=== PATIENT | female | born 1945 | race Caucasian/White ===

== ENCOUNTER 2016-06-28 10:35 | Outpatient (CLI) | payer MEDICARE, OTHER | END 2016-06-28 10:36 | disposition home or self-care (01) | DX: E11.65 Type 2 diabetes mellitus with hyperglycemia (principal) ==

== ENCOUNTER 2016-10-11 06:04 | Day surgery (SDC) | payer MEDICARE, OTHER ==
[2016-10-11] MEDS ORDERED: LACTATED RINGERS 1,000 ML IV ONE (06:54)
[2016-10-11] MEDS ORDERED: fentaNYL 100 MCG/2 ML VIAL IVP ONE (07:30)
[2016-10-11] MEDS ORDERED: MIDAZOLAM 2 MG/2 ML VIAL IVP ONE (07:30)
== END 2016-10-11 06:05 | disposition home or self-care (01) ==
PROC: 0DBL8ZX Excision of Transverse Colon, Via Natural or Artificial Opening Endoscopic, Diagnostic (ICD-10-PCS; 2016-10-11)
PROC: 0DBK8ZX Excision of Ascending Colon, Via Natural or Artificial Opening Endoscopic, Diagnostic (ICD-10-PCS; principal; 2016-10-11 07:30)
DX: Z12.11 Encounter for screening for malignant neoplasm of colon (principal); D12.3 Benign neoplasm of transverse colon; K64.4 Residual hemorrhoidal skin tags; K64.8 Other hemorrhoids; E11.9 Type 2 diabetes mellitus without complications; I10 Essential (primary) hypertension; J45.909 Unspecified asthma, uncomplicated
CPT/HCPCS: 45380; J7120

== ENCOUNTER 2016-10-29 06:51 | Outpatient (CLI) | payer MEDICARE, OTHER ==
[2016-10-29 13:48] LABS: CALCIUM 9.6 mg/dL (8.5-10.3); CREATININE 1.3 mg/dL (0.4-1.0)
[2016-10-29 14:22] LABS: HEMOGLOBIN A1C 0.98 g/dL
== END 2016-10-29 06:52 | disposition home or self-care (01) ==
LOC: LAB.WCP 06:51
PROVIDERS: ATTEND Family Medicine
DX: E11.42 Type 2 diabetes mellitus with diabetic polyneuropathy (principal)
CPT/HCPCS: 36415; 80048; 83036

== ENCOUNTER 2017-03-25 11:32 | Outpatient (CLI) | payer MEDICARE, OTHER ==
--- NOTE | 2017-03-26 19:07 | Mammography Report ---
DIGITAL SCREENING MAMMOGRAM: 03/25/2017 CLINICAL INDICATION: A 71-year-old nulliparous patient with family history of breast cancer, history of benign right breast biopsy for screening. COMPARISON: 02/2016, 02/2015, 02/2013. TECHNIQUE: Routine CC and MLO projections were obtained of the breasts. The breasts are large, and had to be imaged in segments, limiting the sensitivity of mammography. FINDINGS: The breasts again demonstrate scattered fibroglandular densities bilaterally. Postbiopsy changes in the right breast are stable. Coarse and punctate, typically benign calcifications are pre sent. No suspicious masses, clustered microcalcifications, or regions of architectural distortion ar e identified. IMPRESSION: BENIGN FINDINGS. RECOMMENDATION: Routine annual screening unless otherwise clinically indicated. BI-RADS category 2, benign findings. STANDARD QUALIFYING STATEMENTS 1. This examination was reviewed with the aid of Computer-Aided Detection (CAD). 2. A negative or benign imaging report should not delay biopsy if clinically suspicious findings are present. Consider surgical consultation if warranted. More than 5% of cancers are not identified by i maging. 3. Dense breasts may obscure an underlying neoplasm. JOB #: [id number] EXT JOB #:[id number]
== END 2017-03-25 11:33 | disposition home or self-care (01) ==
LOC: DI.N 11:32
PROVIDERS: ATTEND Family Medicine
DX: Z12.31 Encounter for screening mammogram for malignant neoplasm of breast (principal); Z80.3 Family history of malignant neoplasm of breast
CPT/HCPCS: 77067

== ENCOUNTER 2017-12-17 08:00 | Outpatient (CLI) | payer MEDICARE, OTHER ==
[2017-12-17 19:06] LABS: BASOPHILS % (AUTO) 0.4 %; EOSINOPHILS % (AUTO) 1.9 %; HGB - HEMOGLOBIN 14.4 g/dL (12.0-16.0); LYMPHOCYTES % (AUTO) 18.4 %; MEAN CORPUSCULAR HEMOGLOBIN 29.4 pg (27.0-31.0); MEAN CORPUSCULAR HGB CONC 33.3 g/dL (32.0-36.0); MEAN CORPUSCULAR VOLUME 88.2 fL (81.0-99.0); MONOCYTES % (AUTO) 7.6 %; NEUTROPHILS % (AUTO) 71.7 %; PLT - PLATELET COUNT 210 10^3/uL (130-450); RED CELL DISTRIBUTION WIDTH 15.4 % (12.0-15.0)
[2017-12-17 19:13] LABS: ABNORMAL LYMPHS % (MANUAL) 0 %; BAND NEUTROPHILS % (MANUAL) 0 %
[2017-12-17 19:29] LABS: DIFFERENTIAL COMMENT MANUAL DIFFERENTIAL; EOSINOPHILS # (MANUAL) 0.2 10^3/uL (0-0.7); HB2 TOTAL 15.5 g/dL; HEMOGLOBIN A1C 1.26 g/dL; HEMOGLOBIN A1C % 9.6 % (4.6-6.2); LYMPHOCYTES # (MANUAL) 1.6 10^3/uL (1.5-3.5); LYMPHOCYTES % (MANUAL) 20 %; MONOCYTES # (MANUAL) 0.2 10^3/uL (0.0-1.0); NEUTROPHILS % (MANUAL) 75 %; PLATELET ESTIMATE, MANUAL NORMAL (130-450,000) (NORMAL); PLATELET MORPHOLOGY NORMAL APPEARANCE (NORMAL); RBC MORPHOLOGY (MULTIPLE) 1+ ANISOCYTOSIS (NORMAL)
[2017-12-17 19:44] LABS: ALBUMIN 3.9 g/dL (3.2-5.5); ALKALINE PHOSPHATASE 95 IU/L (42-121); ALT ALANINE AMINOTRANSFERASE 26 IU/L (10-60); AST ASPARTATE AMINOTRANSFERASE 30 IU/L (10-42); BILIRUBIN,TOTAL 0.8 mg/dL (0.2-1.0); BUN - BLOOD UREA NITROGEN 25 mg/dL (6-20); CALCIUM 9.3 mg/dL (8.5-10.3); CARBON DIOXIDE - CO2 24 mmol/L (21-32); CHLORIDE 102 mmol/L (101-111); CHOL/HDL RATIO 3.4 (<4.4); CHOLESTEROL 155 mg/dL; CREATININE 1.5 mg/dL (0.4-1.0); GFR - MDRD 34 (>89); GLUCOSE 272 mg/dL (70-100); HDL CHOLESTEROL 46 mg/dL; LDL CHOLESTEROL,CALCULATED 70 mg/dL; LDL/HDL RATIO 1.5 (<4.4); SODIUM 136 mmol/L (135-145); TOTAL PROTEIN 7.7 g/dL (6.7-8.2); VLDL CHOLESTEROL 39 mg/dL
== END 2017-12-17 08:01 | disposition home or self-care (01) ==
LOC: LAB.WCP 08:00
PROVIDERS: ATTEND Family Medicine
DX: E11.42 Type 2 diabetes mellitus with diabetic polyneuropathy (principal)
CPT/HCPCS: 36415; 80053; 80061; 82043; 83036; 83721; 84443; 85025

== ENCOUNTER 2018-03-27 13:30 | Outpatient (CLI) | payer MEDICARE, OTHER ==
--- NOTE | 2018-03-28 09:40 | Mammography Report ---
Reason: SCREENING MAMMO Procedure Date: 03/27/2018 Accession Number: [id number] / [id number] Procedure: MGN - Screening Mammo Dig Bilat CPT Code: FULL RESULT: EXAM: Screening Mammo Dig Bilat DATE: 03/27/2018 2:02 PM CLINICAL HISTORY: Routine screening. Mother and sister with breast cancer. TECHNIQUE: Bilateral CC and MLO views were obtained. COMPARISON: 03/25/2017, 02/23/2016, 02/18/2015, and 03/04/2013 FINDINGS: There are scattered fibroglandular densities. Numerous scattered benign-appearing calcifications are stable. No suspicious masses or clustered microcalcifications. On the left there are 2 areas of asymmetric increased density seen best on the MLO projection which have been previously present but appear more apparent today. Suggest additional evaluation by spot compression and true lateral projections with possible ultrasound. IMPRESSION: Benign findings right breast. Needs additional evaluation left breast. RECOMMENDATION: Spot compression and true lateral views left breast. Possible ultrasound. BIRADS CATEGORY 0: Needs additional evaluation left breast. STANDARD QUALIFYING STATEMENTS: 1. This examination was reviewed with the aid of Computer-Aided Detection (CAD). 2. A negative or benign imaging report should not delay biopsy if clinically suspicious findings are present. Consider surgical consultation if warrented. More than 5% of cancers are not identified by imaging. 3. Dense breasts may obscure an underlying neoplasm.
== END 2018-03-27 13:31 | disposition home or self-care (01) ==
LOC: DI.N 13:30
DX: Z12.31 Encounter for screening mammogram for malignant neoplasm of breast (principal); Z80.3 Family history of malignant neoplasm of breast
CPT/HCPCS: 77067

== ENCOUNTER 2018-04-17 13:43 | Outpatient (CLI) | payer MEDICARE, OTHER ==
--- NOTE | 2018-04-18 11:46 | Mammography Report ---
Reason: ABN MAMMO - LT SPEC VIEWS Procedure Date: 04/17/2018 Accession Number: [id number] / [id number] Procedure: LENA - Diag Special Views Dig LT CPT Code: FULL RESULT: EXAM: Diag Special Views Dig LT DATE: 04/17/2018 4:09 PM CLINICAL HISTORY: Recall from recent screening for possible increasing asymmetry upper outer left breast. TECHNIQUE: Bilateral CC and MLO views were obtained. COMPARISON: 03/27/2018 through 03/04/2013 FINDINGS: Left breast: There is stable appearance of 2 one view asymmetries seen on MLO projections in the upper outer breast. Both areas appear to compress into normal appearing glandular elements on CC projections, and long-term stability is consistent with benign findings. There are no suspicious masses, calcifications or areas of distortion. IMPRESSION: Benign findings RECOMMENDATION: Routine annual screening unless otherwise clinically indicated. BI-RADS CATEGORY 2: Benign findings STANDARD QUALIFYING STATEMENTS: 1. This examination was not reviewed with the aid of Computer-Aided Detection (CAD). 2. A negative or benign imaging report should not preclude biopsy if clinically suspicious findings are present. 3. Dense breasts may obscure an underlying neoplasm. 4. This examination was reviewed without the aid of 3D breast imaging (tomosynthesis).
== END 2018-04-17 13:44 | disposition home or self-care (01) ==
LOC: DI 13:43
PROVIDERS: ATTEND Family Medicine
DX: R92.8 Other abnormal and inconclusive findings on diagnostic imaging of breast (principal)

== ENCOUNTER 2018-05-05 08:00 | Outpatient (CLI) | payer MEDICARE, OTHER ==
[2018-05-05 19:15] LABS: ALBUMIN/GLOBULIN RATIO 1.1 (1.0-2.2); ALKALINE PHOSPHATASE 77 IU/L (42-121); ALT ALANINE AMINOTRANSFERASE 20 IU/L (10-60); AST ASPARTATE AMINOTRANSFERASE 32 IU/L (10-42); BILIRUBIN,TOTAL 1.3 mg/dL (0.2-1.0); BUN - BLOOD UREA NITROGEN 19 mg/dL (6-20); CALCIUM 9.1 mg/dL (8.5-10.3); CARBON DIOXIDE - CO2 23 mmol/L (21-32); CHLORIDE 102 mmol/L (101-111); CHOL/HDL RATIO 3.7 (<4.4); CHOLESTEROL 174 mg/dL; CREATININE 1.3 mg/dL (0.4-1.0); GFR - MDRD 40 (>89); GLUCOSE 243 mg/dL (70-100); HDL CHOLESTEROL 47 mg/dL; LDL CHOLESTEROL,CALCULATED 84 mg/dL; LDL/HDL RATIO 1.8 (<4.4); SODIUM 134 mmol/L (135-145); TOTAL PROTEIN 7.7 g/dL (6.7-8.2); VLDL CHOLESTEROL 43 mg/dL
[2018-05-05 19:34] LABS: HB2 TOTAL 15.3 g/dL; HEMOGLOBIN A1C 1.24 g/dL; HEMOGLOBIN A1C % 9.6 % (4.6-6.2)
== END 2018-05-05 08:01 | disposition home or self-care (01) ==
LOC: LAB.WCP 08:00
PROVIDERS: ATTEND Family Medicine
DX: E11.9 Type 2 diabetes mellitus without complications (principal)
CPT/HCPCS: 36415; 80053; 80061; 83036; 83721

== ENCOUNTER 2018-08-22 08:00 | Outpatient (CLI) | payer MEDICARE, OTHER ==
[2018-08-22 19:59] LABS: HB2 TOTAL 15.4 g/dL; HEMOGLOBIN A1C 1.13 g/dL; HEMOGLOBIN A1C % 8.9 % (4.6-6.2)
[2018-08-22 20:30] LABS: ALBUMIN 4.1 g/dL (3.2-5.5); ALBUMIN/GLOBULIN RATIO 1.2 (1.0-2.2); ALKALINE PHOSPHATASE 66 IU/L (42-121); ALT ALANINE AMINOTRANSFERASE 41 IU/L (10-60); AST ASPARTATE AMINOTRANSFERASE 43 IU/L (10-42); BILIRUBIN,TOTAL 0.9 mg/dL (0.2-1.0); BUN - BLOOD UREA NITROGEN 14 mg/dL (6-20); CALCIUM 9.2 mg/dL (8.5-10.3); CARBON DIOXIDE - CO2 22 mmol/L (21-32); CHLORIDE 106 mmol/L (101-111); CHOLESTEROL 153 mg/dL; CREATININE 1.2 mg/dL (0.4-1.0); GFR - MDRD 44 (>89); GLUCOSE 271 mg/dL (70-100); HDL CHOLESTEROL 51 mg/dL; LDL CHOLESTEROL,CALCULATED 63 mg/dL; LDL/HDL RATIO 1.2 (<4.4); SODIUM 138 mmol/L (135-145); TOTAL PROTEIN 7.4 g/dL (6.7-8.2); VLDL CHOLESTEROL 39 mg/dL
[2018-08-25 13:31] LABS: HEPATITIS C ANTIBODY NON-REACTIVE (NON-REACTIVE)
== END 2018-08-22 23:59 | disposition home or self-care (01) ==
LOC: LAB.WCP 08:00
PROVIDERS: ATTEND Family Medicine
DX: E11.42 Type 2 diabetes mellitus with diabetic polyneuropathy (principal); Z11.59 Encounter for screening for other viral diseases
CPT/HCPCS: 36415; 80053; 80061; 83036; 83721; 86803

== ENCOUNTER 2019-02-25 08:00 | Outpatient (CLI) | payer MEDICARE, OTHER ==
[2019-02-25 18:32] LABS: CREATININE 1.3 mg/dL (0.4-1.0)
[2019-02-25 18:38] LABS: HB2 TOTAL 14.6 g/dL; HEMOGLOBIN A1C 0.92 g/dL; HEMOGLOBIN A1C % 7.9 % (4.6-6.2)
== END 2019-02-25 23:59 | disposition home or self-care (01) ==
LOC: LAB.WCP 08:00
PROVIDERS: ATTEND Family Medicine
DX: E11.65 Type 2 diabetes mellitus with hyperglycemia (principal); E11.8 Type 2 diabetes mellitus with unspecified complications
CPT/HCPCS: 36415; 80048; 83036

== ENCOUNTER 2019-12-23 15:30 | Outpatient (CLI) | payer MEDICARE, OTHER ==
[2019-12-23 18:51] LABS: BASOPHILS % (AUTO) 0.7 %; EOSINOPHILS # (AUTO) 0.1 10^3/uL (0.0-0.7); EOSINOPHILS % (AUTO) 1.3 %; HGB - HEMOGLOBIN 12.8 g/dL (12.0-16.0); LYMPHOCYTES % (AUTO) 16.4 %; MEAN CORPUSCULAR HEMOGLOBIN 30.8 pg (27.0-31.0); MEAN CORPUSCULAR HGB CONC 32.7 g/dL (32.0-36.0); MEAN PLATELET VOLUME 10.3 fL (7.9-10.8); MONOCYTES # (AUTO) 0.4 10^3/uL (0.0-1.0); MONOCYTES % (AUTO) 7.2 %; NEUTROPHILS # (AUTO) 4.6 10^3/uL (1.5-6.6); NEUTROPHILS % (AUTO) 73.9 %; PLT - PLATELET COUNT 198 10^3/uL (130-450); RED BLOOD COUNT 4.16 10^6/uL (4.20-5.40); RED CELL DISTRIBUTION WIDTH 13.2 % (12.0-15.0); WHITE BLOOD COUNT 6.2 x10^3/uL (4.8-10.8)
[2019-12-23 19:10] LABS: ALBUMIN/GLOBULIN RATIO 1.1 (1.0-2.2); ALKALINE PHOSPHATASE 61 IU/L (42-121); ALT ALANINE AMINOTRANSFERASE 25 IU/L (10-60); AST ASPARTATE AMINOTRANSFERASE 29 IU/L (10-42); BILIRUBIN,TOTAL 0.7 mg/dL (0.2-1.0); BUN - BLOOD UREA NITROGEN 21 mg/dL (6-20); CALCIUM 9.1 mg/dL (8.5-10.3); CARBON DIOXIDE - CO2 21 mmol/L (21-32); CHLORIDE 109 mmol/L (101-111); CHOL/HDL RATIO 3.2 (<4.4); CHOLESTEROL 179 mg/dL; CREATININE 1.4 mg/dL (0.4-1.0); GLUCOSE 151 mg/dL (70-100); HDL CHOLESTEROL 56 mg/dL; LDL CHOLESTEROL,CALCULATED 91 mg/dL; LDL/HDL RATIO 1.6 (<4.4); SODIUM 138 mmol/L (135-145); TOTAL PROTEIN 7.5 g/dL (6.7-8.2); VLDL CHOLESTEROL 32 mg/dL
[2019-12-23 19:50] LABS: HB2 TOTAL 13.9 g/dL; HEMOGLOBIN A1C 0.81 g/dL; HEMOGLOBIN A1C % 7.5 % (4.6-6.2)
== END 2019-12-23 23:59 | disposition home or self-care (01) ==
LOC: LAB.WCP 15:30
PROVIDERS: ATTEND Family Medicine
DX: E11.65 Type 2 diabetes mellitus with hyperglycemia (principal)
CPT/HCPCS: 36415; 80053; 80061; 82043; 82570; 83036; 83721; 84443; 85025

== ENCOUNTER 2020-01-22 12:59 | Outpatient (CLI) | payer MEDICARE, OTHER | END 2020-01-22 13:00 | disposition home or self-care (01) | LOC: DI 12:59 | PROVIDERS: ATTEND Family Medicine | DX: R01.1 Cardiac murmur, unspecified (principal); I51.7 Cardiomegaly | CPT/HCPCS: 93306 ==

== ENCOUNTER 2020-05-10 15:43 | Outpatient (CLI) | payer MEDICARE, OTHER ==
--- NOTE | 2020-05-11 05:43 | Mammography Report ---
BILATERAL DIGITAL SCREENING MAMMOGRAM 3D/2D: 05/10/2020 CLINICAL: Family history of breast cancer. Routine screening. Comparison is made to exams dated: 04/23/2019 mammogram, 04/17/2018 mammogram, 03/27/2018 mammogram, 03/25/2017 mammogram, 02/23/2016 mammogram, and 02/18/2015 mammogram - [facility]. T he tissue of both breasts is predominantly fatty. There are benign diffuse calcifications in both breasts. There also are benign vascular calcificatio ns in both breasts. No significant masses, calcifications, or other findings are seen in either breast. There has been no significant interval change. IMPRESSION: BENIGN There is no mammographic evidence of malignancy. A 1 year screening mammogram is recommended. This exam was interpreted at Station ID: [id number]. NOTE: For mammograms, a report in lay terms will be sent to the patient. Approximately 15% of breast malignancies will not be visualized mammographically. In the management of a palpable breast mass, a negative mammogram must not discourage biopsy of a clinically suspicious lesion. Electronically Signed By: Florentino Castro acr/penrad:05/10/2020 17:33:21 ACR BI-RADS Category 2: Benign Finding(s) 3342F PARENCHYMAL PATTERN: (F) - The breast(s) demonstrate(s) diffuse fatty replacement. BI-RADS CATEGORY: (2) - 2 RECOMMENDATION: (ANNUAL) - Recommend routine annual screening mammography. [id number] 1 year screening LATERALITY: (B)
== END 2020-05-10 15:44 | disposition home or self-care (01) ==
LOC: DI.N 15:43
DX: Z12.31 Encounter for screening mammogram for malignant neoplasm of breast (principal)

== ENCOUNTER 2020-06-30 13:58 | Outpatient (CLI) | payer MEDICARE, OTHER ==
--- NOTE | 2020-06-30 17:19 | XRAY Report ---
PROCEDURE: Foot 2 View RT INDICATIONS: RIGHT FOOT PAIN TECHNIQUE: 2 views of the foot were acquired. COMPARISON: None FINDINGS: Bones: There is a nondisplaced fracture at the base of the first proximal phalanx extending to the ar ticular surface. No suspicious bony lesions. Scattered IP degenerative changes are present. Soft tissues: No tibiotalar joint effusion. Achilles tendon appears normal. IMPRESSION: Nondisplaced, intra-articular first proximal phalanx fracture. Reviewed by: Brie Dickinson MD on 06/30/2020 5:18 PM [facility] Approved by: Brie Dickinson MD on 06/30/2020 5:18 PM [facility] Station ID: [id number]
--- NOTE | 2020-06-30 17:20 | XRAY Report ---
PROCEDURE: Ankle 3 View RT INDICATIONS: RIGHT ANKLE PAIN TECHNIQUE: 3 views of the ankle were acquired. COMPARISON: X-ray foot 06/30/2020 FINDINGS: Bones: First proximal phalanx fracture is noted. Ankle mortise is normally aligned. No suspicious araseli ny lesions. Soft tissues: No tibiotalar joint effusion. Achilles tendon appears normal. IMPRESSION: First proximal phalanx fracture, that are identified on x-ray foot of 06/30/2020. Reviewed by: Brie Dickinson MD on 06/30/2020 5:18 PM PST Approved by: Brie Dickinson MD on 06/30/2020 5:18 PM PST Station ID: [id number]
[2020-06-30 18:46] LABS: BASOPHILS % (AUTO) 0.6 %; EOSINOPHILS # (AUTO) 0.1 10^3/uL (0.0-0.7); EOSINOPHILS % (AUTO) 1.2 %; HGB - HEMOGLOBIN 13.7 g/dL (12.0-16.0); LYMPHOCYTES # (AUTO) 0.7 10^3/uL (1.5-3.5); LYMPHOCYTES % (AUTO) 10.8 %; MEAN CORPUSCULAR HEMOGLOBIN 30.2 pg (27.0-31.0); MEAN CORPUSCULAR HGB CONC 32.8 g/dL (32.0-36.0); MEAN CORPUSCULAR VOLUME 92.3 fL (81.0-99.0); MEAN PLATELET VOLUME 10.5 fL (7.9-10.8); MONOCYTES # (AUTO) 0.4 10^3/uL (0.0-1.0); MONOCYTES % (AUTO) 6.4 %; NEUTROPHILS # (AUTO) 5.6 10^3/uL (1.5-6.6); NEUTROPHILS % (AUTO) 80.7 %; PLT - PLATELET COUNT 228 10^3/uL (130-450); RED BLOOD COUNT 4.53 10^6/uL (4.20-5.40); RED CELL DISTRIBUTION WIDTH 13.2 % (12.0-15.0); WHITE BLOOD COUNT 6.9 x10^3/uL (4.8-10.8)
[2020-06-30 19:15] LABS: ALBUMIN 4.1 g/dL (3.2-5.5); ALBUMIN/GLOBULIN RATIO 1.2 (1.0-2.2); ALKALINE PHOSPHATASE 72 IU/L (42-121); ALT ALANINE AMINOTRANSFERASE 23 IU/L (10-60); AST ASPARTATE AMINOTRANSFERASE 30 IU/L (10-42); BILIRUBIN,TOTAL 0.9 mg/dL (0.2-1.0); BUN - BLOOD UREA NITROGEN 17 mg/dL (6-20); CALCIUM 9.5 mg/dL (8.5-10.3); CARBON DIOXIDE - CO2 22 mmol/L (21-32); CHLORIDE 102 mmol/L (101-111); CHOL/HDL RATIO 3.6 (<4.4); CHOLESTEROL 145 mg/dL; CREATININE 1.2 mg/dL (0.4-1.0); GLUCOSE 214 mg/dL (70-100); HDL CHOLESTEROL 40 mg/dL; LDL CHOLESTEROL,CALCULATED 71 mg/dL; LDL/HDL RATIO 1.8 (<4.4); TOTAL PROTEIN 7.4 g/dL (6.7-8.2); VLDL CHOLESTEROL 34 mg/dL
[2020-06-30 19:24] LABS: CREATININE,URINE 156.7 mg/dL; MICROALBUM/CREATININE RATIO,UR 38.9 ug/mg (<30.0); MICROALBUMIN,URINE 6.1 mg/dL (0-300.0)
[2020-06-30 20:53] LABS: HEMOGLOBIN A1c% 8.3 % (4.27-6.07)
== END 2020-06-30 23:59 | disposition home or self-care (01) ==
LOC: DI.WCP 13:58
PROVIDERS: ATTEND Family Medicine
DX: S92.414A Nondisplaced fracture of proximal phalanx of right great toe, initial encounter for closed fracture (principal); M25.571 Pain in right ankle and joints of right foot; E11.9 Type 2 diabetes mellitus without complications
CPT/HCPCS: 36415; 80053; 80061; 82043; 82570; 83036; 83721; 85025

== ENCOUNTER 2021-01-15 20:30 | Outpatient (CLI) | payer MEDICARE, OTHER | END 2021-01-15 20:31 | disposition EMS.NT | LOC: EMS 20:30 | DX: Z03.89 Encounter for observation for other suspected diseases and conditions ruled out (principal) ==

== ENCOUNTER 2021-01-16 10:44 | Outpatient (CLI) | payer MEDICARE, OTHER | END 2021-01-16 10:45 | disposition critical access hospital (66) | LOC: EMS 10:44 | DX: R53.1 Weakness (principal) | CPT/HCPCS: A0425; A0429 ==

== ENCOUNTER 2021-01-16 11:18 | Inpatient (IN) | payer MEDICARE, OTHER ==
[2021-01-16] MEDS ORDERED: SODIUM CHLORIDE 0.9% 1,000 ML IV STA ×2 (11:29→13:15)
[2021-01-16] MEDS ORDERED: ACETAMINOPHEN 325 MG TABLET PO STA (11:29)
--- NOTE | 2021-01-16 11:33 | ED Physician Documentation ---
History of Present Illness - Stated complaint Stated Complaint: WEAKNESS - History obtained from History obtained from: Patient, EMS - Additonal information Additional information: Patient comes to the emergency department with chief complaint of altered mental status and generalized weakness. Medics state they were called for the patient both last night and this morning because the patient had a fall from bed. It appears that the patient was trying to get into or out of bed and fall occurred. Patient herself states she remembers the fall but when asked what happened, she very quickly becomes incoherent. Patient denies complaints otherwise however. She denies any pain. Medics report that sister did not notice any acute injuries on the patient. They do state that sister said the patient has been increasingly weak in recent months and has been having frequent falls. She is a diabetic also. Medics report patient sugar was 396 in route. She is a diabetic. No cough or shortness of breath. No nausea or vomiting. No other complaints at this time. Review of Systems Ten Systems: 10 systems reviewed and negative Constitutional: reports: Reviewed and negative Eyes: reports: Reviewed and negative Ears: reports: Reviewed and negative Nose: reports: Reviewed and negative Throat: reports: Reviewed and negative Cardiac: reports: Reviewed and negative Respiratory: reports: Reviewed and negative GI: reports: Reviewed and negative : reports: Reviewed and negative Skin: reports: Reviewed and negative Musculoskeletal: reports: Reviewed and negative Neurologic: reports: Reviewed and negative Psychiatric: reports: Reviewed and negative Endocrine: reports: Reviewed and negative Immunocompromised: reports: Reviewed and negative PD PAST MEDICAL HISTORY - Past Medical History Cardiovascular: None, Hypertension, High cholesterol, Other Respiratory: Asthma Endocrine/Autoimmune: Type 2 diabetes GI: Other : None HEENT: Other Psych: None Musculoskeletal: Osteoarthritis Derm: None - Past Surgical History General: Colonoscopy Ortho: Knee replacement, Rotator cuff repair, Shoulder arthroplasty, Carpal Tunnel surgery, Other HEENT: Cataracts - Present Medications Home Medications: Ambulatory Orders Medication Instructions Recorded Confirmed Aspirin [Adult Low Dose Aspirin EC] 81 mg PO DAILY 10/11/16 10/11/16 Atorvastatin Calcium 40 mg PO DAILY 10/11/16 10/11/16 Glimepiride 2 mg PO BID 10/11/16 10/11/16 HYDROcodone/ACET 10/325 [[place] 10 1 each PO PRN PRN 10/11/16 10/11/16 mg/325 mg] Omeprazole [PriLOSEC] 20 mg PO DAILY 10/11/16 10/11/16 Sertraline HCl 100 mg PO DAILY 10/11/16 10/11/16 - Allergies Allergies/Adverse Reactions: Allergies Allergy/AdvReac Type Severity Reaction Status Date / Time No Known Drug Allergies Allergy Verified 01/16/21 11:35 PD ED PE NORMAL - Vitals Vital signs reviewed: Yes - General General: Alert and oriented X 3 (Answers orientation questions correctly x4. ), No acute distress, Well developed/nourished - HEENT HEENT: Atraumatic, PERRL, EOMI, Moist mucous membranes - Neck Neck: Supple, no meningeal sign - Cardiac Cardiac: No murmur, Strong equal pulses, Other ( Tachycardic regular rhythm.) - Respiratory Respiratory: No respiratory distress, Clear bilaterally - Abdomen Abdomen: Soft, Non tender, Non distended - Derm Derm: Normal color, No rash, Other (Skin is dry, feels hot.) - Extremities Extremities: No deformity, No edema, No calf tenderness / cord - Neuro Neuro: Alert and oriented X 3 (Answers all 4 orientation questions correctly, including the year and the president, but when asked a question that requires more than a yes or no answer, begins to answer correctly, then becomes incoherent with occasional inappropriate words for the question, mixed with unintelligible utterances.), truck bracer 2-12 intact, No motor deficit (No focal deficits.), No sensory deficit - Psych Psych: Normal mood, Normal affect Results - Vitals Vitals: Vital Signs - 24 hr 01/16/21 01/16/21 01/16/21 11:22 12:15 13:39 Temperature 38.3 C H 38.3 C H 37.1 C Heart Rate 115 H 115 H 102 H Heart Rate [ Brachial] Respiratory 24 24 18 Rate Blood Pressure 125/82 H 125/82 H 93/74 Blood Pressure [Right Brachial artery] O2 Saturation 96 96 95 01/16/21 01/16/21 01/16/21 15:00 17:00 18:03 Temperature 36.6 C 38.9 C H 38.6 C H Heart Rate 90 90 Heart Rate [ 91 Brachial] Respiratory 16 16 20 Rate Blood Pressure 112/58 L 112/58 L Blood Pressure 146/93 H [Right Brachial artery] O2 Saturation 98 100 98 0801/16/21 01/17/21 21:00 23:46 05:00 Temperature 38.9 C H 37.2 C 38.0 C H Heart Rate Heart Rate [ 87 101 H 97 Brachial] Respiratory 24 20 24 Rate Blood Pressure Blood Pressure 113/58 L 123/53 L 119/65 [Right Brachial artery] O2 Saturation 96 94 95 01/17/21 05:47 Temperature 37.7 C Heart Rate Heart Rate [ Brachial] Respiratory Rate Blood Pressure Blood Pressure [Right Brachial artery] O2 Saturation Oxygen O2 Source Room air - Labs Labs: Microbiology 01/16/21 11:54 Blood Culture - Preliminary Blood 01/16/21 12:12 Blood Culture - Preliminary Blood 01/16/21 11:54 Blood Culture (PCR) - Final Blood Laboratory Tests 01/16/21 01/16/21 01/16/21 11:54 11:54 11:54 WBC 16.3 H RBC 4.13 L Hgb 12.9 Hct 38.1 MCV 92.3 MCH 31.2 H MCHC 33.9 RDW 13.1 Plt Count 148 MPV 9.6 Neut # (Auto) 15.2 H Lymph # (Auto) 0.2 L Mccreary # (Auto) 0.5 Eos # (Auto) 0.2 Baso # (Auto) 0.1 Absolute Nucleated RBC 0.00 Total Counted Band Neuts % (Manual) Abnorm Lymph % (Manual) Nucleated RBC % 0.0 Neutrophils # (Manual) Lymphocytes # (Manual) Monocytes # (Manual) Eosinophils # (Manual) Basophils # (Manual) Differential Comment Platelet Estimate RBC Morph Micro Appear ESR PT INR Sodium 132 L Potassium 4.3 Chloride 99 L Carbon Dioxide 21 Anion Gap 12.0 BUN 25 H Creatinine 1.7 H Estimated GFR (MDRD) 29 L Glucose 338 H Lactic Acid 2.1 Calcium 8.8 Magnesium Total Bilirubin 2.0 H AST 75 H ALT 60 Alkaline Phosphatase 73 C-Reactive Protein Total Protein 7.2 Albumin 3.6 Globulin 3.6 Albumin/Globulin Ratio 1.0 Lipase 18 L Urine Color Urine Clarity Urine pH Ur Specific [place] Urine Protein Urine Glucose (UA) Urine Ketones Urine Occult Blood Urine Nitrite Urine Bilirubin Urine Urobilinogen Ur Leukocyte Esterase Urine RBC Urine WBC Ur Squamous Epith Cells Amorphous Sediment Urine Bacteria Ur Microscopic Review Urine Culture Comments Nasal Adenovirus (PCR) Nasal B. parapertussis DNA (PCR) Nasal Coronavir 229E PCR Nasal Coronavir HKU1 PCR Nasal Coronavir NL63 PCR Nasal Coronavir OC43 PCR Nasal Enterovir/Rhinovir PCR Nasal Influenza B PCR Nasal Influenza A PCR Nasal Parainfluen 1 PCR Nasal Parainfluen 2 PCR Nasal Parainfluen 3 PCR Nasal Parainfluen 4 PCR Nasal RSV (PCR) Nasal B.pertussis DNA PCR Nasal C.pneumoniae (PCR) Manuel Human Metapneumo PCR Nasal M.pneumoniae (PCR) Nasal SARS-CoV-2 (PCR) 01/16/21 01/16/21 01/16/21 11:54 11:54 12:15 WBC RBC Hgb Hct MCV MCH MCHC RDW Plt Count MPV Neut # (Auto) Lymph # (Auto) Mccreary # (Auto) Eos # (Auto) Baso # (Auto) Absolute Nucleated RBC Total Counted Band Neuts % (Manual) Abnorm Lymph % (Manual) Nucleated RBC % Neutrophils # (Manual) Lymphocytes # (Manual) Monocytes # (Manual) Eosinophils # (Manual) Basophils # (Manual) Differential Comment Platelet Estimate RBC Morph Micro Appear ESR 34 H PT INR Sodium Potassium Chloride Carbon Dioxide Anion Gap BUN Creatinine Estimated GFR (MDRD) Glucose Lactic Acid Calcium Magnesium Total Bilirubin AST ALT Alkaline Phosphatase C-Reactive Protein 21.6 H Total Protein Albumin Globulin Albumin/Globulin Ratio Lipase Urine Color Urine Clarity Urine pH Ur Specific [place] Urine Protein Urine Glucose (UA) Urine Ketones Urine Occult Blood Urine Nitrite Urine Bilirubin Urine Urobilinogen Ur Leukocyte Esterase Urine RBC Urine WBC Ur Squamous Epith Cells Amorphous Sediment Urine Bacteria Ur Microscopic Review Urine Culture Comments Nasal Adenovirus (PCR) NOT DETECTED Nasal B. parapertussis DNA (PCR) NOT DETECTED Nasal Coronavir 229E PCR NOT DETECTED Nasal Coronavir HKU1 PCR NOT DETECTED Nasal Coronavir NL63 PCR NOT DETECTED Nasal Coronavir OC43 PCR NOT DETECTED Nasal Enterovir/Rhinovir PCR NOT DETECTED Nasal Influenza B PCR NOT DETECTED Nasal Influenza A PCR NOT DETECTED Nasal Parainfluen 1 PCR NOT DETECTED Nasal Parainfluen 2 PCR NOT DETECTED Nasal Parainfluen 3 PCR NOT DETECTED Nasal Parainfluen 4 PCR NOT DETECTED Nasal RSV (PCR) NOT DETECTED Nasal B.pertussis DNA PCR NOT DETECTED Nasal C.pneumoniae (PCR) NOT DETECTED Manuel Human Metapneumo PCR NOT DETECTED Nasal M.pneumoniae (PCR) NOT DETECTED Nasal SARS-CoV-2 (PCR) NOT DETECTED 01/16/21 01/16/21 01/17/21 14:55 16:45 04:44 WBC 12.1 H RBC 3.89 L Hgb 11.9 L Hct 36.0 L MCV 92.5 MCH 30.6 MCHC 33.1 RDW 13.4 Plt Count 116 L MPV 10.2 Neut # (Auto) Not Reportable Lymph # (Auto) Not Reportable Mccreary # (Auto) Not Reportable Eos # (Auto) Not Reportable Baso # (Auto) Not Reportable Absolute Nucleated RBC Not Reportable Total Counted 100 Band Neuts % (Manual) 14 H Abnorm Lymph % (Manual) 0 Nucleated RBC % Not Reportable Neutrophils # (Manual) 11.1 H Lymphocytes # (Manual) 0.5 L Monocytes # (Manual) 0.5 Eosinophils # (Manual) 0.0 Basophils # (Manual) 0.0 Differential Comment MANUAL DIFFERENTIAL Platelet Estimate DECREASED (<130,000) RBC Morph Micro Appear NORMAL APPEARANCE ESR PT 15.2 H INR 1.4 H Sodium Potassium Chloride Carbon Dioxide Anion Gap BUN Creatinine Estimated GFR (MDRD) Glucose Lactic Acid Calcium Magnesium Total Bilirubin AST ALT Alkaline Phosphatase C-Reactive Protein Total Protein Albumin Globulin Albumin/Globulin Ratio Lipase Urine Color YELLOW Urine Clarity HAZY Urine pH 5.0 Ur Specific [place] 1.025 Urine Protein 30 H Urine Glucose (UA) 250 H Urine Ketones NEGATIVE Urine Occult Blood MODERATE H Urine Nitrite NEGATIVE Urine Bilirubin NEGATIVE Urine Urobilinogen 0.2 (NORMAL) Ur Leukocyte Esterase NEGATIVE Urine RBC 6-10 H Urine WBC 0-3 Ur Squamous Epith Cells MANY Squamous H Amorphous Sediment Rare Urine Bacteria Rare Ur Microscopic Review INDICATED Urine Culture Comments NOT INDICATED Nasal Adenovirus (PCR) Nasal B. parapertussis DNA (PCR) Nasal Coronavir 229E PCR Nasal Coronavir HKU1 PCR Nasal Coronavir NL63 PCR Nasal Coronavir OC43 PCR Nasal Enterovir/Rhinovir PCR Nasal Influenza B PCR Nasal Influenza A PCR Nasal Parainfluen 1 PCR Nasal Parainfluen 2 PCR Nasal Parainfluen 3 PCR Nasal Parainfluen 4 PCR Nasal RSV (PCR) Nasal B.pertussis DNA PCR Nasal C.pneumoniae (PCR) Manuel Human Metapneumo PCR Nasal M.pneumoniae (PCR) Nasal SARS-CoV-2 (PCR) 01/17/21 04:44 WBC RBC Hgb Hct MCV MCH MCHC RDW Plt Count MPV Neut # (Auto) Lymph # (Auto) Mccreary # (Auto) Eos # (Auto) Baso # (Auto) Absolute Nucleated RBC Total Counted Band Neuts % (Manual) Abnorm Lymph % (Manual) Nucleated RBC % Neutrophils # (Manual) Lymphocytes # (Manual) Monocytes # (Manual) Eosinophils # (Manual) Basophils # (Manual) Differential Comment Platelet Estimate RBC Morph Micro Appear ESR PT INR Sodium 129 L Potassium 4.1 Chloride 98 L Carbon Dioxide 20 L Anion Gap 11.0 BUN 28 H Creatinine 1.7 H Estimated GFR (MDRD) 29 L Glucose 267 H Lactic Acid Calcium 7.9 L Magnesium 1.8 Total Bilirubin AST ALT Alkaline Phosphatase C-Reactive Protein Total Protein Albumin Globulin Albumin/Globulin Ratio Lipase Urine Color Urine Clarity Urine pH Ur Specific [place] Urine Protein Urine Glucose (UA) Urine Ketones Urine Occult Blood Urine Nitrite Urine Bilirubin Urine Urobilinogen Ur Leukocyte Esterase Urine RBC Urine WBC Ur Squamous Epith Cells Amorphous Sediment Urine Bacteria Ur Microscopic Review Urine Culture Comments Nasal Adenovirus (PCR) Nasal B. parapertussis DNA (PCR) Nasal Coronavir 229E PCR Nasal Coronavir HKU1 PCR Nasal Coronavir NL63 PCR Nasal Coronavir OC43 PCR Nasal Enterovir/Rhinovir PCR Nasal Influenza B PCR Nasal Influenza A PCR Nasal Parainfluen 1 PCR Nasal Parainfluen 2 PCR Nasal Parainfluen 3 PCR Nasal Parainfluen 4 PCR Nasal RSV (PCR) Nasal B.pertussis DNA PCR Nasal C.pneumoniae (PCR) Manuel Human Metapneumo PCR Nasal M.pneumoniae (PCR) Nasal SARS-CoV-2 (PCR) - Rads (name of study) CXR Radiology: Final report received, EMP read indepedently, See rad report (neg) CT head Radiology: Final report received, EMP read indepedently, See rad report (neg) CT abd/pelv Radiology: Final report received, EMP read indepedently, See rad report (nad) PD MEDICAL DECISION MAKING - ED course Complexity details: reviewed results, re-evaluated patient, considered differential, d/w patient ED course: The patient was found to be febrile, and I suspected delirium from an infectious process. She was worked up for this with labs, urinalysis, and respiratory PCR, as well as chest x-ray. CTs abd/pelvis and head were also performed. She was given IV fluids and Tylenol. Surprisingly, the pt's infectious work-up was negative, except for significant leukocytosis and an elevated CRP, and she did improve after fluids and treatment of fever. Given the fever and delirium she presented with, though, as well as her status as a diabetic, I did speak with Dr. Claros, who agreed to admit the pt to his service. Her blood cultures are still pending at this time, and she has been given prophylactic antibiotics. Departure - Departure Disposition: ED Place in Observation Clinical Impression: Delirium, Febrile illness, acute Condition: Serious Discharge Date/Time: 01/16/21 17:49
--- NOTE | 2021-01-16 11:50 | XRAY Report ---
PROCEDURE: Chest 1 View X-Ray INDICATIONS: chest pain TECHNIQUE: One view of the chest was acquired. COMPARISON: None FINDINGS: Surgical changes and devices: None. Lungs and pleura: No pleural effusions or pneumothorax. Lungs are clear. Mediastinum: Mediastinal contours appear normal. Heart size is normal. Bones and chest wall: No suspicious bony lesions. Overlying soft tissues appear unremarkable. IMPRESSION: No acute cardiopulmonary abnormality. Reviewed by: Florentino Castro on 01/16/2021 11:49 AM PDT Approved by: Florentino Castro on 01/16/2021 11:49 AM PDT Station ID: [id number]
[2021-01-16 12:08] LABS: BASOPHILS # (AUTO) 0.1 10^3/uL (0.0-0.1); BASOPHILS % (AUTO) 0.3 %; EOSINOPHILS # (AUTO) 0.2 10^3/uL (0.0-0.7); EOSINOPHILS % (AUTO) 1.2 %; HCT - HEMATOCRIT 38.1 % (37.0-47.0); HGB - HEMOGLOBIN 12.9 g/dL (12.0-16.0); LYMPHOCYTES # (AUTO) 0.2 10^3/uL (1.5-3.5); LYMPHOCYTES % (AUTO) 1.2 %; MEAN CORPUSCULAR HEMOGLOBIN 31.2 pg (27.0-31.0); MEAN CORPUSCULAR HGB CONC 33.9 g/dL (32.0-36.0); MEAN CORPUSCULAR VOLUME 92.3 fL (81.0-99.0); MEAN PLATELET VOLUME 9.6 fL (7.9-10.8); MONOCYTES # (AUTO) 0.5 10^3/uL (0.0-1.0); MONOCYTES % (AUTO) 3.3 %; NEUTROPHILS # (AUTO) 15.2 10^3/uL (1.5-6.6); NEUTROPHILS % (AUTO) 93.1 %; PLT - PLATELET COUNT 148 10^3/uL (130-450); RED BLOOD COUNT 4.13 10^6/uL (4.20-5.40); RED CELL DISTRIBUTION WIDTH 13.1 % (12.0-15.0); WHITE BLOOD COUNT 16.3 x10^3/uL (4.8-10.8)
[2021-01-16 12:16] LABS: ALBUMIN 3.6 g/dL (3.2-5.5); CALCIUM 8.8 mg/dL (8.5-10.3); CREATININE 1.7 mg/dL (0.4-1.0); POTASSIUM 4.3 mmol/L (3.5-5.0); TOTAL PROTEIN 7.2 g/dL (6.7-8.2)
[2021-01-16 13:17] LABS: B. PARAPERTUSSIS- RESP PCR PAN NOT DETECTED; B. PERTUSSIS- RESP PCR PANEL NOT DETECTED; C. PNEUMONIAE- RESP PCR PANEL NOT DETECTED; CORONAVIRUS 229E-RESP PCR NOT DETECTED; CORONAVIRUS HKU1-RESP PCR NOT DETECTED; CORONAVIRUS NL63-RESP PCR NOT DETECTED; CORONAVIRUS OC43-RESP PCR NOT DETECTED; HUMAN METAPNEUMOVIRUS NOT DETECTED; INFLUENZA A- RESP PCR PANEL NOT DETECTED; INFLUENZA B - RESP PCR PANEL NOT DETECTED; M. PNEUMONIAE- RESP PCR PANEL NOT DETECTED; PARAINFLUENZA VIRUS 1 NOT DETECTED; PARAINFLUENZA VIRUS 2 NOT DETECTED; PARAINFLUENZA VIRUS 3 NOT DETECTED; PARAINFLUENZA VIRUS 4 NOT DETECTED; RHINOVIRUS/ENTEROVIRUS NOT DETECTED; RSV- RESP PCR PANEL NOT DETECTED; SARS-CoV-2 -RESP PCR PANEL NOT DETECTED
[2021-01-16 15:00] LABS: BILIRUBIN,URINE NEGATIVE (NEGATIVE); GLUCOSE, URINE (UA) 250 mg/dL (NEGATIVE); KETONES,URINE (UA) NEGATIVE (NEGATIVE); LEUKOCYTE ESTERASE, URINE NEGATIVE (NEGATIVE); NITRITE,URINE NEGATIVE (NEGATIVE); OCCULT BLOOD,URINE MODERATE (NEGATIVE); PROTEIN,URINE 30 mg/dL (NEGATIVE); UROBILINOGEN,URINE 0.2 (NORMAL) E.U./dL (NORMAL)
[2021-01-16 15:17] LABS: CLARITY,URINE HAZY (CLEAR)
[2021-01-16 15:32] LABS: SQUAMOUS EPITHELIAL CELL,UR MANY Squamous (<= Few); WBC,URINE 0-3 /HPF (0-5)
[2021-01-16 15:33] LABS: AMORPHOUS SEDIMENT,UR Rare /LPF; BACTERIA,URINE Rare /HPF (None Seen)
--- NOTE | 2021-01-16 15:47 | CT Report ---
PROCEDURE: Abdomen/Pelvis WO INDICATIONS: abd pain/fever TECHNIQUE: Noncontrast 5 mm thick sections acquired from the diaphragms to the symphysis. 5 mm coronal and sagi ttal reformats were then performed. For radiation dose reduction, the following was used: automated exposure control, adjustment of mA and/or kV according to patient size. COMPARISON: None. FINDINGS: ABDOMEN: Lung bases: Scattered subsegmental scarring/atelectasis. No acute consolidation. Heart: Moderate coronary artery calcifications. No pericardial effusion. Liver: Normal. Gallbladder: Multiple subcentimeter gallstones incidentally noted. No definite gallbladder wall thick ening. No definite pericholecystic inflammatory changes. Bile ducts: Normal. Pancreas: Normal. Spleen: There is mild splenomegaly. The spleen measures 13.2 cm in cephalocaudad dimension. Adrenals: Normal. Kidneys and ureters: Normal. Stomach and duodenum: Normal. Bowel: The appendix is not clearly identified however no suspicious inflammatory changes in the right lower quadrant. No definite bowel obstruction. There is mild to moderate stool. Other: No free fluid or air. Abdominal nodes: Normal. Aorta: Normal in sizel. There are numerous vascular calcifications. IVC: Normal. Ventral wall: Normal. PELVIS: Bladder: Decompressed related to a Delgado catheter. Pelvic nodes: Normal. Inguinal regions: No hernia. Bones: Diffuse spondylitic changes and facet arthropathy. Mild compression fractures of L3 and L4 whi ch are technically age indeterminate. IMPRESSION: Overall, no specific etiology for abdominal pain/fever. Mild splenomegaly Incidental noted cholelithiasis as above. No bowel obstruction. The appendix is not clearly identified however no suspicious inflammatory changes in the right lower quadrant. Age-indeterminate L3 and L4 mild compression fractures. Reviewed by: Oliver Champagne MD on 01/16/2021 3:45 PM PDT Approved by: Oliver Champagne MD on 01/16/2021 3:45 PM PDT Station ID: [id number]
[2021-01-16] MEDS ORDERED: VANCOMYCIN INJ 2 GM in SODIUM CHLORIDE 0.9% 500 ML IV STA (16:21)
[2021-01-16] MEDS ORDERED: CEFEPIME 2 GM in SODIUM CHLORIDE 0.9% MINIBAG 100 ML IV STA (16:21)
[2021-01-16] MEDS ORDERED: ONDANSETRON 4 MG/2 ML VIAL IVP PRN (16:39)
[2021-01-16] MEDS ORDERED: ONDANSETRON ODT 4 MG TABLET TL PRN (16:39)
--- NOTE | 2021-01-16 16:44 | CT Report ---
PROCEDURE: HEAD WO INDICATIONS: altered loc TECHNIQUE: Noncontrast 4.5 mm thick angled axial sections acquired from the foramen magnum to the vertex. For r adiation dose reduction, the following was used: automated exposure control, adjustment of mA and/or kV according to patient size. COMPARISON: None FINDINGS: Image quality: Limited by patient motion artifact. CSF spaces: Basal cisterns are patent. No extra-axial fluid collections. The ventricles are symmet richie in size and shape. Brain: No intracranial bleeds or masses. There is cerebral volume loss for age, with resultant vent ricular and sulcal prominence. There are periventricular and deep white matter chronic small vessel ischemic changes. There is intracranial internal carotid artery and vertebral artery atherosclerosis . Skull and face: Calvarium and visualized facial bones appear intact, without suspicious lesions. Sinuses: Visualized sinuses and mastoids are clear. IMPRESSION: No acute intracranial disease process. Reviewed by: Emerald Juárez MD, PhD on 01/16/2021 4:43 PM PDT Approved by: Emerald Juárez MD, PhD on 01/16/2021 4:43 PM PDT Station ID: [id number]
--- NOTE | 2021-01-16 16:47 | HISTORY & PHYSICAL EXAMINATION ---
Chief Complaint - Chief Complaint Chief Complaint: Fall History of Present Illness - Admitted From Admitted From:: Home - History Obtained From Records Reviewed: Yes History obtained from: Patient, ER Physician, EMR - History of Present Illness HPI Comment/Other: This is a 75-year-old female with a past medical history significant for insulin-dependent type 2 diabetes mellitus, chronic kidney disease stage III who presents today after a fall at home. She reports that she fell yesterday and again this morning. Yesterday she called EMS and they helped her get up back into bed. This morning when she fell she also called EMS they noted that she was somewhat confused. She was alert and oriented but her speech was quite tangential and they were concerned as this was a change compared to the day before. The patient states she feels well and has no acute complaints. She denies any chest pain, dyspnea, cough. Reports no dysuria, urgency, hematuria. She denies any joint pain. She denies headache, neck pain. When asked if she had back pain she said no but on exam she said she was a little tender in her lumbar spine. She states she normally walks with a walker at baseline that she does not fall quite often. She does not feel ill whatsoever. In the emergency department, she was noted to be febrile with a temperature of 38.3 C. Tachycardic with a heart in the 110s. Her blood pressure is 125/82. She was saturating well on room air. Labs were significant for a white count of 16.3 with a left shift. Her creatinine is elevated at 1.7. Her blood glucose was 338. Lactic acid was 2.1. He was elevated at 21.6. Her urinalysis revealed moderate occult blood and RBCs but no pyuria or leukocyte esterase or nitrites. She underwent a CT of the abdomen pelvis without contras without any acute abnormalities. CT of the head was also unremarkable. She was given vancomycin and cefepime in the emergency department. Given the above findings, medicine was consulted for admission. I did discuss goals of care with the patient and she would like to be a full code. History - Past Medical History Cardiovascular: reports: Hypertension, High cholesterol Respiratory: reports: Asthma Endocrine/Autoimmune: reports: Type 2 diabetes : reports: None HEENT: reports: Other Psych: reports: None Musculoskeletal: reports: Osteoarthritis Derm: reports: None MRSA Hx?: No - Past Surgical History General: reports: Colonoscopy Ortho: reports: Knee replacement, Rotator cuff repair, Shoulder arthroplasty, C arpal Tunnel surgery HEENT: reports: Cataracts - Family & Social History Family History Comment/Other: She reports her father had colon cancer but from liver disease. Her mother had breast cancer. Living arrangement: At home Living Situation: With family Social History Notes: She lives at home with her sister. She denies smoking or alcohol use. Meds/Allgy - Home Medications Home Medications: Ambulatory Orders Medication Instructions Recorded Confirmed Aspirin [Adult Low Dose Aspirin EC] 81 mg PO DAILY 10/11/16 10/11/16 Atorvastatin Calcium 40 mg PO DAILY 10/11/16 10/11/16 Glimepiride 2 mg PO BID 10/11/16 10/11/16 HYDROcodone/ACET 10/325 [[place] 10 1 each PO PRN PRN 10/11/16 10/11/16 mg/325 mg] Omeprazole [PriLOSEC] 20 mg PO DAILY 10/11/16 10/11/16 Sertraline HCl 100 mg PO DAILY 10/11/16 10/11/16 - Allergies Allergies/Adverse Reactions: Allergies Allergy/AdvReac Type Severity Reaction Status Date / Time No Known Drug Allergies Allergy Verified 01/16/21 11:35 Review of Systems - Constitutional Constitutional: denies: Fever, Chills - Ears, Nose & Throat Ears, Nose & Throat: denies: Nasal discharge, Nasal congestion - Cardiovascular Cariovascular: denies: Chest pain, Edema, Lightheadedness, Exertional dyspnea, Decr. exercise tolerance - Respiratory Respiratory: denies: Cough, Sputum production, SOB at rest, SOB with exertion - Gastrointestinal Gastrointestinal: denies: Abdominal pain, Nausea, Vomiting - Genitourinary Genitourinary: denies: Dysuria, Frequency, Urgency, Hematuria - Musculoskeletal Musculoskeletal: reports: Back pain. denies: Limited range of motion, Joint pain, Joint swelling - Integumentary Integumentary: denies: Rash, Pigment changes - Neurological Neurological: denies: General weakness, Focal weakness - Hematologic/Lymphatic Hematologic/Lymphatic: denies: Bleeding tendencies - All Other Systems All Other Systems: reports: Reviewed and negative Prior Level of Functionality: She ambulates with a walker at baseline. Exam - Vital Signs Reviewed Vital Signs: Yes Vital Signs: Vital Signs x48h Temp Pulse Resp BP Pulse Ox 01/16/21 15:00 36.6 C 90 16 112/58 L 98 01/16/21 13:39 37.1 C 102 H 18 93/74 95 01/16/21 12:15 38.3 C H 115 H 24 125/82 H 96 01/16/21 11:22 38.3 C H 115 H 24 125/82 H 96 - Physical Exam General Appearance: positive: No acute distress, Alert Eyes Bilateral: positive: Normal inspection, PERRL, Conjunctivae nml ENT: positive: ENT inspection nml Neck: positive: Nml inspection, Other (No nuchal rigidity). negative: Stiff neck, Kernig's sign, Brudzinski's sign Respiratory: positive: No respiratory distress. negative: Wheezes, Rales Cardiovascular: positive: Regular rate & rhythm, No murmur. negative: Tachycardia Abdomen: positive: Non-tender, No distention. negative: Tenderness, Guarding, Rebound Back: positive: Other (Lumbar spine tenderness. No thoracic or cervical spine t enderness.) Skin: positive: Warm, Dry. negative: Decubitus Extremities: positive: No pedal edema Neurologic/Psychiatric: positive: Sensation nml, Other (No focal deficits.). negative: Disoriented to person, Disoriented to place, Disoriented to time Sepsis Event Note (H) - Evaluation Current Stage of Sepsis: Sepsis Possible source of Sepsis: positive: Unknown - Sepsis Criteria Sepsis Criteria: Recorded Temperature greater than 38.3C or Less than 36C, Recorded Heart Rate greater than 90 bpm, WBC count greater than 12,000 or less than 4000, EQUAL OPPORTUNITY OFFICER: altered consciousness (unrelated to primary neuro pathology) Conclusion/Plan - Problem List (1) SIRS (systemic inflammatory response syndrome) Conclusion/Plan: He meets SIRS criteria given leukocytosis, fever, tachycardia. Her lactic acid is within normal limits. There has been no obvious source of infection as her chest x-ray unremarkable as well as urinalysis. CT of the abdomen and pelvis revealed no acute abnormalities. Her CRP is quite elevated at 22 and I am concerned for infection. She has no obvious joint pain to suggest a septic joint. She does complain of vague lower back pain upon questioning and so we will have to consider an abscess. She has no obvious rash or erythema to suggest cellulitis. We will keep her empirically on vancomycin and cefepime IV. We will likely proceed with a lumbar puncture given her altered mental status initially. We will also need to consider MRI of the lumbar spine to look for an epidural abscess. Follow-up blood cultures. Trend her CBC. (2) Altered mental status Conclusion/Plan: She was initially altered in the emergency department but this appears to be improved as her fever has resolved. She is alert and oriented and able to participate in a conversation. She was reportedly quite tangential early on and had a lot of "word salad. " Suspect this is related to her fever and concern for infection. We will treat her empirically with IV antibiotics as mentioned above. Low threshold to obtain a lumbar puncture to evaluate for meningitis/encephalitis. (3) Acute kidney injury superimposed on CKD Conclusion/Plan: She is acute kidney injury on top of her chronic kidney disease which like secondary to her diabetes. Her acute kidney injury suspect is prerenal. We will hydrate her with IV fluids and recheck renal function in the morning. (4) Insulin dependent type 2 diabetes mellitus Conclusion/Plan: She is hyperglycemic with a blood glucose greater than 300. We will place her on a sliding scale and give her 10 units of Lantus this evening. We will check an A1c. Carb controlled diet. - Lab Results Lab results reviewed: Yes Fish Bones: 01/16/21 11:54 01/16/21 11:54 - Diagnostic Imaging Results Diagnostic Imaging Results: positive: Final report reviewed Core Measures - Anticipated LOS I expect patient to be DC'd or transferred within 96 hours.: Yes - Issues Hospital Issues and Management Plan: 75-year-old female presents after a fall at home found to be altered with a fever and leukocytosis with concern for potential sepsis. She will be placed in observation for empiric IV antibiotics and further infectious work-up. - DVT/VTE - Prophylaxis VTE/DVT Device ordered at admit?: Yes VTE/DVT Prophylaxis med ordered at admit?: No
[2021-01-16 16:55] LABS: INR 1.4 (0.8-1.2); PT - PROTHROMBIN TIME 15.2 secs (9.9-12.6)
[2021-01-16] MEDS: SODIUM CHLORIDE FLUSH 0.9% 10 ML SYRINGE IVP SCH ×2 (19:17→23:36)
[2021-01-16] MEDS: LACTATED RINGERS 1,000 ML IV SCH (19:17)
[2021-01-16] MEDS: INSULIN ASPART 300 UNIT/3 ML PEN SUBQ SCH (21:27)
[2021-01-16] MEDS: INSULIN GLARGINE 300 UNIT/3 ML PEN SUBQ SCH (21:27)
[2021-01-16] MEDS: ACETAMINOPHEN 325 MG TABLET PO PRN (21:33)
[2021-01-17] MEDS: CEFEPIME 2 GM in SODIUM CHLORIDE 0.9% MINIBAG 100 ML IV SCH ×2 (04:50→17:51)
[2021-01-17] MEDS: LACTATED RINGERS 1,000 ML IV SCH (04:50)
[2021-01-17] MEDS: ACETAMINOPHEN 325 MG TABLET PO PRN (04:56)
[2021-01-17 05:10] LABS: BASOPHILS % (AUTO) 0.4 %; EOSINOPHILS % (AUTO) 2.2 %; HGB - HEMOGLOBIN 11.9 g/dL (12.0-16.0); LYMPHOCYTES % (AUTO) 3.3 %; MEAN CORPUSCULAR HEMOGLOBIN 30.6 pg (27.0-31.0); MEAN CORPUSCULAR HGB CONC 33.1 g/dL (32.0-36.0); MEAN CORPUSCULAR VOLUME 92.5 fL (81.0-99.0); MEAN PLATELET VOLUME 10.2 fL (7.9-10.8); MONOCYTES % (AUTO) 4.9 %; PLT - PLATELET COUNT 116 10^3/uL (130-450); RED BLOOD COUNT 3.89 10^6/uL (4.20-5.40); RED CELL DISTRIBUTION WIDTH 13.4 % (12.0-15.0); WHITE BLOOD COUNT 12.1 x10^3/uL (4.8-10.8)
[2021-01-17 05:19] LABS: CALCIUM 7.9 mg/dL (8.5-10.3); CREATININE 1.7 mg/dL (0.4-1.0); MAGNESIUM 1.8 mg/dL (1.7-2.8); POTASSIUM 4.1 mmol/L (3.5-5.0)
[2021-01-17 05:21] LABS: ABNORMAL LYMPHS % (MANUAL) 0 %
[2021-01-17 06:21] LABS: BAND NEUTROPHILS % (MANUAL) 14 %; DIFFERENTIAL COMMENT MANUAL DIFFERENTIAL; LYMPHOCYTES # (MANUAL) 0.5 10^3/uL (1.5-3.5); LYMPHOCYTES % (MANUAL) 4 %; MONOCYTES # (MANUAL) 0.5 10^3/uL (0.0-1.0); NEUTROPHILS # (MANUAL) 11.1 10^3/uL (1.5-6.6); PLATELET ESTIMATE, MANUAL DECREASED (<130,000) (NORMAL); RBC MORPHOLOGY (MULTIPLE) NORMAL APPEARANCE (NORMAL)
--- NOTE | 2021-01-17 06:59 | PROVIDER PROGRESS NOTE ---
Subjective - Prog Note Date Prog Note Date: 01/17/21 Prog Note Time: 06:56 - Subjective Pt reports feeling: Improved Subjective: Is that she knows where she is, feels better, but is very weak. She is asking for water and keeps on trying to lick her lips with a dry tongue. She is also asking for breakfast because she is hungry. She denies headache, blurred vision, nuchal pain. She says her back pain is present only when she tries to get up and walk. Is been present for a very long time. Not necessarily a new problem. On a scale of 1-10 the pain is a 4 out of a 10 when present. Overnight she is continued to have fevers of over 38. Blood cultures are positive for gram-positive cocci. Current Medications - Current Medications Current Medications: Active Medications Acetaminophen (Acetaminophen 325 Mg Tablet) 650 mg PO Q4HR PRN PRN Reason: Pain 1 to 4 Last Admin: 01/17/21 04:56 Dose: 650 mg Documented by: Enoxaparin Sodium (Enoxaparin 40 Mg/0.4 Ml Syringe) 40 mg SUBQ DAILY [facility] Lactated Ringer's (Lr) 1,000 mls @ 100 mls/hr IV .Q10H [facility] Stop: 01/17/21 12:59 Last Admin: 01/17/21 04:50 Dose: 100 mls/hr Documented by: Cefepime HCl 2 gm/ Sodium (Chloride) 100 mls @ 200 mls/hr IV Q12H [facility] Last Infusion: 01/17/21 05:41 Dose: Infused Documented by: Vancomycin HCl 1 gm/ Sodium (Chloride) 250 mls @ 167 mls/hr IV Q24H [facility] Insulin Aspart (Insulin Aspart 300 Unit/3 Ml Pen) 1 - 9 unit SUBQ 0800,1200,17 00,2100 [facility]; Protocol Last Admin: 01/16/21 21:27 Dose: 7 unit Documented by: Insulin Glargine (Insulin Glargine 300 Unit/3 Ml Pen) 10 unit SUBQ QPM [facility] Last Admin: 01/16/21 21:27 Dose: 10 unit Documented by: Ondansetron HCl (Ondansetron Odt 4 Mg Tablet) 4 mg TL Q6HR PRN PRN Reason: Nausea / Vomiting Ondansetron HCl (Ondansetron 4 Mg/2 Ml Vial) 4 mg IVP Q6HR PRN PRN Reason: Nausea / Vomiting Polyethylene Glycol (Polyethylene Glycol 3350 17 Gm Packet) 17 gm PO DAILY [facility] Sodium Chloride (Sodium Chloride Flush 0.9% 10 Ml Syringe) 10 ml IVP PRN PRN PRN Reason: NEEDED PER PROVIDER ORDERS Sodium Chloride (Sodium Chloride Flush 0.9% 10 Ml Syringe) 10 ml IVP 0100,0900,1700 EDUARDA Last Admin: 01/16/21 23:36 Dose: Not Given Documented by: Aspirin [Adult Low Dose Aspirin EC] 81 mg PO DAILY 10/11/16 Atorvastatin Calcium 40 mg PO DAILY 10/11/16 Glimepiride 2 mg PO BID 10/11/16 HYDROcodone/ACET 10/325 [Pablo 10 mg/325 mg] 1 each PO PRN PRN 10/11/16 Omeprazole [PriLOSEC] 20 mg PO DAILY 10/11/16 Sertraline HCl 100 mg PO DAILY 10/11/16 Objective - Vital Signs/Intake & Output Reviewed Vital Signs: Yes Vital Signs: Vital Signs x48h Temp Pulse Resp BP Pulse Ox 01/17/21 05:47 37.7 C 01/17/21 05:00 38.0 C H 97 24 119/65 95 01/16/21 23:46 37.2 C 101 H 20 123/53 L 94 Intake & Output: Intake & Output 01/14/21 01/15/21 01/16/21 01/17/21 23:59 23:59 23:59 23:59 Intake Total 2850 1600 Output Total 375 400 Balance 2475 1200 - Objective General Appearance: positive: No acute distress, Alert (But sleepy and still a little confused. She thinks it is still the evening of admission and does not recognize it is the morning after admission. Is telling us that we have never fed her and forgets she ate a little bit last night. Breakfast is arriving soon.) Eyes Bilateral: positive: PERRL, EOMI ENT: positive: Dry mucous membranes (Still very dry lips, that are cracked. Tongue is rough and dry. Asking for water.) Neck: positive: Other (Unable to assess for JVD in this very thick neck. But no nuchal rigidity.). negative: Stiff neck Respiratory: positive: No respiratory distress, Other (Slow, shallow, unlabored respiration with diminished breath sounds at the bases). negative: Wheezes, Rales, Rhonchi Cardiovascular: positive: Regular rate & rhythm, Systolic murmur. negative: Gallop/S4, Friction rub Abdomen: positive: Non-tender, No organomegaly, Nml bowel sounds, No distention, Other (Huge, large, abdominal pannus. Wearing a diaper and incontinent of urine.) Skin: positive: Warm, Dry, Pallor Extremities: positive: Full ROM, Pedal edema Neurologic/Psychiatric: positive: CN's nml (2-12), Motor nml, Disoriented to time, Weakness (Generalized. She is using her arms to try and leverage herself up to a sitting position. Needs assist from the aide. She is restlessly moving her legs back and forth.) - Lab Results Fish Bones: 01/17/21 04:44 01/17/21 04:44 Other Labs: Lab Results x24hrs 01/17/21 01/17/21 01/16/21 Range/Units 04:44 04:44 16:45 WBC 12.1 H (4.8-10.8) x10^3/uL RBC 3.89 L (4.20-5.40) 10^6/uL Hgb 11.9 L (12.0-16.0) g/dL Hct 36.0 L (37.0-47.0) % MCV 92.5 (81.0-99.0) fL MCH 30.6 (27.0-31.0) pg MCHC 33.1 (32.0-36.0) g/dL RDW 13.4 (12.0-15.0) % Plt Count 116 L (130-450) 10^3/uL MPV 10.2 (7.9-10.8) fL Neut # (Auto) Not Reportable (1.5-6.6) 10^3/uL Lymph # (Auto) Not Reportable (1.5-3.5) 10^3/uL Hughes # (Auto) Not Reportable (0.0-1.0) 10^3/uL Eos # (Auto) Not Reportable (0.0-0.7) 10^3/uL Baso # (Auto) Not Reportable (0.0-0.1) 10^3/uL Absolute Nucleated RBC Not Reportable x10^3/uL Total Counted 100 Band Neuts % (Manual) 14 H (0 - 10) % Abnorm Lymph % (Manual) 0 % Nucleated RBC % Not Reportable /100WBC Neutrophils # (Manual) 11.1 H (1.5-6.6) 10^3/uL Lymphocytes # (Manual) 0.5 L (1.5-3.5) 10^3/uL Monocytes # (Manual) 0.5 (0.0-1.0) 10^3/uL Eosinophils # (Manual) 0.0 (0-0.7) 10^3/uL Basophils # (Manual) 0.0 (0-0.1) 10^3/uL Differential Comment MANUAL DIFFERENTIAL Platelet Estimate DECREASED (<130,000) (NORMAL) RBC Morph Micro Appear NORMAL APPEARANCE (NORMAL) ESR (0-30) mm/Hr PT 15.2 H (9.9-12.6) secs INR 1.4 H (0.8-1.2) Sodium 129 L (135-145) mmol/L Potassium 4.1 (3.5-5.0) mmol/L Chloride 98 L (101-111) mmol/L Carbon Dioxide 20 L (21-32) mmol/L Anion Gap 11.0 (6-13) BUN 28 H (6-20) mg/dL Creatinine 1.7 H (0.4-1.0) mg/dL Estimated GFR (MDRD) 29 L (>89) Glucose 267 H (70-100) mg/dL Lactic Acid (0.5-2.2) mmol/L Calcium 7.9 L (8.5-10.3) mg/dL Magnesium 1.8 (1.7-2.8) mg/dL Total Bilirubin (0.2-1.0) mg/dL AST (10-42) IU/L ALT (10-60) IU/L Alkaline Phosphatase (42-121) IU/L C-Reactive Protein (0-1.0) mg/dL Total Protein (6.7-8.2) g/dL Albumin (3.2-5.5) g/dL Globulin (2.1-4.2) g/dL Albumin/Globulin Ratio (1.0-2.2) Lipase (22-51) U/L Urine Color Urine Clarity (CLEAR) Urine pH (5.0-7.5) PH Ur Specific [place] (1.002-1.030) Urine Protein (NEGATIVE) mg/dL Urine Glucose (UA) (NEGATIVE) mg/dL Urine Ketones (NEGATIVE) mg/dL Urine Occult Blood (NEGATIVE) Urine Nitrite (NEGATIVE) Urine Bilirubin (NEGATIVE) Urine Urobilinogen (NORMAL) E.U./dL Ur Leukocyte Esterase (NEGATIVE) Urine RBC (0-5) /HPF Urine WBC (0-5) /HPF Ur Squamous Epith Cells (<= Few) Amorphous Sediment /LPF Urine Bacteria (None Seen) /HPF Ur Microscopic Review Urine Culture Comments Nasal Adenovirus (PCR) Nasal B. parapertussis DNA (PCR) Nasal Coronavir 229E PCR Nasal Coronavir HKU1 PCR Nasal Coronavir NL63 PCR Nasal Coronavir OC43 PCR Nasal Enterovir/Rhinovir PCR Nasal Influenza B PCR Nasal Influenza A PCR Nasal Parainfluen 1 PCR Nasal Parainfluen 2 PCR Nasal Parainfluen 3 PCR Nasal Parainfluen 4 PCR Nasal RSV (PCR) Nasal B.pertussis DNA PCR Nasal C.pneumoniae (PCR) Manuel Human Metapneumo PCR Nasal M.pneumoniae (PCR) Nasal SARS-CoV-2 (PCR) 01/16/21 01/16/21 01/16/21 Range/Units 14:55 12:15 11:54 WBC (4.8-10.8) x10^3/uL RBC (4.20-5.40) 10^6/uL Hgb (12.0-16.0) g/dL Hct (37.0-47.0) % MCV (81.0-99.0) fL MCH (27.0-31.0) pg MCHC (32.0-36.0) g/dL RDW (12.0-15.0) % Plt Count (130-450) 10^3/uL MPV (7.9-10.8) fL Neut # (Auto) (1.5-6.6) 10^3/uL Lymph # (Auto) (1.5-3.5) 10^3/uL Hughes # (Auto) (0.0-1.0) 10^3/uL Eos # (Auto) (0.0-0.7) 10^3/uL Baso # (Auto) (0.0-0.1) 10^3/uL Absolute Nucleated RBC x10^3/uL Total Counted Band Neuts % (Manual) (0 - 10) % Abnorm Lymph % (Manual) % Nucleated RBC % /100WBC Neutrophils # (Manual) (1.5-6.6) 10^3/uL Lymphocytes # (Manual) (1.5-3.5) 10^3/uL Monocytes # (Manual) (0.0-1.0) 10^3/uL Eosinophils # (Manual) (0-0.7) 10^3/uL Basophils # (Manual) (0-0.1) 10^3/uL Differential Comment Platelet Estimate (NORMAL) RBC Morph Micro Appear (NORMAL) ESR 34 H (0-30) mm/Hr PT (9.9-12.6) secs INR (0.8-1.2) Sodium (135-145) mmol/L Potassium (3.5-5.0) mmol/L Chloride (101-111) mmol/L Carbon Dioxide (21-32) mmol/L Anion Gap (6-13) BUN (6-20) mg/dL Creatinine (0.4-1.0) mg/dL Estimated GFR (MDRD) (>89) Glucose (70-100) mg/dL Lactic Acid (0.5-2.2) mmol/L Calcium (8.5-10.3) mg/dL Magnesium (1.7-2.8) mg/dL Total Bilirubin (0.2-1.0) mg/dL AST (10-42) IU/L ALT (10-60) IU/L Alkaline Phosphatase (42-121) IU/L C-Reactive Protein (0-1.0) mg/dL Total Protein (6.7-8.2) g/dL Albumin (3.2-5.5) g/dL Globulin (2.1-4.2) g/dL Albumin/Globulin Ratio (1.0-2.2) Lipase (22-51) U/L Urine Color YELLOW Urine Clarity HAZY (CLEAR) Urine pH 5.0 (5.0-7.5) PH Ur Specific [place] 1.025 (1.002-1.030) Urine Protein 30 H (NEGATIVE) mg/dL Urine Glucose (UA) 250 H (NEGATIVE) mg/dL Urine Ketones NEGATIVE (NEGATIVE) mg/dL Urine Occult Blood MODERATE H (NEGATIVE) Urine Nitrite NEGATIVE (NEGATIVE) Urine Bilirubin NEGATIVE (NEGATIVE) Urine Urobilinogen 0.2 (NORMAL) (NORMAL) E.U./dL Ur Leukocyte Esterase NEGATIVE (NEGATIVE) Urine RBC 6-10 H (0-5) /HPF Urine WBC 0-3 (0-5) /HPF Ur Squamous Epith Cells MANY Squamous H (<= Few) Amorphous Sediment Rare /LPF Urine Bacteria Rare (None Seen) /HPF Ur Microscopic Review INDICATED Urine Culture Comments NOT INDICATED Nasal Adenovirus (PCR) NOT DETECTED Nasal B. parapertussis DNA (PCR) NOT DETECTED Nasal Coronavir 229E PCR NOT DETECTED Nasal Coronavir HKU1 PCR NOT DETECTED Nasal Coronavir NL63 PCR NOT DETECTED Nasal Coronavir OC43 PCR NOT DETECTED Nasal Enterovir/Rhinovir PCR NOT DETECTED Nasal Influenza B PCR NOT DETECTED Nasal Influenza A PCR NOT DETECTED Nasal Parainfluen 1 PCR NOT DETECTED Nasal Parainfluen 2 PCR NOT DETECTED Nasal Parainfluen 3 PCR NOT DETECTED Nasal Parainfluen 4 PCR NOT DETECTED Nasal RSV (PCR) NOT DETECTED Nasal B.pertussis DNA PCR NOT DETECTED Nasal C.pneumoniae (PCR) NOT DETECTED Manuel Human Metapneumo PCR NOT DETECTED Nasal M.pneumoniae (PCR) NOT DETECTED Nasal SARS-CoV-2 (PCR) NOT DETECTED 01/16/21 01/16/21 01/16/21 Range/Units 11:54 11:54 11:54 WBC (4.8-10.8) x10^3/uL RBC (4.20-5.40) 10^6/uL Hgb (12.0-16.0) g/dL Hct (37.0-47.0) % MCV (81.0-99.0) fL MCH (27.0-31.0) pg MCHC (32.0-36.0) g/dL RDW (12.0-15.0) % Plt Count (130-450) 10^3/uL MPV (7.9-10.8) fL Neut # (Auto) (1.5-6.6) 10^3/uL Lymph # (Auto) (1.5-3.5) 10^3/uL Hughes # (Auto) (0.0-1.0) 10^3/uL Eos # (Auto) (0.0-0.7) 10^3/uL Baso # (Auto) (0.0-0.1) 10^3/uL Absolute Nucleated RBC x10^3/uL Total Counted Band Neuts % (Manual) (0 - 10) % Abnorm Lymph % (Manual) % Nucleated RBC % /100WBC Neutrophils # (Manual) (1.5-6.6) 10^3/uL Lymphocytes # (Manual) (1.5-3.5) 10^3/uL Monocytes # (Manual) (0.0-1.0) 10^3/uL Eosinophils # (Manual) (0-0.7) 10^3/uL Basophils # (Manual) (0-0.1) 10^3/uL Differential Comment Platelet Estimate (NORMAL) RBC Morph Micro Appear (NORMAL) ESR (0-30) mm/Hr PT (9.9-12.6) secs INR (0.8-1.2) Sodium 132 L (135-145) mmol/L Potassium 4.3 (3.5-5.0) mmol/L Chloride 99 L (101-111) mmol/L Carbon Dioxide 21 (21-32) mmol/L Anion Gap 12.0 (6-13) BUN 25 H (6-20) mg/dL Creatinine 1.7 H (0.4-1.0) mg/dL Estimated GFR (MDRD) 29 L (>89) Glucose 338 H (70-100) mg/dL Lactic Acid 2.1 (0.5-2.2) mmol/L Calcium 8.8 (8.5-10.3) mg/dL Magnesium (1.7-2.8) mg/dL Total Bilirubin 2.0 H (0.2-1.0) mg/dL AST 75 H (10-42) IU/L ALT 60 (10-60) IU/L Alkaline Phosphatase 73 (42-121) IU/L C-Reactive Protein 21.6 H (0-1.0) mg/dL Total Protein 7.2 (6.7-8.2) g/dL Albumin 3.6 (3.2-5.5) g/dL Globulin 3.6 (2.1-4.2) g/dL Albumin/Globulin Ratio 1.0 (1.0-2.2) Lipase 18 L (22-51) U/L Urine Color Urine Clarity (CLEAR) Urine pH (5.0-7.5) PH Ur Specific [place] (1.002-1.030) Urine Protein (NEGATIVE) mg/dL Urine Glucose (UA) (NEGATIVE) mg/dL Urine Ketones (NEGATIVE) mg/dL Urine Occult Blood (NEGATIVE) Urine Nitrite (NEGATIVE) Urine Bilirubin (NEGATIVE) Urine Urobilinogen (NORMAL) E.U./dL Ur Leukocyte Esterase (NEGATIVE) Urine RBC (0-5) /HPF Urine WBC (0-5) /HPF Ur Squamous Epith Cells (<= Few) Amorphous Sediment /LPF Urine Bacteria (None Seen) /HPF Ur Microscopic Review Urine Culture Comments Nasal Adenovirus (PCR) Nasal B. parapertussis DNA (PCR) Nasal Coronavir 229E PCR Nasal Coronavir HKU1 PCR Nasal Coronavir NL63 PCR Nasal Coronavir OC43 PCR Nasal Enterovir/Rhinovir PCR Nasal Influenza B PCR Nasal Influenza A PCR Nasal Parainfluen 1 PCR Nasal Parainfluen 2 PCR Nasal Parainfluen 3 PCR Nasal Parainfluen 4 PCR Nasal RSV (PCR) Nasal B.pertussis DNA PCR Nasal C.pneumoniae (PCR) Manuel Human Metapneumo PCR Nasal M.pneumoniae (PCR) Nasal SARS-CoV-2 (PCR) 01/16/21 Range/Units 11:54 WBC 16.3 H (4.8-10.8) x10^3/uL RBC 4.13 L (4.20-5.40) 10^6/uL Hgb 12.9 (12.0-16.0) g/dL Hct 38.1 (37.0-47.0) % MCV 92.3 (81.0-99.0) fL MCH 31.2 H (27.0-31.0) pg MCHC 33.9 (32.0-36.0) g/dL RDW 13.1 (12.0-15.0) % Plt Count 148 (130-450) 10^3/uL MPV 9.6 (7.9-10.8) fL Neut # (Auto) 15.2 H (1.5-6.6) 10^3/uL Lymph # (Auto) 0.2 L (1.5-3.5) 10^3/uL Hughes # (Auto) 0.5 (0.0-1.0) 10^3/uL Eos # (Auto) 0.2 (0.0-0.7) 10^3/uL Baso # (Auto) 0.1 (0.0-0.1) 10^3/uL Absolute Nucleated RBC 0.00 x10^3/uL Total Counted Band Neuts % (Manual) (0 - 10) % Abnorm Lymph % (Manual) % Nucleated RBC % 0.0 /100WBC Neutrophils # (Manual) (1.5-6.6) 10^3/uL Lymphocytes # (Manual) (1.5-3.5) 10^3/uL Monocytes # (Manual) (0.0-1.0) 10^3/uL Eosinophils # (Manual) (0-0.7) 10^3/uL Basophils # (Manual) (0-0.1) 10^3/uL Differential Comment Platelet Estimate (NORMAL) RBC Morph Micro Appear (NORMAL) ESR (0-30) mm/Hr PT (9.9-12.6) secs INR (0.8-1.2) Sodium (135-145) mmol/L Potassium (3.5-5.0) mmol/L Chloride (101-111) mmol/L Carbon Dioxide (21-32) mmol/L Anion Gap (6-13) BUN (6-20) mg/dL Creatinine (0.4-1.0) mg/dL Estimated GFR (MDRD) (>89) Glucose (70-100) mg/dL Lactic Acid (0.5-2.2) mmol/L Calcium (8.5-10.3) mg/dL Magnesium (1.7-2.8) mg/dL Total Bilirubin (0.2-1.0) mg/dL AST (10-42) IU/L ALT (10-60) IU/L Alkaline Phosphatase (42-121) IU/L C-Reactive Protein (0-1.0) mg/dL Total Protein (6.7-8.2) g/dL Albumin (3.2-5.5) g/dL Globulin (2.1-4.2) g/dL Albumin/Globulin Ratio (1.0-2.2) Lipase (22-51) U/L Urine Color Urine Clarity (CLEAR) Urine pH (5.0-7.5) PH Ur Specific [place] (1.002-1.030) Urine Protein (NEGATIVE) mg/dL Urine Glucose (UA) (NEGATIVE) mg/dL Urine Ketones (NEGATIVE) mg/dL Urine Occult Blood (NEGATIVE) Urine Nitrite (NEGATIVE) Urine Bilirubin (NEGATIVE) Urine Urobilinogen (NORMAL) E.U./dL Ur Leukocyte Esterase (NEGATIVE) Urine RBC (0-5) /HPF Urine WBC (0-5) /HPF Ur Squamous Epith Cells (<= Few) Amorphous Sediment /LPF Urine Bacteria (None Seen) /HPF Ur Microscopic Review Urine Culture Comments Nasal Adenovirus (PCR) Nasal B. parapertussis DNA (PCR) Nasal Coronavir 229E PCR Nasal Coronavir HKU1 PCR Nasal Coronavir NL63 PCR Nasal Coronavir OC43 PCR Nasal Enterovir/Rhinovir PCR Nasal Influenza B PCR Nasal Influenza A PCR Nasal Parainfluen 1 PCR Nasal Parainfluen 2 PCR Nasal Parainfluen 3 PCR Nasal Parainfluen 4 PCR Nasal RSV (PCR) Nasal B.pertussis DNA PCR Nasal C.pneumoniae (PCR) Manuel Human Metapneumo PCR Nasal M.pneumoniae (PCR) Nasal SARS-CoV-2 (PCR) Sepsis Event Note (H) - Evaluation Current Stage of Sepsis: Sepsis Possible source of Sepsis: positive: Unknown - Sepsis Criteria Sepsis Criteria: Recorded Temperature greater than 38.3C or Less than 36C, R ecorded Heart Rate greater than 90 bpm, WBC count greater than 12,000 or less than 4000, MOLD FILLER: altered consciousness (unrelated to primary neuro pathology) Assessment/Plan - Problem List (1) SIRS (systemic inflammatory response syndrome) Impression: She meets SIRS criteria given leukocytosis, fever, tachycardia. Her lactic acid is within normal limits. There has been no obvious source of infection as her chest x-ray unremarkable as well as urinalysis. CT of the abdomen and pelvis revealed no acute abnormalities. Her CRP is quite elevated at 22 and we are concerned for infection. She has no obvious joint pain to suggest a septic joint. She complained of vague lower back pain on admission upon questioning a nd so we will have to consider an abscess. She has no obvious rash or erythema to suggest cellulitis. We started her empirically on vancomycin and cefepime IV. Overnight she continues to have fevers to over 38 degrees. White cell count has started at 16.3 and come down to 12.1 but she is much more aware. She is awake, alert, and asking for breakfast. She denies nuchal rigidity. Headache. Blurred vision. She says her back aches only a little bit and it has been aching for a long time now. Hurts only when she moves. Plan: Continue vancomycin and cefepime until cultures come back Order MRI of the spine but she is a very large lady of 113 kg with a wide girth. She may not be able to fit on the MRI scanner and may need CT. At this time without headache, nuchal rigidity, lumbar puncture may not be needed. With gram-positive cocci in blood cultures, she will need an echocardiogram. But her body habitus is going to be prohibitively difficult to have a good study. She may also need a transesophageal echo if we just cannot find any source of gram-positive cocci Continue to monitor, continue to check daily CBC Her sister has called us to ask for an update. I am the covering research nurse, and will pass that request on to the daytime hospitalist. (2) Altered mental status resolving Conclusion/Plan: She was initially altered in the emergency department and improved as her fever has resolved. She is alert and oriented and able to participate in a conversation. She was reportedly quite tangential early on and had a lot of "word salad. " Suspect this is related to her fever and concern for infection. We will treat her empirically with IV antibiotics as mentioned above. Low threshold to obtain a lumbar puncture to evaluate for meningitis/encephalitis. This morning she cannot remember much of last night. She knows that she is in the hospital today, and that she is here because she has a fever. Speech is lucid, sequential. Her main complaint right now is a very dry mouth. (3) Acute kidney injury superimposed on CKD Conclusion/Plan: She is acute kidney injury on top of her chronic kidney disease which like secondary to her diabetes. Her acute kidney injury suspect is prerenal. After hydration her BUN and creatinine still remain elevated. BUN 25>> 28 today. Creatinine 1.7>> 1.7 today. Sodium has come down to 129. Plan: Mouth continues to be quite dry and she continues to ask for water. We will continue to hydrate, avoid nephrotoxic agents, and continue to monitor BMP. Without obstruction of her renal system and a relatively unremarkable urinalysis, she is not being treated for UTI. Blood cultures are positive for gram-positive cocci. (4) Insulin dependent type 2 diabetes mellitus Conclusion/Plan: She is hyperglycemic with a blood glucose greater than 300. We will place her on a sliding scale and give her 10 units of Lantus on evening of admission. Glucose was 253 and 276 last night. This morning is pending. Plan: Continue Lantus and sliding scale insulin
[2021-01-17] MEDS ORDERED: SODIUM CHLORIDE 0.9% 500 ML IV ONE (07:45)
[2021-01-17] MEDS: INSULIN ASPART 300 UNIT/3 ML PEN SUBQ SCH ×4 (08:11→20:54)
[2021-01-17] MEDS: SODIUM CHLORIDE FLUSH 0.9% 10 ML SYRINGE IVP SCH ×2 (08:15→18:01)
[2021-01-17] MEDS ORDERED: polyethylene glycoL 3350 17 GM PACKET PO SCH (09:00)
[2021-01-17] MEDS ORDERED: ENOXAPARIN 40 MG/0.4 ML SYRINGE SUBQ SCH (09:00)
[2021-01-17] MEDS ORDERED: SODIUM CHLORIDE 0.9% 1,000 ML IV ONE (09:25)
[2021-01-17] MEDS ORDERED: GADOBUTROL 10 MMOL/10 ML VIAL ONE (10:16)
--- NOTE | 2021-01-17 12:01 | PROVIDER PROGRESS NOTE ---
Hospitalist Cross-cover Note - Cross-Cover Note Cross-Cover Note: RN informed this Hospitalist that BP low this a.m. at 80's systolic. A saline bolus of 500 cc was given. She is confused. BP still low after that at 88 systolic. Another saline bolus of 1000 cc given. EKG and troponins ordered. BP still low at 90 systolic. She is still confused, cannot describe what she wants accurately. EKG done (which I interpreted), it shows NSR, rate 93, RBBB, LAFB, flat T waves infero-laterally. No old EKG done here for comparison. First trop 4635. L.A. repeated and is 1.3. Patient ordered to be transferred to ICU, CVP line and Levophed drip. Patient evaluated as she was transferred to the ICU: BP 79, HR 90's in NSR, Alert, but confused, babbling, has audible wheezing, systolic heart murmur 1/6, no abd tenderness, trace ankle edema, skin warm and dry. Past records reviewed: Echo was done 1 year ago to evaluate systolic murmur. The Echo showed a IHSS with a systolic gradient of 30 mmHg in LV outflow tract. Normal LVEF 70% CXR ordered and was read as having CHF. Dobutamine and Levophed and a CVP line ordered. Second troponin 4375. Echo ordered and done today, it shows LVH, LVEF 60-70%, IHSS with a gradient in LVOT that increases with Valsalva and probably Aortic stenosis also present. A vegetation cannot be ruled out. I spoke to her sister at bedside and updated her on all the above. Imp: Hypotension Acute NSTEMI CHF, acute on chronic diastolic SIRS Bacteremia Altered mental status IHSS DM Acute on CKD Plan: Critical status, sister plans to stay at bedside (after she gets her own meds). ABG Brain CT regarding persistent AMS If no brain bleed, start aspirin, Heparin drip Start Levophed to achieve a MAP of 60, stop Dobutamine, avoid Dig Follow L.A., in case this is septic shock as well Slow iv fluids due to CHF Low dose B-rosy for rate control, once BP improved Continue empiric iv antibx Redraw blood cx to assure they are neg Will cancel the back MRI for today, since she is on iv drips that cannot be stopped She may need transfer for a SAVANNAH, ID consult and Cardiology management CRITICAL CARE TIME SPENT: 90 min
[2021-01-17] MEDS ORDERED: LACTATED RINGERS 1,000 ML IV SCH (12:52)
[2021-01-17] MEDS ORDERED: DOBUTamine 500 MG/250 ML 500 MG/250 ML BAG IV SCH (13:00)
--- NOTE | 2021-01-17 13:02 | XRAY Report ---
PROCEDURE: Chest for Line Placement INDICATIONS: CVP placed, new wheezing ? CHF TECHNIQUE: One view of the chest was acquired. COMPARISON: 01/16/2021. FINDINGS: Surgical changes and devices: Central venous catheter tip projects over the distal SVC via a right IJ approach. Lungs and pleura: No pleural effusions or pneumothorax. There is cephalization of pulmonary vasculat ure and interstitial prominence compatible CHF. Mediastinum: Mediastinal contours appear normal. Heart is enlarged Bones and chest wall: No suspicious bony lesions. Overlying soft tissues appear unremarkable. IMPRESSION: 1. CHF. 2. Tip of central venous catheter projects over the distal SVC. Reviewed by: Emerald Juárez MD, PhD on 01/17/2021 1:01 PM PDT Approved by: Emerald Juárez MD, PhD on 01/17/2021 1:01 PM PDT Station ID: [id number]
--- NOTE | 2021-01-17 13:03 | ANESTHESIA PROCEDURE NOTE ---
Anesth Central Line Template - Central Line Central Line Preparation: Consent Obtained, Time out completed, Ultrasound used, Sterile prep and drape Central line location: Right IJ Central line type: Triple lumen Central line catheter tip site resides: Superior vena cava (SVC) Central line aftercare: Chlorhexidine disc placed, Secured (sutured), Placement confirmed, No complications, Bundle checklist complete, Pt tolerated well
[2021-01-17 13:12] LABS: ABG PCO2 28 mmHg (34-45); ABG PH 7.45 (7.35-7.45)
[2021-01-17 13:13] LABS: ABG BASE EXCESS -3.7 mmol/L (-2.0-3.0); ABG HCO3 18.9 mmol/L (22.0-26.0); ABG OXYGEN SATURATION 94 % (94-98); ABG PO2 63 mmHg (80-100); ABG TCO2 19.8 MMOL/L (21.0-29.0)
[2021-01-17 13:14] LABS: ALLEN TEST POSITIVE
[2021-01-17] MEDS: SODIUM CHLORIDE FLUSH 0.9% 10 ML SYRINGE IVP PRN ×3 (13:16→20:04)
[2021-01-17 13:19] LABS: ESTIMATED AVERAGE GLUCOSE 220 mg/dL (70-100); HEMOGLOBIN A1c% 9.3 % (4.27-6.07)
[2021-01-17] MEDS: ASPIRIN EC 81 MG TABLET PO SCH (13:42)
[2021-01-17] MEDS ORDERED: VANCOMYCIN INJ 1.75 GM in SODIUM CHLORIDE 0.9% 500 ML IV SCH (17:00)
--- NOTE | 2021-01-17 17:24 | ADVANCE CARE PLANNING NOTE ---
Advance Care Planning - Planning Encounter Date: 01/17/21 Time: 15:00 Purpose: To clarify the patient's wishes regarding CODE STATUS and how aggressive to plan her care, given her new critical condition. Parties in Attendance: I spoke to the sister outside of the patient's room. Decisional Capacity of the Patient: The patient is currently confused, cannot accurately answer what she wants and is hypotensive in the ICU on IV pressors. - Encounter Subjective/Patient's Story: The sister describes that the patient is used to having her own way. She has never been , has no kids, has never lived alone, always gets everything she wants. Patient came to live with this sister several years ago. 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 She eats dinner at 10 PM and when the sister would make their food, the patient would simply throw it out "because she is picky". Now the patient mostly eats diet Dr. Chapman and ice cream also frozen dinners and [employer] sausages. She no longer drives. She is still alert and has all her faculties, according to the sister. Objective/Medical Story: Patient was admitted yesterday with a fever, diagnosed to have SIRS with unclear source of infection and has bacteremia. Today she has developed hypotension, acute NSTEMI, CHF, her Echo is showing LVH, normal LVEF with grade II diasyolic dysfunction, IHSS, LV outflow gradient and possible aortic stenosis prsent. Goals of Care: Her sister says that they never had a discussion about what the patient's wishes are if she should be critically ill or if she should need to be on a ventilator or if she should need CPR and resuscitation. Plan: We will continue with aggressive measures including IV pressors, ABG and intubate and placed on a ventilator if needed, full CODE STATUS including CPR and defibrillation if needed. Plan would also be to transfer to higher level of care if needed. Code Status: Attempt Resuscitation Time spent on advance care plannin min
--- NOTE | 2021-01-17 17:56 | CT Report ---
PROCEDURE: HEAD WO INDICATIONS: Altered mental status TECHNIQUE: Noncontrast 4.5 mm thick angled axial sections acquired from the foramen magnum to the vertex. For r adiation dose reduction, the following was used: automated exposure control, adjustment of mA and/or kV according to patient size. COMPARISON: 01/16/2021 FINDINGS: Image quality: Motion artifact is noted. There is streak artifact seen through the skull base. CSF spaces: Basal cisterns are patent. No extra-axial fluid collections. Ventricles are normal in size and shape. Brain: No midline shift. No intracranial masses or hemorrhage. Napier-white matter interface is norm al. Skull and face: Calvarium and visualized facial bones are intact, without suspicious lesions. Sinuses: Visualized sinuses and mastoids are clear. IMPRESSION: Limited intracranial study, without an acute abnormality identified. Reviewed by: Bimal Hyatt MD on 01/17/2021 4:55 PM AKKELLI Approved by: Bimal Hyatt MD on 01/17/2021 4:55 PM AKDT Station ID: [id number]
[2021-01-17 18:40] LABS: CALCIUM 7.7 mg/dL (8.5-10.3); CREATININE 1.8 mg/dL (0.4-1.0)
[2021-01-17] MEDS ORDERED: METOPROLOL 5 MG/5 ML VIAL IVP STA (19:16)
[2021-01-17] MEDS: INSULIN GLARGINE 300 UNIT/3 ML PEN SUBQ SCH (20:53)
[2021-01-17] MEDS: ENOXAPARIN 40 MG/0.4 ML SYRINGE SUBQ SCH (22:40)
[2021-01-18] MEDS ORDERED: METOPROLOL 5 MG/5 ML VIAL IVP SCH (01:20)
[2021-01-18] MEDS: SODIUM CHLORIDE FLUSH 0.9% 10 ML SYRINGE IVP SCH ×2 (03:44→09:00)
[2021-01-18] MEDS: CEFEPIME 2 GM in SODIUM CHLORIDE 0.9% MINIBAG 100 ML IV SCH (06:06)
--- NOTE | 2021-01-18 06:56 | Discharge Plan ---
Discharge Plan Problem Reviewed?: Yes Disposition: 02 Transfer Acute Care Hosp Condition: Serious Diet: Cardiac Health Concerns: Patient was admitted with SIRS because she was tachycardic, febrile and had a white count of 16. Blood cultures were subsequently positive for staph aureus x2. She subsequently became hypotensive and was transferred to the ICU. Initial troponin was 4600. 2D echocardiogram showed an S shaped septum concerning for hypertrophic cardiomyopathy. She is being transferred to [facility] under the care of Dr. Joy cardiology. While here at [facility] she was treated with vancomycin and cefepime. Ideally patient would need an MRI of the lumbar spine to rule out epidural abscess. She could benefit from an infectious disease consult. Patient would need a CT angio to rule out aortic dissection given significant disparity in blood pressure on both upper extremitiesHer sister Ladonna Jett consented over the phone for patient to be transferred. She is being transferred by ALS ground transport No Smoking: If you smoke, Please STOP! Call for help. Follow-up with: Jenae Narayanan DO [Primary Care Provider] -
--- NOTE | 2021-01-18 07:06 | Discharge Plan ---
Discharge Plan Condition: Serious No Smoking: If you smoke, Please STOP! Call for help. Follow-up with: Jenae Narayanan DO [Primary Care Provider] -
--- NOTE | 2021-01-18 07:09 | DISCHARGE SUMMARY ---
Discharge Summary Admit Date: 01/16/21 Discharge Date: 01/18/21 Discharging Provider: Ghulam Hogue Primary Care Provider: Maia Merchant Condition at Discharge: Serious Discharge Disposition: 02 Transfer Acute Care Hosp Discharge Facility Name: [facility] - DIAGNOSES Admission Diagnoses: SIRS Altered mental status Acute kidney injury superimposed on chronic kidney disease Insulin-dependent type 2 diabetes mellitus Discharge Diagnoses with Status of Each Condition: Hypotension NSTEMI CHF acute on chronic diastolic SIRS Bacteremia Altered mental status IHSS Diabetes mellitus - HPI History of Present Illness: This is a 75-year-old female with a past medical history significant for insulin-dependent type 2 diabetes mellitus, chronic kidney disease stage III who presents today after a fall at home. She reports that she fell yesterday and again this morning. Yesterday she called EMS and they helped her get up back into bed. This morning when she fell she also called EMS they noted that she was somewhat confused. She was alert and oriented but her speech was quite tangential and they were concerned as this was a change compared to the day before. The patient states she feels well and has no acute complaints. She denies any chest pain, dyspnea, cough. Reports no dysuria, urgency, hematuria. She denies any joint pain. She denies headache, neck pain. When asked if she had back pain she said no but on exam she said she was a little tender in her lumbar spine. She states she normally walks with a walker at baseline that she does not fall quite often. She does not feel ill whatsoever. In the emergency department, she was noted to be febrile with a temperature of 38.3 C. Tachycardic with a heart in the 110s. Her blood pressure is 125/82. She was saturating well on room air. Labs were significant for a white count of 16.3 with a left shift. Her creatinine is elevated at 1.7. Her blood glucose was 338. Lactic acid was 2.1. He was elevated at 21.6. Her urinalysis revealed moderate occult blood and RBCs but no pyuria or leukocyte esterase or nitrites. She underwent a CT of the abdomen pelvis without contras without any acute abnormalities. CT of the head was also unremarkable. She was given vancomycin and cefepime in the emergency department. Given the above findings, medicine was consulted for admission. I did discuss goals of care with the patient and she would like to be a full code. - HOSPITAL COURSE Hospital Course: The following day after admission was brought to the hospital's attention that the patient's systolic blood pressure was in the 80s. Also diet she was confus ed. She was given a bolus of 500 mL of normal saline with no significant improvement in her blood pressure. Another bolus of 1 L was given after which she was transferred to the ICU and had a central line placed. Levophed drip was started shortly after. Further work-up for this new change included troponin levels which came back at 4600. EKG showed normal sinus rhythm and right bundle branch block and LAFB. Also showed flat T waves inferior laterally. Patient had a 2D echo to evaluate systolic murmur 1 year ago which showed IHSS with a systolic gradient of 30 mmHg in LV outflow tract. Normal ejection fraction at 70%. There was significant discrepancy in patient's systolic blood pressure in the left and right arm. Systolic blood pressure in the right arm was in the 80s in the left 130s. A CT angio of the chest was ordered to rule out aortic dissection however this could not be done due to the patient's renal function with an estimated GFR of 28. Patient's blood cultures x2 grew staph aureus for which she was on vancomycin. She was also on cefepime. The patient continued to be febrile. There was slight improvement in her white blood cell count from 16-12. Initial plan had been to continue work-up for possible infectious source by doing an MRI of her back to rule out an epidural Yes. This is because she complained of back pain. However the MRI was canceled because in patient's confused state she was not able to hold still to complete test. A CT of the brain without contrast was done to rule out any possible bleed. This was negative. We will reach out to cardiology at [facility]. Presented the case to Dr. Joy with cardiology who was agreeable to take the patient onto her service. Consequently the patient was transferred to [facility] on 01/18/2021 at 9 AM. - ALLERGIES Allergies/Adverse Reactions: Allergies Allergy/AdvReac Type Severity Reaction Status Date / Time No Known Drug Allergies Allergy Verified 01/16/21 11:35 - MEDICATIONS Home Medications: Ambulatory Orders Medication Instructions Recorded Confirmed Aspirin [Adult Low Dose Aspirin EC] 81 mg PO DAILY 10/11/16 01/17/21 Atorvastatin Calcium 40 mg PO DAILY 10/11/16 01/17/21 Sertraline HCl 100 mg PO DAILY 10/11/16 01/17/21 Insulin NPH Hum/Reg Insulin Hm 01/17/21 [Novolin 70-30 Flexpen] - PHYSICAL EXAM AT DISCHARGE General Appearance: positive: Alert, Mild distress Eyes Bilateral: positive: PERRL, EOMI ENT: positive: No signs of dehydration Neck: positive: No JVD, Trachea midline Respiratory: positive: Chest non-tender, Other (Mild conversational dyspnea) Cardiovascular: positive: Tachycardia, Systolic murmur Abdomen: positive: Non-tender, No organomegaly, Nml bowel sounds, No distention. negative: Guarding, Rebound Back: positive: Other (Lower back Pain) Skin: positive: No rash, Warm, Dry Extremities: positive: Non-tender, Full ROM, Nml appearance, No pedal edema Neurologic/Psychiatric: positive: Slurred/abnml speech (garbled at the end on her sentences), Other (Oriented X 2) - LABS Result Diagrams: 01/18/21 08:45 01/18/21 08:45 - SEPSIS Current Stage of Sepsis: Sepsis Possible source of Sepsis: Unknown Confirmed Source and Organism (if known) of Sepsis: Staph aureus Sepsis Criteria: Recorded Temperature greater than 38.3C or Less than 36C, Recorded Heart Rate greater than 90 bpm, WBC count greater than 12,000 or less than 4000, MATHEMATICS ACADEMIC CHAIR: altered consciousness (unrelated to primary neuro pathology) - TIME SPENT Time Spent in Discharge (Minutes): 35
[2021-01-18] MEDS: ASPIRIN EC 81 MG TABLET PO SCH (08:25)
[2021-01-18] MEDS: ENOXAPARIN 40 MG/0.4 ML SYRINGE SUBQ SCH (08:26)
[2021-01-18] MEDS: INSULIN ASPART 300 UNIT/3 ML PEN SUBQ SCH (08:28)
[2021-01-18 08:58] LABS: BASOPHILS % (AUTO) 0.1 %; HCT - HEMATOCRIT 31.7 % (37.0-47.0); HGB - HEMOGLOBIN 10.8 g/dL (12.0-16.0); LYMPHOCYTES # (AUTO) 0.5 10^3/uL (1.5-3.5); LYMPHOCYTES % (AUTO) 5.6 %; MEAN CORPUSCULAR HEMOGLOBIN 31.2 pg (27.0-31.0); MEAN CORPUSCULAR HGB CONC 34.1 g/dL (32.0-36.0); MEAN CORPUSCULAR VOLUME 91.6 fL (81.0-99.0); MEAN PLATELET VOLUME 10.4 fL (7.9-10.8); MONOCYTES # (AUTO) 0.6 10^3/uL (0.0-1.0); MONOCYTES % (AUTO) 6.8 %; NEUTROPHILS # (AUTO) 7.9 10^3/uL (1.5-6.6); NEUTROPHILS % (AUTO) 86.5 %; PLT - PLATELET COUNT 113 10^3/uL (130-450); RED BLOOD COUNT 3.46 10^6/uL (4.20-5.40); RED CELL DISTRIBUTION WIDTH 13.3 % (12.0-15.0); WHITE BLOOD COUNT 9.2 x10^3/uL (4.8-10.8)
[2021-01-18 09:03] VITALS: BP 109/75
[2021-01-18 09:03] LABS: SLIDE REVIEW? Indicated
[2021-01-18 09:08] LABS: CALCIUM 7.8 mg/dL (8.5-10.3); CREATININE 1.8 mg/dL (0.4-1.0); MAGNESIUM 1.8 mg/dL (1.7-2.8); PHOSPHORUS 2.9 mg/dL (2.5-4.6); POTASSIUM 3.9 mmol/L (3.5-5.0)
[2021-01-18 09:20] LABS: RBC MORPHOLOGY (MULTIPLE) 1+ ANISOCYTOSIS (NORMAL)
[2021-01-18] MEDS: SODIUM CHLORIDE FLUSH 0.9% 10 ML SYRINGE IVP PRN (09:34)
== END 2021-01-18 09:33 | disposition short-term general hospital (02) | DRG 871 ==
LOC: EDUNIT# → ED 11:18 → MS2 16:39 → OBSVTOIN 01-17 07:20 → ICU 01-17 11:18
PROVIDERS: ADMIT Internal Medicine; ATTEND Internal Medicine
PROC: 02HV33Z Insertion of Infusion Device into Superior Vena Cava, Percutaneous Approach (ICD-10-PCS; principal; 2021-01-17)
DX: R65.10 Systemic inflammatory response syndrome (SIRS) of non-infectious origin without acute organ dysfunction (principal); R78.81 Bacteremia; I12.9 Hypertensive chronic kidney disease with stage 1 through stage 4 chronic kidney disease, or unspecified chronic kidney disease; I21.4 Non-ST elevation (NSTEMI) myocardial infarction; I50.33 Acute on chronic diastolic (congestive) heart failure; G93.41 Metabolic encephalopathy; J45.909 Unspecified asthma, uncomplicated; M54.5 Low back pain; R65.11 Systemic inflammatory response syndrome (SIRS) of non-infectious origin with acute organ dysfunction; N17.9 Acute kidney failure, unspecified; Z20.822 Contact with and (suspected) exposure to COVID-19; I13.0 Hypertensive heart and chronic kidney disease with heart failure and stage 1 through stage 4 chronic kidney disease, or unspecified chronic kidney disease; I42.1 Obstructive hypertrophic cardiomyopathy; I45.2 Bifascicular block; I95.9 Hypotension, unspecified; A49.01 Methicillin susceptible Staphylococcus aureus infection, unspecified site; E11.22 Type 2 diabetes mellitus with diabetic chronic kidney disease; N18.30 Chronic kidney disease, stage 3 unspecified; Z74.09 Other reduced mobility; E78.00 Pure hypercholesterolemia, unspecified; M19.90 Unspecified osteoarthritis, unspecified site; E11.65 Type 2 diabetes mellitus with hyperglycemia; Z96.659 Presence of unspecified artificial knee joint; Z79.82 Long term (current) use of aspirin; Z79.4 Long term (current) use of insulin; Z91.81 History of falling
CPT/HCPCS: 36415; 51702; 70450; 71045; 74176; 80048; 80053; 81001; 82803; 83036; 83605; 83690; 83735; 83880; 84100; 84484; 85025; 85610; 85651; 86140; 87040; 87150; 87181; 87631; 93005; 93306; 96365; 96366; 96367; 99284; 99285; A9270; A9585; C8929; J1250; J1650; J1815; J3370; J7120; 0202U; 80202; 81003; 87086

== ENCOUNTER 2021-04-08 08:40 | Outpatient (CLI) | payer MEDICARE, OTHER | END 2021-04-08 08:41 | disposition EMS.NT | LOC: EMS 08:40 | DX: R53.1 Weakness (principal) ==

== ENCOUNTER 2021-04-08 15:24 | Outpatient (CLI) | payer MEDICARE, OTHER | END 2021-04-08 15:25 | disposition EMS.NT | LOC: EMS 15:24 | DX: R53.1 Weakness (principal) ==

== ENCOUNTER 2021-04-09 12:52 | Outpatient (CLI) | payer MEDICARE, OTHER | END 2021-04-09 12:53 | disposition EMS.NT | LOC: EMS 12:52 | DX: R53.1 Weakness (principal) ==

== ENCOUNTER 2021-04-09 15:36 | Outpatient (CLI) | payer MEDICARE, OTHER | END 2021-04-09 15:37 | disposition EMS.NT | LOC: EMS 15:36 | DX: R53.1 Weakness (principal) ==

== ENCOUNTER 2021-04-09 20:42 | Outpatient (CLI) | payer MEDICARE, OTHER | END 2021-04-09 20:43 | disposition critical access hospital (66) | LOC: EMS 20:42 | DX: R53.1 Weakness (principal); I95.9 Hypotension, unspecified; R29.6 Repeated falls | CPT/HCPCS: A0425; A0429 ==

== ENCOUNTER 2021-04-09 21:12 | Emergency (ER) | payer MEDICARE, OTHER ==
[2021-04-09] MEDS ORDERED: SODIUM CHLORIDE 0.9% 1,000 ML IV STA ×2 (21:17→23:11)
[2021-04-09 21:31] LABS: BASOPHILS % (AUTO) 0.4 %; EOSINOPHILS # (AUTO) 0.1 10^3/uL (0.0-0.7); HCT - HEMATOCRIT 33.4 % (37.0-47.0); LYMPHOCYTES # (AUTO) 1.1 10^3/uL (1.5-3.5); LYMPHOCYTES % (AUTO) 11.2 %; MEAN CORPUSCULAR HEMOGLOBIN 30.6 pg (27.0-31.0); MEAN CORPUSCULAR HGB CONC 32.9 g/dL (32.0-36.0); MEAN PLATELET VOLUME 9.8 fL (7.9-10.8); MONOCYTES # (AUTO) 0.7 10^3/uL (0.0-1.0); MONOCYTES % (AUTO) 7.2 %; NEUTROPHILS # (AUTO) 7.7 10^3/uL (1.5-6.6); NEUTROPHILS % (AUTO) 79.8 %; PLT - PLATELET COUNT 260 10^3/uL (130-450); RED BLOOD COUNT 3.59 10^6/uL (4.20-5.40); RED CELL DISTRIBUTION WIDTH 15.1 % (12.0-15.0); WHITE BLOOD COUNT 9.6 x10^3/uL (4.8-10.8)
[2021-04-09 21:45] LABS: ALBUMIN/GLOBULIN RATIO 1.1 (1.0-2.2); BILIRUBIN,TOTAL 1.2 mg/dL (0.2-1.0); CALCIUM 9.3 mg/dL (8.5-10.3); CREATININE 1.7 mg/dL (0.4-1.0); POTASSIUM 4.4 mmol/L (3.5-5.0); TOTAL PROTEIN 7.6 g/dL (6.7-8.2)
--- NOTE | 2021-04-09 22:52 | CT Report ---
PROCEDURE: HEAD WO INDICATIONS: fall/injury TECHNIQUE: Noncontrast 4.5 mm thick angled axial sections acquired from the foramen magnum to the vertex. For r adiation dose reduction, the following was used: automated exposure control, adjustment of mA and/or kV according to patient size. COMPARISON: 01/17/2021 FINDINGS: Image quality: Excellent. CSF spaces: Basal cisterns are patent. No extra-axial fluid collections. Ventricles are normal in size and shape. Brain: No midline shift. No intracranial masses or hemorrhage. Subcortical and periventricular hyp odensities are consistent with microvascular ischemic disease. Microvascular ischemic disease and age -related cerebral volume loss. Napier-white matter interface is normal. Vascular calcifications of the carotid siphons and visualized vertebral/basilar artery. Skull and face: Calvarium and visualized facial bones are intact, without suspicious lesions. Sinuses: Visualized sinuses and mastoids are clear. IMPRESSION: 1. No acute intracranial abnormality. 2. Microvascular ischemic disease and age-related cerebral volume loss. Reviewed by: Florentino Castro on 04/09/2021 10:51 PM PDT Approved by: Florentino Castro on 04/09/2021 10:51 PM PDT Station ID: [id number]
[2021-04-10 00:46] VITALS: BP 139/89
[2021-04-10 00:46] LABS: BILIRUBIN,URINE NEGATIVE (NEGATIVE); GLUCOSE, URINE (UA) NEGATIVE (NEGATIVE); KETONES,URINE (UA) NEGATIVE (NEGATIVE); LEUKOCYTE ESTERASE, URINE SMALL (NEGATIVE); NITRITE,URINE NEGATIVE (NEGATIVE); OCCULT BLOOD,URINE LARGE (NEGATIVE); PH,URINE 5.5 PH (5.0-7.5); PROTEIN,URINE NEGATIVE (NEGATIVE); UROBILINOGEN,URINE 0.2 (NORMAL) E.U./dL (NORMAL)
[2021-04-10 00:55] LABS: CLARITY,URINE CLEAR (CLEAR)
[2021-04-10 00:56] LABS: BACTERIA,URINE Few /HPF (None Seen); CASTS, URINE 3-5 Hyaline Casts /LPF; RBC,URINE 0-5 /HPF (0-5); SQUAMOUS EPITHELIAL CELL,UR FEW Squamous (<= Few); YEAST,URINE PRESENT
--- NOTE | 2021-04-10 01:38 | ED Physician Documentation ---
History of Present Illness - Stated complaint Stated Complaint: WEAKNESS, POSS GLF, TOE PAIN, RIGHT UPPER BRUISING - Chief complaint Chief Complaint: Neuro - History obtained from History obtained from: Patient, EMS - Additonal information Additional information: Patient is brought to the emergency department by EMS for chief complaint of multiple falls. The patient states that she was just discharged from a rehab facility 3 days ago after being admitted there for a month and prior to that, being in the hospital for a month after being diagnosed with sepsis, cholecystitis, and upper GI bleed. Patient states she was discharged home to the house where she lives with her sister and that she has been getting around with a walker. She states that normally, she does okay with her walker, but tow adrian the end of the day, she starts to get tired and finds that her legs feel generally weak. She states that she can only go so far none her knees buckle. She states that this is happened a number of times over the last 3 days and that she is mostly fallen and landed on her glutes. She states that she does not feel that she is injured anything other than her sacrum. She states that while in rehab, PT did work with her, but if she got tired, that have her sit down and rest. The longest stretch of ambulation she did was 50 feet, she states, but she would often have to rest in between. Patient states that she and her sister do not have a very close relationship and that her sister did not want home health coming in to help the patient. However, now that the patient has turned out to need more assistance at home, the sister also does not want to provide that herself, and is open to home health now. Patient states she has called this weekend and left a message with the home health service that was recommended on discharge planning but has not heard back yet, as this is Saturday. Patient denies hurting herself anywhere else. On one of her falls the first day, she did hit her head has a little bit of a headache. No focal weakness or neurologic deficits. No fevers or chills. No GI bleeding. No chest or abdominal pain. Review of Systems Ten Systems: 10 systems reviewed and negative Constitutional: reports: Reviewed and negative Eyes: reports: Reviewed and negative Ears: reports: Reviewed and negative Nose: reports: Reviewed and negative Throat: reports: Reviewed and negative Cardiac: reports: Reviewed and negative Respiratory: reports: Reviewed and negative GI: reports: Reviewed and negative : reports: Reviewed and negative Skin: reports: Reviewed and negative Musculoskeletal: reports: Reviewed and negative Neurologic: reports: Focal weakness (Bilateral legs) Psychiatric: reports: Reviewed and negative Endocrine: reports: Reviewed and negative Immunocompromised: reports: Reviewed and negative PD PAST MEDICAL HISTORY - Past Medical History Past Medical History: Yes Cardiovascular: Hypertension, High cholesterol, Coronary artery disease, Angina, ID, Other Respiratory: Asthma Endocrine/Autoimmune: Type 2 diabetes, Other GI: GI bleed, Cholelithiasis, Other : Renal insuffiency HEENT: Other Psych: Depression, Other Musculoskeletal: Osteoarthritis, Other Derm: None Other Past Medical History: Cholecystitis; GI; Insomnia; Morbid Obesitiy: Abnormal Gait & Mobility; Neuropathy from Diabetes; Hypokalemia; Hypocalcemia: Cardiomyopathy; SVT - Past Surgical History Past Surgical History: Yes General: Cholecystectomy, Colonoscopy Ortho: Knee replacement, Rotator cuff repair, Shoulder arthroplasty, Carpal Tunnel surgery, Other HEENT: Cataracts - Present Medications Home Medications: Ambulatory Orders Medication Instructions Recorded Confirmed Aspirin [Adult Low Dose Aspirin EC] 81 mg PO DAILY 10/11/16 04/09/21 Atorvastatin Calcium 40 mg PO DAILY 10/11/16 04/09/21 Sertraline HCl 100 mg PO DAILY 10/11/16 04/09/21 Insulin NPH Hum/Reg Insulin Hm 22 unit SQ BID 01/17/21 04/09/21 [Novolin 70-30 Flexpen] Acetaminophen [Acetaminophen Extra 1,000 mg PO Q8HR PRN 04/09/21 04/09/21 Strength] Ascorbic Acid [Vitamin C] 500 mg PO DAILY 04/09/21 04/09/21 Ferrous Sulfate 325 mg PO BID 04/09/21 04/09/21 Lactobacillus Combination No.4 1 tab PO DAILY 04/09/21 04/09/21 [Probiotic] Losartan Potassium 25 mg PO DAILY 04/09/21 04/09/21 Melatonin 3 mg PO HS PRN 04/09/21 04/09/21 Ondansetron Odt [Zofran Odt] 4 mg PO Q4HR PRN 04/09/21 04/09/21 Pantoprazole [Protonix] 40 mg PO BID 04/09/21 04/09/21 Potassium Chloride [Klor-Con 10] 1 tab PO DAILY 04/09/21 04/09/21 - Allergies Allergies/Adverse Reactions: Allergies Allergy/AdvReac Type Severity Reaction Status Date / Time No Known Drug Allergies Allergy Verified 04/09/21 21:24 - Social History Does the pt smoke?: No Smoking Status: Never smoker Does the pt drink ETOH?: Yes Does the pt have substance abuse?: Yes - Immunizations Immunizations are current?: Yes - POLST Patient has POLST: Yes PD ED PE NORMAL - Vitals Vital signs reviewed: Yes - General General: Alert and oriented X 3, No acute distress, Well developed/nourished - HEENT HEENT: Atraumatic, PERRL, EOMI, Moist mucous membranes - Neck Neck: Supple, no meningeal sign - Cardiac Cardiac: RRR, No murmur, Strong equal pulses - Respiratory Respiratory: No respiratory distress, Clear bilaterally - Abdomen Abdomen: Soft, Non tender, Non distended - Back Back: Other (Tender to palpation over sacrococcygeal area. 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-12 intact, Normal speech, Other (No gross deficits.) - Psych Psych: Normal mood, Normal affect Results - Vitals Vitals: Vital Signs - 24 hr 04/09/21 04/09/21 04/09/21 21:15 23:18 23:29 Temperature 35.7 C L 36.2 C L Heart Rate 83 86 Respiratory 18 16 Rate Blood Pressure 121/56 L 84/62 L 96/70 O2 Saturation 100 100 04/10/21 04/10/21 00:45 02:30 Temperature 35.9 C L Heart Rate 85 83 Respiratory 16 16 Rate Blood Pressure 139/89 H 139/89 H O2 Saturation 99 99 Oxygen O2 Source Room air - EKG (time done) 2156 Rate: Rate (enter#) (82) Rhythm: NSR [place]: Normal Intervals: Normal MN, RBBB QRS: LVH Ischemia: Normal ST segments Computer interpretation: Agree with computer - Labs Labs: Laboratory Tests 04/09/21 04/09/21 04/10/21 21:26 21:26 00:30 WBC 9.6 RBC 3.59 L Hgb 11.0 L Hct 33.4 L MCV 93.0 MCH 30.6 MCHC 32.9 RDW 15.1 H Plt Count 260 MPV 9.8 Neut # (Auto) 7.7 H Lymph # (Auto) 1.1 L [place] # (Auto) 0.7 Eos # (Auto) 0.1 Baso # (Auto) 0.0 Absolute Nucleated RBC 0.00 Nucleated RBC % 0.0 Sodium 137 Potassium 4.4 Chloride 106 Carbon Dioxide 22 Anion Gap 9.0 BUN 29 H Creatinine 1.7 H Estimated GFR (MDRD) 29 L Glucose 126 H Calcium 9.3 Total Bilirubin 1.2 H AST 135 H ALT 39 Alkaline Phosphatase 192 H Total Protein 7.6 Albumin 4.0 Globulin 3.6 Albumin/Globulin Ratio 1.1 Lipase 36 Urine Color YELLOW Urine Clarity CLEAR Urine pH 5.5 Ur Specific [place] 1.015 Urine Protein NEGATIVE Urine Glucose (UA) NEGATIVE Urine Ketones NEGATIVE Urine Occult Blood LARGE H Urine Nitrite NEGATIVE Urine Bilirubin NEGATIVE Urine Urobilinogen 0.2 (NORMAL) Ur Leukocyte Esterase SMALL H Urine RBC 0-5 Urine WBC 4-5 Ur Squamous Epith Cells FEW Squamous Urine Bacteria Few Urine Casts 3-5 Hyaline Casts Urine Yeast PRESENT Ur Microscopic Review INDICATED Urine Culture Comments INDICATED - Rads (name of study) head CT Radiology: Prelim report reviewed, EMP read indepedently, See rad report (neg) PD MEDICAL DECISION MAKING - ED course Complexity details: reviewed old records, reviewed results, re-evaluated patient, considered differential, d/w patient ED course: The patient was worked up with labs, sacrococcygeal x-ray, and urinalysis, and old records were reviewed. She was given 2 L 0.9 normal saline. Her work-up was unremarkable, other than the appearance of a coccygeal fracture as interpreted by myself. I discussed with the patient that there are no acute Findings that warrant admission. The issue she had on her last admission seems to revolve resolved now. At this point in time, the patient is reporting that she mostly gets around fine except that when she is fatigued at the end of the day, her legs buckle. Patient has initiated contact with home health and her sister has finally agreed to have a home health personal service representative into the their house. Home health is supposed to call back tomorrow she states. Patient is ambulatory with a walker and does not live by herself, and stable for discharge home we have discussed the usual indications for return. Departure - Departure Disposition: 01 Home, Self Care Clinical Impression: Leg weakness, bilateral, Dehydration Fall Qualifiers: Encounter type: initial encounter Qualified Code(s): W19.XXXA - Unspecified fall, initial encounter Coccygeal fracture Qualifiers: Encounter type: initial encounter Fracture type: closed Qualified Code(s): S32.2XXA - Fracture of coccyx, initial encounter for closed fracture Condition: Stable Instructions: ED Fx Coccyx, ED Dehydration Comments: Your labs overall look good. Your head CT shows no evidence of any bleeding in the brain or skull fracture. The x-rays of your tailbone show a possible crack through the bone, without displacement of the bone fragment. However, the radiologist final interpretation will be back in the morning, and will be the final word on whether there is actually a correct there or not. There is nothing to be done for broken tailbone if present. It will simply heal on its own. You may purchase a donut pillow from [employer] or another pharmacy store and may sit on the donut to help relieve the pressure on your tailbone. As far as your falls, it is very important that you continue the process of getting home health help. Unfortunately, this was not set up by you and your sister when you left the rehab facility, which would have been the best way. At this point in time, you do not meet criteria to stay in the hospital as an inpatient. Please consider getting a bedside commode to minimize the number of times you have to get up and walk to and from the bathroom when you are feeling weak. Please call home health first thing in the morning to check on the progress your request. Discharge Date/Time: 04/10/21 02:54
--- NOTE | 2021-04-10 02:07 | XRAY Report ---
PROCEDURE: Sacrum/Coccyx INDICATIONS: pain, multiple falls with injury TECHNIQUE: 3 views of the sacrum and coccyx acquired. COMPARISON: None FINDINGS: Bones: No fractures or dislocations. No suspicious bony lesions. Degenerative changes of both hips are mild. There are degenerative changes of the visualized lower lumbar spine with multilevel disc d isease most severe at L5-S1 and L2-3. The right sacroiliac joint has degenerative changes. Soft tissues: Visualized bowel gas pattern is normal. No suspicious soft tissue densities. IMPRESSION: No acute traumatic abnormality. Reviewed by: Florentino Castro on 04/10/2021 2:05 AM PDT Approved by: Florentino Castro on 04/10/2021 2:05 AM PDT Station ID: [id number]
== END 2021-04-10 02:54 | disposition home or self-care (01) ==
LOC: EDUNIT# → EDBD → ED 21:12
DX: S32.2XXA Fracture of coccyx, initial encounter for closed fracture (principal); W19.XXXA Unspecified fall, initial encounter; Z91.81 History of falling; E86.0 Dehydration; R53.1 Weakness; I10 Essential (primary) hypertension; E11.40 Type 2 diabetes mellitus with diabetic neuropathy, unspecified; Z79.4 Long term (current) use of insulin; R29.6 Repeated falls; K92.2 Gastrointestinal hemorrhage, unspecified; R79.89 Other specified abnormal findings of blood chemistry
CPT/HCPCS: 36415; 80053; 80061; 81001; 81003; 82043; 82550; 82570; 82607; 82728; 83036; 83540; 83690; 83721; 84443; 84466; 85025; 86317; 86709; 86803; 87086; 87340; 93005; 96360; 96361; 99283

== ENCOUNTER 2021-04-10 03:03 | Outpatient (CLI) | payer MEDICARE, OTHER | END 2021-04-10 03:04 | disposition home or self-care (01) | LOC: EMS 03:03 | PROVIDERS: ATTEND Emergency Medicine | DX: R53.1 Weakness (principal) | CPT/HCPCS: A0425; A0428 ==

== ENCOUNTER 2021-04-10 13:45 | Outpatient (CLI) | payer MEDICARE, OTHER ==
[2021-04-10 18:05] LABS: BASOPHILS % (AUTO) 0.4 %; EOSINOPHILS # (AUTO) 0.1 10^3/uL (0.0-0.7); EOSINOPHILS % (AUTO) 1.1 %; HCT - HEMATOCRIT 32.5 % (37.0-47.0); HGB - HEMOGLOBIN 10.4 g/dL (12.0-16.0); LYMPHOCYTES # (AUTO) 0.9 10^3/uL (1.5-3.5); LYMPHOCYTES % (AUTO) 8.8 %; MEAN CORPUSCULAR HEMOGLOBIN 30.4 pg (27.0-31.0); MEAN PLATELET VOLUME 10.6 fL (7.9-10.8); MONOCYTES # (AUTO) 0.6 10^3/uL (0.0-1.0); MONOCYTES % (AUTO) 6.6 %; NEUTROPHILS # (AUTO) 8.1 10^3/uL (1.5-6.6); NEUTROPHILS % (AUTO) 82.9 %; PLT - PLATELET COUNT 302 10^3/uL (130-450); RED BLOOD COUNT 3.42 10^6/uL (4.20-5.40); RED CELL DISTRIBUTION WIDTH 15.4 % (12.0-15.0); WHITE BLOOD COUNT 9.7 x10^3/uL (4.8-10.8)
[2021-04-10 18:44] LABS: THYROID STIMULATING HORMONE 1.88 uIU/mL (0.34-5.60)
[2021-04-10 18:50] LABS: FERRITIN 188.5 ng/mL (11.0-306.8)
[2021-04-10 18:57] LABS: % IRON SATURATION 19 % (20-50); ALBUMIN 3.9 g/dL (3.2-5.5); ALBUMIN/GLOBULIN RATIO 1.1 (1.0-2.2); ALKALINE PHOSPHATASE 180 IU/L (42-121); ALT ALANINE AMINOTRANSFERASE 38 IU/L (10-60); AST ASPARTATE AMINOTRANSFERASE 128 IU/L (10-42); BILIRUBIN,TOTAL 0.8 mg/dL (0.2-1.0); BUN - BLOOD UREA NITROGEN 24 mg/dL (6-20); CALCIUM 9.6 mg/dL (8.5-10.3); CARBON DIOXIDE - CO2 21 mmol/L (21-32); CHLORIDE 110 mmol/L (101-111); CHOL/HDL RATIO 4.7 (<4.4); CHOLESTEROL 175 mg/dL; CREATININE 1.4 mg/dL (0.4-1.0); GFR - MDRD 37 (>89); GLUCOSE 93 mg/dL (70-100); HDL CHOLESTEROL 37 mg/dL; IRON 61 ug/dL (28-170); LDL CHOLESTEROL,CALCULATED 104 mg/dL; LDL/HDL RATIO 2.8 (<4.4); POTASSIUM 4.7 mmol/L (3.5-5.0); SODIUM 141 mmol/L (135-145); TOTAL IRON BINDING CAPACITY 319 ug/dL (250-450); TOTAL PROTEIN 7.6 g/dL (6.7-8.2); TRANSFERRIN 228 mg/dL (192-382); TRIGLYCERIDES 169 mg/dL; VLDL CHOLESTEROL 34 mg/dL
[2021-04-10 19:06] LABS: CK- CREATINE KINASE 2635 IU/L (22-269)
[2021-04-10 20:36] LABS: ESTIMATED AVERAGE GLUCOSE 103 mg/dL (70-100); HEMOGLOBIN A1c% 5.2 % (4.27-6.07)
[2021-04-11 09:58] LABS: HEPATITIS B SURFACE ANTIGEN NON-REACTIVE (NON-REACTIVE)
[2021-04-11 10:00] LABS: HEPATITIS C ANTIBODY NON-REACTIVE (NON-REACTIVE)
== END 2021-04-10 23:59 | disposition home or self-care (01) ==
LOC: LAB.WCP 13:45
PROVIDERS: ATTEND Family Medicine
DX: E11.9 Type 2 diabetes mellitus without complications (principal); R53.1 Weakness; R29.6 Repeated falls; K92.2 Gastrointestinal hemorrhage, unspecified; R79.89 Other specified abnormal findings of blood chemistry
CPT/HCPCS: 36415; 80053; 80061; 82043; 82550; 82570; 82607; 82728; 83036; 83540; 83721; 84443; 84466; 85025; 86317; 86709; 86803; 87340

== ENCOUNTER 2021-04-11 06:55 | Outpatient (CLI) | payer MEDICARE, OTHER | END 2021-04-11 06:56 | disposition critical access hospital (66) | LOC: EMS 06:55 | DX: R53.1 Weakness (principal); R25.1 Tremor, unspecified; R07.89 Other chest pain; R29.6 Repeated falls | CPT/HCPCS: A0425; A0429 ==

== ENCOUNTER 2021-04-11 07:23 | Emergency (ER) | payer MEDICARE, OTHER ==
--- NOTE | 2021-04-11 08:22 | ED Physician Documentation ---
History of Present Illness - Stated complaint Stated Complaint: CP/LLQPX - Chief complaint Chief Complaint: Abd Pain - History obtained from History obtained from: Patient - History of Present Illness Timing: Other (3 months) - Additonal information Additional information: 75-year-old female presents to the emergency department today after a fall at home. She has a complicated history she was admitted back January 172020For sepsis with fever and confusion blood group positive strep staph. The day after she was admitted she had an NSTEMI was transferred to the [facility] there additional bleeding ulcers were discovered. She was transferred from [place] to [place] in [place] where she stayed for 3 weeks there they found more ulcers they took out a bad gallbladder and eventually she was discharged to a rehab facility for reconditioning of weakness. She spent a month in the facility and made some progress but co ntinued to be extremely weak she was discharged from that facility on 04/06/2021. Since that time she has had 14 falls in her home. She is been evaluated by the medics and she has been into the emergency department once. She has been in to see her primary care doctor in follow-up regarding injury to her foot with one of her falls. She is finding her weakness related to a very short stamina she is able to stand for about 1 minute. She can walk with the assistance of a walker but has her legs collapsed on her and she has had falls. Today she is brought back to the emergency department after another fall for further evaluation. She has had 14 calls to her house in the 6 days she has been home from the rehab. She was taken to her appointment with her primary yesterday and she fell out of the car at the office. Review of Systems Constitutional: denies: Fever Ears: denies: Ear pain Nose: denies: Congestion Throat: denies: Sore throat Cardiac: denies: Chest pain / pressure, Palpitations Respiratory: denies: Dyspnea, Cough GI: denies: Abdominal Pain, Nausea, Vomiting, Constipation, Diarrhea : reports: Frequency. denies: Dysuria Skin: denies: Rash, Lesions Musculoskeletal: reports: Extremity pain (dorsum of left foot). denies: Neck pain, Back pain Neurologic: reports: Generalized weakness (severe) PD PAST MEDICAL HISTORY - Past Medical History Past Medical History: Yes Cardiovascular: Hypertension, High cholesterol, Coronary artery disease, Angina, RI, Other Respiratory: Asthma Endocrine/Autoimmune: Type 2 diabetes, Other GI: GI bleed, Cholelithiasis, Other : Renal insuffiency HEENT: Other Psych: Depression, Other Musculoskeletal: Osteoarthritis, Other Derm: None - Past Surgical History Past Surgical History: Yes General: Cholecystectomy, Colonoscopy Ortho: Knee replacement, Rotator cuff repair, Shoulder arthroplasty, Carpal Tunnel surgery, Other HEENT: Cataracts - Present Medications Home Medications: Ambulatory Orders Medication Instructions Recorded Confirmed Aspirin [Adult Low Dose Aspirin EC] 81 mg PO DAILY 10/11/16 04/11/21 Atorvastatin Calcium 40 mg PO DAILY 10/11/16 04/11/21 Sertraline HCl 100 mg PO DAILY 10/11/16 04/11/21 Insulin NPH Hum/Reg Insulin Hm 22 unit SQ BID 01/17/21 04/11/21 [Novolin 70-30 Flexpen] Acetaminophen [Acetaminophen Extra 1,000 mg PO Q8HR PRN 04/09/21 04/11/21 Strength] Ascorbic Acid [Vitamin C] 500 mg PO DAILY 04/09/21 04/11/21 Ferrous Sulfate 325 mg PO BID 04/09/21 04/11/21 Lactobacillus Combination No.4 1 tab PO DAILY 04/09/21 04/11/21 [Probiotic] Losartan Potassium 25 mg PO DAILY 04/09/21 04/11/21 Melatonin 3 mg PO HS PRN 04/09/21 04/11/21 Ondansetron Odt [Zofran Odt] 4 mg PO Q4HR PRN 04/09/21 04/11/21 Pantoprazole [Protonix] 40 mg PO BID 04/09/21 04/11/21 Potassium Chloride [Klor-Con 10] 1 tab PO DAILY 04/09/21 04/11/21 - Allergies Allergies/Adverse Reactions: Allergies Allergy/AdvReac Type Severity Reaction Status Date / Time No Known Drug Allergies Allergy Verified 04/11/21 08:03 - Social History Does the pt smoke?: No Smoking Status: Never smoker Does the pt drink ETOH?: Yes Does the pt have substance abuse?: Yes - Immunizations Immunizations are current?: Yes - POLST Patient has POLST: Yes PD ED PE NORMAL - Vitals Vital signs reviewed: Yes (wide pulse pressure) - General General: Alert and oriented X 3, No acute distress, Well developed/nourished - HEENT HEENT: Atraumatic, PERRL, EOMI - Neck Neck: Supple, no meningeal sign, No bony TTP - Cardiac Cardiac: RRR, No murmur - Respiratory Respiratory: No respiratory distress, Clear bilaterally - Abdomen Abdomen: Normal bowel sounds, Soft, Non tender, Non distended, No organomegaly - Derm Derm: Normal color, Warm and dry, No rash - Extremities Extremities: No deformity, No edema - Neuro Neuro: Alert and oriented X 3, software trainer 2-12 intact, No motor deficit, No sensory deficit, Normal speech, Other (able to stand at bedside with assistance extreme weakness) Eye Opening: Spontaneous Motor: Obeys Commands Verbal: Oriented GCS Score: 15 - Psych Psych: Normal mood, Normal affect Results - Vitals Vitals: Vital Signs - 24 hr 04/13/21 04/13/21 04/13/21 11:00 14:31 16:17 Temperature 36.4 C L Heart Rate 77 87 86 Respiratory 15 18 19 Rate Blood Pressure 138/64 H 145/77 H 169/69 H O2 Saturation 99 100 100 04/13/21 04/14/21 21:09 06:00 Temperature 36.1 C L Heart Rate 82 86 Respiratory 16 16 Rate Blood Pressure 134/63 H 146/60 H O2 Saturation 100 98 Oxygen O2 Source Room air - EKG (time done) 0733 Rate: Rate (enter#) (76) Rhythm: NSR Intervals: RBBB QRS: LVH Compare to prior EKG: Unchanged from prior EKG (SPT 04/09/21 baseline artifact has resolved.) Computer interpretation: Agree with computer - Labs Labs: Microbiology 04/11/21 11:22 Urine Culture - Final Urine,Clean Catch >100,000 COLONIES/ML Polymicrobial growth including potential pathogens. This is suggestive of skin or other contamination. Laboratory Tests 04/11/21 04/11/21 04/11/21 08:21 08:21 08:21 WBC 6.6 RBC 3.39 L Hgb 10.3 L Hct 32.1 L MCV 94.7 MCH 30.4 MCHC 32.1 RDW 15.3 H Plt Count 232 MPV 10.1 Neut # (Auto) 4.9 Lymph # (Auto) 0.[address] [place] # (Auto) 0.5 Eos # (Auto) 0.2 Baso # (Auto) 0.0 Absolute Nucleated RBC 0.00 Nucleated RBC % 0.0 Manual Slide Review Indicated Sodium 140 Potassium 4.2 Chloride 112 H Carbon Dioxide 20 L Anion Gap 8.0 BUN 21 H Creatinine 1.5 H Estimated GFR (MDRD) 34 L Glucose 134 H Calcium 9.3 Total Bilirubin 0.9 AST 99 H ALT 34 Alkaline Phosphatase 175 H Total Creatine Kinase 1253 H* CK-MB (CK-2) Troponin I High Sens Total Protein 7.0 Albumin 3.6 Globulin 3.4 Albumin/Globulin Ratio 1.1 Lipase 47 Urine Color Urine Clarity Urine pH Ur Specific [place] Urine Protein Urine Glucose (UA) Urine Ketones Urine Occult Blood Urine Nitrite Urine Bilirubin Urine Urobilinogen Ur Leukocyte Esterase Urine RBC Urine WBC Urine WBC Clumps Ur Squamous Epith Cells Urine Bacteria Ur Microscopic Review Urine Culture Comments Nasal Adenovirus (PCR) Nasal B. parapertussis DNA (PCR) Nasal Coronavir 229E PCR Nasal Coronavir HKU1 PCR Nasal Coronavir NL63 PCR Nasal Coronavir OC43 PCR Nasal Enterovir/Rhinovir PCR Nasal Influenza B PCR Nasal Influenza A PCR Nasal Parainfluen 1 PCR Nasal Parainfluen 2 PCR Nasal Parainfluen 3 PCR Nasal Parainfluen 4 PCR Nasal RSV (PCR) Nasal B.pertussis DNA PCR Nasal C.pneumoniae (PCR) Manuel Human Metapneumo PCR Nasal M.pneumoniae (PCR) Nasal SARS-CoV-2 (PCR) 04/11/21 04/11/21 04/11/21 08:21 08:21 11:22 WBC RBC Hgb Hct MCV MCH MCHC RDW Plt Count MPV Neut # (Auto) Lymph # (Auto) [place] # (Auto) Eos # (Auto) Baso # (Auto) Absolute Nucleated RBC Nucleated RBC % Manual Slide Review Sodium Potassium Chloride Carbon Dioxide Anion Gap BUN Creatinine Estimated GFR (MDRD) Glucose Calcium Total Bilirubin AST ALT Alkaline Phosphatase Total Creatine Kinase CK-MB (CK-2) 9.5 H Troponin I High Sens 35.2 H* Total Protein Albumin Globulin Albumin/Globulin Ratio Lipase Urine Color YELLOW Urine Clarity CLEAR Urine pH 5.5 Ur Specific [place] 1.015 Urine Protein NEGATIVE Urine Glucose (UA) NEGATIVE Urine Ketones NEGATIVE Urine Occult Blood MODERATE H Urine Nitrite NEGATIVE Urine Bilirubin NEGATIVE Urine Urobilinogen 0.2 (NORMAL) Ur Leukocyte Esterase TRACE H Urine RBC 0-5 Urine WBC 6-10 H Urine WBC Clumps PRESENT Ur Squamous Epith Cells FEW Squamous Urine Bacteria Few Ur Microscopic Review INDICATED Urine Culture Comments INDICATED Nasal Adenovirus (PCR) Nasal B. parapertussis DNA (PCR) Nasal Coronavir 229E PCR Nasal Coronavir HKU1 PCR Nasal Coronavir NL63 PCR Nasal Coronavir OC43 PCR Nasal Enterovir/Rhinovir PCR Nasal Influenza B PCR Nasal Influenza A PCR Nasal Parainfluen 1 PCR Nasal Parainfluen 2 PCR Nasal Parainfluen 3 PCR Nasal Parainfluen 4 PCR Nasal RSV (PCR) Nasal B.pertussis DNA PCR Nasal C.pneumoniae (PCR) Manuel Human Metapneumo PCR Nasal M.pneumoniae (PCR) Nasal SARS-CoV-2 (PCR) 04/11/21 15:15 WBC RBC Hgb Hct MCV MCH MCHC RDW Plt Count MPV Neut # (Auto) Lymph # (Auto) [place] # (Auto) Eos # (Auto) Baso # (Auto) Absolute Nucleated RBC Nucleated RBC % Manual Slide Review Sodium Potassium Chloride Carbon Dioxide Anion Gap BUN Creatinine Estimated GFR (MDRD) Glucose Calcium Total Bilirubin AST ALT Alkaline Phosphatase Total Creatine Kinase CK-MB (CK-2) Troponin I High Sens Total Protein Albumin Globulin Albumin/Globulin Ratio Lipase Urine Color Urine Clarity Urine pH Ur Specific [employer] Urine Protein Urine Glucose (UA) Urine Ketones Urine Occult Blood Urine Nitrite Urine Bilirubin Urine Urobilinogen Ur Leukocyte Esterase Urine RBC Urine WBC Urine WBC Clumps Ur Squamous Epith Cells Urine Bacteria Ur Microscopic Review Urine Culture Comments Nasal Adenovirus (PCR) NOT DETECTED Nasal B. parapertussis DNA (PCR) NOT DETECTED Nasal Coronavir 229E PCR NOT DETECTED Nasal Coronavir HKU1 PCR NOT DETECTED Nasal Coronavir NL63 PCR NOT DETECTED Nasal Coronavir OC43 PCR NOT DETECTED Nasal Enterovir/Rhinovir PCR NOT DETECTED Nasal Influenza B PCR NOT DETECTED Nasal Influenza A PCR NOT DETECTED Nasal Parainfluen 1 PCR NOT DETECTED Nasal Parainfluen 2 PCR NOT DETECTED Nasal Parainfluen 3 PCR NOT DETECTED Nasal Parainfluen 4 PCR NOT DETECTED Nasal RSV (PCR) NOT DETECTED Nasal B.pertussis DNA PCR NOT DETECTED Nasal C.pneumoniae (PCR) NOT DETECTED Manuel Human Metapneumo PCR NOT DETECTED Nasal M.pneumoniae (PCR) NOT DETECTED Nasal SARS-CoV-2 (PCR) NOT DETECTED - Rads (name of study) foot L Radiology: Prelim report reviewed (Impression: 1. No acute osseous abnormality.), EMP read indepedently, See rad report Procedures - IVC sono (time) 0850 Bedside IVC sono: IVC measures (cm) (1.21), Dehydration (est 1 liter deficit) PD MEDICAL DECISION MAKING - ED course Complexity details: reviewed old records, reviewed results, re-evaluated patient, considered differential, d/w patient, d/w family ED course: 75-year-old female with marked physical deconditioning has had 14 falls in her home the past 6 days. She had a prolonged hospitalization after sepsis, NSTEMI, bleeding ulcers and cholecystitis. Today in the emergency department she is again found to be dehydrated and she is administered some fluid she does not have improved strength with this. She is physically deconditioned and physical therapy is consulted in the case and indicate that she will need additional conditioning intensively and is a extreme risk for fall and injury at home. She is not a safe discharge from the emergency department. I discussed the case with the patient's sister as well and she indicates that the patient has had so many falls that the paramedics were all familiar with the patient and the patient's sister as well as her home. We attempted to have the patient return to the rehab facility she was in and they eventually stopped answering our telephone calls. We have provided an af fidavit of her need for physical therapy through the physical therapist and our social insurance analyst has Attempted to place the patient back into a assisted facility. We are expecting [facility] to evaluate the patient tomorrow. She has not a safe discharge to home and she will remain in the emergency department overnight. At the conclusion of my shift care is turned over to Dr. Quevedo. She does have symptoms of urinary frequency without dysuria. She always has freqency and her urine is cultured shows polymicrobial growth, this is not treated. Our physical therapist has recommended physical and occupational therapy for this patient with severe physical deconditioning and she is now being discharged from the emergency department to go to [facility] with goals of improved strength with physical and occupational therapy. Departure - Departure Disposition: 01 Home, Self Care Clinical Impression: Dehydration, Leg weakness, bilateral, Severe muscle deconditioning Contusion of left foot Qualifiers: Encounter type: initial encounter Qualified Code(s): S90.32XA - Contusion of left foot, initial encounter Condition: Stable Instructions: ED Dehydration, ED Fall Dizziness Weakn Balance Comments: Our physical therapist has recommended physical and occupational therapy for this patient with severe physical deconditioning and she is now being discharged from the emergency department to go to [facility] with goals of improved strength with physical and occupational therapy.
[2021-04-11 08:30] LABS: BASOPHILS % (AUTO) 0.5 %; EOSINOPHILS # (AUTO) 0.2 10^3/uL (0.0-0.7); EOSINOPHILS % (AUTO) 3.5 %; HCT - HEMATOCRIT 32.1 % (37.0-47.0); HGB - HEMOGLOBIN 10.3 g/dL (12.0-16.0); LYMPHOCYTES # (AUTO) 0.8 10^3/uL (1.5-3.5); LYMPHOCYTES % (AUTO) 12.5 %; MEAN CORPUSCULAR HEMOGLOBIN 30.4 pg (27.0-31.0); MEAN CORPUSCULAR HGB CONC 32.1 g/dL (32.0-36.0); MEAN CORPUSCULAR VOLUME 94.7 fL (81.0-99.0); MEAN PLATELET VOLUME 10.1 fL (7.9-10.8); MONOCYTES # (AUTO) 0.5 10^3/uL (0.0-1.0); MONOCYTES % (AUTO) 8.2 %; NEUTROPHILS # (AUTO) 4.9 10^3/uL (1.5-6.6); NEUTROPHILS % (AUTO) 74.8 %; RED BLOOD COUNT 3.39 10^6/uL (4.20-5.40); RED CELL DISTRIBUTION WIDTH 15.3 % (12.0-15.0); WHITE BLOOD COUNT 6.6 x10^3/uL (4.8-10.8)
[2021-04-11 08:33] LABS: SLIDE REVIEW? Indicated
[2021-04-11 08:40] LABS: ALBUMIN 3.6 g/dL (3.2-5.5); ALBUMIN/GLOBULIN RATIO 1.1 (1.0-2.2); BILIRUBIN,TOTAL 0.9 mg/dL (0.2-1.0); CALCIUM 9.3 mg/dL (8.5-10.3); CREATININE 1.5 mg/dL (0.4-1.0); POTASSIUM 4.2 mmol/L (3.5-5.0)
[2021-04-11 08:45] LABS: PLT - PLATELET COUNT 232 10^3/uL (130-450)
[2021-04-11] MEDS ORDERED: SODIUM CHLORIDE 0.9% 1,000 ML IV STA (09:04)
--- NOTE | 2021-04-11 09:29 | XRAY Report ---
PROCEDURE: Foot 3 View LT INDICATIONS: Injury dorsal pain TECHNIQUE: 3 views of the foot were acquired. COMPARISON: None. FINDINGS: BONES: A lucency traverses the third proximal phalanx base on the oblique view, felt to represent Mac h effect from the soft tissues. The remaining visualized osseous structures appear maintained. Diffus e osteopenia. Small calcaneal enthesophytes. SOFT TISSUES: No focal abnormality. Vascular calcifications are noted. IMPRESSION: 1.No acute osseous abnormality. If the patient's pain persists, consider repeat imaging to evaluate for callus formation. Alternative ly, magnetic resonance imaging may be helpful. Reviewed by: Sb Sow MD on 04/11/2021 9:28 AM PDT Approved by: Sb Sow MD on 04/11/2021 9:28 AM PDT Station ID: [id number]
[2021-04-11 11:33] LABS: BILIRUBIN,URINE NEGATIVE (NEGATIVE); GLUCOSE, URINE (UA) NEGATIVE (NEGATIVE); KETONES,URINE (UA) NEGATIVE (NEGATIVE); LEUKOCYTE ESTERASE, URINE TRACE (NEGATIVE); NITRITE,URINE NEGATIVE (NEGATIVE); OCCULT BLOOD,URINE MODERATE (NEGATIVE); PH,URINE 5.5 PH (5.0-7.5); PROTEIN,URINE NEGATIVE (NEGATIVE); UROBILINOGEN,URINE 0.2 (NORMAL) E.U./dL (NORMAL)
[2021-04-11 11:34] LABS: CLARITY,URINE CLEAR (CLEAR)
[2021-04-11 11:50] LABS: BACTERIA,URINE Few /HPF (None Seen); RBC,URINE 0-5 /HPF (0-5); SQUAMOUS EPITHELIAL CELL,UR FEW Squamous (<= Few); WBC CLUMPS,URINE PRESENT
[2021-04-11 16:35] LABS: B. PARAPERTUSSIS- RESP PCR PAN NOT DETECTED; B. PERTUSSIS- RESP PCR PANEL NOT DETECTED; C. PNEUMONIAE- RESP PCR PANEL NOT DETECTED; CORONAVIRUS 229E-RESP PCR NOT DETECTED; CORONAVIRUS HKU1-RESP PCR NOT DETECTED; CORONAVIRUS NL63-RESP PCR NOT DETECTED; CORONAVIRUS OC43-RESP PCR NOT DETECTED; HUMAN METAPNEUMOVIRUS NOT DETECTED; INFLUENZA A- RESP PCR PANEL NOT DETECTED; INFLUENZA B - RESP PCR PANEL NOT DETECTED; M. PNEUMONIAE- RESP PCR PANEL NOT DETECTED; PARAINFLUENZA VIRUS 1 NOT DETECTED; PARAINFLUENZA VIRUS 2 NOT DETECTED; PARAINFLUENZA VIRUS 3 NOT DETECTED; PARAINFLUENZA VIRUS 4 NOT DETECTED; RHINOVIRUS/ENTEROVIRUS NOT DETECTED; RSV- RESP PCR PANEL NOT DETECTED; SARS-CoV-2 -RESP PCR PANEL NOT DETECTED
[2021-04-11] MEDS ORDERED: cefTRIAXone 1 GM in SODIUM CHLORIDE 0.9% MINIBAG 100 ML IV STA (17:20)
[2021-04-11] MEDS: INSULIN 70/30 HUMAN 100 UNIT/1 ML 10 ML MDV SUBQ SCH (21:00)
[2021-04-11] MEDS: PANTOPRAZOLE 40 MG TABLET PO SCH (21:00)
[2021-04-11] MEDS ORDERED: ACETAMINOPHEN 325 MG TABLET PO STA (21:15)
[2021-04-12] MEDS: LOSARTAN 50 MG TABLET PO SCH (09:13)
[2021-04-12] MEDS: SERTRALINE 50 MG TABLET PO SCH (09:13)
[2021-04-12] MEDS: INSULIN 70/30 HUMAN 100 UNIT/1 ML 10 ML MDV SUBQ SCH ×2 (09:13→20:56)
[2021-04-12] MEDS: POTASSIUM CHLORIDE 20 MEQ TABLET PO SCH (09:14)
[2021-04-12] MEDS: PANTOPRAZOLE 40 MG TABLET PO SCH ×2 (09:14→20:57)
[2021-04-12] MEDS ORDERED: DOCUSATE SODIUM 100 MG CAPSULE PO STA (09:44)
[2021-04-12] MEDS: ACETAMINOPHEN 500 MG TABLET PO SCH (23:12)
[2021-04-13] MEDS: POTASSIUM CHLORIDE 20 MEQ TABLET PO SCH (09:42)
[2021-04-13] MEDS: LOSARTAN 50 MG TABLET PO SCH (09:42)
[2021-04-13] MEDS: PANTOPRAZOLE 40 MG TABLET PO SCH ×2 (09:42→20:34)
[2021-04-13] MEDS: INSULIN 70/30 HUMAN 100 UNIT/1 ML 10 ML MDV SUBQ SCH ×2 (09:43→20:33)
[2021-04-13] MEDS: SERTRALINE 50 MG TABLET PO SCH (09:43)
[2021-04-13] MEDS: ACETAMINOPHEN 500 MG TABLET PO SCH (20:33)
[2021-04-14 06:47] VITALS: BP 146/60
[2021-04-14] MEDS: LOSARTAN 50 MG TABLET PO SCH (08:46)
[2021-04-14] MEDS: SERTRALINE 50 MG TABLET PO SCH (08:46)
[2021-04-14] MEDS: PANTOPRAZOLE 40 MG TABLET PO SCH (08:46)
[2021-04-14] MEDS: INSULIN 70/30 HUMAN 100 UNIT/1 ML 10 ML MDV SUBQ SCH (08:46)
[2021-04-14] MEDS: POTASSIUM CHLORIDE 20 MEQ TABLET PO SCH (08:46)
== END 2021-04-14 12:20 | disposition home or self-care (01) ==
LOC: EDUNIT# → ED 07:23
DX: E86.0 Dehydration (principal); M62.81 Muscle weakness (generalized); S90.32XA Contusion of left foot, initial encounter; W19.XXXA Unspecified fall, initial encounter; R53.81 Other malaise; Z74.2 Need for assistance at home and no other household member able to render care; R35.0 Frequency of micturition; I10 Essential (primary) hypertension; E78.00 Pure hypercholesterolemia, unspecified; I25.119 Atherosclerotic heart disease of native coronary artery with unspecified angina pectoris; J45.909 Unspecified asthma, uncomplicated; E11.9 Type 2 diabetes mellitus without complications; M19.90 Unspecified osteoarthritis, unspecified site; Z20.822 Contact with and (suspected) exposure to COVID-19; Z91.81 History of falling; Z96.659 Presence of unspecified artificial knee joint; Z87.11 Personal history of peptic ulcer disease; Z79.82 Long term (current) use of aspirin; Z79.4 Long term (current) use of insulin
CPT/HCPCS: 36415; 73630; 80053; 81001; 82550; 82553; 83690; 84484; 85025; 87086; 87631; 93005; 96365; 99284; A9270; J1815; 0202U; 81003

== ENCOUNTER 2021-04-14 12:21 | Outpatient (CLI) | payer MEDICARE, OTHER | END 2021-04-14 12:22 | LOC: EMS 12:21 | PROVIDERS: ATTEND Emergency Medicine | DX: Z74.01 Bed confinement status (principal) | CPT/HCPCS: A0425; A0428 ==

== ENCOUNTER 2021-04-21 08:00 | Outpatient (CLI) | payer MEDICARE, OTHER ==
[2021-04-22 08:25] LABS: BILIRUBIN,TOTAL 0.6 mg/dL (0.2-1.0); CALCIUM 9.1 mg/dL (8.5-10.3); CREATININE 1.7 mg/dL (0.4-1.0); POTASSIUM 4.3 mmol/L (3.5-5.0)
[2021-04-22 08:31] LABS: TOTAL PROTEIN 6.7 g/dL (6.7-8.2)
[2021-04-22 08:32] LABS: ALBUMIN 3.5 g/dL (3.2-5.5); ALBUMIN/GLOBULIN RATIO 1.1 (1.0-2.2)
[2021-04-22 08:41] LABS: BILIRUBIN,URINE NEGATIVE (NEGATIVE); CLARITY,URINE CLEAR (CLEAR); KETONES,URINE (UA) NEGATIVE (NEGATIVE); LEUKOCYTE ESTERASE, URINE NEGATIVE (NEGATIVE); NITRITE,URINE NEGATIVE (NEGATIVE); OCCULT BLOOD,URINE MODERATE (NEGATIVE); PH,URINE 5.5 PH (5.0-7.5); PROTEIN,URINE NEGATIVE (NEGATIVE); UROBILINOGEN,URINE 0.2 (NORMAL) E.U./dL (NORMAL)
[2021-04-22 08:42] LABS: GLUCOSE, URINE (UA) NEGATIVE (NEGATIVE)
[2021-04-22 08:43] LABS: SQUAMOUS EPITHELIAL CELL,UR MANY Squamous (<= Few); WBC,URINE 0-3 /HPF (0-5)
[2021-04-22 08:44] LABS: BACTERIA,URINE Rare /HPF (None Seen); HCT - HEMATOCRIT 30.7 % (37.0-47.0); MEAN CORPUSCULAR HEMOGLOBIN 30.4 pg (27.0-31.0); MEAN CORPUSCULAR VOLUME 93.3 fL (81.0-99.0); RED BLOOD COUNT 3.29 10^6/uL (4.20-5.40)
[2021-04-22 08:45] LABS: BASOPHILS % (AUTO) 0.7 %; EOSINOPHILS # (AUTO) 0.1 10^3/uL (0.0-0.7); EOSINOPHILS % (AUTO) 2.3 %; LYMPHOCYTES # (AUTO) 1.1 10^3/uL (1.5-3.5); LYMPHOCYTES % (AUTO) 18.7 %; MEAN CORPUSCULAR HGB CONC 32.6 g/dL (32.0-36.0); MEAN PLATELET VOLUME 10.9 fL (7.9-10.8); MONOCYTES # (AUTO) 0.6 10^3/uL (0.0-1.0); MONOCYTES % (AUTO) 9.8 %; NEUTROPHILS # (AUTO) 4.1 10^3/uL (1.5-6.6); NEUTROPHILS % (AUTO) 68.2 %; PLT - PLATELET COUNT 214 10^3/uL (130-450); RED CELL DISTRIBUTION WIDTH 14.8 % (12.0-15.0)
[2021-04-22 08:46] LABS: SLIDE REVIEW? Not Indicated
== END 2021-04-21 23:59 | disposition home or self-care (01) ==
LOC: LAB.R 08:00
DX: E11.22 Type 2 diabetes mellitus with diabetic chronic kidney disease (principal); I25.2 Old myocardial infarction; I77.1 Stricture of artery; N18.9 Chronic kidney disease, unspecified; E86.0 Dehydration; R78.81 Bacteremia; N39.0 Urinary tract infection, site not specified; K92.2 Gastrointestinal hemorrhage, unspecified
CPT/HCPCS: 80053; 81001; 81003; 82550; 85025; 87086

== ENCOUNTER 2021-05-01 15:35 | Outpatient (CLI) | payer MEDICARE, OTHER ==
[2021-05-01 17:25] LABS: ALBUMIN 3.7 g/dL (3.2-5.5); ALBUMIN/GLOBULIN RATIO 1.3 (1.0-2.2); BILIRUBIN,TOTAL 0.5 mg/dL (0.2-1.0); CALCIUM 9.3 mg/dL (8.5-10.3); CREATININE 1.3 mg/dL (0.4-1.0); TOTAL PROTEIN 6.6 g/dL (6.7-8.2)
== END 2021-05-01 23:59 | disposition home or self-care (01) ==
LOC: LAB 15:35
PROVIDERS: ATTEND Family Medicine
DX: I12.9 Hypertensive chronic kidney disease with stage 1 through stage 4 chronic kidney disease, or unspecified chronic kidney disease (principal); N18.9 Chronic kidney disease, unspecified
CPT/HCPCS: 36415; 80053

== ENCOUNTER 2021-05-26 14:58 | Outpatient (CLI) | payer MEDICARE, OTHER | END 2021-05-26 14:59 | disposition EMS.NT | LOC: EMS 14:58 | DX: Z03.89 Encounter for observation for other suspected diseases and conditions ruled out (principal) ==

== ENCOUNTER 2021-07-31 20:53 | Outpatient (CLI) | payer MEDICARE, OTHER | END 2021-07-31 20:54 | disposition critical access hospital (66) | LOC: EMS 20:53 | DX: R41.0 Disorientation, unspecified (principal); E11.649 Type 2 diabetes mellitus with hypoglycemia without coma | CPT/HCPCS: A0425; A0427 ==

== ENCOUNTER 2021-07-31 21:21 | Emergency (ER) | payer MEDICARE, OTHER ==
--- NOTE | 2021-07-31 21:25 | ED Physician Documentation ---
PD HPI ALTERED MENTAL STATUS - Stated complaint Stated Complaint: HYPOGLYCEMIA - History obtained from History obtained from: Patient, EMS - History of Present Illness Timing - onset: Today (tonight) Quality / character: Less responsive Contributing factors: Diabetic. No: Recent med change Basline status: Alert and oriented X 3, Ambulatory, Independent Treatment DOCUMENT REVIEW ATTORNEY: Accucheck, D50 Similar symptoms before: Diagnosis (DM I) Recently seen: Not recently seen - Additional information Additional information: BIBA. Patient says she was at home making Easter cards and the next thing she was aware of was being surrounded by family and EMS. Family had called EMS for AMS, EMS found FSBS of 23, gave one ampule D50 IV with rapid return to baseline mental status and repeat finger stick of 85. She arrives AAOx3 and asymptomatic. She cannot think of a specific reason for her low blood sugar tonight although she says she was given some dietary restrictions just a few days ago by one of her doctors, and in retrospect she says she might have been taking in less PO because of these restrictions. Review of Systems Constitutional: reports: Reviewed and negative Eyes: reports: Reviewed and negative Cardiac: reports: Reviewed and negative Respiratory: reports: Reviewed and negative GI: reports: Reviewed and negative : denies: Dysuria, Frequency, Incontinent Neurologic: reports: Altered mental status (resolved). denies: Generalized weakness, Focal weakness, Numbness, Seizure, Headache PD PAST MEDICAL HISTORY - Past Medical History Past Medical History: Yes Cardiovascular: High cholesterol Endocrine/Autoimmune: Type 1 diabetes GI: GI bleed, Ulcers - Past Surgical History Past Surgical History: Yes General: Cholecystectomy - Present Medications Home Medications: Ambulatory Orders Medication Instructions Recorded Confirmed Aspirin [Adult Low Dose Aspirin EC] 81 mg PO DAILY 10/11/16 04/11/21 Atorvastatin Calcium 40 mg PO DAILY 10/11/16 04/11/21 Sertraline HCl 100 mg PO DAILY 10/11/16 04/11/21 Insulin NPH Hum/Reg Insulin Hm 22 unit SQ BID 01/17/21 04/11/21 [Novolin 70-30 Flexpen] Acetaminophen [Acetaminophen Extra 1,000 mg PO Q8HR PRN 04/09/21 04/11/21 Strength] Ascorbic Acid [Vitamin C] 500 mg PO DAILY 04/09/21 04/11/21 Ferrous Sulfate 325 mg PO BID 04/09/21 04/11/21 Lactobacillus Combination No.4 1 tab PO DAILY 04/09/21 04/11/21 [Probiotic] Losartan Potassium 25 mg PO DAILY 04/09/21 04/11/21 Melatonin 3 mg PO HS PRN 04/09/21 04/11/21 Ondansetron Odt [Zofran Odt] 4 mg PO Q4HR PRN 04/09/21 04/11/21 Pantoprazole [Protonix] 40 mg PO BID 04/09/21 04/11/21 Potassium Chloride [Klor-Con 10] 1 tab PO DAILY 04/09/21 04/11/21 Pantoprazole [Protonix] 40 mg PO QDAC #90 tablet 07/26/21 - Allergies Allergies/Adverse Reactions: Allergies Allergy/AdvReac Type Severity Reaction Status Date / Time No Known Drug Allergies Allergy Verified 07/31/21 21:30 - Living Situation Living Situation: reports: With family Living Arrangement: reports: At home PD ED PE NORMAL - Vitals Vital signs reviewed: Yes - General General: Alert and oriented X 3, No acute distress, Well developed/nourished - HEENT HEENT: PERRL, EOMI - Neck Neck: Supple, no meningeal sign, No bony TTP - Cardiac Cardiac: RRR - Respiratory Respiratory: No respiratory distress, Clear bilaterally - Abdomen Abdomen: Soft, Non tender - Derm Derm: Normal color, Warm and dry - Neuro Neuro: Alert and oriented X 3, transportation operations manager 2-12 intact, No motor deficit, No sensory deficit, Normal speech Eye Opening: Spontaneous Motor: Obeys Commands Verbal: Oriented GCS Score: 15 - Psych Psych: Normal mood, Normal affect PD ED PE EXPANDED - Cardiac Cardiac: Murmur Present (3/6 THAO left sternal border) Results - Vitals Vitals: Vital Signs - 24 hr 07/31/21 07/31/21 21:26 23:21 Temperature 36.3 C L Heart Rate 74 95 Respiratory 18 18 Rate Blood Pressure 110/73 141/99 H O2 Saturation 98 97 Oxygen O2 Source Room air - Labs Labs: Laboratory Tests 07/31/21 07/31/21 22:05 22:05 WBC 6.3 RBC 3.98 L Hgb 12.2 Hct 37.2 MCV 93.5 MCH 30.7 MCHC 32.8 RDW 13.8 Plt Count 200 MPV 10.0 Neut # (Auto) 5.0 Lymph # (Auto) 0.8 L [place] # (Auto) 0.5 Eos # (Auto) 0.0 Baso # (Auto) 0.0 Absolute Nucleated RBC 0.00 Nucleated RBC % 0.0 Sodium 138 Potassium 2.7 L Chloride 101 Carbon Dioxide 27 Anion Gap 10.0 BUN 13 Creatinine 1.2 H Estimated GFR (MDRD) 44 L Glucose 102 H Calcium 9.1 Total Bilirubin 0.7 AST 67 H ALT 31 Alkaline Phosphatase 132 H Total Protein 7.3 Albumin 4.0 Globulin 3.3 Albumin/Globulin Ratio 1.2 Lipase 60 H PD MEDICAL DECISION MAKING - ED course Complexity details: reviewed old records, reviewed results, re-evaluated patient, considered differential, d/w patient ED course: AMS in field that correlated with hypoglycemia and resolved with one amp IV D50 and elevation of FSBS to normal range. Her FSBS early in ED stay is 66 but she is asymptomatic at that time. She is given a sandwich and roberto crackers with peanut butter (she eats all of this) and repeat FSBS is 102. Her blood work is mostly unremarkable although hypokalemia (2.7) is noted for which she is given 20meq PO KCL. Results reviewed with patient. No obvious cause for her hypoglycemia at this time, but, again, it might not be coincident that a few days ago she was advised of dietary restrictions by one of her primary care providers and she says she thinks she might overall have been eating less since this advice because she feels there are few options that appeal to her. I advised her to continue to follow the dietary advice she was given but to check her blood sugars a few times a day and follow up with her primary care provider, as adjustments in her insulin regimen might be warranted. Departure - Departure Disposition: 01 Home, Self Care Clinical Impression: Hypoglycemia, Hypokalemia Condition: Good Instructions: ED Potassium Deficiency, ED Diabetes Hypoglycemia Insulin React Comments: Your blood sugar was dangerously low tonight. There is no obvious cause at this time for the low blood sugar, although as we discussed, the recent dietary restrictions your doctor recommended to you might have contributed to this episode. Check your blood sugar routinely (at least three times per day as well as before going to bed). You might need adjustment in your insulin regimen, and this can be discussed with your primary care provider. Your blood sugar is 103 at the time of discharge from the emergency department; this is a little lower than would be expected after what you ate in the emergency department (sandwich and crackers with peanut butter); I recommend you have a snack before going to bed once you get home. Your potassium was a little low tonight. You were given a dose of potassium orally, but talk to your doctor about this finding, as they will likely want to repeat a potassium level blood test soon. Discharge Date/Time: 08/01/21 00:15
[2021-07-31 22:14] LABS: BASOPHILS % (AUTO) 0.5 %; EOSINOPHILS % (AUTO) 0.5 %; HCT - HEMATOCRIT 37.2 % (37.0-47.0); HGB - HEMOGLOBIN 12.2 g/dL (12.0-16.0); LYMPHOCYTES # (AUTO) 0.8 10^3/uL (1.5-3.5); LYMPHOCYTES % (AUTO) 12.2 %; MEAN CORPUSCULAR HEMOGLOBIN 30.7 pg (27.0-31.0); MEAN CORPUSCULAR HGB CONC 32.8 g/dL (32.0-36.0); MEAN CORPUSCULAR VOLUME 93.5 fL (81.0-99.0); MONOCYTES # (AUTO) 0.5 10^3/uL (0.0-1.0); MONOCYTES % (AUTO) 7.1 %; NEUTROPHILS % (AUTO) 79.5 %; PLT - PLATELET COUNT 200 10^3/uL (130-450); RED BLOOD COUNT 3.98 10^6/uL (4.20-5.40); RED CELL DISTRIBUTION WIDTH 13.8 % (12.0-15.0); WHITE BLOOD COUNT 6.3 x10^3/uL (4.8-10.8)
[2021-07-31 22:27] LABS: ALBUMIN/GLOBULIN RATIO 1.2 (1.0-2.2); BILIRUBIN,TOTAL 0.7 mg/dL (0.2-1.0); CALCIUM 9.1 mg/dL (8.5-10.3); CREATININE 1.2 mg/dL (0.4-1.0); POTASSIUM 2.7 mmol/L (3.5-5.0); TOTAL PROTEIN 7.3 g/dL (6.7-8.2)
[2021-07-31] MEDS ORDERED: POTASSIUM CHLORIDE 20 MEQ TABLET PO STA (22:59)
[2021-07-31 23:22] VITALS: BP 141/99
== END 2021-08-01 00:15 | disposition home or self-care (01) ==
LOC: EDUNIT# → ED 21:21
DX: E10.649 Type 1 diabetes mellitus with hypoglycemia without coma (principal); Z79.4 Long term (current) use of insulin; E87.6 Hypokalemia
CPT/HCPCS: 36415; 80053; 83690; 85025; 99283; 99284; A9270

== ENCOUNTER 2021-08-04 14:22 | Outpatient (CLI) | payer MEDICARE, OTHER ==
[2021-08-04 19:52] LABS: CREATININE,URINE 212.1 mg/dL; MICROALBUM/CREATININE RATIO,UR 640.3 ug/mg (<30.0); MICROALBUMIN,URINE 135.8 mg/dL (0-300.0)
== END 2021-08-04 14:23 | disposition home or self-care (01) ==
LOC: LAB.N 14:22
PROVIDERS: ATTEND Family Medicine
DX: E11.9 Type 2 diabetes mellitus without complications (principal)
CPT/HCPCS: 82043; 82570

== ENCOUNTER 2021-08-22 14:59 | Outpatient (CLI) | payer MEDICARE, OTHER ==
[2021-08-22 18:16] LABS: ALBUMIN 3.9 g/dL (3.2-5.5); ALBUMIN/GLOBULIN RATIO 1.2 (1.0-2.2); ALKALINE PHOSPHATASE 125 IU/L (42-121); ALT ALANINE AMINOTRANSFERASE 24 IU/L (10-60); AST ASPARTATE AMINOTRANSFERASE 42 IU/L (10-42); BILIRUBIN,TOTAL 0.7 mg/dL (0.2-1.0); BUN - BLOOD UREA NITROGEN 11 mg/dL (6-20); CALCIUM 9.3 mg/dL (8.5-10.3); CARBON DIOXIDE - CO2 27 mmol/L (21-32); CHLORIDE 99 mmol/L (101-111); CHOL/HDL RATIO 4.4 (<4.4); CHOLESTEROL 173 mg/dL; CREATININE 1.3 mg/dL (0.4-1.0); GFR - MDRD 40 (>89); GLUCOSE 137 mg/dL (70-100); HDL CHOLESTEROL 39 mg/dL; LDL CHOLESTEROL,CALCULATED 99 mg/dL; LDL/HDL RATIO 2.5 (<4.4); SODIUM 137 mmol/L (135-145); TOTAL PROTEIN 7.1 g/dL (6.7-8.2); TRIGLYCERIDES 177 mg/dL; VLDL CHOLESTEROL 35 mg/dL
[2021-08-22 21:04] LABS: ESTIMATED AVERAGE GLUCOSE 123 mg/dL (70-100); HEMOGLOBIN A1c% 5.9 % (4.27-6.07)
== END 2021-08-22 15:00 | disposition home or self-care (01) ==
LOC: LAB.N 14:59
PROVIDERS: ATTEND Family Medicine
DX: E11.649 Type 2 diabetes mellitus with hypoglycemia without coma (principal); E78.5 Hyperlipidemia, unspecified; E11.22 Type 2 diabetes mellitus with diabetic chronic kidney disease; N18.32 Chronic kidney disease, stage 3b
CPT/HCPCS: 36415; 80053; 80061; 83036; 83721; 84100

== ENCOUNTER 2021-09-28 12:42 | Outpatient (CLI) | payer MEDICARE, OTHER ==
[2021-09-28 19:30] LABS: ALBUMIN 3.6 g/dL (3.2-5.5); CALCIUM 9.3 mg/dL (8.5-10.3); CREATININE 1.4 mg/dL (0.4-1.0); POTASSIUM 4.1 mmol/L (3.5-5.0)
== END 2021-09-28 12:43 | disposition home or self-care (01) ==
LOC: LAB.N 12:42
PROVIDERS: ATTEND Internal Medicine Nephrology
DX: R19.7 Diarrhea, unspecified (principal); N18.32 Chronic kidney disease, stage 3b
CPT/HCPCS: 36415; 80048; 80069

== ENCOUNTER 2021-09-29 13:15 | Outpatient (CLI) | payer OTHER ==
[2021-09-29 18:25] LABS: FECAL OCCULT BLOOD (FIT) NEGATIVE (NEGATIVE)
== END 2021-09-29 23:59 | disposition home or self-care (01) ==
LOC: LAB.R 13:15
PROVIDERS: ATTEND Family Medicine
DX: R19.7 Diarrhea, unspecified (principal)
CPT/HCPCS: 81599; 82274; 83993; 87045; 87177; 87209; 87329; 87427; 87449; 87493

== ENCOUNTER 2021-11-07 15:20 | Outpatient (CLI) | payer MEDICARE ==
[2021-11-07 17:58] LABS: ALBUMIN 3.8 g/dL (3.2-5.5); CALCIUM 9.3 mg/dL (8.5-10.3); CREATININE 1.5 mg/dL (0.4-1.0); PHOSPHORUS 4.1 mg/dL (2.5-4.6); POTASSIUM 5.3 mmol/L (3.5-5.0)
== END 2021-11-07 15:21 | disposition home or self-care (01) ==
LOC: LAB.N 15:20
PROVIDERS: ATTEND Internal Medicine Nephrology
DX: R19.7 Diarrhea, unspecified (principal); N18.32 Chronic kidney disease, stage 3b
CPT/HCPCS: 36415; 80048; 80069

== ENCOUNTER 2021-11-07 15:23 | Outpatient (CLI) | payer MEDICARE ==
--- NOTE | 2021-11-07 16:32 | XRAY Report ---
PROCEDURE: Knee Standing AP View Only INDICATIONS: RECURRING FALLS WITH PREVIOUS TKA TECHNIQUE: . Single standing view of the bilateral knees COMPARISON: None. 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 No fracture or dislocation. No suspicious bon y lesions. Soft tissues: No knee joint effusions. No suspicious soft tissue calcification. IMPRESSION: Grossly normal bilateral knee arthroplasties on single view. Reviewed by: Melinda Lane MD on 11/07/2021 4:30 PM PDT Approved by: Melinda Lane MD on 11/07/2021 4:30 PM PDT Station ID: [id number]
== END 2021-11-07 15:24 | disposition home or self-care (01) ==
LOC: DI.N 15:23
PROVIDERS: ATTEND Family Medicine
DX: M25.561 Pain in right knee (principal); R29.6 Repeated falls; Z96.653 Presence of artificial knee joint, bilateral; R19.7 Diarrhea, unspecified; N18.32 Chronic kidney disease, stage 3b
CPT/HCPCS: 36415; 80048; 80069

== ENCOUNTER 2021-12-08 11:40 | Emergency (ER) | payer MEDICARE, OTHER ==
--- NOTE | 2021-12-08 12:00 | ED Physician Documentation ---
PD HPI BACK PAIN - Stated complaint Stated Complaint: BACK PAIN - Chief complaint Chief Complaint: Trauma Ch/Bk - History obtained from History obtained from: Patient, Family - History of Present Illness Timing - onset: How many weeks ago (1) Timing - duration: Weeks (1) Timing - details: Abrupt onset, Still present Location: Lower Quality: Pain, Aching Associated symptoms: No: Fever, Weakness, Numbness, Incontinent of urine Worsened by: Movement Contributing factors: Trauma (states she tripped and fell backward onto buttock then back a week ago with pain in lumbar and pelvic area with movement and walking.). No: Anticoagulated Similar symptoms before: Diagnosis (remote prior compression fractures lower lumbar.) Recently seen: Not recently seen Review of Systems : denies: Incontinent Neurologic: denies: Focal weakness, Numbness, Altered mental status, Head injury, LOC PD PAST MEDICAL HISTORY - Past Medical History Cardiovascular: High cholesterol Respiratory: Asthma Endocrine/Autoimmune: Type 1 diabetes GI: GI bleed, Ulcers : Renal insuffiency HEENT: Other Psych: Depression, Other Musculoskeletal: Osteoarthritis, Other Derm: None - Past Surgical History Past Surgical History: Yes General: Cholecystectomy Ortho: Knee replacement, Rotator cuff repair, Shoulder arthroplasty, Carpal Tunnel surgery, Other HEENT: Cataracts - Present Medications Home Medications: Ambulatory Orders Medication Instructions Recorded Confirmed Aspirin [Adult Low Dose Aspirin EC] 81 mg PO DAILY 10/11/16 04/11/21 Atorvastatin Calcium 40 mg PO DAILY 10/11/16 04/11/21 Sertraline HCl 100 mg PO DAILY 10/11/16 04/11/21 Insulin NPH Hum/Reg Insulin Hm 22 unit SQ BID 01/17/21 04/11/21 [Novolin 70-30 Flexpen] Acetaminophen [Acetaminophen Extra 1,000 mg PO Q8HR PRN 04/09/21 04/11/21 Strength] Ascorbic Acid [Vitamin C] 500 mg PO DAILY 04/09/21 04/11/21 Ferrous Sulfate 325 mg PO BID 04/09/21 04/11/21 Lactobacillus Combination No.4 1 tab PO DAILY 04/09/21 04/11/21 [Probiotic] Losartan Potassium 25 mg PO DAILY 04/09/21 04/11/21 Melatonin 3 mg PO HS PRN 04/09/21 04/11/21 Ondansetron Odt [Zofran Odt] 4 mg PO Q4HR PRN 04/09/21 04/11/21 Pantoprazole [Protonix] 40 mg PO BID 04/09/21 04/11/21 Potassium Chloride [Klor-Con 10] 1 tab PO DAILY 04/09/21 04/11/21 Pantoprazole [Protonix] 40 mg PO QDAC #90 tablet 07/26/21 Calcitonin [Fortical] 1 sprays VANCE DAILY #1 bottle 12/08/21 HYDROcod/ACETAM 5/325 [[place] 5/325] 1 ea PO Q6H PRN #10 tablet 12/08/21 Naproxen 250 mg PO BID 10 Days #20 tablet 12/08/21 - Allergies Allergies/Adverse Reactions: Allergies Allergy/AdvReac Type Severity Reaction Status Date / Time No Known Drug Allergies Allergy Verified 12/08/21 11:58 - Social History Does the pt smoke?: No Smoking Status: Never smoker Does the pt drink ETOH?: Yes Does the pt have substance abuse?: Yes - Immunizations Immunizations are current?: Yes - POLST Patient has POLST: Yes PD ED PE NORMAL - Vitals Vital signs reviewed: Yes - General General: Alert and oriented X 3, No acute distress, Well developed/nourished - Respiratory Respiratory: Clear bilaterally, Other (no chestwall nor rib tenderness sides nor back. ) - Abdomen Abdomen: Soft, Non tender - Back Back: No CVA TTP, Other (tender at thoracolumbar area ti percussion. No skin lesions. Some tenderness bilateral SI joint areas as well, more to the right. No noted deformity. ) - Derm Derm: Normal color, Warm and dry - Extremities Extremities: Normal ROM s pain, No edema, No calf tenderness / cord, Other (no pain with ROM of the hips nor with impaction/distraction. ) - Neuro Neuro: Alert and oriented X 3, No motor deficit, No sensory deficit, Normal speech Eye Opening: Spontaneous Motor: Obeys Commands Verbal: Oriented GCS Score: 15 Results - Vitals Vitals: Vital Signs - 24 hr 12/08/21 14:54 Heart Rate 63 Respiratory 16 Rate Blood Pressure 135/67 H O2 Saturation 99 Oxygen O2 Source Room air - Rads (name of study) lumbar and pelvic CT Radiology: Prelim report reviewed (T12 compression fracture new. Mild canal stenosis from retropulsed 4 mm fragment. Mild foraminal stenosis.), See rad report PD MEDICAL DECISION MAKING - ED course Complexity details: reviewed results, considered differential (patient care prolonged due to staffing in ER, causing delayed length of stay.), d/w patient, d/w family (present in ER with patient. ) Departure - Departure Disposition: 01 Home, Self Care Clinical Impression: Fall from slip, trip, or stumble, Thoracic compression fracture Condition: Stable Record reviewed to determine appropriate education?: Yes Instructions: ED Fx Comp Vertebral Prescriptions: Calcitonin [Fortical] 1 sprays VANCE DAILY #1 bottle Naproxen 250 mg PO BID 10 Days #20 tablet HYDROcod/ACETAM 5/325 [[place] 5/325] 1 ea PO Q6H PRN #10 tablet PRN Reason: Pain Comments: You do have a T12 thoracic compression fracture. These are typically treated conservatively with pain medicine and time. They can take a good 4 weeks or more to heal up however. I would suggest continuing with acetaminophen 4 times daily regularly. To that add naproxen twice daily if needed for pains. To that add hydrocodone half to 1 tablet every 6 hours if needed for worse pain. Intention on this would be short-term and small amounts. I typically also add calcitonin nasal spray as studies show this decreases the duration of pain for these fractures. Follow-up with your primary care in week or so. I transmitted prescriptions to your pharmacy. I am prescribing a short course of narcotic pain medication for you. These are potentially dangerous and addictive medications that should be used carefully. These medications may constipate you. Take an [id number] stool softener such as docusate twice daily with plenty of water while taking these medications. If you go 24 hours without a bowel movement, take [id number] MiraLAX, per package instructions. Do not drink or drive while taking these medications. If you received narcotic or sedating medications while in the emergency department do not drive for 24 hours. Store this medication in a safe, secure place and out of reach of children. It is a violation of federal law to give or sell this medication to another person or to use in a manner other than prescribed. The ED will not refill narcotic prescriptions, including prescriptions lost or stolen. You can dispose of unwanted medications at the [facility]'s office or at several pharmacies such as [facility]. Discharge Date/Time: 12/08/21 15:01
[2021-12-08] MEDS ORDERED: ACETAMINOPHEN 325 MG TABLET PO STA (12:29)
--- NOTE | 2021-12-08 14:04 | CT Report ---
PROCEDURE: LUMBAR SPINE WO INDICATIONS: fall with low back/sacral pain TECHNIQUE: Noncontrast 3 mm thick sections acquired from the T12 level to the sacrum. Sagittal and coronal refo rmats were constructed. For radiation dose reduction, the following was used: automated exposure co ntrol, adjustment of mA and/or kV according to patient size. COMPARISON: Eight 90,021 FINDINGS: When compared with 01/16/2021 examination, there is a new acute T12 anterior wedge compression fractu re with involvement of the posterior cortex and approximately 4 mm retropulsion of a superior endplat e fracture fragment. This produces mild spinal canal stenosis with suspected mild mass effect on the conus at this level. Unchanged remote compression deformities of L3 and L4, again with some posterior osteophytic ridging of the superior L3 and L4 endplates which may represent healed osseous retropulsion versus true osteo phytic ridging. Anterolisthesis of L4 on L5 is unchanged. Alignment is otherwise not significantly di fferent from the comparison study. No suspicious lytic or blastic osseous lesion. Regional prevertebral and paraspinous soft tissues dem onstrate no acute finding. The included unenhanced retroperitoneal visceral structures demonstrate no acute finding. Cholecystectomy. Aortic atherosclerosis. At T11-T12, mild spinal canal stenosis and mild bilateral neural foraminal stenosis due to 4 mm retro pulsion of superior T12 endplate fracture fragment. At T12-L1, no spinal canal stenosis or neural foraminal stenosis. At L1-L2, diffuse disc bulge flattens the ventral thecal sac. Foraminal components of the disc bulge and facet hypertrophy combine to produce moderate left and mild right neural foraminal stenosis. At L2-L3, moderate to severe spinal canal stenosis due to posterior disc osteophyte complex and likel y of the ligamentum flavum and bulky facet hypertrophy. These factors combine to produce moderate to severe bilateral neural foraminal stenosis. At L3-L4, severe spinal canal stenosis due to a combination of diffuse disc bulge, superimposed broad -based posterior disc protrusion, posterior osteophytic ridging of the endplates with probable retrop ulsion of a superior L4 endplate fracture fragment as well. There is also bulky facet hypertrophy and buckling of the ligamentum flavum. These factors combine to produce moderate bilateral neural forami nal stenosis. At L4-L5, severe spinal canal stenosis due to a combination of diffuse disc bulge and protrusion with bulky facet hypertrophy and buckling of the ligamentum flavum. Severe bilateral neural foraminal loida nosis with flattening of the exiting L4 nerve roots bilaterally. At L5-S1, diffuse disc bulge with displacement of the descending S1 nerve roots and both subarticular zones. Moderate bilateral neural foraminal stenosis. IMPRESSION: New and acute T12 anterior wedge compression fracture with involvement of the superior and posterior cortices, with an associated retropulsed fracture fragment producing mild spinal canal stenosis. Unchanged remote L3 and L4 compression deformities when compared with 01/16/2021 exam. Severe spinal canal stenosis at L3-L4 and L4-L5 with moderate-severe spinal canal stenosis at L2-L3. Varying degrees of neural foraminal stenosis, severe bilateral L4-L5. Reviewed by: Andrés Ramos MD on 12/08/2021 2:02 PM PDT Approved by: Andrés Ramos MD on 12/08/2021 2:02 PM PDT Station ID: [id number]
--- NOTE | 2021-12-08 14:12 | CT Report ---
PROCEDURE: PELVIS WO INDICATIONS: Trauma, fall with low back/sacral pain TECHNIQUE: Noncontrast 3 mm axial sections acquired through the bony pelvis, with coronal and sagittal reformatt ing. For radiation dose reduction, the following was used: automated exposure control, adjustment of mA and/or kV according to patient size. COMPARISON: CT abdomen and pelvis 01/16/2021 FINDINGS: The sacrum, iliac bones, pubic rami, and proximal femora appear intact. No acute regional soft tissue abnormality. IMPRESSION: No evidence of pelvic fracture. Reviewed by: Andrés Ramos MD on 12/08/2021 2:11 PM PDT Approved by: Andrés Ramos MD on 12/08/2021 2:11 PM PDT Station ID: [id number]
[2021-12-08 15:01] VITALS: BP 135/67
== END 2021-12-08 15:01 | disposition home or self-care (01) ==
LOC: ED 11:40
DX: S22.9XXA Fracture of bony thorax, part unspecified, initial encounter for closed fracture (principal); W01.0XXA Fall on same level from slipping, tripping and stumbling without subsequent striking against object, initial encounter; E10.9 Type 1 diabetes mellitus without complications; Z79.4 Long term (current) use of insulin
CPT/HCPCS: 72131; 72192; 99282; 99284; A9270

== ENCOUNTER 2021-12-30 09:51 | Outpatient (CLI) | payer MEDICARE, OTHER ==
[2021-12-30 19:08] LABS: ALBUMIN 3.5 g/dL (3.2-5.5); CALCIUM 9.4 mg/dL (8.5-10.3); CREATININE 1.2 mg/dL (0.4-1.0); POTASSIUM 4.5 mmol/L (3.5-5.0)
== END 2021-12-30 09:52 | disposition home or self-care (01) ==
LOC: LAB.N 09:51
PROVIDERS: ATTEND Internal Medicine Nephrology
DX: N18.32 Chronic kidney disease, stage 3b (principal)
CPT/HCPCS: 36415; 80069

== ENCOUNTER 2022-01-24 10:56 | Outpatient (CLI) | payer MEDICARE, OTHER ==
--- NOTE | 2022-02-15 12:06 | Mammography Report ---
BILATERAL DIGITAL SCREENING MAMMOGRAM 3D/2D: 01/24/2022 CLINICAL: Routine screening. Comparison is made to exams dated: 05/10/2020 mammogram and 04/23/2019 mammogram - [facility]. There are scattered areas of fibroglandular density in the right breast (category b / 25%-50% glandul ar tissue). Only one image was acquired, right CC view. Patient could not tolerate mammographic evaluation at thi s time. There are vascular and secretory calcifications in the right breast seen on the CC view. The calcific ations are increased. IMPRESSION: INCOMPLETE: NEEDS ADDITIONAL IMAGING EVALUATION Only one image was acquired. Patient could not tolerate mammographic evaluation at this time. Recommend completion of mammographic evaluation if the patient can tolerate and not medically futile. Increased benign calcifications in the right breast. Based on the Tyrer Cuzick model (a risk assessment model) the patients lifetime risk is 14.1% and he r 10 year risk is 12.7%. According to the ACR, ACS, and NCCN guidelines, an annual breast MRI exam al krishna with mammogram is recommended if the patients lifetime risk is 20% or greater. This exam was interpreted at Station ID: [id number]. NOTE: For mammograms, a report in lay terms will be sent to the patient. Approximately 15% of breast malignancies will not be visualized mammographically. In the management of a palpable breast mass, a negative mammogram must not discourage biopsy of a clinically suspicious lesion. Electronically Signed By: Doug Gomez M.D. slc/:02/14/2022 11:53:21 ACR BI-RADS Category 0: Incomplete 3340F PARENCHYMAL PATTERN: (A) - The breast(s) demonstrate(s) scattered fibroglandular densities. BI-RADS CATEGORY: (0) - 0 RECOMMENDATION: (ADDMAM) - Recommend additional mammographic views. [id number] Immediate follow-up LATERALITY: (B)
== END 2022-01-24 10:57 | disposition home or self-care (01) ==
LOC: DI.N 10:56
DX: Z12.31 Encounter for screening mammogram for malignant neoplasm of breast (principal); R92.1 Mammographic calcification found on diagnostic imaging of breast

== ENCOUNTER 2022-03-24 11:56 | Outpatient (CLI) | payer MEDICARE, OTHER ==
[2022-03-24 18:39] LABS: BASOPHILS % (AUTO) 0.6 %; EOSINOPHILS # (AUTO) 0.1 10^3/uL (0.0-0.7); EOSINOPHILS % (AUTO) 2.1 %; HCT - HEMATOCRIT 36.5 % (37.0-47.0); HGB - HEMOGLOBIN 11.5 g/dL (12.0-16.0); LYMPHOCYTES # (AUTO) 0.9 10^3/uL (1.5-3.5); LYMPHOCYTES % (AUTO) 18.1 %; MEAN CORPUSCULAR HGB CONC 31.5 g/dL (32.0-36.0); MEAN CORPUSCULAR VOLUME 95.3 fL (81.0-99.0); MEAN PLATELET VOLUME 10.5 fL (7.9-10.8); MONOCYTES # (AUTO) 0.4 10^3/uL (0.0-1.0); MONOCYTES % (AUTO) 8.4 %; NEUTROPHILS # (AUTO) 3.4 10^3/uL (1.5-6.6); NEUTROPHILS % (AUTO) 70.6 %; PLT - PLATELET COUNT 154 10^3/uL (130-450); RED BLOOD COUNT 3.83 10^6/uL (4.20-5.40); RED CELL DISTRIBUTION WIDTH 13.8 % (12.0-15.0); WHITE BLOOD COUNT 4.9 x10^3/uL (4.8-10.8)
[2022-03-24 19:02] LABS: ALBUMIN 3.8 g/dL (3.2-5.5); ALBUMIN/GLOBULIN RATIO 1.2 (1.0-2.2); ALKALINE PHOSPHATASE 104 IU/L (42-121); ALT ALANINE AMINOTRANSFERASE 23 IU/L (10-60); AST ASPARTATE AMINOTRANSFERASE 29 IU/L (10-42); BILIRUBIN,TOTAL 0.7 mg/dL (0.2-1.0); BUN - BLOOD UREA NITROGEN 29 mg/dL (6-20); CALCIUM 9.1 mg/dL (8.5-10.3); CARBON DIOXIDE - CO2 21 mmol/L (21-32); CHLORIDE 110 mmol/L (101-111); CHOL/HDL RATIO 2.9 (<4.4); CHOLESTEROL 173 mg/dL; CREATININE 1.6 mg/dL (0.4-1.0); GFR - MDRD 32 (>89); GLUCOSE 215 mg/dL (70-100); HDL CHOLESTEROL 60 mg/dL; LDL CHOLESTEROL,CALCULATED 94 mg/dL; LDL/HDL RATIO 1.6 (<4.4); SODIUM 136 mmol/L (135-145); TOTAL PROTEIN 7.1 g/dL (6.7-8.2); TRIGLYCERIDES 97 mg/dL; VLDL CHOLESTEROL 19 mg/dL
[2022-03-24 19:07] LABS: THYROID STIMULATING HORMONE 3.45 uIU/mL (0.34-5.60)
[2022-03-24 19:08] LABS: FREE T3 2.89 pg/mL (2.5-3.9)
[2022-03-24 19:09] LABS: FREE T4 (FREE THYROXINE) 0.7 ng/dL (0.58-1.64)
[2022-03-24 19:13] LABS: POTASSIUM 6.1 mmol/L (3.5-5.0)
== END 2022-03-24 11:57 | disposition home or self-care (01) ==
LOC: LAB.N 11:56
PROVIDERS: ATTEND Family Medicine
DX: I25.10 Atherosclerotic heart disease of native coronary artery without angina pectoris (principal); R26.81 Unsteadiness on feet; E87.6 Hypokalemia; I77.1 Stricture of artery; K27.9 Peptic ulcer, site unspecified, unspecified as acute or chronic, without hemorrhage or perforation; E66.9 Obesity, unspecified; K21.9 Gastro-esophageal reflux disease without esophagitis; F32.A Depression, unspecified; E11.42 Type 2 diabetes mellitus with diabetic polyneuropathy; E78.5 Hyperlipidemia, unspecified; Z79.4 Long term (current) use of insulin
CPT/HCPCS: 36415; 80053; 80061; 83721; 84439; 84443; 84481; 85025

== ENCOUNTER 2022-06-15 13:32 | Outpatient (CLI) | payer MEDICARE, OTHER ==
[2022-06-15 18:03] LABS: ALBUMIN 3.3 g/dL (3.2-5.5); CREATININE 1.3 mg/dL (0.4-1.0); PHOSPHORUS 4.3 mg/dL (2.5-4.6)
== END 2022-06-15 13:33 | disposition home or self-care (01) ==
LOC: LAB.N 13:32
PROVIDERS: ATTEND Internal Medicine Nephrology
DX: N18.32 Chronic kidney disease, stage 3b (principal)
CPT/HCPCS: 36415; 80069; 82570; 84156

== ENCOUNTER 2022-06-18 09:15 | Outpatient (CLI) | payer MEDICARE, OTHER ==
[2022-06-18 17:55] LABS: CREATININE,URINE 96.4 mg/dL; MICROALBUM/CREATININE RATIO,UR 274.9 ug/mg (<30.0); MICROALBUMIN,URINE 26.5 mg/dL (0-300.0)
== END 2022-06-18 09:16 | disposition home or self-care (01) ==
LOC: LAB.N 09:15
PROVIDERS: ATTEND Internal Medicine Nephrology
DX: N18.32 Chronic kidney disease, stage 3b (principal)
CPT/HCPCS: 82043; 82570

== ENCOUNTER 2022-08-04 23:59 | Outpatient (CLI) | payer MEDICARE, OTHER | END 2022-08-05 | disposition critical access hospital (66) | LOC: EMS 23:59 | DX: R06.02 Shortness of breath (principal); R06.2 Wheezing; R05.9 Cough, unspecified; M79.622 Pain in left upper arm; R29.6 Repeated falls; S40.022A Contusion of left upper arm, initial encounter; W19.XXXA Unspecified fall, initial encounter; R10.30 Lower abdominal pain, unspecified | CPT/HCPCS: A0425; A0427 ==

== ENCOUNTER 2022-08-05 00:29 | Inpatient (IN) | payer MEDICARE, OTHER ==
[2022-08-05 01:43] LABS: BASOPHILS % (AUTO) 0.2 %; EOSINOPHILS % (AUTO) 0.1 %; HCT - HEMATOCRIT 35.4 % (37.0-47.0); HGB - HEMOGLOBIN 10.6 g/dL (12.0-16.0); LYMPHOCYTES # (AUTO) 0.2 10^3/uL (1.5-3.5); MEAN CORPUSCULAR HEMOGLOBIN 26.8 pg (27.0-31.0); MEAN CORPUSCULAR HGB CONC 29.9 g/dL (32.0-36.0); MEAN CORPUSCULAR VOLUME 89.6 fL (81.0-99.0); MEAN PLATELET VOLUME 10.2 fL (7.9-10.8); MONOCYTES # (AUTO) 0.3 10^3/uL (0.0-1.0); MONOCYTES % (AUTO) 3.7 %; NEUTROPHILS # (AUTO) 7.5 10^3/uL (1.5-6.6); NEUTROPHILS % (AUTO) 92.8 %; PLT - PLATELET COUNT 154 10^3/uL (130-450); RED BLOOD COUNT 3.95 10^6/uL (4.20-5.40); RED CELL DISTRIBUTION WIDTH 15.1 % (12.0-15.0); WHITE BLOOD COUNT 8.1 x10^3/uL (4.8-10.8)
--- NOTE | 2022-08-05 01:55 | XRAY Report ---
PROCEDURE: Chest 1 View X-Ray INDICATIONS: Chest Pain TECHNIQUE: One view of the chest was acquired. COMPARISON: 01/17/2021, 01/16/2021, 07/13/2015 FINDINGS: Surgical changes and devices: None. Lungs and pleura: An incomplete inspiratory result is noted, with low lung volumes and crowding of t he vascular markings. No focal infiltrates are seen. Mild generalized interstitial prominence can be seen No large pneumothorax or large pleural effusion can be seen. Mediastinum: Mediastinal contours appear normal. Heart size is within normal limits for portable te chnique. Bones and chest wall: No suspicious bony lesions. Age-appropriate degenerative changes are seen. Overlying soft tissues appear unremarkable. IMPRESSION: Mild generalized interstitial prominence can be seen. Please consider artifact from the low lung volu mes versus mild pulmonary edema. Atypical infection is also also possible, yet considered to be less likely. Please consider a short-term follow-up 2 view chest series (performed in deep inspiration) for furthe r evaluation. Reviewed by: Bimal Hyatt MD on 08/05/2022 12:54 AM [facility] Approved by: Bimal Hyatt MD on 08/05/2022 12:54 AM [facility] Station ID: [id number]
[2022-08-05 02:03] LABS: ALBUMIN 2.8 g/dL (3.2-5.5); ALBUMIN/GLOBULIN RATIO 0.7 (1.0-2.2); BILIRUBIN,TOTAL 4.7 mg/dL (0.2-1.0); CALCIUM 8.4 mg/dL (8.5-10.3); CREATININE 1.4 mg/dL (0.4-1.0); TOTAL PROTEIN 6.6 g/dL (6.7-8.2)
[2022-08-05 02:06] LABS: POTASSIUM 2.4 mmol/L (3.5-5.0)
[2022-08-05] MEDS ORDERED: POTASSIUM CHLORIDE 20 MEQ TABLET PO STA (02:06)
[2022-08-05] MEDS ORDERED: MAGNESIUM SULFATE 2 GRAM 2 GM/50 ML BAG IV ONE (02:15)
--- NOTE | 2022-08-05 02:15 | ED Physician Documentation ---
History of Present Illness - Stated complaint Stated Complaint: SOA - Chief complaint Chief Complaint: Abd Pain - History obtained from History obtained from: Patient, Family (sister) - Additonal information Additional information: 77-year-old woman with history of asthma presents with shortness of breath this evening. Patient has had intermittent wheezing over the past week with severe episode this evening requiring DuoNeb by EMS. Patient feels better upon arrival to the emergency department but is yellow appearing. Denies knowledge of prior liver issues. Does state that she may have had a recent cardiac event. Also notes that she "lost 8 pints of blood" during hospital stay in [place] from gastrointestinal bleeding. Finally, patient has been falling frequently and endorses increased weakness. Most recent fall was last Saturday and she sustained a left humerus bruise at that time. Review of Systems Constitutional: denies: Fever Cardiac: denies: Chest pain / pressure Respiratory: reports: Dyspnea, Wheezing. denies: Cough GI: denies: Abdominal Pain Neurologic: reports: Generalized weakness PD PAST MEDICAL HISTORY - Past Medical History Cardiovascular: High cholesterol Respiratory: Asthma Endocrine/Autoimmune: Type 1 diabetes GI: GI bleed, Ulcers : Renal insuffiency HEENT: Other Psych: Depression, Other Musculoskeletal: Osteoarthritis, Other Derm: None - Past Surgical History Past Surgical History: Yes General: Cholecystectomy Ortho: Knee replacement, Rotator cuff repair, Shoulder arthroplasty, Carpal Tunnel surgery, Other HEENT: Cataracts - Present Medications Home Medications: Ambulatory Orders Medication Instructions Recorded Confirmed Atorvastatin Calcium 40 mg PO DAILY 10/11/16 04/11/21 Sertraline HCl 100 mg PO DAILY 10/11/16 04/11/21 Pantoprazole [Protonix] 40 mg PO BID 04/09/21 04/11/21 Potassium Chloride [Klor-Con 10] 1 tab PO DAILY 04/09/21 04/11/21 Metoprolol Succinate [Toprol Xl] 25 mg PO ONCE 08/05/22 08/05/22 - Allergies Allergies/Adverse Reactions: Allergies Allergy/AdvReac Type Severity Reaction Status Date / Time No Known Drug Allergies Allergy Verified 12/08/21 11:58 - Social History Does the pt smoke?: No Smoking Status: Never smoker Does the pt drink ETOH?: Yes Does the pt have substance abuse?: Yes - Immunizations Immunizations are current?: Yes - POLST Patient has POLST: Yes PD ED PE NORMAL - Vitals Vital signs reviewed: Yes - General General: Alert and oriented X 3, Other (deconditioned appearing, jaundiced appearing) - HEENT HEENT: Atraumatic, PERRL, EOMI - Neck Neck: Supple, no meningeal sign - Cardiac Cardiac: RRR - Respiratory Respiratory: Clear bilaterally - Abdomen Abdomen: Non tender, Non distended - Derm Derm: Warm and dry, Other (jaundiced appearing) - Extremities Extremities: No deformity - Neuro Neuro: No motor deficit, No sensory deficit - Psych Psych: Normal mood, Normal affect Results - Vitals Vitals: Vital Signs - 24 hr 08/05/22 08/05/22 08/05/22 00:29 01:11 02:28 Temperature 37.4 C Heart Rate 91 91 96 Respiratory 20 19 23 Rate Blood Pressure 107/88 H 92/78 88/65 L O2 Saturation 96 95 96 08/05/22 08/05/22 02:52 03:46 Temperature Heart Rate 94 95 Respiratory 22 20 Rate Blood Pressure 92/68 108/54 L O2 Saturation 96 96 Oxygen O2 Source Room air - EKG (time done) 0151 Rate: Rate (enter#) (97) Rhythm: NSR Intervals: RBBB QRS: LVH (multiple PVCs) Ischemia: Other - Labs Labs: Laboratory Tests 08/05/22 08/05/22 08/05/22 01:37 01:37 01:37 WBC 8.1 RBC 3.95 L Hgb 10.6 L Hct 35.4 L MCV 89.6 MCH 26.8 L MCHC 29.9 L RDW 15.1 H Plt Count 154 MPV 10.2 Neut # (Auto) 7.5 H Lymph # (Auto) 0.2 L Grundy # (Auto) 0.3 Eos # (Auto) 0.0 Baso # (Auto) 0.0 Absolute Nucleated RBC 0.00 Nucleated RBC % 0.0 Sodium 135 Potassium 2.4 L* Chloride 98 L Carbon Dioxide 25 Anion Gap 12.0 BUN 21 H Creatinine 1.4 H Estimated GFR (MDRD) 37 L Glucose 277 H Calcium 8.4 L Magnesium 1.9 Total Bilirubin 4.7 H AST 200 H ALT 79 H Alkaline Phosphatase 547 H Total Protein 6.6 L Albumin 2.8 L Globulin 3.8 Albumin/Globulin Ratio 0.7 L Lipase 47 Nasal Adenovirus (PCR) Nasal B. parapertussis DNA (PCR) Nasal Coronavir 229E PCR Nasal Coronavir HKU1 PCR Nasal Coronavir NL63 PCR Nasal Coronavir OC43 PCR Nasal Enterovir/Rhinovir PCR Nasal Influenza B PCR Nasal Influenza A PCR Nasal Parainfluen 1 PCR Nasal Parainfluen 2 PCR Nasal Parainfluen 3 PCR Nasal Parainfluen 4 PCR Nasal RSV (PCR) Nasal B.pertussis DNA PCR Nasal C.pneumoniae (PCR) Manuel Human Metapneumo PCR Nasal M.pneumoniae (PCR) Nasal SARS-CoV-2 (PCR) 08/05/22 02:39 WBC RBC Hgb Hct MCV MCH MCHC RDW Plt Count MPV Neut # (Auto) Lymph # (Auto) Grundy # (Auto) Eos # (Auto) Baso # (Auto) Absolute Nucleated RBC Nucleated RBC % Sodium Potassium Chloride Carbon Dioxide Anion Gap BUN Creatinine Estimated GFR (MDRD) Glucose Calcium Magnesium Total Bilirubin AST ALT Alkaline Phosphatase Total Protein Albumin Globulin Albumin/Globulin Ratio Lipase Nasal Adenovirus (PCR) NOT DETECTED Nasal B. parapertussis DNA (PCR) NOT DETECTED Nasal Coronavir 229E PCR NOT DETECTED Nasal Coronavir HKU1 PCR NOT DETECTED Nasal Coronavir NL63 PCR NOT DETECTED Nasal Coronavir OC43 PCR NOT DETECTED Nasal Enterovir/Rhinovir PCR NOT DETECTED Nasal Influenza B PCR NOT DETECTED Nasal Influenza A PCR NOT DETECTED Nasal Parainfluen 1 PCR NOT DETECTED Nasal Parainfluen 2 PCR NOT DETECTED Nasal Parainfluen 3 PCR NOT DETECTED Nasal Parainfluen 4 PCR NOT DETECTED Nasal RSV (PCR) NOT DETECTED Nasal B.pertussis DNA PCR NOT DETECTED Nasal C.pneumoniae (PCR) NOT DETECTED Manuel Human Metapneumo PCR NOT DETECTED Nasal M.pneumoniae (PCR) NOT DETECTED Nasal SARS-CoV-2 (PCR) NOT DETECTED PD Medical Decision Making - ED course ED course: 77-year-old woman presents with shortness of breath for the past week with wheezing tonight, improved status post DuoNeb with EMS. However on arrival, patient is ill-appearing, deconditioned, with jaundiced skin. CBC and abdominal panel ordered. Lab work remarkable for Anemia, hypokalemia with potassium 2.4, stable kidney injury.Patient is displaying multiple PVCs on the monitor and her EKG was remarkable for cardiac arrhythmia concerning for symptomatic hypokalemia. Chest x-ray with interstitial pattern. d/w telehealth Dr. Bahena for admission for hypokalemia with generalized weakness and arrhythmia. Departure - Departure Disposition: 66 [facility] DC/Xfer Clinical Impression: Shortness of breath, Anemia, Jaundice, Hypokalemia, Asthma, PVC (premature ventricular contraction), Weakness Condition: Serious
[2022-08-05] MEDS: POTASSIUM CHLOR 10 MEQ/100 ML 10 MEQ/100 ML BAG IV SCH ×6 (02:53→16:55)
[2022-08-05 03:45] LABS: B. PARAPERTUSSIS- RESP PCR PAN NOT DETECTED; B. PERTUSSIS- RESP PCR PANEL NOT DETECTED; C. PNEUMONIAE- RESP PCR PANEL NOT DETECTED; CORONAVIRUS 229E-RESP PCR NOT DETECTED; CORONAVIRUS HKU1-RESP PCR NOT DETECTED; CORONAVIRUS NL63-RESP PCR NOT DETECTED; CORONAVIRUS OC43-RESP PCR NOT DETECTED; HUMAN METAPNEUMOVIRUS NOT DETECTED; INFLUENZA A- RESP PCR PANEL NOT DETECTED; INFLUENZA B - RESP PCR PANEL NOT DETECTED; M. PNEUMONIAE- RESP PCR PANEL NOT DETECTED; PARAINFLUENZA VIRUS 1 NOT DETECTED; PARAINFLUENZA VIRUS 2 NOT DETECTED; PARAINFLUENZA VIRUS 3 NOT DETECTED; PARAINFLUENZA VIRUS 4 NOT DETECTED; RHINOVIRUS/ENTEROVIRUS NOT DETECTED; RSV- RESP PCR PANEL NOT DETECTED; SARS-CoV-2 -RESP PCR PANEL NOT DETECTED
--- NOTE | 2022-08-05 03:49 | HISTORY & PHYSICAL EXAMINATION ---
Chief Complaint - Chief Complaint Chief Complaint: shortness of breath History of Present Illness - Admitted From Admitted From:: home - History Obtained From Exam Limitations: telemedicine - History of Present Illness HPI Comment/Other: Ms Rosa is a 77 yo F with hx asthma, DM, HLD. Presents to ER with c/o frequent falls, shortness of breath. Pt reports that she was having an asthma attack, felt short of breath, mild dry cough, felt hot but was not febrile. She lives wi th her sister who is at bedside. Pt reports she has not needed an inhaler in over a year and did not have any at home. She felt much better after EMS neb tx, no longer feeling short of breath. She denies fevers, chills, abd pain, n/v. Had diarrhea a couple of weeks ago , no blood, now constipated had small BM today and yesterday. Denies changes in appetite/diet. Denies hx liver abnormalities. Does not take insulin, was stopped a year ago after she lost ~130 lbs. History - Past Medical History Cardiovascular: reports: High cholesterol Respiratory: reports: Asthma Endocrine/Autoimmune: reports: Type 1 diabetes GI: reports: GI bleed, Ulcers : reports: Renal insuffiency HEENT: reports: Other Psych: reports: Depression, Other Musculoskeletal: reports: Osteoarthritis, Other Derm: reports: None MRSA Hx?: No - Past Surgical History General: reports: Cholecystectomy Ortho: reports: Knee replacement, Rotator cuff repair, Shoulder arthroplasty, Carpal Tunnel surgery, Other HEENT: reports: Cataracts - Family & Social History Family History Comment/Other: She reports her father had colon cancer but from liver disease. Her mother had breast cancer. Living Situation: With family Social History Notes: She lives at home with her sister. She denies smoking or alcohol use. - POLST Patient has POLST: Yes Meds/Allgy - Home Medications Home Medications: Ambulatory Orders Medication Instructions Recorded Confirmed Atorvastatin Calcium 40 mg PO DAILY 10/11/16 04/11/21 Sertraline HCl 100 mg PO DAILY 10/11/16 04/11/21 Pantoprazole [Protonix] 40 mg PO BID 04/09/21 04/11/21 Potassium Chloride [Klor-Con 10] 1 tab PO DAILY 04/09/21 04/11/21 Metoprolol Succinate [Toprol Xl] 25 mg PO ONCE 08/05/22 08/05/22 - Allergies Allergies/Adverse Reactions: Allergies Allergy/AdvReac Type Severity Reaction Status Date / Time No Known Drug Allergies Allergy Verified 12/08/21 11:58 Review of Systems - Constitutional Constitutional: reports: Weakness. denies: Poor appetite - Ears, Nose & Throat Ears, Nose & Throat: denies: Nasal congestion, Sore throat - Cardiovascular Cariovascular: reports: Edema (chronic foot swelling unchanged). denies: Irregular heart rate, Palpitations, Chest pain - Respiratory Respiratory: reports: Cough, Wheezing - Gastrointestinal Gastrointestinal: reports: Constipation, Diarrhea, Change in bowel habits. denies: Abdominal pain, Rectal bleeding, Black stools, Bloody stools, Nausea, Vomiting, Poor appetite - Genitourinary Genitourinary: denies: Dysuria, Urgency, Hematuria - Musculoskeletal Musculoskeletal: denies: Muscle pain - Integumentary Integumentary: denies: Rash, Pruritis - Neurological Neurological: reports: General weakness Exam - Vital Signs Reviewed Vital Signs: Yes Vital Signs: Vital Signs x48h Temp Pulse Resp BP Pulse Ox 08/05/22 02:52 94 22 92/68 96 08/05/22 02:28 96 23 88/65 L 96 08/05/22 01:11 91 19 92/78 95 08/05/22 00:29 37.4 C 91 20 107/88 H 96 - Physical Exam General Appearance: positive: No acute distress, Alert Eyes Bilateral: positive: Normal inspection ENT: positive: ENT inspection nml Respiratory: positive: No respiratory distress Skin: positive: No rash Neurologic/Psychiatric: positive: Oriented x3. negative: Slurred/abnml speech Conclusion/Plan - Lab Results Lab results reviewed: Yes Fish Bones: 08/05/22 01:37 08/05/22 01:37 - Other Other Results/Comments: Hypokalemia -K 2.4 -Replete, trend labs -Mag stable 1.9 -Etiology unclear, pt denies appetite changes, n/v, has been taking K supplements as prescribed (home meds) -equipment monitor phototypesetting Hyperglycemia, hx DM 1 -Pt reports she was taking off of insulin ~ 1 year ago -F/u A1c -SSI for now Elevated LFTs -Pt denies prior hx liver disease -Denies abd pain, n/v -F/u RUQ US Hx asthma -Pt called EMS w dyspnea, resolved after neb tx x 1, no current signs of resp distress -DuoNebs PRN -O2 sats stable on RA DNR/DNI - per patient and her sister at bedside DVT ppx: Heparin sc Clinical telemedicine services delivered using interactive video audio telecommunications while the patient and the rendering provider were not in the same physical location.
[2022-08-05] MEDS ORDERED: SODIUM CHLORIDE FLUSH 0.9% 10 ML SYRINGE IVP PRN (03:57)
[2022-08-05] MEDS ORDERED: ONDANSETRON 4 MG/2 ML VIAL IVP PRN (03:57)
[2022-08-05] MEDS ORDERED: INSULIN LISPRO 300 UNIT/3 ML PEN SUBQ SCH (08:00)
[2022-08-05 08:46] LABS: ALBUMIN 2.7 g/dL (3.2-5.5); ALBUMIN/GLOBULIN RATIO 0.6 (1.0-2.2); BILIRUBIN,TOTAL 5.4 mg/dL (0.2-1.0); CALCIUM 8.5 mg/dL (8.5-10.3); CREATININE 1.4 mg/dL (0.4-1.0); POTASSIUM 3.1 mmol/L (3.5-5.0); TOTAL PROTEIN 6.9 g/dL (6.7-8.2)
[2022-08-05] MEDS ORDERED: METOPROLOL SUCCINATE 25 MG TABLET PO SCH (09:00)
[2022-08-05] MEDS ORDERED: ATORVASTATIN 40 MG TABLET PO SCH (09:00)
[2022-08-05] MEDS: ZINC OXIDE 20% OINT 30 GM TUBE TOP PRN ×3 (09:35→20:34)
[2022-08-05] MEDS: SERTRALINE 50 MG TABLET PO SCH (09:35)
[2022-08-05] MEDS: NYSTATIN POWDER 15 GM TOP SCH ×2 (09:35→20:34)
[2022-08-05] MEDS: SODIUM CHLORIDE FLUSH 0.9% 10 ML SYRINGE IVP SCH ×2 (09:36→15:35)
[2022-08-05] MEDS: METOPROLOL SUCCINATE 25 MG TABLET PO SCH (09:36)
[2022-08-05] MEDS: PANTOPRAZOLE 40 MG TABLET PO SCH ×2 (09:57→20:35)
--- NOTE | 2022-08-05 09:57 | XRAY Report ---
PROCEDURE: Humerus LT INDICATIONS: GLF, LT UPPER ARM PAIN TECHNIQUE: AP and lateral views of the humerus were acquired. COMPARISON: None FINDINGS: Bones: No fractures or dislocations. No suspicious bony lesions. Soft tissues: No suspicious soft tissue calcifications. IMPRESSION: No evidence acute bony abnormality of the left humerus or Reviewed by: Virgil Diaz MD on 08/05/2022 9:56 AM [facility] Approved by: Virgil Diaz MD on 08/05/2022 9:56 AM [facility] Station ID: [id number]
[2022-08-05] MEDS: HEPARIN 5,000 UNIT/ML VIAL SUBQ SCH ×2 (09:58→20:38)
[2022-08-05] MEDS: DOCUSATE SODIUM 100 MG CAPSULE PO PRN (09:58)
--- NOTE | 2022-08-05 11:44 | PHARMACY PROGRESS NOTE ---
- Best Possible Medication History Admit Date and Time: 08/05/22 0357 Processed by: Pharmacy Medication History completed: Yes Patient Interview: Completed Secondary Source(s): Insurance records As the person ultimately responsible for medication therapy, providers are able to order a medication from an existing home medication list in [facility] via the "Reconcile Routine" prior to Confirmation of that medication by product support rep. Such practice is discouraged except when the physician, in their clinical judgment, deems that a medical need exists for a medication without regard to previous use.
--- NOTE | 2022-08-05 12:01 | Ultrasound Report ---
PROCEDURE: Abdomen Limited INDICATIONS: Elevated LFTs TECHNIQUE: Real-time focused scanning was performed of the abdomen, with image documentation. COMPARISON: None FINDINGS: Liver: Liver shows diffusely increased echogenicity without focal mass lesion. No intrahepatic duct al dilation. Gallbladder: Cholecystectomy Common Bile Duct: 9.5 mm. Pancreas: Nonvisualized Right Kidney: Appropriate in size and echotexture. No evidence of hydronephrosis. No shadowing calc bertha. No solid or cystic mass lesion. Abdominal ascites noted IMPRESSION: Hepatic fatty infiltration without focal mass lesion Moderate ascites Reviewed by: Thaddeus Fowler MD on 08/05/2022 11:00 AM [facility] Approved by: Thaddeus Fowler MD on 08/05/2022 11:00 AM [facility] Station ID: [id number]
[2022-08-05] MEDS: INSULIN LISPRO 300 UNIT/3 ML PEN SUBQ SCH ×3 (12:14→20:39)
[2022-08-05 14:18] LABS: ESTIMATED AVERAGE GLUCOSE 177 mg/dL (70-100); HEMOGLOBIN A1c% 7.8 % (4.27-6.07)
[2022-08-05] MEDS: IPRATROPIUM/ALBUTEROL 3 ML NEB INH PRN (16:03)
[2022-08-06] MEDS: IPRATROPIUM/ALBUTEROL 3 ML NEB INH PRN ×2 (01:10→21:17)
[2022-08-06] MEDS: SODIUM CHLORIDE FLUSH 0.9% 10 ML SYRINGE IVP SCH ×3 (01:19→17:27)
[2022-08-06 05:50] LABS: BASOPHILS % (AUTO) 0.1 %; EOSINOPHILS # (AUTO) 0.1 10^3/uL (0.0-0.7); HCT - HEMATOCRIT 29.1 % (37.0-47.0); HGB - HEMOGLOBIN 9.1 g/dL (12.0-16.0); LYMPHOCYTES # (AUTO) 0.6 10^3/uL (1.5-3.5); LYMPHOCYTES % (AUTO) 9.1 %; MEAN CORPUSCULAR HEMOGLOBIN 26.9 pg (27.0-31.0); MEAN CORPUSCULAR HGB CONC 31.3 g/dL (32.0-36.0); MEAN CORPUSCULAR VOLUME 86.1 fL (81.0-99.0); MEAN PLATELET VOLUME 10.6 fL (7.9-10.8); MONOCYTES # (AUTO) 0.4 10^3/uL (0.0-1.0); MONOCYTES % (AUTO) 6.2 %; NEUTROPHILS # (AUTO) 5.9 10^3/uL (1.5-6.6); PLT - PLATELET COUNT 135 10^3/uL (130-450); RED BLOOD COUNT 3.38 10^6/uL (4.20-5.40); RED CELL DISTRIBUTION WIDTH 15.5 % (12.0-15.0); WHITE BLOOD COUNT 7.1 x10^3/uL (4.8-10.8)
[2022-08-06 06:01] LABS: CALCIUM 8.2 mg/dL (8.5-10.3); CREATININE 1.6 mg/dL (0.4-1.0); MAGNESIUM 2.3 mg/dL (1.7-2.8)
[2022-08-06] MEDS: METOPROLOL SUCCINATE 25 MG TABLET PO SCH (08:19)
[2022-08-06] MEDS: SERTRALINE 50 MG TABLET PO SCH (08:19)
[2022-08-06] MEDS: PANTOPRAZOLE 40 MG TABLET PO SCH ×2 (08:20→21:08)
[2022-08-06] MEDS: HEPARIN 5,000 UNIT/ML VIAL SUBQ SCH ×2 (08:20→21:07)
[2022-08-06] MEDS: NYSTATIN POWDER 15 GM TOP SCH ×2 (08:20→17:27)
[2022-08-06] MEDS: ZINC OXIDE 20% OINT 30 GM TUBE TOP PRN (08:21)
[2022-08-06] MEDS: INSULIN LISPRO 300 UNIT/3 ML PEN SUBQ SCH ×4 (08:22→21:08)
[2022-08-06] MEDS: POTASSIUM CHLOR 10 MEQ/100 ML 10 MEQ/100 ML BAG IV SCH ×4 (11:42→15:56)
--- NOTE | 2022-08-06 12:00 | PROVIDER PROGRESS NOTE ---
Assessment/Plan - Problem List (1) Hypokalemia Assessment/Plan: Her K was 2.4 on admission labs. Etiology was unclear, pt denied appetite changes, n/v, but did have diarrhea recently. She has been taking K supplements as prescribed (home meds). Mag stable 1.9 Plan: Continue on telemetry She still has daily needs for potassium replacement, will give K riders and continue p.o. Potassium (2) Acute on CKD I reviewed her EMR record and I reviewed her labs. Her creatinine normally was runs 1.2-1.3. She came in with creatinine of 1.4 and it has gone up to 1.6 today. Plan: Continue with IV fluids, will increase the iv rate Avoid nephrotoxins Follow BUN/creatinine daily (3) Elevated LFTs Pt denied prior hx liver disease, denied abd pain, n/v. The admission H&P states that she drinks no alcohol. But the ER provider note states that she does drink alcohol and that there is a history of substance abuse. Right upper quadrant ultrasound was done 08/05 that showed she has no gallbladder, her bile duct is slightly enlarged, she has an enlarged and echoge luis liver. Plan: We will continue to follow the LFTs daily Avoid hepatotoxins. We will ask pharmacy to review her current med list to see if the liver function abnormalities may be from a medication she took. Viral Hepatitis screening labs will be ordered Will determine if there is an alcohol history, as she may need a CIWA protocol ordered, since today is 48 hours since admission and withdrawal may start. Obtain Echo, to evaluate for right-sided heart failure, if present that may be causing passive liver congestion. (4) IHSS with obstruction Patient has a history of IHSS documented by Echo done 01/2021. She had a very high gradient across the LV outflow tract during Valsalva of 153 mmHg then. (The Echo conclusion said "without evidence of obstruction", but the body of the Echo reported said "Sigmoid shaped septum with an increase in pressure gradient during Valsalva up to 153 mmHg"). Patients with IHSS have frequent orthostasis, when there is obstruction to outflow from the LV into the aorta. This would be managed like dehydration. Plan: Obtain Echo. (Echo was ordered Saturday, but we have no Echo service here except Saturday through ) If she has a significant IHSS gradient, she needs to be on negative inotropes and needs to avoid volume depletion. (5) Frequent falls She has had years of frequent falls. H&P states that in a 1 week period of time there were 24 calls to EMS for lift assist and that EMS staff know this patient and her sister by first name Plan: Continue on telemetry Obtain orthostatic vital signs Obtain Echo. She has severe IHSS documented by Echo 2 yrs ago. Patients with IHSS have frequent orthostasis, when there is obstruction to outflow from the LV into the aorta and need volume replaced. PT and OT evaluation ordered (6) L arm pain This patient presented with multiple bruises and a complaint of pain in her mid upper left arm. Presumably this was from all the falls she has. Humerus imaging was done yesterday 08/05 and this showed no fracture. Plan: Pain medications as needed PT and OT evaluations are pending (7) Bruising The patient has numerous bruises over her extremities and even on her breast, at various stages of healing. It is presumed these are from all the falls she has had. Plan: Work-up as per #5 (8) Asthmatic exacerbation Pt called EMS w dyspnea, resolved after neb tx x 1, then less resp distress. O2 sats stable on RA Plan: Continue with DuoNebs 4 times daily scheduled and prn (9) DM Type II The admission H&P states she has a history of DM type 1, which is not correct. Pt reports she was taking off of insulin ~ 1 year ago. It is unknown if she was following a diabetic diet. Her home med list does not show any oral diabetic meds. Plan: Continue with fingerstick checks, sliding scale insulin, diabetic diet, hypoglycemia protocol while here Awaiting A1c result (10) Fungal rash of torso (B36.9) She has a red itchy rash in many of her skin folds Plan: Cont with nystatin powder topically - Current Meds Current Meds: Current Medications Generic Name Dose Route Start Last Admin Trade Name Freq PRN Reason Stop Dose Admin Albuterol/Ipratropium 3 ml 08/05/22 04:00 08/06/22 01:10 Ipratropium/Albuterol 3 Ml Neb INH 3 ml Q4HR PRN Administration Wheezing Docusate Sodium 100 mg 08/05/22 04:00 08/05/22 09:58 Docusate Sodium 100 Mg Capsule PO 100 mg BID PRN Administration Constipation Heparin Sodium (Porcine) 5,000 unit 08/05/22 09:00 08/06/22 08:20 Heparin 5,000 Unit/Ml Vial SUBQ 5,000 unit BID EDUARDA Administration Potassium Chloride 10 meq in 100 mls @ 100 mls/hr 08/06/22 11:00 08/06/22 11:42 Potassium Chloride IV 08/06/22 14:59 100 mls/hr Q1H EDUARDA Administration Insulin Human Lispro 1 - 5 unit 08/05/22 12:00 08/06/22 08:22 Insulin Lispro 300 Unit/3 Ml Pen SUBQ 1 unit 0800,1200,1700,2100 EDUARDA Administration Protocol Metoprolol Succinate 25 mg 08/05/22 09:00 08/06/22 08:19 Metoprolol Succinate 25 Mg Tablet PO 25 mg DAILY EDUARDA Administration Multi-Ingredient Ointment 1 applic 08/05/22 07:34 08/06/22 08:21 Zinc Oxide 20% Oint 30 Gm Tube TOP 1 appful PRN PRN Administration Skin Care Nystatin 1 applic 08/05/22 09:00 08/06/22 08:20 Nystatin Powder 15 Gm TOP 1 applic BID EDUARDA Administration Pantoprazole Sodium 40 mg 08/05/22 09:00 08/06/22 08:20 Pantoprazole 40 Mg Tablet PO 40 mg BID EDUARDA Administration Sertraline HCl 100 mg 08/05/22 09:00 08/06/22 08:19 Sertraline 50 Mg Tablet PO 100 mg DAILY EDUARDA Administration Sodium Chloride 10 ml 08/05/22 09:00 08/06/22 08:23 Sodium Chloride Flush 0.9% 10 Ml Syringe IVP 10 ml 0100,0900,1700 EDUARDA Administration - Lab Result Fish Bone Diagrams: 08/06/22 05:30 08/06/22 05:30 - Additional Planning My Orders: My Active Orders 08/05/22 12:00 Insulin Lispro [Humalog Kwikpen U-100] 1 - 5 unit SUBQ 0800,1200,1700,2100 08/06/22 05:30 LIVER PANEL [CHEM] Routine 08/06/22 11:00 Potassium Chlor 10 Meq/100 ml [Potassium Chloride] 10 meq in 100 ml IV Q1H 08/07/22 05:00 CBC - COMP BLD CT W/AUTO DIFF [HEME] DAILYLAB CMP [COMPREHENSIVE METABOLIC PANEL] [CHEM] DAILYLAB 08/07/22 07:00 Echo Transthoracic Complete [ECHO] Routine 08/08/22 05:00 CBC - COMP BLD CT W/AUTO DIFF [HEME] DAILYLAB CMP [COMPREHENSIVE METABOLIC PANEL] [CHEM] DAILYLAB 08/09/22 05:00 CBC - COMP BLD CT W/AUTO DIFF [HEME] DAILYLAB CMP [COMPREHENSIVE METABOLIC PANEL] [CHEM] DAILYLAB Subjective - Subjective Patient Reports: Feeling Better (Still has a cough, still is wheezing, is less short of breath but is mostly in bed. Has not had dizziness. She did start to work with PT today.) Objective Vital Signs: Vital Signs - 24 hr 08/05/22 08/05/22 08/05/22 13:18 15:38 16:08 Temperature 36.5 C 36.7 C Heart Rate 80 Heart Rate [ Brachial] Heart Rate [ 97 80 Posterior tibial] Respiratory 18 16 16 Rate Blood Pressure [Right Brachial artery] Blood Pressure 96/70 115/67 [Right] O2 Saturation 97 97 08/05/22 08/05/22 08/06/22 20:27 23:43 01:10 Temperature 37.3 C 37.1 C Heart Rate 78 Heart Rate [ 86 Brachial] Heart Rate [ 83 Posterior tibial] Respiratory 18 21 17 Rate Blood Pressure 114/72 [Right Brachial artery] Blood Pressure 112/63 [Right] O2 Saturation 96 93 08/06/22 08/06/22 05:15 08:08 Temperature 36.6 C 36.6 C Heart Rate Heart Rate [ 88 85 Brachial] Heart Rate [ Posterior tibial] Respiratory 20 20 Rate Blood Pressure 109/62 116/75 [Right Brachial artery] Blood Pressure [Right] O2 Saturation 92 94 Oxygen O2 Source Room air I&O (Last 24 Hrs): Intake and Output Totals x24h 08/04/22 08/05/22 08/06/22 23:59 23:59 23:59 Intake Total 1290.000 120 Output Total 900 Balance 1290.000 -780 General: Alert, Oriented x3 HEENT: EOMI, Mucous membr. moist/pink Neck: Supple, No JVD Neuro: Alert, Non Focal Cardiovascular: Regular rate, Other (3/6 harsh systolic murmur heard at the base and along the entire sternum) Respiratory: No respiratory distress, Wheezes (Fine scattered wheezes in the upper lung field) Abdomen: Normal bowel sounds, Soft, Other (Obese) Extremities: No clubbing, Other (Tenderness of the anterior shins, 1+ pedal edema present. Left upper arm at mid level is no longer tender.) Comments/Notes: Bruises of different sizes, on her L breast, upper and lower extremities, are in different phases of healing. - Results Results: Laboratory Results WBC 7.1 x10^3/uL (4.8-10.8) 08/06/22 05:30 RBC 3.38 10^6/uL (4.20-5.40) L 08/06/22 05:30 Hgb 9.1 g/dL (12.0-16.0) L 08/06/22 05:30 Hct 29.1 % (37.0-47.0) L 08/06/22 05:30 MCV 86.1 fL (81.0-99.0) 08/06/22 05:30 MCH 26.9 pg (27.0-31.0) L 08/06/22 05:30 MCHC 31.3 g/dL (32.0-36.0) L 08/06/22 05:30 RDW 15.5 % (12.0-15.0) H 08/06/22 05:30 Plt Count 135 10^3/uL (130-450) 08/06/22 05:30 MPV 10.6 fL (7.9-10.8) 08/06/22 05:30 Neut # (Auto) 5.9 10^3/uL (1.5-6.6) 08/06/22 05:30 Lymph # (Auto) 0.6 10^3/uL (1.5-3.5) L 08/06/22 05:30 [place] # (Auto) 0.4 10^3/uL (0.0-1.0) 08/06/22 05:30 Eos # (Auto) 0.1 10^3/uL (0.0-0.7) 08/06/22 05:30 Baso # (Auto) 0.0 10^3/uL (0.0-0.1) 08/06/22 05:30 Absolute Nucleated RBC 0.00 x10^3/uL 08/06/22 05:30 Nucleated RBC % 0.0 /100WBC 08/06/22 05:30 Sodium 136 mmol/L (135-145) 08/06/22 05:30 Potassium 3.0 mmol/L (3.5-5.0) L 08/06/22 05:30 Chloride 103 mmol/L (101-111) 08/06/22 05:30 Carbon Dioxide 25 mmol/L (21-32) 08/06/22 05:30 Anion Gap 8.0 (6-13) 08/06/22 05:30 BUN 23 mg/dL (6-20) H 08/06/22 05:30 Creatinine 1.6 mg/dL (0.4-1.0) H 08/06/22 05:30 Estimated GFR (MDRD) 31 (>89) L 08/06/22 05:30 Glucose 186 mg/dL (70-100) H 08/06/22 05:30 Estimat Average Glucose 177 mg/dL (70-100) H 08/05/22 08:12 Hemoglobin A1c % 7.8 % (4.27-6.07) H 08/05/22 08:12 Calcium 8.2 mg/dL (8.5-10.3) L 08/06/22 05:30 Magnesium 2.3 mg/dL (1.7-2.8) 08/06/22 05:30 Total Bilirubin 5.4 mg/dL (0.2-1.0) H 08/05/22 08:12 AST 235 IU/L (10-42) H 08/05/22 08:12 ALT 87 IU/L (10-60) H 08/05/22 08:12 Alkaline Phosphatase 570 IU/L (42-121) H 08/05/22 08:12 Total Protein 6.9 g/dL (6.7-8.2) 08/05/22 08:12 Albumin 2.7 g/dL (3.2-5.5) L 08/05/22 08:12 Globulin 4.2 g/dL (2.1-4.2) 08/05/22 08:12 Albumin/Globulin Ratio 0.6 (1.0-2.2) L 08/05/22 08:12 Lipase 47 U/L (22-51) 08/05/22 01:37 Nasal Adenovirus (PCR) NOT DETECTED 08/05/22 02:39 Nasal B. parapertussis DNA (PCR) NOT DETECTED 08/05/22 02:39 Nasal Coronavir 229E PCR NOT DETECTED 08/05/22 02:39 Nasal Coronavir HKU1 PCR NOT DETECTED 08/05/22 02:39 Nasal Coronavir NL63 PCR NOT DETECTED 08/05/22 02:39 Nasal Coronavir OC43 PCR NOT DETECTED 08/05/22 02:39 Nasal Enterovir/Rhinovir PCR NOT DETECTED 08/05/22 02:39 Nasal Influenza B PCR NOT DETECTED 08/05/22 02:39 Nasal Influenza A PCR NOT DETECTED 08/05/22 02:39 Nasal Parainfluen 1 PCR NOT DETECTED 08/05/22 02:39 Nasal Parainfluen 2 PCR NOT DETECTED 08/05/22 02:39 Nasal Parainfluen 3 PCR NOT DETECTED 08/05/22 02:39 Nasal Parainfluen 4 PCR NOT DETECTED 08/05/22 02:39 Nasal RSV (PCR) NOT DETECTED 08/05/22 02:39 Nasal B.pertussis DNA PCR NOT DETECTED 08/05/22 02:39 Nasal C.pneumoniae (PCR) NOT DETECTED 08/05/22 02:39 Manuel Human Metapneumo PCR NOT DETECTED 08/05/22 02:39 Nasal M.pneumoniae (PCR) NOT DETECTED 08/05/22 02:39 Nasal SARS-CoV-2 (PCR) NOT DETECTED 08/05/22 02:39 - Procedures Procedures: Procedures EXCISION OF ASCENDING COLON, ENDO, DIAGN (10/11/16) EXCISION OF TRANSVERSE COLON, ENDO, DIAGN (10/11/16) INSERTION OF INFUSION DEV INTO SUP VENA CAVA, PERC APPROACH (01/17/21)
[2022-08-06 12:39] LABS: ALBUMIN 2.3 g/dL (3.2-5.5); BILIRUBIN,DIRECT 3.6 mg/dL (0.1-0.5); BILIRUBIN,TOTAL 5.5 mg/dL (0.2-1.0); TOTAL PROTEIN 5.8 g/dL (6.7-8.2)
[2022-08-07] MEDS: ZINC OXIDE 20% OINT 30 GM TUBE TOP PRN ×3 (00:57→06:55)
[2022-08-07] MEDS: SODIUM CHLORIDE FLUSH 0.9% 10 ML SYRINGE IVP SCH ×3 (01:00→17:13)
[2022-08-07 06:24] LABS: BASOPHILS % (AUTO) 0.3 %; EOSINOPHILS # (AUTO) 0.1 10^3/uL (0.0-0.7); EOSINOPHILS % (AUTO) 1.2 %; HCT - HEMATOCRIT 31.2 % (37.0-47.0); HGB - HEMOGLOBIN 9.7 g/dL (12.0-16.0); LYMPHOCYTES # (AUTO) 0.7 10^3/uL (1.5-3.5); LYMPHOCYTES % (AUTO) 10.9 %; MEAN CORPUSCULAR HEMOGLOBIN 26.9 pg (27.0-31.0); MEAN CORPUSCULAR HGB CONC 31.1 g/dL (32.0-36.0); MEAN CORPUSCULAR VOLUME 86.4 fL (81.0-99.0); MEAN PLATELET VOLUME 10.9 fL (7.9-10.8); MONOCYTES # (AUTO) 0.3 10^3/uL (0.0-1.0); MONOCYTES % (AUTO) 5.1 %; NEUTROPHILS % (AUTO) 82.2 %; PLT - PLATELET COUNT 141 10^3/uL (130-450); RED BLOOD COUNT 3.61 10^6/uL (4.20-5.40); RED CELL DISTRIBUTION WIDTH 15.4 % (12.0-15.0)
[2022-08-07 06:38] LABS: ALBUMIN 2.2 g/dL (3.2-5.5); ALBUMIN/GLOBULIN RATIO 0.6 (1.0-2.2); BILIRUBIN,TOTAL 4.6 mg/dL (0.2-1.0); CALCIUM 8.3 mg/dL (8.5-10.3); CREATININE 1.3 mg/dL (0.4-1.0); POTASSIUM 3.3 mmol/L (3.5-5.0); TOTAL PROTEIN 5.8 g/dL (6.7-8.2)
[2022-08-07] MEDS: SERTRALINE 50 MG TABLET PO SCH (07:58)
[2022-08-07] MEDS: PANTOPRAZOLE 40 MG TABLET PO SCH ×2 (07:59→20:40)
[2022-08-07] MEDS: METOPROLOL SUCCINATE 25 MG TABLET PO SCH (07:59)
[2022-08-07] MEDS: HEPARIN 5,000 UNIT/ML VIAL SUBQ SCH ×2 (08:02→20:37)
[2022-08-07] MEDS: INSULIN LISPRO 300 UNIT/3 ML PEN SUBQ SCH ×4 (08:04→20:40)
[2022-08-07] MEDS: NYSTATIN POWDER 15 GM TOP SCH ×2 (08:05→20:40)
--- NOTE | 2022-08-07 18:17 | PROVIDER PROGRESS NOTE ---
Subjective - Prog Note Date Prog Note Date: 08/07/22 Prog Note Time: 18:15 - Subjective Pt reports feeling: Improved (Patient reports feeling better, however, patient is still complaining of weakness and fatigue. Patient is pleasant during visit and no signs of acute distress.) Subjective: Patient is a 77 year old female who was admitted due to shortness of breath and weakness. Patient presents today improved but still complains of weakness, fatigue, cough, wheezing, and edema. Patient denies diarrhea, constipation and shortness of breath. Patient states that she has not been able to sleep for the past 24 hours. Patient states that symptoms started this past Saturday and progressively have worsened. Patient is stable on room air and does not present in any acute distress following DuoNeb treatment. Patient labs have continued to show improvement as her potassium level today was 3.3 and her creatinine levels have normalized for her (1.3). Patients had a murmur during physical exam due to IHSS. Patient expressed concern about her DNR status and was wanting to have it removed. Current Medications - Current Medications Current Medications: Active Medications Albuterol/Ipratropium (Ipratropium/Albuterol 3 Ml Neb) 3 ml INH Q4HR PRN PRN Reason: Wheezing Last Admin: 08/06/22 21:17 Dose: 3 ml Docusate Sodium (Docusate Sodium 100 Mg Capsule) 100 mg PO BID PRN PRN Reason: Constipation Last Admin: 08/05/22 09:58 Dose: 100 mg Heparin Sodium (Porcine) (Heparin 5,000 Unit/Ml Vial) 5,000 unit SUBQ BID [facility] Last Admin: 08/07/22 08:02 Dose: 5,000 unit Insulin Human Lispro (Insulin Lispro 300 Unit/3 Ml Pen) 1 - 5 unit SUBQ 0800,1200,1700,2100 [facility]; Protocol Last Admin: 08/07/22 17:13 Dose: 1 unit Metoprolol Succinate (Metoprolol Succinate 25 Mg Tablet) 25 mg PO DAILY [facility] Last Admin: 08/07/22 07:59 Dose: 25 mg Multi-Ingredient Ointment (Zinc Oxide 20% Oint 30 Gm Tube) 1 applic TOP PRN PRN PRN Reason: Skin Care Last Admin: 08/07/22 06:55 Dose: 1 appful Nystatin (Nystatin Powder 15 Gm) 1 applic TOP BID [facility] Last Admin: 08/07/22 08:05 Dose: 1 applic Ondansetron HCl (Ondansetron 4 Mg/2 Ml Vial) 4 mg IVP Q6HR PRN PRN Reason: Nausea / Vomiting Pantoprazole Sodium (Pantoprazole 40 Mg Tablet) 40 mg PO BID [facility] Last Admin: 08/07/22 07:59 Dose: 40 mg Sertraline HCl (Sertraline 50 Mg Tablet) 100 mg PO DAILY [facility] Last Admin: 08/07/22 07:58 Dose: 100 mg Sodium Chloride (Sodium Chloride Flush 0.9% 10 Ml Syringe) 10 ml IVP PRN PRN PRN Reason: NEEDED PER PROVIDER ORDERS Sodium Chloride (Sodium Chloride Flush 0.9% 10 Ml Syringe) 10 ml IVP 0100,0900,1700 [facility] Last Admin: 08/07/22 17:13 Dose: 10 ml Atorvastatin Calcium 40 mg PO DAILY 10/11/16 Sertraline HCl 100 mg PO DAILY 10/11/16 Pantoprazole [Protonix] 40 mg PO BID 04/09/21 Potassium Chloride [Klor-Con 10] 40 meq PO DAILY 04/09/21 Metoprolol Succinate [Toprol Xl] 25 mg PO DAILY 08/05/22 Objective - Vital Signs/Intake & Output Reviewed Vital Signs: Yes Vital Signs: Vital Signs x48h Temp Pulse Resp BP Pulse Ox 08/07/22 16:00 36.5 C 73 16 110/63 97 08/07/22 10:39 37.0 C 84 20 112/66 95 Intake & Output: Intake & Output 08/04/22 08/05/22 08/06/22 08/07/22 23:59 23:59 23:59 23:59 Intake Total 4996.515 1365 680 Output Total 1500 Balance 1290.000 -440 680 - Objective General Appearance: positive: No acute distress, Alert Eyes Bilateral: positive: Normal inspection, PERRL ENT: positive: ENT inspection nml, Pharynx nml Neck: positive: Nml inspection, Thyroid nml, No JVD Respiratory: positive: Chest non-tender, No respiratory distress, Breath sounds nml Cardiovascular: positive: Other ([place] systolic ejection murmur) Abdomen: positive: Other (Abdominal pain due to gallbladder removal 2 months prior.) Back: positive: Nml inspection Skin: positive: Color nml, No rash, Warm Extremities: positive: Non-tender Neurologic/Psychiatric: positive: Oriented x3, CN's nml (2-12), Motor nml, Sensation nml, Mood/affect nml - Lab Results Fish Bones: 08/07/22 06:02 08/07/22 06:02 Other Labs: Lab Results x24hrs 08/07/22 08/07/22 Range/Units 06:02 06:02 WBC 6.0 (4.8-10.8) x10^3/uL RBC 3.61 L (4.20-5.40) 10^6/uL Hgb 9.7 L (12.0-16.0) g/dL Hct 31.2 L (37.0-47.0) % MCV 86.4 (81.0-99.0) fL MCH 26.9 L (27.0-31.0) pg MCHC 31.1 L (32.0-36.0) g/dL RDW 15.4 H (12.0-15.0) % Plt Count 141 (130-450) 10^3/uL MPV 10.9 H (7.9-10.8) fL Neut # (Auto) 5.0 (1.5-6.6) 10^3/uL Lymph # (Auto) 0.7 L (1.5-3.5) 10^3/uL [place] # (Auto) 0.3 (0.0-1.0) 10^3/uL Eos # (Auto) 0.1 (0.0-0.7) 10^3/uL Baso # (Auto) 0.0 (0.0-0.1) 10^3/uL Absolute Nucleated RBC 0.00 x10^3/uL Nucleated RBC % 0.0 /100WBC Sodium 135 (135-145) mmol/L Potassium 3.3 L (3.5-5.0) mmol/L Chloride 101 (101-111) mmol/L Carbon Dioxide 25 (21-32) mmol/L Anion Gap 9.0 (6-13) BUN 22 H (6-20) mg/dL Creatinine 1.3 H (0.4-1.0) mg/dL Estimated GFR (MDRD) 40 L (>89) Glucose 211 H (70-100) mg/dL Calcium 8.3 L (8.5-10.3) mg/dL Total Bilirubin 4.6 H (0.2-1.0) mg/dL AST 175 H (10-42) IU/L ALT 77 H (10-60) IU/L Alkaline Phosphatase 480 H (42-121) IU/L Total Protein 5.8 L (6.7-8.2) g/dL Albumin 2.2 L (3.2-5.5) g/dL Globulin 3.6 (2.1-4.2) g/dL Albumin/Globulin Ratio 0.6 L (1.0-2.2) ABX Reporting Has patient been on IV antibiotics over the past 48 hours?: No Assessment/Plan - Problem List (1) Hypokalemia Impression: Patient labs have improved since admission and were 3.3 at 0600 today. Patient is still feeling fatigued but shows no signs of cardiac distress. Plan Continue on telemetry schedule Continue Potassium supplement Continue to monitor patients vitals every (2) Elevated LFTs Impression: Patient does not have a history of liver disease and denies abdominal pain, nausea and vomiting. Patient does not report drinking alcohol, however, per 's note, ER doctor note reports a history of alcohol abuse. Plan Continue to monitor LFTs daily Avoid hepatotoxic medications. Continue to monitor for alcohol withdrawal symptoms. Continue IV fluids Continue to monitor patients vitals every 8 hours (3) IHSS (idiopathic hypertrophic subaortic stenosis) Impression: Patient IHSS does not seem to be exacerbated. No signs of chest pain or worsening edema. Plan Obtain echo Continue patient on metoprolol Continue to monitor patient for exacerbation of IHSS Continue telemetry (4) Frequent falls Impression: Patient presents with multiple brusing due to history of frequent falls. Patient has not lost conciousness during falls and should be placed on fall precautions. Plan Place patient on fall precaution and 2 person assist. Continue patient on PT and OT Continue patient on telemetry. Continue to monitor patients vitals every 8 hours. Order orthostatic blood pressure measurement. (5) Acute kidney injury superimposed on CKD Impression: Patient does not show signs of acute kidney injury. Patients creatinine is elevated at 1.3 today, however patient states that it normally runs around 1.2- 1.3. Plan Continue with IV fluids Avoid nephrotoxic medications. Follow BUN/Creatinine daily (6) Left arm pain Impression: Patient has multiple bruises throughout arm possibly due to frequent falls. Patient has full ROM and no obvious swelling on left arm. Plan Continue pain medication as needed. Continue PT and OT treatment plan. (7) Insulin dependent type 2 diabetes mellitus Impression: Patient does not present with hypo or hyperglycemia. Patient home medications does not show any diabetic medications. Patient was taken off insulin approximately 1 year ago. Plan Continue with fingerstick checks Utilize insulin sliding scale Continue diabetic diet Encourage dietary lifestyle changes due to elevated HbA1C of 7.8% (8) Asthma Impression: Patients acute asthmatic exacerbation has resolved after one treatment of DuoNeb treatment. Patient does not present with respiratory distress and is stable on room air. Plan Continue patient on room air due stability. Continue DuoNebs 4 times daily scheduled and prn Qualifiers: Asthma severity: mild Asthma persistence: intermittent Asthma complication type: with acute exacerbation Qualified Code(s): J45.21 - Mild intermittent asthma with (acute) exacerbation (9) Fungal rash of torso Impression: Patients does not complain of irritated or itchy rash. Nystatin appears to have satisfactory results. Plan Continue on nystatin powder daily.
[2022-08-08] MEDS: SODIUM CHLORIDE FLUSH 0.9% 10 ML SYRINGE IVP SCH ×3 (01:15→17:13)
[2022-08-08] MEDS: ZINC OXIDE 20% OINT 30 GM TUBE TOP PRN ×2 (03:57→07:53)
[2022-08-08 04:46] LABS: BASOPHILS % (AUTO) 0.3 %; EOSINOPHILS # (AUTO) 0.1 10^3/uL (0.0-0.7); EOSINOPHILS % (AUTO) 1.3 %; HCT - HEMATOCRIT 33.3 % (37.0-47.0); HGB - HEMOGLOBIN 10.1 g/dL (12.0-16.0); LYMPHOCYTES # (AUTO) 0.8 10^3/uL (1.5-3.5); LYMPHOCYTES % (AUTO) 11.8 %; MEAN CORPUSCULAR HEMOGLOBIN 26.5 pg (27.0-31.0); MEAN CORPUSCULAR HGB CONC 30.3 g/dL (32.0-36.0); MEAN CORPUSCULAR VOLUME 87.4 fL (81.0-99.0); MEAN PLATELET VOLUME 11.1 fL (7.9-10.8); MONOCYTES # (AUTO) 0.3 10^3/uL (0.0-1.0); MONOCYTES % (AUTO) 4.6 %; NEUTROPHILS # (AUTO) 5.5 10^3/uL (1.5-6.6); NEUTROPHILS % (AUTO) 81.6 %; PLT - PLATELET COUNT 145 10^3/uL (130-450); RED BLOOD COUNT 3.81 10^6/uL (4.20-5.40); RED CELL DISTRIBUTION WIDTH 15.5 % (12.0-15.0); WHITE BLOOD COUNT 6.8 x10^3/uL (4.8-10.8)
[2022-08-08 05:00] LABS: ALBUMIN 2.3 g/dL (3.2-5.5); ALBUMIN/GLOBULIN RATIO 0.6 (1.0-2.2); BILIRUBIN,TOTAL 3.3 mg/dL (0.2-1.0); CALCIUM 8.3 mg/dL (8.5-10.3); CREATININE 1.2 mg/dL (0.4-1.0); POTASSIUM 3.5 mmol/L (3.5-5.0); TOTAL PROTEIN 6.4 g/dL (6.7-8.2)
[2022-08-08] MEDS: HEPARIN 5,000 UNIT/ML VIAL SUBQ SCH ×2 (07:48→21:29)
[2022-08-08] MEDS: INSULIN LISPRO 300 UNIT/3 ML PEN SUBQ SCH ×4 (07:50→21:31)
[2022-08-08] MEDS: SERTRALINE 50 MG TABLET PO SCH (07:51)
[2022-08-08] MEDS: METOPROLOL SUCCINATE 25 MG TABLET PO SCH (07:52)
[2022-08-08] MEDS: NYSTATIN POWDER 15 GM TOP SCH ×2 (07:52→21:30)
[2022-08-08] MEDS: PANTOPRAZOLE 40 MG TABLET PO SCH ×2 (07:52→21:29)
[2022-08-08] MEDS ORDERED: GADOBUTROL 10 MMOL/10 ML VIAL ONE (14:02)
[2022-08-08] MEDS ORDERED: GADOBUTROL 10 MMOL/10 ML VIAL IVP ONE (16:16)
--- NOTE | 2022-08-08 17:13 | MRI Report ---
PROCEDURE: MRCP W/WO INDICATIONS: hx of gangrenous adiel 2020, now w elev LFT CONTRAST: GADAVIST 9.8 ML TECHNIQUE: Coronal ultra fast SE through the abdomen, axial 2-D spoiled GE in- and [id number]-[id number], and breath-hold T2 FSE with fat saturation through the biliary system and pancreas. Oblique coronal and axial thin- slice ultra fast SE, radial thick-slab ultra fast SE centered on the extrahepatic bile ducts. COMPARISON: Abdominal ultrasound 08/05/2022. Lumbar spine MRI 12/08/2021. FINDINGS: Image quality: Fair. Pancreas and biliary system: Gallbladder is absent. CBD measures 1 cm, (2/). There our small stone s in the distal CBD measuring 0.3 cm and 0.8 cm, (2/20). Mild intrahepatic biliary ductal dilatation. No pancreatic ductal dilatation. No loculated peripancreatic fluid collection. No obvious pancreatic mass or cystic lesion. Other solid organs: Liver is prominent size. Spleen measures 13.8 cm, mild splenomegaly. No adrenal nodules. Both kidneys are normal in size, without hydronephrosis. Nodes and vessels: No retroperitoneal or mesenteric adenopathy by size criteria. Aorta and inferior vena cava are normal in size. Bowel and peritoneum: Unenhanced bowel loops are normal in caliber. Moderate ascites. Lung bases: No basal pleural effusions. Heart size is normal. Bones and soft tissues: No ventral hernias. Bone marrow is of normal overall signal. T12 compressi on fracture may be slightly worsened compared to December 2021. Mild height loss at L4. IMPRESSION: Image quality is fair. 1. Choledocholithiasis. Stones in the distal CBD measuring 0.8 cm and 0.3 cm. Mild biliary ductal dil atation. 2. Moderate ascites. 3. Mild splenomegaly. 4. No pancreatic ductal dilatation. 5. T12 compression fracture appears slightly worsened compared to December 2021. Reviewed by: Doug Gomez MD on 08/08/2022 5:11 PM PST Approved by: Doug Gomez MD on 08/08/2022 5:11 PM PST Station ID: [id number]
--- NOTE | 2022-08-08 19:10 | PROVIDER PROGRESS NOTE ---
Subjective - Prog Note Date Prog Note Date: 08/08/22 Prog Note Time: 19:01 - Subjective Pt reports feeling: Improved Subjective: Today the patient's main concern centers around a POLST form. She feels that the "lady in the emergency room" was pushy and rude. She says that from the minute she walked in the door they wanted to know her CODE STATUS and they pressured her into filling out a POLST form. She would like to review her POLST form. She initially was full code, then DO NOT RESUSCITATE and then yesterday afternoon told the nurse that she wanted to change her CODE STATUS back to full code. She explains that she is not averse to being DO NOT RESUSCITATE. In fact that usually coincides with her philosophy of what she would like down the road, but she just feels (on principal) that she should be able to read what she signs. Hence the back and forth on the CODE STATUS. She continues to deny abdominal pain. She still nauseated, fatigued. I reviewed her records from [facility] January 2021, and [facility] subsequent to the [facility] stay. 45 minutes was spent going over these records. For the first admission in January 2021 she presented to our emergency room as a ground-level fall and she was found to have elevated troponins, MSSA bacteremia, and discordant upper extremity blood pressures. She had also been hypotensive and started on Levophed in the ICU. Because of the hypotension, discordant blood pressures, she was transferred to [facility]. CT angiogram showed a subclavian stenosis on the right without regards for aortic dissection. Transesophageal echo was done and there is no endocarditis. Her troponins came down while she was there and there was no further work-up of possible NSTEMI. However she developed melena and EGD showed large duodenal ulcers which were injected with epinephrine and cauterized. Started on pantoprazole IV. She had asymptomatic SVT. Put on metoprolol. Completed her therapy for MSSA bacteremia. No intervention of the subclavian stenosis at that time and she was anticipated to have follow-up 6 months later in clinic. She was discharged to [facility]. She was at from January 18 to January 24. While at [facility] she developed another upper GI bleed. She had melena, worsening renal function with a potassium of 5.9. This time she went to [facility]. She had subsequent hypotension and was placed in the ICU and received many transfusions. She had an EGD x2 and had duodenal ulcer cauterization on February 05. Then on February 09 she was found to have cholecystitis with cholangitis and taken to the OR February 11 for a lap adiel. Acute kidney injury did occur with a creatinine of 3.25. By the time of discharge she was 2.31. She tolerated her surgery. She had a total of 7 units of packed red cells transfused. She was to follow-up with an outpatient EGD 6 weeks after discharge (discharge was February 17, 2021) and again the right subclavian stenosis was noted and to be followed up in the outpatient setting. She had some nystatin given for thrush. And she was discharged another time to a group home facility, this time [facility]. Patient is unclear how long she was there before she returned to home. Current Medications - Current Medications Current Medications: Active Medications Albuterol/Ipratropium (Ipratropium/Albuterol 3 Ml Neb) 3 ml INH Q4HR PRN PRN Reason: Wheezing Last Admin: 08/06/22 21:17 Dose: 3 ml Docusate Sodium (Docusate Sodium 100 Mg Capsule) 100 mg PO BID PRN PRN Reason: Constipation Last Admin: 08/05/22 09:58 Dose: 100 mg Heparin Sodium (Porcine) (Heparin 5,000 Unit/Ml Vial) 5,000 unit SUBQ BID [facility] Last Admin: 08/08/22 07:48 Dose: 5,000 unit Insulin Human Lispro (Insulin Lispro 300 Unit/3 Ml Pen) 1 - 5 unit SUBQ 0800,1200,1700,2100 [facility]; Protocol Last Admin: 08/08/22 17:13 Dose: 2 unit Metoprolol Succinate (Metoprolol Succinate 25 Mg Tablet) 25 mg PO DAILY [facility] Last Admin: 08/08/22 07:52 Dose: 25 mg Multi-Ingredient Ointment (Zinc Oxide 20% Oint 30 Gm Tube) 1 applic TOP PRN PRN PRN Reason: Skin Care Last Admin: 08/08/22 07:53 Dose: 1 appful Nystatin (Nystatin Powder 15 Gm) 1 applic TOP BID [facility] Last Admin: 08/08/22 07:52 Dose: 1 applic Ondansetron HCl (Ondansetron 4 Mg/2 Ml Vial) 4 mg IVP Q6HR PRN PRN Reason: Nausea / Vomiting Pantoprazole Sodium (Pantoprazole 40 Mg Tablet) 40 mg PO BID [facility] Last Admin: 08/08/22 07:52 Dose: 40 mg Sertraline HCl (Sertraline 50 Mg Tablet) 100 mg PO DAILY [facility] Last Admin: 08/08/22 07:51 Dose: 100 mg Sodium Chloride (Sodium Chloride Flush 0.9% 10 Ml Syringe) 10 ml IVP PRN PRN PRN Reason: NEEDED PER PROVIDER ORDERS Sodium Chloride (Sodium Chloride Flush 0.9% 10 Ml Syringe) 10 ml IVP 01 00,0900,1700 [facility] Last Admin: 08/08/22 17:13 Dose: 10 ml Atorvastatin Calcium 40 mg PO DAILY 10/11/16 Sertraline HCl 100 mg PO DAILY 10/11/16 Pantoprazole [Protonix] 40 mg PO BID 04/09/21 Potassium Chloride [Klor-Con 10] 40 meq PO DAILY 04/09/21 Metoprolol Succinate [Toprol Xl] 25 mg PO DAILY 08/05/22 Objective - Vital Signs/Intake & Output Reviewed Vital Signs: Yes Vital Signs: Vital Signs x48h Temp Pulse Resp BP Pulse Ox 08/08/22 16:40 36.4 C L 79 16 105/86 H 95 08/08/22 12:13 36.3 C L 78 20 116/68 95 Intake & Output: Intake & Output 08/05/22 08/06/22 08/07/22 08/08/22 23:59 23:59 23:59 23:59 Intake Total 2111.581 7360 880 840 Output Total 1500 200 200 Balance 1290.000 -440 680 640 - Objective General Appearance: positive: No acute distress, Alert, Other (Slightly forgetful, tangential, and her main concern is this POLST form. She is jaundiced.) Eyes Bilateral: positive: PERRL, EOMI Eyes: OU Scleral icterus Neck: positive: No JVD Respiratory: positive: No respiratory distress. negative: Wheezes, Rales, Rhonchi Cardiovascular: positive: Regular rate & rhythm, Systolic murmur Abdomen: positive: No organomegaly, Nml bowel sounds, No distention, Tenderness (Very mild, only felt with deep palpation of the epigastrium.). negative: Guarding, Rebound Skin: positive: Warm, Dry Extremities: positive: Full ROM, Pedal edema Neurologic/Psychiatric: positive: Oriented x3, CN's nml (2-12), Motor nml - Lab Results Fish Bones: 08/08/22 04:28 08/08/22 04:28 Other Labs: Lab Results x24hrs 08/08/22 08/08/22 Range/Units 04:28 04:28 WBC 6.8 (4.8-10.8) x10^3/uL RBC 3.81 L (4.20-5.40) 10^6/uL Hgb 10.1 L (12.0-16.0) g/dL Hct 33.3 L (37.0-47.0) % MCV 87.4 (81.0-99.0) fL MCH 26.5 L (27.0-31.0) pg MCHC 30.3 L (32.0-36.0) g/dL RDW 15.5 H (12.0-15.0) % Plt Count 145 (130-450) 10^3/uL MPV 11.1 H (7.9-10.8) fL Neut # (Auto) 5.5 (1.5-6.6) 10^3/uL Lymph # (Auto) 0.8 L (1.5-3.5) 10^3/uL [place] # (Auto) 0.3 (0.0-1.0) 10^3/uL Eos # (Auto) 0.1 (0.0-0.7) 10^3/uL Baso # (Auto) 0.0 (0.0-0.1) 10^3/uL Absolute Nucleated RBC 0.00 x10^3/uL Nucleated RBC % 0.0 /100WBC Sodium 135 (135-145) mmol/L Potassium 3.5 (3.5-5.0) mmol/L Chloride 101 (101-111) mmol/L Carbon Dioxide 25 (21-32) mmol/L Anion Gap 9.0 (6-13) BUN 19 (6-20) mg/dL Creatinine 1.2 H (0.4-1.0) mg/dL Estimated GFR (MDRD) 44 L (>89) Glucose 190 H (70-100) mg/dL Calcium 8.3 L (8.5-10.3) mg/dL Total Bilirubin 3.3 H (0.2-1.0) mg/dL AST 126 H (10-42) IU/L ALT 67 H (10-60) IU/L Alkaline Phosphatase 475 H (42-121) IU/L Total Protein 6.4 L (6.7-8.2) g/dL Albumin 2.3 L (3.2-5.5) g/dL Globulin 4.1 (2.1-4.2) g/dL Albumin/Globulin Ratio 0.6 L (1.0-2.2) ABX Reporting Has patient been on IV antibiotics over the past 48 hours?: No Assessment/Plan - Problem List (1) Elevated LFTs Impression: She denied a previous history of liver disease to the hospitalist that admitted her. Yet review of the record shows her to have had acute cholecystitis. There is no mention of MRCP or common bile duct stones or Intra-Op cholangiogram. She had hepatitis panel done in 2020 which was negative. On repeat questioning today, she is adamant that she does not abuse alcohol and rarely drinks. She said her last drink was so long ago she cannot remember when it was. I explained to her that she appears to have a very big fatty liver and fluid in her abdomen. This is compatible with cirrhosis. My concern is that this woman has an undiagnosed liver disorder such as hepatitis, or neoplasm in the face of painless jaundice. Plan: Repeat serology panel to make sure there is no acute hepatitis. Avoid hepatotoxins In view of previous cholecystitis I will order an MRCP to look at her common bile duct for stones, and as well as to look at her part of biliary system for neoplasm. (2) Hypokalemia Assessment/Plan: Her K was 2.4 on admission labs. Etiology was unclear, pt denied appetite changes, n/v, but did have diarrhea recently. She has been taking K supplements as prescribed (home meds). Mag stable 1.9 Plan: Continue on telemetry She still has daily needs for potassium replacement, will give K riders and continue p.o. Potassium (3) Acute on CKD I reviewed her EMR record and I reviewed her labs. Her creatinine normally was runs 1.2-1.3. She came in with creatinine of 1.4 and it has gone up to 1.6 today. Plan: Continue with IV fluids, will increase the iv rate Avoid nephrotoxins Follow BUN/creatinine daily (4) IHSS with obstruction vs aortic stenosis Patient has a history of IHSS documented by Echo done 01/2021. She had a very high gradient across the LV outflow tract during Valsalva of 153 mmHg then. (The Echo conclusion said "without evidence of obstruction", but the body of the Echo reported said "Sigmoid shaped septum with an increase in pressure gradient during Valsalva up to 153 mmHg"). Patients with IHSS have frequent orthostasis, when there is obstruction to outflow from the LV into the aorta. This would be managed like dehydration. There was a possibility that she was having passive liver congestion from congestive heart failure. Followup Echocardiogram was done earlier this morning and her ejection fraction is 60 to 65%. She has grade 1 diastolic dysfunction. She has flow coverages seen in the left ventricle outflow tract without left ventricular outflow tract obstruction. She has severe increase in left atrial size. Right atrium normal. She has moderate to severe aortic stenosis with a peak/mean pressure gradient of 52 mmHg, and aortic valve area by continuity equation of 1.1 cm. Mildly abnormal right heart pressures with an RVSP at 41 mm. Right atrial size normal. Ejection fraction on the right is normal. This is a preliminary report. And there is no reference to IHSS. Plan: I will discuss with cardiology tomorrow morning. On s [facility] cardiology comes to the [facility]. Dr. Lala or Dr. Erin Fortune should be there (5) Frequent Falls She has had years of frequent falls. H&P states that in a 1 week period of time there were 24 calls to EMS for lift assist and that EMS staff know this patient and her sister by first name Plan: Continue on telemetry Obtain orthostatic vital signs PT and OT evaluation being done today. I am asking them if she is a candidate for home health or snf rehab. I also would like to discuss future plans for her if she is to return home. She is tangential in thought process, but is alert and oriented. I am unclear if problems such as falls, diabetes, this jaundice, or not recognizes problems by her and her sister due to cognitive deficits or to philosophical belief systems. I will have to sit down and speak to them to figure that out (6) L arm pain This patient presented with multiple bruises and a complaint of pain in her mid upper left arm. Presumably this was from all the falls she has. Humerus imaging was done 08/05 and this showed no fracture. Plan: Pain medications as needed PT and OT evaluations are pending (7) Bruising The patient has numerous bruises over her extremities and even on her breast, at various stages of healing. It is presumed these are from all the falls she has had. Plan: Work-up as per #5 (8) Asthmatic exacerbation Pt called EMS w dyspnea, resolved after neb tx x 1, then less resp distress. O2 sats stable on RA Plan: Continue with DuoNebs 4 times daily scheduled and prn (9) DM Type II The admission H&P states she has a history of DM type 1, which is not correct. Pt reports she was taking off of insulin ~ 1 year ago. It is unknown if she was following a diabetic diet. Her home med list does not show any oral diabetic meds. A1c is 7.8%. Average glucose is 177. While here her fasting glucose has been 277, 186, 211, and 190. She is getting sliding scale insulin before meals to control her sugars. Plan: Continue with fingerstick checks, sliding scale insulin, diabetic diet, hypoglycemia protocol while here At 7.8%, I think to be letting her primary care provider decide what to do in the long run for this 77-year-old female who seems to be at risk with her living situation (10) Fungal rash of torso (B36.9) She has a red itchy rash in many of her skin folds Plan: Cont with nystatin powder topically
[2022-08-09] MEDS: ZINC OXIDE 20% OINT 30 GM TUBE TOP PRN ×3 (00:24→08:37)
[2022-08-09] MEDS: SODIUM CHLORIDE FLUSH 0.9% 10 ML SYRINGE IVP SCH ×4 (00:24→23:50)
[2022-08-09 04:44] LABS: BASOPHILS % (AUTO) 0.3 %; EOSINOPHILS # (AUTO) 0.1 10^3/uL (0.0-0.7); EOSINOPHILS % (AUTO) 1.3 %; HCT - HEMATOCRIT 31.1 % (37.0-47.0); HGB - HEMOGLOBIN 9.6 g/dL (12.0-16.0); LYMPHOCYTES # (AUTO) 0.7 10^3/uL (1.5-3.5); MEAN CORPUSCULAR HEMOGLOBIN 27.3 pg (27.0-31.0); MEAN CORPUSCULAR HGB CONC 30.9 g/dL (32.0-36.0); MEAN CORPUSCULAR VOLUME 88.4 fL (81.0-99.0); MEAN PLATELET VOLUME 11.1 fL (7.9-10.8); MONOCYTES # (AUTO) 0.4 10^3/uL (0.0-1.0); MONOCYTES % (AUTO) 5.4 %; NEUTROPHILS # (AUTO) 5.8 10^3/uL (1.5-6.6); NEUTROPHILS % (AUTO) 82.6 %; PLT - PLATELET COUNT 159 10^3/uL (130-450); RED BLOOD COUNT 3.52 10^6/uL (4.20-5.40); RED CELL DISTRIBUTION WIDTH 15.4 % (12.0-15.0)
[2022-08-09 04:53] LABS: ALBUMIN 2.2 g/dL (3.2-5.5); ALBUMIN/GLOBULIN RATIO 0.6 (1.0-2.2); BILIRUBIN,TOTAL 4.1 mg/dL (0.2-1.0); CALCIUM 8.5 mg/dL (8.5-10.3); CREATININE 1.2 mg/dL (0.4-1.0); POTASSIUM 3.6 mmol/L (3.5-5.0); TOTAL PROTEIN 6.2 g/dL (6.7-8.2)
[2022-08-09 07:10] LABS: HBsAG SCREEN Negative (Negative); HCV AB Non Reactive (Non Reactive); HEPATITIS B CORE IGM AB Negative (Negative)
[2022-08-09] MEDS: INSULIN LISPRO 300 UNIT/3 ML PEN SUBQ SCH ×4 (08:34→20:46)
[2022-08-09] MEDS: SERTRALINE 50 MG TABLET PO SCH (08:36)
[2022-08-09] MEDS: PANTOPRAZOLE 40 MG TABLET PO SCH ×2 (08:36→20:45)
[2022-08-09] MEDS: HEPARIN 5,000 UNIT/ML VIAL SUBQ SCH (08:36)
[2022-08-09] MEDS: METOPROLOL SUCCINATE 25 MG TABLET PO SCH (08:36)
[2022-08-09] MEDS: NYSTATIN POWDER 15 GM TOP SCH ×2 (08:37→20:45)
--- NOTE | 2022-08-09 17:13 | PROVIDER PROGRESS NOTE ---
Progress Note August 09, 2022 4:35 PM I explained to her that her MRCP came back showing stones in her common bile duct. This was obstructing her and causing her jaundice and hepatitis on her lab studies. She knows that she has been nauseated, and that she has occasional mild epigastric pain with eating but nothing that was severe. Nothing that alarmed her. She is amenable to getting an ERCP. She requested that I transfer her to [place] for the ERCP since that is where she had her previous surgery with Dr. Conley in January 2021. But [facility] ad no beds. Did not put her on a wait list. [facility] had no beds and did not put on a wait list. stated this was the case to case review. The case was presented to the medical housekeeper and they felt that she did not warrant a transfer to their institution for an ERCP. I spoke to Tran HAWKINS. They recommended that I call [facility]issa Keyes. I was able to speak to Karissa Keyes and they told me they would be willing to do the ERCP if I excepted this patient back to our hospital after the procedure. I enthusiastically supported that idea. As such the patient will be leaving at 1030 tomorrow morning for an 11:30 AM procedure. She will then leave [facility] at 3:30 PM to return to our facility for any follow-up care. Active Medications Albuterol/Ipratropium (Ipratropium/Albuterol 3 Ml Neb) 3 ml INH Q4HR PRN PRN Reason: Wheezing Last Admin: 08/06/22 21:17 Dose: 3 ml Docusate Sodium (Docusate Sodium 100 Mg Capsule) 100 mg PO BID PRN PRN Reason: Constipation Last Admin: 08/05/22 09:58 Dose: 100 mg Heparin Sodium (Porcine) (Heparin 5,000 Unit/Ml Vial) 5,000 unit SUBQ BID [facility] Last Admin: 08/09/22 08:36 Dose: 5,000 unit Insulin Human Lispro (Insulin Lispro 300 Unit/3 Ml Pen) 1 - 5 unit SUBQ 0800,1200,1700,2100 [facility]; Protocol Last Admin: 08/09/22 12:06 Dose: 3 unit Metoprolol Succinate (Metoprolol Succinate 25 Mg Tablet) 25 mg PO DAILY [facility] Last Admin: 08/09/22 08:36 Dose: 25 mg Multi-Ingredient Ointment (Zinc Oxide 20% Oint 30 Gm Tube) 1 applic TOP PRN PRN PRN Reason: Skin Care Last Admin: 08/09/22 08:37 Dose: 1 appful Nystatin (Nystatin Powder 15 Gm) 1 applic TOP BID [facility] Last Admin: 08/09/22 08:37 Dose: 1 applic Ondansetron HCl (Ondansetron 4 Mg/2 Ml Vial) 4 mg IVP Q6HR PRN PRN Reason: Nausea / Vomiting Pantoprazole Sodium (Pantoprazole 40 Mg Tablet) 40 mg PO BID [facility] Last Admin: 08/09/22 08:36 Dose: 40 mg Sertraline HCl (Sertraline 50 Mg Tablet) 100 mg PO DAILY [facility] Last Admin: 08/09/22 08:36 Dose: 100 mg Sodium Chloride (Sodium Chloride Flush 0.9% 10 Ml Syringe) 10 ml IVP PRN PRN PRN Reason: NEEDED PER PROVIDER ORDERS Sodium Chloride (Sodium Chloride Flush 0.9% 10 Ml Syringe) 10 ml IVP 0100,0900,1700 [facility] Last Admin: 08/09/22 08:38 Dose: 10 ml Atorvastatin Calcium 40 mg PO DAILY 10/11/16 Sertraline HCl 100 mg PO DAILY 10/11/16 Pantoprazole [Protonix] 40 mg PO BID 04/09/21 Potassium Chloride [Klor-Con 10] 40 meq PO DAILY 04/09/21 Metoprolol Succinate [Toprol Xl] 25 mg PO DAILY 08/05/22 Exam: Temperature 36.3. Heart rate 80. Blood pressure 116/68. Respirations 18. 96% on room air. Jaundiced appearing elderly female who is in no acute distress. She is a very sedentary person and really needs quite a bit of prompting to get her out of bed. She is not paraplegic but prefers not to sit or stand for very long. Lungs have diminished breath sounds at the bases but are clear without any respiratory distress. Regular rate and rhythm. Abdomen is soft, nontender, quiet bowel sounds, no rebound or guarding Legs have trace edema. Labs: Sodium is 136, potassium 3.6, BUN 17, and creatinine 1.2. Total bili is 4.1. AST is 151. ALT 72. Alk phos 516. White cell count 7, hemoglobin 9.6. In 2015, 2017, 2019, and 2020 her hemoglobin and hematocrit were normal. Starting with her NSTEMI admission and MSSA bacteremia admission, she has been anemic consistently since that time. Assessment/plan 1. Choledocholithiasis. Main manifestation is jaundice and elevated liver enzymes. No acute hepatitis, no pancreatitis. Plan: Transfer to [facility] tomorrow for ERCP. Patient is amenable. An hour and a half was spent calling multiple facilities, and coordinating this. The excepting physician today was Dr. Pierre. I also call back [facility] [place] and explained that the patient was accepted by Karissa Wali. In the meantime she is also found an accepting physician, Dr. Hill, from [facility] and she will be calling them back to let them know that we have taken care of the patient. 2. Hypokalemia. Resolved. This is after multiple oral and potassium IV riders. Plan: Continue to monitor on a daily basis and supplement as needed. 3. Chronic kidney disease. Creatinine is stable. Since the spike of 1.6 on August 06, she has been 1.3 and 1.2. Plan: Continue to encourage good oral p.o. intake with water. Currently levels appear to be stable when compared to previous years. 4. Aortic stenosis. Found on current echocardiogram. Mildly abnormal heart pressures. Symptomatic as mild shortness of breath.
[2022-08-10] MEDS: SODIUM CHLORIDE FLUSH 0.9% 10 ML SYRINGE IVP SCH ×2 (08:00→21:09)
[2022-08-10] MEDS: NYSTATIN POWDER 15 GM TOP SCH ×2 (08:00→21:10)
[2022-08-10] MEDS: INSULIN LISPRO 300 UNIT/3 ML PEN SUBQ SCH ×4 (08:00→21:10)
[2022-08-10] MEDS: SERTRALINE 50 MG TABLET PO SCH (08:00)
[2022-08-10] MEDS: PANTOPRAZOLE 40 MG TABLET PO SCH ×2 (08:03→21:09)
[2022-08-10] MEDS: METOPROLOL SUCCINATE 25 MG TABLET PO SCH (08:03)
--- NOTE | 2022-08-10 18:06 | PROVIDER PROGRESS NOTE ---
Progress Note August 10, 2022 5:57 PM I saw the patient briefly this morning before she left for [facility] for her ERCP. She has not come back as of this dictation. Other than addressing this 1 medical issue, most of her complaints of stabilized. She states that she is incontinent of urine or stool, and will be having to change her diaper. But nursing and physical therapy both report that this patient is able to get out of bed and ambulate to the bathroom. She just chooses not to if the nurse does not come help her. But PT verifies that she is independent enough to get up. She tells me that she has some vague nausea but no true epigastric pain. No chest pain, cough, shortness of breath. Temperature 37.1. Heart rate 82. Blood pressure 113/76. Respirations 20. 95% on room air. She is a jaundiced elderly female, no acute distress. Lungs are clear to auscultation and percussion with diminished breath sounds at the bases. But no use of accessory muscles when she speaks to me and she is able to speak in complete sentences. Regular rate and rhythm. Abdomen is soft, not tender, hypoactive bowel sounds, no rebound or guarding. Extremities are with trace edema. While she protest and says she is not strong enough, she is able to go from supine to sitting and standing with standby assist. Assessment/plan 1. Choledocholithiasis as the cause of elevated LFTs. She is already had her gallbladder taken out in December 2020. Ultrasound does not show any obstruction. MRCP confirmed the stones and she is off for ERCP today at [facility]. She will be returning after the ERCP and I plan on resuming a regular diet. 2. Aortic stenosis on echocardiogram. She will need to address that in the outpatient setting with cardiology. Home medications are a beta-rosy, no diuretic. Here she is about the same. Other than the murmur, her cardiovascular exam is relatively benign. So I do not think I am can add any medications at discharge. 3. Frequent falls. I do not think this is syncope. During this hospitalization she demonstrates varying ambulation. She prefers that the nurses bring her things, she also prefers to be incontinent in her diaper rather than get up and go to the bathroom. In the outpatient setting she is that she call the ambulance [facility] 25 times to help her get out of bed. Physical therapy relates that she can get out of bed and walked 100 feet with her yesterday. We will reevaluate again today and tomorrow if she gets back in time. If she is still able to ambulate 100 feet I think I will be discharging her with home health. I will also give her the option of going to a custodial facility. 4. Asthma exacerbation was one of her presenting complaints when she was admitted. It resolved after 1 treatment. O2 stats have been stable since here. No wheezing on exam. 5. Chronic kidney disease. She appears to be stable. Her max creatinine has been 1.8 back in 2020. Here, during this hospitalization, her max creatinine is 1.3. Yesterday she was 1.2.
[2022-08-11 06:51] LABS: BASOPHILS % (AUTO) 0.5 %; EOSINOPHILS % (AUTO) 0.6 %; HGB - HEMOGLOBIN 8.7 g/dL (12.0-16.0); LYMPHOCYTES # (AUTO) 0.8 10^3/uL (1.5-3.5); LYMPHOCYTES % (AUTO) 12.3 %; MEAN CORPUSCULAR HEMOGLOBIN 26.4 pg (27.0-31.0); MEAN CORPUSCULAR VOLUME 87.9 fL (81.0-99.0); MEAN PLATELET VOLUME 10.9 fL (7.9-10.8); MONOCYTES # (AUTO) 0.4 10^3/uL (0.0-1.0); MONOCYTES % (AUTO) 6.3 %; NEUTROPHILS # (AUTO) 5.2 10^3/uL (1.5-6.6); NEUTROPHILS % (AUTO) 79.8 %; PLT - PLATELET COUNT 145 10^3/uL (130-450); RED CELL DISTRIBUTION WIDTH 15.3 % (12.0-15.0); WHITE BLOOD COUNT 6.5 x10^3/uL (4.8-10.8)
[2022-08-11 07:04] LABS: ALBUMIN 2.2 g/dL (3.2-5.5); ALBUMIN/GLOBULIN RATIO 0.6 (1.0-2.2); BILIRUBIN,TOTAL 2.7 mg/dL (0.2-1.0); CALCIUM 8.4 mg/dL (8.5-10.3); CREATININE 1.4 mg/dL (0.4-1.0); POTASSIUM 3.6 mmol/L (3.5-5.0); TOTAL PROTEIN 6.1 g/dL (6.7-8.2)
[2022-08-11] MEDS: PANTOPRAZOLE 40 MG TABLET PO SCH ×2 (08:41→20:48)
[2022-08-11] MEDS: METOPROLOL SUCCINATE 25 MG TABLET PO SCH (08:41)
[2022-08-11] MEDS: DOCUSATE SODIUM 100 MG CAPSULE PO PRN (08:41)
[2022-08-11] MEDS: SERTRALINE 50 MG TABLET PO SCH (08:41)
[2022-08-11] MEDS: INSULIN LISPRO 300 UNIT/3 ML PEN SUBQ SCH ×4 (08:43→20:48)
[2022-08-11] MEDS: NYSTATIN POWDER 15 GM TOP SCH ×2 (08:44→20:49)
[2022-08-11] MEDS: SODIUM CHLORIDE FLUSH 0.9% 10 ML SYRINGE IVP SCH ×3 (08:53→17:08)
--- NOTE | 2022-08-11 16:59 | Discharge Plan ---
Discharge Plan Problem Reviewed?: Yes Disposition: Home, Self Care Condition: Fair Prescriptions: Nystatin [Nystop] 1 applic TOP BID #1 each Diet: Regular (low fat, small meals) Activity Restrictions: Activity as Tolerated Shower Restrictions: No Driving Restrictions: No Health Concerns: You came to the hospital because you found herself getting weaker over a few days with increasing shortness of breath. It was suspected to be related to asthma and you responded nicely to IV fluids and to nebulizers for your asthma, but we found you to have elevated liver function studies. You also had severely low potassium. Over the course of a few days, we followed your potassium and gave you enough that it is now normal. But your liver enzymes continue to be elevated, and we investigated further and found you to have a blocked common bile duct. Even though you had a gallbladder removal in 2020, there was still enough bile in your liver tubes that you made further gallstones. Having stones in your common bile duct can be very dangerous and lead to severe infection of the entire liver or pancreatitis. As such, we sent you for a procedure that removes the gallstones by dilating the ducts and letting the stones fall into your small bowel. The procedure is called an ERCP and it was done at [facility] since we do not offer that procedure here. You are now felt stable enough to return to home. We do think that you need some physical therapy. You have a tendency to be quite sedentary we encourage you to be more active. Plan of Treatment: Please see your primary care provider, Dr. Mathieu Berry, in the next 1 to 2 weeks. I would like him to repeat your blood work to make sure your liver has returned back to normal. Specifically I would love to see your jaundice go away since you are still on the yellow side. I would also like him to discuss your ultrasound of the heart. You know that you have history of valvular heart disease, and I want to make sure that you continue to be followed for your aortic valve disease. Please continue outpatient physical therapy. We did offer you home health physical therapy but you explained that your sister, with whom you live, refuses to allow that in her home. If you continue to fall at home, and you continue to need EMS to come pick you up (I believe they counted 24 visits in one week), we would strongly urge you to consider going to go live in a detention facility if you need that much help. When you were first admitted, you are identified as having a fungal rash. You were given nystatin while you are in the hospital. I will send you home with a bottle of nystatin that was called in by prescription to your pharmacy to contin ue to use as needed. Care Goals: To remain independent and living in your sister's home for as long as possible Assessment: Patient is alert, oriented. States she makes her own decisions. Follow-Up Care: Outpatient Rehab - PT, Outpatient Rehab - OT No Smoking: If you smoke, Please STOP! Call for help. Follow-up with: Mathieu Berry MD [Provider Admit Priv/Credential] -
--- NOTE | 2022-08-11 17:07 | DISCHARGE SUMMARY ---
"Discharge Summary Admit Date: 08/05/22 Discharge Date: 08/11/22 Discharging Provider: Kaur Shelley MD Primary Care Provider: Mathieu Berry MD Code Status: Do Not Attempt Resuscitation Condition at Discharge: Fair Discharge Disposition: 01 Home, Self Care - DIAGNOSES Discharge Diagnoses with Status of Each Condition: 1. Acute on chronic kidney disease 2. Hypokalemia 3. Choledocholithiasis 4. Moderate to severe aortic stenosis 5. Asthma with exacerbation 6. Frequent falls (1 week period of time 24 calls to EMS for lift assist) 7. Left arm bruise 8. Fungal rash of torso 9. Orthostatic hypotension - HPI History of Present Illness: Ms Rosa is a 77 yo F with hx asthma, DM, HLD. Presents to ER with c/o frequent falls, shortness of breath. Pt reports that she was having an asthma attack, felt short of breath, mild dry cough, felt hot but was not febrile. She lives with her sister who is at bedside. Pt reports she has not needed an inhaler in over a year and did not have any at home. She felt much better after EMS neb tx, no longer feeling short of breath. She denies fevers, chills, abd pain, n/v. Had diarrhea a couple of weeks ago , no blood, now constipated had small BM today and yesterday. Denies changes in appetite/diet. Denies hx liver abnormalities. Does not take insulin, was stopped a year ago after she lost ~130 lbs. - Past Medical History Cardiovascular: reports: High cholesterol Respiratory: reports: Asthma Endocrine/Autoimmune: reports: Type 1 diabetes GI: reports: GI bleed, Ulcers : reports: Renal insuffiency HEENT: reports: Other Psych: reports: Depression, Other Musculoskeletal: reports: Osteoarthritis, Other Derm: reports: None MRSA Hx?: No - Past Surgical History General: reports: Cholecystectomy Ortho: reports: Knee replacement, Rotator cuff repair, Shoulder arthroplasty, Carpal Tunnel surgery, Other HEENT: reports: Cataracts - CONSULTS | PROCEDURES Procedures: 1. Chest x-ray has generalized interstitial prominence. Possibly artifact. If clinical concern perform repeat chest x-ray with deep inspiration for further evaluation. 2. Humerus x-ray left arm without any evidence of acute bony abnormality 3. Abdominal ultrasound with hepatic fatty infiltration, no focal mass lesion, moderate ascites 4. MRCP choledocholithiasis with stones in the distal common bile duct. Mild biliary ductal dilatation. Moderate ascites. Mild splenomegaly. T12 compression fracture slightly worse compared to December 2021. 5. Echocardiogram done for frequent falls since there was a systolic murmur. 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 This echo has moderate to severe aortic stenosis, a dilated aorta of 4.1 cm. Mild to moderate mitral regurg. Normal RV size and systolic function. Normal LV size and systolic function with an ejection fraction of 60 to 65% with moderate concentric left ventricular hypertrophy. Severe increase in left atrial volume index. 6. ERCP performed at [facility] August 10. Patient transported to [facility] and then return to us the same day - HOSPITAL COURSE Hospital Course: The patient presented with symptoms of shortness of breath that were easily treated as asthma with exacerbation. She remained with normal oxygenation throughout her entire stay and this problem rate remained relatively quiescent. She was incidentally person. She preferred to defecate or urinate in her diaper then to get up to go to the bathroom even though she was perfectly capable of going to the bathroom. She worked with physical therapy and the day before her ERCP was able to walk 100 feet. But she does have problems from going to supine to sitting to standing and needs 1 person assist. We did offer her physical therapy through home health but she says her sister does not like people in her home. So the patient will continue to drive herself to outpatient PT and OT to continue to improve her strength. Severe hypokalemia was supplemented over several days until it resolved. An echocardiogram was done to evaluate her history of falls. We postulated that she may be having unrecognized syncope due to her previous history of IHSS on another echo on her previous hospitalization. But this echo shows moderate to severe aortic stenosis. The patient did not have any more shortness of breath, angina, nor did she have syncope during her stay. When liver enzymes continue to be elevated with jaundice on physical exam we did an abdominal ultrasound which is relatively benign and otherwise showed possible cirrhosis. Serology was negative for acute hepatitis. An MRCP showed common bile duct stones. We attempted to transfer to a higher level of care for an ERCP. No facilities had any beds available. However [facility] was willing to do the ERCP if we transfer the patient there and brought her back. That was successfully done on August 10. The patient is eating, able to ambulate when she can get up, and has only occasional mild epigastric pain with food. She is felt stable enough to return to home. Throughout her stay she was occasionally hypotensive in the 90s or at 100 systolic. Sometimes she would go as high as 118 systolic. I discharge supine blood pressure was 90/56. Sitting was 94/68. Standing was 103/68. She said that she was asymptomatic with this. We prepared to get her ready for discharge and she was sitting in her chair, fully dressed, and sister ready to take her home when we rechecked her blood pressure 1 more time. She was now 70 systolic. She said that she did not feel lightheaded. But I did not feel comfortable sending her home. She was asymptomatic with regards to abdominal pain. She did not have shortness of breath or chest pain. I canceled her disc harge, gave her a 500 cc bolus of fluid. Lactic acid was negative. Liver enzymes are stable. There is no evidence of pancreatitis from the ERCP. And reevaluated her next day. She said that she really felt fine and wanted to go home. Temperature was 36.6. Heart rate 78. Blood pressure now had a supine blood pressure 144/58. Sitting 169/114. Standing 175/150. She was still jaundiced. With moist oral mucosa. She is an alert oriented female who has a tangential conversational style with occasional perseveration. Neck is supple. Lungs are clear and there are no crackles no tachypnea no increased respiratory effort. She has a systolic ejection murmur at the left lower sternal border, goes up to the right upper sternal border but I really do not hear radiation to the carotids. A regular rate and rhythm. On the day before discharge she did have 6 beats of a monomorphic wide-complex tachycardia. Followed by a 1 second pause and then 3 more beats and then continued sinus. She was asymptomatic during this. Greater than 30 minutes was spent coordinating discharge. Her home medications were renewed including her Toprol-XL. I am asking her to follow-up with her primary care provider for: Repeat CMP in the next week Discussion of aortic stenosis and what she would like to do Reiterated discussion for POLST form. She had a POLST form filled out in the emergency room and she was annoyed at the ER provider who filled it out with her. She was annoyed enough that she changed her CODE STATUS to full code after admission. But after discussion with me, she said that she is willing to stay DO NOT RESUSCITATE. She just did not like feeling as if she was being rushed in an important discussion such as this. - ALLERGIES Allergies/Adverse Reactions: Allergies Allergy/AdvReac Type Severity Reaction Status Date / Time No Known Drug Allergies Allergy Verified 12/08/21 11:58 - MEDICATIONS Home Medications: Ambulatory Orders Medication Instructions Recorded Confirmed Atorvastatin Calcium 40 mg PO DAILY 10/11/16 08/05/22 Sertraline HCl 100 mg PO DAILY 10/11/16 08/05/22 Pantoprazole [Protonix] 40 mg PO BID 04/09/21 08/05/22 Potassium Chloride [Klor-Con 10] 40 meq PO DAILY 04/09/21 08/05/22 Metoprolol Succinate [Toprol Xl] 25 mg PO DAILY 08/05/22 08/05/22 Nystatin [Nystop] 1 applic TOP BID #1 each 08/11/22 - LABS Result Diagrams: 08/11/22 18:43 08/12/22 08:43"
[2022-08-11] MEDS ORDERED: SODIUM CHLORIDE 0.9% 500 ML IV ONE (18:13)
--- NOTE | 2022-08-11 18:28 | PROVIDER PROGRESS NOTE ---
Progress Note August 11, 2022 6:18 PM I watched Mrs. Rosa all day long today monitoring her blood pressure, any signs or symptoms of bacteremia because of the ERCP. She did well all day today. Was eating okay. I felt she was stable enough for discharge. White cell count was normal, there is no fever. But as the days progressed, her blood pressure is go tten lower and lower. She occasionally runs a low blood pressure to 97 systolic. But I will only be once during the day. And then she bounces back up to 113, and even as high as 138. Since 5:00 this morning she has been 96, 90, 93, and 84 systolic. We did 1 more blood pressure before she was getting ready to leave and she is lightheaded, and 78 systolic. There is no compensatory tachycardia with this. She also had a 6 beat run of monomorphic wide-complex tachycardia on telemetry. Then a 1 second pause. And then another 3 beats of monomorphic wide-complex tachycardia. She had no symptoms with that earlier today. To my regret, I have to tell her that she really needs to stay. I explained to her that I worry about sepsis, or impending infection. She just had a big procedure done. She is understandably disappointed. Her sister is getting ready to take her home and has been waiting. But they both understand the need for her to stay 1 more night. As such I am canceling her discharge and keeping her overnight. Active Medications Albuterol/Ipratropium (Ipratropium/Albuterol 3 Ml Neb) 3 ml INH Q4HR PRN PRN Reason: Wheezing Last Admin: 08/06/22 21:17 Dose: 3 ml Docusate Sodium (Docusate Sodium 100 Mg Capsule) 100 mg PO BID PRN PRN Reason: Constipation Last Admin: 08/11/22 08:41 Dose: 100 mg Sodium Chloride (Normal Saline 0.9%) 500 mls @ 999 mls/hr IV ONCE ONE Stop: 08/11/22 18:43 Insulin Human Lispro (Insulin Lispro 300 Unit/3 Ml Pen) 1 - 5 unit SUBQ 0800,1200,1700,2100 [facility]; Protocol Last Admin: 08/11/22 17:08 Dose: 2 unit Metoprolol Succinate (Metoprolol Succinate 25 Mg Tablet) 25 mg PO DAILY [facility] Last Admin: 08/11/22 08:41 Dose: 25 mg Multi-Ingredient Ointment (Zinc Oxide 20% Oint 30 Gm Tube) 1 applic TOP PRN PRN PRN Reason: Skin Care Last Admin: 08/09/22 08:37 Dose: 1 appful Nystatin (Nystatin Powder 15 Gm) 1 applic TOP BID [facility] Last Admin: 08/11/22 08:44 Dose: 1 applic Ondansetron HCl (Ondansetron 4 Mg/2 Ml Vial) 4 mg IVP Q6HR PRN PRN Reason: Nausea / Vomiting Pantoprazole Sodium (Pantoprazole 40 Mg Tablet) 40 mg PO BID [facility] Last Admin: 08/11/22 08:41 Dose: 40 mg Sertraline HCl (Sertraline 50 Mg Tablet) 100 mg PO DAILY [facility] Last Admin: 08/11/22 08:41 Dose: 100 mg Sodium Chloride (Sodium Chloride Flush 0.9% 10 Ml Syringe) 10 ml IVP PRN PRN PRN Reason: NEEDED PER PROVIDER ORDERS Sodium Chloride (Sodium Chloride Flush 0.9% 10 Ml Syringe) 10 ml IVP 0100,0900,1700 [facility] Last Admin: 08/11/22 17:08 Dose: 10 ml Home Meds: Atorvastatin Calcium 40 mg PO DAILY 10/11/16 Sertraline HCl 100 mg PO DAILY 10/11/16 Pantoprazole [Protonix] 40 mg PO BID 04/09/21 Potassium Chloride [Klor-Con 10] 40 meq PO DAILY 04/09/21 Metoprolol Succinate [Toprol Xl] 25 mg PO DAILY 08/05/22 Exam: 78 systolic, temperature is 36.6, respirations 18, 99% on room air. She continues to be jaundiced appearing but much less so than the last few days. Sitting upright in her chair, fatigued, resting her chin on her upturned hand and bent elbow. Neck is supple. Lungs have diminished breath sounds at the bases but there is no respiratory dis tress. She does not have any wheezing. There is no crackles, rhonchi. There is no increased respiratory effort with speaking to me. Regular rate and rhythm with a systolic ejection murmur. Abdomen is soft, vaguely tender in the epigastrium but no real tenderness. No rebound or guarding. Hypoactive bowel sounds. No tenderness in any other quadrant. Extremities have trace edema. Labs: Sodium 133, potassium 3.6, BUN 20, creatinine 1.4. Calcium 8.4. Total bili 2.7 and down from a peak of 5.5. AST 78. ALT 49. Alk phos 391. White cell count 6.5. Hemoglobin 8.7. Hematocrit 29. Assessment/plan 1. Hypotension. This is in a patient who just had an ERCP. She has been adequately eating and having p.o. intake so I do not think she is dehydrated. She is on her usual metoprolol XL 25 mg a day with no other antihypertensive so I do not think she is overtreated for blood pressure or rate control. Because o f the ERCP, I postulated that she may have some fleeting bacteremia. She could be an early sepsis. Plan: Cancel discharge 500 cc bolus of normal saline. I do not want to give her a full liter of normal saline since she has aortic stenosis. Check stat CBC, CMP, lactic acid Check stat troponin, with hx of aortic stenosis Check blood cultures 2. Aortic stenosis on echocardiogram. I read discussed the findings with her sister and her. She used to see a cnc milling machinist at [facility] and [facility]. This is when she is to see Dr. Narayanan. I told her that Dr. Kumar could certainly figure out who her previous cnc milling machinist was and she should make an appointment to see him in follow-up. 3. Choledocholithiasis. Status post ERCP August 10. Repeat stat CMP. She has no epigastric pain and as such the differential of pancreatitis after ERCP is not high up on my list as the cause of her hypotension. But I will keep it in mind
[2022-08-11 18:53] LABS: BASOPHILS % (AUTO) 0.4 %; EOSINOPHILS # (AUTO) 0.1 10^3/uL (0.0-0.7); EOSINOPHILS % (AUTO) 1.1 %; HCT - HEMATOCRIT 33.4 % (37.0-47.0); LYMPHOCYTES # (AUTO) 0.7 10^3/uL (1.5-3.5); LYMPHOCYTES % (AUTO) 9.7 %; MEAN CORPUSCULAR HEMOGLOBIN 26.9 pg (27.0-31.0); MEAN CORPUSCULAR HGB CONC 29.9 g/dL (32.0-36.0); MEAN CORPUSCULAR VOLUME 89.8 fL (81.0-99.0); MEAN PLATELET VOLUME 11.4 fL (7.9-10.8); MONOCYTES # (AUTO) 0.5 10^3/uL (0.0-1.0); MONOCYTES % (AUTO) 6.7 %; NEUTROPHILS # (AUTO) 5.8 10^3/uL (1.5-6.6); NEUTROPHILS % (AUTO) 81.7 %; PLT - PLATELET COUNT 199 10^3/uL (130-450); RED BLOOD COUNT 3.72 10^6/uL (4.20-5.40); RED CELL DISTRIBUTION WIDTH 15.7 % (12.0-15.0); WHITE BLOOD COUNT 7.1 x10^3/uL (4.8-10.8)
[2022-08-11 19:07] LABS: ALBUMIN 2.4 g/dL (3.2-5.5); ALBUMIN/GLOBULIN RATIO 0.6 (1.0-2.2); BILIRUBIN,TOTAL 2.5 mg/dL (0.2-1.0); CALCIUM 8.4 mg/dL (8.5-10.3); CREATININE 1.7 mg/dL (0.4-1.0); TOTAL PROTEIN 6.5 g/dL (6.7-8.2)
[2022-08-12] MEDS: SODIUM CHLORIDE FLUSH 0.9% 10 ML SYRINGE IVP SCH ×2 (01:53→09:05)
[2022-08-12] MEDS: SERTRALINE 50 MG TABLET PO SCH (09:02)
[2022-08-12] MEDS: NYSTATIN POWDER 15 GM TOP SCH (09:02)
[2022-08-12] MEDS: PANTOPRAZOLE 40 MG TABLET PO SCH (09:02)
[2022-08-12] MEDS: ZINC OXIDE 20% OINT 30 GM TUBE TOP PRN (09:02)
[2022-08-12] MEDS: METOPROLOL SUCCINATE 25 MG TABLET PO SCH (09:02)
[2022-08-12 09:03] LABS: ALBUMIN 2.5 g/dL (3.2-5.5); ALBUMIN/GLOBULIN RATIO 0.6 (1.0-2.2); BILIRUBIN,TOTAL 2.5 mg/dL (0.2-1.0); CALCIUM 8.6 mg/dL (8.5-10.3); CREATININE 1.6 mg/dL (0.4-1.0)
[2022-08-12] MEDS: INSULIN LISPRO 300 UNIT/3 ML PEN SUBQ SCH ×2 (09:03→12:31)
[2022-08-12 12:48] VITALS: BP 144/58
== END 2022-08-12 14:30 | disposition home or self-care (01) | DRG 445 ==
LOC: EDUNIT# → ED 00:29 → MS2 03:57
PROVIDERS: ADMIT Student in an Organized Health Care Education/Training Program; ATTEND Specialist
PROC: 0FC98ZZ Extirpation of Matter from Common Bile Duct, Via Natural or Artificial Opening Endoscopic (ICD-10-PCS; principal; 2022-08-10)
PROC: 0F798ZZ Dilation of Common Bile Duct, Via Natural or Artificial Opening Endoscopic (ICD-10-PCS; 2022-08-10)
DX: R17 Unspecified jaundice (principal); D64.9 Anemia, unspecified; K80.51 Calculus of bile duct without cholangitis or cholecystitis with obstruction; J45.909 Unspecified asthma, uncomplicated; I49.3 Ventricular premature depolarization; Z20.822 Contact with and (suspected) exposure to COVID-19; I45.10 Unspecified right bundle-branch block; E10.9 Type 1 diabetes mellitus without complications; I49.9 Cardiac arrhythmia, unspecified; J45.21 Mild intermittent asthma with (acute) exacerbation; N17.9 Acute kidney failure, unspecified; R18.8 Other ascites; E11.22 Type 2 diabetes mellitus with diabetic chronic kidney disease; N18.9 Chronic kidney disease, unspecified; E87.6 Hypokalemia; B36.9 Superficial mycosis, unspecified; I95.1 Orthostatic hypotension; E78.5 Hyperlipidemia, unspecified; I35.0 Nonrheumatic aortic (valve) stenosis; Z66 Do not resuscitate; K59.00 Constipation, unspecified; E11.65 Type 2 diabetes mellitus with hyperglycemia; W19.XXXD Unspecified fall, subsequent encounter; R53.1 Weakness; K76.0 Fatty (change of) liver, not elsewhere classified; K74.60 Unspecified cirrhosis of liver; Z91.81 History of falling; T14.8XXD Other injury of unspecified body region, subsequent encounter; Z90.49 Acquired absence of other specified parts of digestive tract; S40.022D Contusion of left upper arm, subsequent encounter
CPT/HCPCS: 36415; 71045; 73060; 74183; 76705; 80048; 80053; 80076; 83036; 83605; 83690; 83735; 84484; 85025; 86705; 86709; 86803; 87040; 87340; 87633; 93005; 93306; 94640; 96365; 96368; 97116; 97161; 97530; 99285; A9270; A9585

== ENCOUNTER 2022-08-13 21:47 | Outpatient (CLI) | payer MEDICARE, OTHER | END 2022-08-13 23:59 | disposition EMS.NT | LOC: EMS 21:47 | DX: Z03.89 Encounter for observation for other suspected diseases and conditions ruled out (principal) ==

== ENCOUNTER 2022-08-14 22:01 | Outpatient (CLI) | payer MEDICARE, OTHER | END 2022-08-14 22:12 | disposition EMS.NT | LOC: EMS 22:01 | DX: Z03.89 Encounter for observation for other suspected diseases and conditions ruled out (principal) ==

== ENCOUNTER 2022-08-22 18:00 | Outpatient (CLI) | payer MEDICARE, OTHER | END 2022-08-22 18:01 | disposition critical access hospital (66) | LOC: EMS 18:00 | DX: R53.1 Weakness (principal); R19.7 Diarrhea, unspecified | CPT/HCPCS: A0425; A0429 ==

== ENCOUNTER 2022-08-22 18:33 | Emergency (ER) | payer MEDICARE, OTHER ==
--- NOTE | 2022-08-22 18:49 | ED Physician Documentation ---
History of Present Illness - Stated complaint Stated Complaint: GLF - Chief complaint Chief Complaint: General - History obtained from History obtained from: Patient - History of Present Illness Pain level max: 0 Pain level now: 0 - Additonal information Additional information: Patient is a 77-year-old female with a history of what appears to be possible liver cirrhosis, idiopathic hypertrophic subaortic stenosis, jaundice, anemia, diabetes and generalized weakness. She lives at home with her sister. She states that she has had several falls today. She was recently admitted for same. She had contacted EMS 24 times in 1 week for falls. Patient was admitted here recently, found to have choledocholithiasis and was sent to [facility] for an ER[facility] which was performed and the patient was returned here. The patient did not want to go to assisted living facility or a long-term. She did not want home health. The patient was discharged home. She states that she has not yet followed up with her doctor since hospital discharge. Does not know if her potassium is low again. She states she has had ongoing diarrhea and feels like her abdomen is "bloated". No fevers. No chills. No vomiting. No blood in the stool. Review of Systems Constitutional: denies: Fever, Chills Respiratory: denies: Cough Skin: denies: Rash Musculoskeletal: denies: Neck pain Neurologic: reports: Generalized weakness. denies: Focal weakness, Numbness, Headache PD PAST MEDICAL HISTORY - Past Medical History Cardiovascular: High cholesterol Respiratory: Asthma, Pneumonia Neuro: None Endocrine/Autoimmune: Type 2 diabetes GI: GI bleed, Ulcers : Incontinence, Renal insuffiency HEENT: Other Psych: Depression Musculoskeletal: Osteoarthritis, Chronic back pain, Other Derm: None, Other - Past Surgical History Past Surgical History: Yes General: Cholecystectomy Ortho: Knee replacement, Rotator cuff repair, Shoulder arthroplasty, Carpal Tunnel surgery, Other HEENT: Cataracts - Present Medications Home Medications: Ambulatory Orders Medication Instructions Recorded Confirmed Atorvastatin Calcium 40 mg PO DAILY 10/11/16 08/22/22 Sertraline HCl 100 mg PO DAILY 10/11/16 08/22/22 Pantoprazole [Protonix] 40 mg PO BID 04/09/21 08/22/22 Potassium Chloride [Klor-Con 10] 40 meq PO DAILY 04/09/21 08/22/22 Metoprolol Succinate [Toprol Xl] 25 mg PO DAILY 08/05/22 08/22/22 Nystatin [Nystop] 1 applic TOP BID #1 each 08/11/22 08/22/22 - Allergies Allergies/Adverse Reactions: Allergies Allergy/AdvReac Type Severity Reaction Status Date / Time No Known Drug Allergies Allergy Verified 08/22/22 18:43 - Social History Does the pt smoke?: No Smoking Status: Never smoker Does the pt drink ETOH?: Yes Does the pt have substance abuse?: Yes - Immunizations Immunizations are current?: Yes - POLST Patient has POLST: Yes PD ED PE NORMAL - Vitals Vital signs reviewed: Yes - General General: Alert and oriented X 3, No acute distress, Other (Jaundiced) - HEENT HEENT: Moist mucous membranes - Neck Neck: Supple, no meningeal sign - Cardiac Cardiac: RRR, Strong equal pulses - Respiratory Respiratory: No respiratory distress, Clear bilaterally - Abdomen Abdomen: Soft, Other (Mildly distended, no tenderness to palpation) - Back Back: No CVA TTP, No spinal TTP - Derm Derm: Warm and dry, No rash - Extremities Extremities: No deformity, Normal ROM s pain, No calf tenderness / cord, Other (1+ bilateral pitting edema) - Neuro Neuro: Alert and oriented X 3, merchandise flow associate 2-12 intact, No motor deficit, No sensory deficit, Normal speech - Psych Psych: Normal mood, Normal affect Results - Vitals Vitals: Vital Signs - 24 hr 08/22/22 08/22/22 08/22/22 18:37 21:38 21:54 Temperature 36.8 C Heart Rate 86 89 Respiratory 12 Rate Blood Pressure 189/111 H 131/98 H O2 Saturation 98 96 08/22/22 21:57 Temperature 36.6 C Heart Rate Respiratory Rate Blood Pressure O2 Saturation Oxygen O2 Source Room air - Labs Labs: Laboratory Tests 08/22/22 08/22/22 08/22/22 18:58 18:58 19:57 WBC 7.6 RBC 3.83 L Hgb 10.4 L Hct 35.8 L MCV 93.5 MCH 27.2 MCHC 29.1 L RDW 16.4 H Plt Count 303 MPV 10.2 Neut # (Auto) 6.3 Lymph # (Auto) 0.6 L [place] # (Auto) 0.5 Eos # (Auto) 0.0 Baso # (Auto) 0.0 Absolute Nucleated RBC 0.00 Nucleated RBC % 0.0 Sodium 139 Potassium 5.1 H Chloride 105 Carbon Dioxide 24 Anion Gap 10.0 BUN 15 Creatinine 1.9 H Estimated GFR (MDRD) 26 L Glucose 204 H Calcium 8.7 Phosphorus 3.9 Magnesium 2.1 Total Bilirubin 1.7 H AST 45 H ALT 21 Alkaline Phosphatase 241 H Ammonia 21.0 Total Protein 7.4 Albumin 3.0 L Globulin 4.4 H Albumin/Globulin Ratio 0.7 L Lipase 41 - Rads (name of study) CT abdomen pelvis Relevant Findings:: Final report received, See rad report PD Medical Decision Making - ED course Complexity details: reviewed results, re-evaluated patient, considered differential, d/w patient, d/w family ED course: 77-year-old female presents to the emergency department after her having generalized weakness today. She states she has been having diarrhea since leaving the hospital. Her CBC shows a mild anemia but otherwise unremarkable. Her ER abdominal panel shows a mildly elevated creatinine above her baseline, elevated glucose and improving liver function test from prior. Ammonia is normal. CT scan shows large amount of ascites. Discussed findings with patient, apparently was thought to have cirrhosis recently on her work-up for her ERCP, she states she does not have an alcohol use history, did have fatty infiltration of the liver, likely PETERSEN cirrhosis. Patient will follow-up with her doctor for further evaluation of this including likely paracentesis and biopsy. Fluid is not tense currently. No difficulty breathing. A stool culture will be sent along with a C. difficile test. She does not believe she has been on recent antibiotics but has been in the hospital and had an ERCP. Patient will be signed out to the [facility] emergency department awaiting the C. difficile test, road test and urinalysis. This document was made in part using voice recognition software. While efforts are made to proofread this document, sound alike and grammatical errors may occur. 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
[2022-08-22] MEDS: SODIUM CHLORIDE 0.9% 1,000 ML IV STA (18:51)
[2022-08-22 19:02] LABS: BASOPHILS % (AUTO) 0.4 %; EOSINOPHILS % (AUTO) 0.3 %; HCT - HEMATOCRIT 35.8 % (37.0-47.0); HGB - HEMOGLOBIN 10.4 g/dL (12.0-16.0); LYMPHOCYTES # (AUTO) 0.6 10^3/uL (1.5-3.5); LYMPHOCYTES % (AUTO) 7.9 %; MEAN CORPUSCULAR HEMOGLOBIN 27.2 pg (27.0-31.0); MEAN CORPUSCULAR HGB CONC 29.1 g/dL (32.0-36.0); MEAN CORPUSCULAR VOLUME 93.5 fL (81.0-99.0); MEAN PLATELET VOLUME 10.2 fL (7.9-10.8); MONOCYTES # (AUTO) 0.5 10^3/uL (0.0-1.0); MONOCYTES % (AUTO) 7.2 %; NEUTROPHILS # (AUTO) 6.3 10^3/uL (1.5-6.6); NEUTROPHILS % (AUTO) 83.9 %; PLT - PLATELET COUNT 303 10^3/uL (130-450); RED BLOOD COUNT 3.83 10^6/uL (4.20-5.40); RED CELL DISTRIBUTION WIDTH 16.4 % (12.0-15.0); WHITE BLOOD COUNT 7.6 x10^3/uL (4.8-10.8)
[2022-08-22 19:20] LABS: ALBUMIN/GLOBULIN RATIO 0.7 (1.0-2.2); BILIRUBIN,TOTAL 1.7 mg/dL (0.2-1.0); CALCIUM 8.7 mg/dL (8.5-10.3); CREATININE 1.9 mg/dL (0.4-1.0); MAGNESIUM 2.1 mg/dL (1.7-2.8); PHOSPHORUS 3.9 mg/dL (2.5-4.6); POTASSIUM 5.1 mmol/L (3.5-5.0); TOTAL PROTEIN 7.4 g/dL (6.7-8.2)
--- NOTE | 2022-08-22 20:39 | CT Report ---
PROCEDURE: ABDOMEN/PELVIS WO INDICATIONS: diffuse abd pain, diarrhea TECHNIQUE: Noncontrast 5 mm thick sections acquired from the diaphragms to the symphysis. 5 mm coronal and sagi ttal reformats were then performed. For radiation dose reduction, the following was used: automated exposure control, adjustment of mA and/or kV according to patient size. COMPARISON: CT abdomen pelvis 01/16/2021. CT lumbar spine 12/08/2021. FINDINGS: Image quality: Evaluation is limited by body habitus and beam hardening artifact. Lung bases:There is mild dependent atelectasis and scarring in the lung bases. Heart: Heart is mildly enlarged. There is a small hiatal hernia. ABDOMEN: Liver:Limited evaluation of the liver demonstrates no definite hepatic mass. Gallbladder:Surgically absent. Biliary ducts:There is mild pneumobilia in the familia hepatis. Pancreas: Unremarkable. Spleen:The spleen is mildly enlarged, measuring up to 13.6 cm. Adrenal Glands:There is thickening of the left adrenal gland redemonstrated. Kidneys and Ureters: No hydronephrosis. Stomach and Bowel: Stomach, small bowel loops, and colon are normal in caliber. Evaluation of the ap pendix is limited due to ascites and beam hardening artifact but there is no definite evidence of lalit endicitis. Mild segment wall thickening of the distal transverse, descending, and sigmoid colon may r eflect a mild colitis. There is colonic diverticulosis without acute diverticulitis. Peritoneum:There is a large amount of ascites in the abdomen and pelvis. No free air. Abdominal Wall: No hernia. Abdominal Nodes: No retroperitoneal or mesenteric adenopathy by size criteria. Vessels: Aorta and inferior vena cava are normal in size. PELVIS: Pelvic Organs: Unremarkable. Bladder: Unremarkable. Pelvic Nodes: No enlarged lymph nodes. Miscellaneous: No inguinal hernias. Bones: There is a compression fracture of the T12 vertebral body primarily involving the superior end plate with approximately 50% loss of height, increased compared to the 12/08/2021 CT. There is also inc reased posterior displacement of a superior endplate component with associated moderate spinal canal narrowing. Milder superior end plate compression deformities of the L3 and L4 vertebral bodies appear unchanged. Visualized osseous structures demonstrate no suspicious lesions. IMPRESSION: 1. Large amount of ascites. 2. Mild segmental wall thickening in the distal colon suggestive of a mild colitis. 3. Colonic diverticulosis without acute diverticulitis. 4. Small amount of pneumobilia in the familia hepatis suggesting sequelae of prior ampullary interventi on. 5. Increased loss of height of a T12 compression fracture with increased posterior displacement of a fracture fragment associated with moderate narrowing of the spinal canal. Reviewed by: Brandon Garsia MD on 08/22/2022 8:38 PM PDT Approved by: Brandon Garsia MD on 08/22/2022 8:38 PM PDT Station ID: [id number]
[2022-08-22 21:54] VITALS: BP 131/98
[2022-08-22 22:55] LABS: BILIRUBIN,URINE NEGATIVE (NEGATIVE); GLUCOSE, URINE (UA) NEGATIVE (NEGATIVE); KETONES,URINE (UA) NEGATIVE (NEGATIVE); LEUKOCYTE ESTERASE, URINE NEGATIVE (NEGATIVE); NITRITE,URINE NEGATIVE (NEGATIVE); OCCULT BLOOD,URINE SMALL (NEGATIVE); PH,URINE 5.5 PH (5.0-7.5); PROTEIN,URINE NEGATIVE (NEGATIVE); UROBILINOGEN,URINE 0.2 (NORMAL) E.U./dL (NORMAL)
[2022-08-22 23:07] LABS: BACTERIA,URINE None Seen /HPF (None Seen); CLARITY,URINE CLEAR (CLEAR); RBC,URINE 0-5 /HPF (0-5); SQUAMOUS EPITHELIAL CELL,UR FEW Squamous (<= Few); WBC,URINE 0-3 /HPF (0-5)
--- NOTE | 2022-08-23 00:17 | ED Physician Documentation ---
ED Addendum - Addendum Addendum: 08/23/22 00:16 Patient received a signout from outgoing physician, please see their do cumentation for further detail. Patient evaluated independently at bedside at approximately 2345 hrs. Found to be resting comfortably. Tolerated both p.o. trial as well as ambulation in the department without difficulty. Was unable to provide stool sample. The remainder of her tests and imaging are reviewed. She reports feeling comfortable following up with primary care. We will give clear return precautions prior to discharge.
== END 2022-08-23 00:27 | disposition home or self-care (01) ==
LOC: EDUNIT# → ED 18:33
DX: K75.81 Nonalcoholic steatohepatitis (NASH) (principal); K75.89 Other specified inflammatory liver diseases; Z91.81 History of falling
CPT/HCPCS: 36415; 51701; 80053; 81001; 81003; 82140; 83690; 83735; 84100; 85025; 87086; 99284

== ENCOUNTER 2022-09-01 09:07 | Outpatient (CLI) | payer MEDICARE, OTHER ==
[2022-09-01 19:05] LABS: BASOPHILS % (AUTO) 0.5 %; EOSINOPHILS # (AUTO) 0.1 10^3/uL (0.0-0.7); EOSINOPHILS % (AUTO) 2.1 %; HCT - HEMATOCRIT 37.7 % (37.0-47.0); HGB - HEMOGLOBIN 10.9 g/dL (12.0-16.0); LYMPHOCYTES % (AUTO) 16.5 %; MEAN CORPUSCULAR HEMOGLOBIN 27.1 pg (27.0-31.0); MEAN CORPUSCULAR HGB CONC 28.9 g/dL (32.0-36.0); MEAN CORPUSCULAR VOLUME 93.8 fL (81.0-99.0); MEAN PLATELET VOLUME 10.7 fL (7.9-10.8); MONOCYTES # (AUTO) 0.6 10^3/uL (0.0-1.0); MONOCYTES % (AUTO) 9.5 %; NEUTROPHILS # (AUTO) 4.4 10^3/uL (1.5-6.6); NEUTROPHILS % (AUTO) 71.1 %; PLT - PLATELET COUNT 284 10^3/uL (130-450); RED BLOOD COUNT 4.02 10^6/uL (4.20-5.40); RED CELL DISTRIBUTION WIDTH 16.5 % (12.0-15.0); WHITE BLOOD COUNT 6.1 x10^3/uL (4.8-10.8)
[2022-09-01 19:08] LABS: SLIDE REVIEW? Indicated
[2022-09-01 19:21] LABS: THYROID STIMULATING HORMONE 6.98 uIU/mL (0.34-5.60)
[2022-09-01 19:28] LABS: ALBUMIN 3.1 g/dL (3.2-5.5); ALBUMIN/GLOBULIN RATIO 0.8 (1.0-2.2); ALKALINE PHOSPHATASE 158 IU/L (42-121); ALT ALANINE AMINOTRANSFERASE 18 IU/L (10-60); AST ASPARTATE AMINOTRANSFERASE 31 IU/L (10-42); BILIRUBIN,TOTAL 1.2 mg/dL (0.2-1.0); BUN - BLOOD UREA NITROGEN 20 mg/dL (6-20); CARBON DIOXIDE - CO2 26 mmol/L (21-32); CHLORIDE 104 mmol/L (101-111); CHOL/HDL RATIO 4.4 (<4.4); CHOLESTEROL 175 mg/dL; CREATININE 1.5 mg/dL (0.4-1.0); GFR - MDRD 34 (>89); GLUCOSE 168 mg/dL (70-100); HDL CHOLESTEROL 40 mg/dL; LDL CHOLESTEROL,CALCULATED 112 mg/dL; LDL/HDL RATIO 2.8 (<4.4); POTASSIUM 4.4 mmol/L (3.5-5.0); SODIUM 136 mmol/L (135-145); TOTAL PROTEIN 7.1 g/dL (6.7-8.2); TRIGLYCERIDES 115 mg/dL; VLDL CHOLESTEROL 23 mg/dL
[2022-09-01 19:41] LABS: PLATELET ESTIMATE, MANUAL NORMAL (130-450,000) (NORMAL); PLATELET MORPHOLOGY NORMAL APPEARANCE (NORMAL)
[2022-09-01 20:35] LABS: FREE T4 (FREE THYROXINE) 1.05 ng/dL (0.58-1.64)
[2022-09-02 09:22] LABS: ESTIMATED AVERAGE GLUCOSE 140 mg/dL (70-100); HEMOGLOBIN A1c% 6.5 % (4.27-6.07)
== END 2022-09-01 09:08 | disposition home or self-care (01) ==
LOC: LAB.N 09:07
PROVIDERS: ATTEND Family Medicine
DX: E11.42 Type 2 diabetes mellitus with diabetic polyneuropathy (principal); R18.8 Other ascites; E87.5 Hyperkalemia; I25.10 Atherosclerotic heart disease of native coronary artery without angina pectoris
CPT/HCPCS: 36415; 80053; 80061; 83036; 83721; 84439; 84443; 85025

== ENCOUNTER 2023-02-07 12:28 | Outpatient (CLI) | payer MEDICARE, OTHER ==
[2023-02-07 13:06] LABS: ALBUMIN 3.6 g/dL (3.2-5.5); CALCIUM 9.6 mg/dL (8.5-10.3); CREATININE 1.5 mg/dL (0.6-1.3); PHOSPHORUS 3.1 mg/dL (2.5-5.0); POTASSIUM 5.5 mmol/L (3.5-4.5)
[2023-02-07 13:30] LABS: CREATININE,URINE 218.4 mg/dL; PROTEIN/CREATININE RATIO,URINE 0.2 (<=0.2)
--- NOTE | 2023-02-07 15:32 | XRAY Report ---
PROCEDURE: Chest 2 View X-Ray INDICATIONS: SHORTNESS OF BREATH.WHEEZING TECHNIQUE: 2 views of the chest were acquired. COMPARISON: Chest x-ray 08/05/2022. FINDINGS: Surgical changes and devices: None. Lungs and pleura: No pleural effusions or pneumothorax. Lungs are clear. Mediastinum: Mediastinal contours appear normal. Heart size is normal. Bones and chest wall: No suspicious bony lesions. T12 compression deformity is redemonstrated. Overl yasmin soft tissues appear unremarkable. IMPRESSION: No acute cardiopulmonary process. Reviewed by: Omer Grubbs MD on 02/07/2023 3:31 PM PDT Approved by: Omer Grubbs MD on 02/07/2023 3:31 PM PDT Station ID: [id number]
== END 2023-02-07 12:29 | disposition home or self-care (01) ==
LOC: LAB 12:28
PROVIDERS: ATTEND Internal Medicine Nephrology
DX: N18.32 Chronic kidney disease, stage 3b (principal); R06.02 Shortness of breath; R06.2 Wheezing
CPT/HCPCS: 36415; 80069; 82570; 84156

== ENCOUNTER 2023-02-07 12:32 | Outpatient (CLI) | payer MEDICARE, OTHER ==
[2023-02-07] MEDS ORDERED: ALBUTEROL 1 PUFF INH STA (17:46)
== END 2023-02-07 12:33 | disposition home or self-care (01) ==
LOC: RT 12:32
PROVIDERS: ATTEND Family Medicine
DX: R06.2 Wheezing (principal); R06.02 Shortness of breath
CPT/HCPCS: 36415; 80069; 82570; 84156; 94060

== ENCOUNTER 2023-02-21 12:50 | Emergency (ER) | payer MEDICARE, OTHER ==
[2023-02-21 13:09] VITALS: O2SAT 100
--- NOTE | 2023-02-21 13:46 | ED Physician Documentation ---
PD HPI DYSPNEA - Stated complaint Stated Complaint: SOA - Chief complaint Chief Complaint: Resp - History obtained from History obtained from: Patient - History of Present Illness Timing - onset: How many weeks ago (3-4) Timing - onset during: Light activity Timing - duration: Weeks Timing - details: Gradual onset, Still present Inciting event(s): No: Out of meds, URI, Immobilization/travel Improved by: Rest. No: Sitting up Worsened by: Exertion. No: Laying flat Associated symptoms: Bilateral edema (mild at ankles, but mostly noting 7-10 days of progressive abd distension and fullness. Mild cramping.). No: Fever, Wheezing, Chest pain / discomfort Similar symptoms before: Has not had sx before Recently seen: Clinic (seen recently at clinic and had chemistry panel blood test. Had respiratory eval by RT and was to get some sort of Respiratory Therapy teaching/etc but they have not returned her call for appt.) PD PAST MEDICAL HISTORY - Past Medical History Cardiovascular: High cholesterol, Murmur Respiratory: Asthma, Pneumonia Neuro: None Endocrine/Autoimmune: Type 2 diabetes GI: GI bleed, Ulcers : Incontinence, Renal insuffiency HEENT: Other Psych: Depression Musculoskeletal: Osteoarthritis, Chronic back pain, Other Derm: None, Other - Past Surgical History Past Surgical History: Yes General: Cholecystectomy Ortho: Knee replacement, Rotator cuff repair, Shoulder arthroplasty, Carpal Tunnel surgery, Other HEENT: Cataracts - Present Medications Home Medications: Ambulatory Orders Medication Instructions Recorded Confirmed Atorvastatin Calcium 40 mg PO DAILY 10/11/16 02/21/23 Sertraline HCl 100 mg PO DAILY 10/11/16 02/21/23 Pantoprazole [Protonix] 40 mg PO BID 04/09/21 02/21/23 Potassium Chloride [Klor-Con 10] 40 meq PO DAILY 04/09/21 02/21/23 Metoprolol Succinate [Toprol Xl] 25 mg PO DAILY 08/05/22 02/21/23 Nystatin [Nystop] 1 applic TOP BID #1 each 08/11/22 02/21/23 Albuterol Sulf [Ventolin Hfa 2 puffs INH TID PRN 02/21/23 02/21/23 Inhaler] - Allergies Allergies/Adverse Reactions: Allergies Allergy/AdvReac Type Severity Reaction Status Date / Time No Known Drug Allergies Allergy Verified 02/21/23 12:58 - Social History Does the pt smoke?: No Smoking Status: Never smoker Does the pt drink ETOH?: Yes Does the pt have substance abuse?: Yes - Immunizations Immunizations are current?: Yes - POLST Patient has POLST: Yes PD ED PE NORMAL - Vitals Vital signs reviewed: Yes - General General: Alert and oriented X 3, Well developed/nourished - HEENT HEENT: Pharynx benign - Neck Neck: Supple, no meningeal sign, No adenopathy - Cardiac Cardiac: RRR, Other (loud 3/6 murmur anterior chest radiation to right chest and back, not carotids. ) - Respiratory Respiratory: Clear bilaterally - Abdomen Abdomen: Other (Significantly distended abdomen without tenderness per se. Diminished bowel sounds. Possible dullness to percussion.). No: Normal bowel sounds (diminished) - Back Back: No CVA TTP - Derm Derm: Normal color, Warm and dry - Extremities Extremities: No calf tenderness / cord, Other (minimal edema around ankles. ) - Neuro Neuro: Alert and oriented X 3, No motor deficit, Normal speech Results - Vitals Vitals: Vital Signs - 24 hr 02/21/23 02/21/23 02/21/23 12:58 14:24 17:45 Temperature 36.8 C Heart Rate 80 85 83 Respiratory 22 18 18 Rate Blood Pressure 94/67 109/88 H 126/65 O2 Saturation 100 100 100 Oxygen O2 Source Room air - Labs Labs: Laboratory Tests 02/21/23 02/21/23 14:39 14:39 WBC 5.2 RBC 3.71 L Hgb 10.2 L Hct 33.6 L MCV 90.6 MCH 27.5 MCHC 30.4 L RDW 15.7 H Plt Count 221 MPV 10.0 Neut # (Auto) 4.3 Lymph # (Auto) 0.5 L [place] # (Auto) 0.3 Eos # (Auto) 0.0 Baso # (Auto) 0.0 Absolute Nucleated RBC 0.00 Nucleated RBC % 0.0 Sodium 138 Potassium 5.4 H Chloride 109 Carbon Dioxide 23 Anion Gap 6.0 BUN 25 H Creatinine 1.4 H Estimated GFR (MDRD) 37 L Glucose 155 H Calcium 8.9 Magnesium 1.8 Total Bilirubin 1.0 AST 25 ALT 13 Alkaline Phosphatase 113 B-Natriuretic Peptide 482 H Total Protein 7.4 Albumin 3.2 Globulin 4.2 Albumin/Globulin Ratio 0.8 L Lipase 35 - Rads (name of study) Chest CT Relevant Findings:: Prelim report reviewed (no acute pulmonary process. Abd ascites noted. ), EMP independent interpretation of test abd/pel CT Relevant Findings:: Prelim report reviewed (marked amount of abdominal ascites, increased from prior exam. ), EMP independent interpretation of test ECHO Relevant Findings:: Other (Echocardiographers prelim: EF 55%. Technically difficult study. Moderate aortic stenosis. [place]. No pericardial effusion. ) PD Medical Decision Making - ED course Complexity details: reviewed results (ordered CT chest and abd as well as ECHO. These tests are yet to be performed at time of shift change. ), considered differential (progressive dyspnea, particularly the last 3-4 weeks. Has increasing abd distention for 1-2 weeks. General weakness and dyspnea with acivity. ), d/w patient Departure - Departure Disposition: 01 Home, Self Care Clinical Impression: Aortic stenosis, moderate Dyspnea Qualifiers: Dyspnea type: shortness of breath Qualified Code(s): R06.02 - Shortness of breath Ascites Qualifiers: Ascites type: other type Qualified Code(s): R18.8 - Other ascites Condition: Stable Record reviewed to determine appropriate education?: Yes Instructions: ED Ascites Follow-Up: Mathieu Berry MD [Primary Care Provider] - Comments: I will keep an eye out for the cytology, the radiologist did not know why you have the fluid in your abdomen, but that is what is causing your shortness of breath with thank. I will call you when it is done, usually takes about a week. Return for new or worsening symptoms. Forms: PCP List Discharge Date/Time: 02/21/23 18:00
[2023-02-21 14:46] LABS: BASOPHILS % (AUTO) 0.6 %; EOSINOPHILS % (AUTO) 0.6 %; HCT - HEMATOCRIT 33.6 % (37.0-47.0); HGB - HEMOGLOBIN 10.2 g/dL (12.0-16.0); LYMPHOCYTES # (AUTO) 0.5 10^3/uL (1.5-3.5); LYMPHOCYTES % (AUTO) 10.1 %; MEAN CORPUSCULAR HEMOGLOBIN 27.5 pg (27.0-31.0); MEAN CORPUSCULAR HGB CONC 30.4 g/dL (32.0-36.0); MEAN CORPUSCULAR VOLUME 90.6 fL (81.0-99.0); MONOCYTES # (AUTO) 0.3 10^3/uL (0.0-1.0); MONOCYTES % (AUTO) 6.3 %; NEUTROPHILS # (AUTO) 4.3 10^3/uL (1.5-6.6); NEUTROPHILS % (AUTO) 82.2 %; PLT - PLATELET COUNT 221 10^3/uL (130-450); RED BLOOD COUNT 3.71 10^6/uL (4.20-5.40); RED CELL DISTRIBUTION WIDTH 15.7 % (12.0-15.0); WHITE BLOOD COUNT 5.2 x10^3/uL (4.8-10.8)
[2023-02-21 15:24] LABS: ALBUMIN 3.2 g/dL (3.2-5.5); ALBUMIN/GLOBULIN RATIO 0.8 (1.0-2.2); CALCIUM 8.9 mg/dL (8.5-10.3); CREATININE 1.4 mg/dL (0.4-1.0); MAGNESIUM 1.8 mg/dL (1.7-2.8); POTASSIUM 5.4 mmol/L (3.5-5.0); TOTAL PROTEIN 7.4 g/dL (6.7-8.2)
--- NOTE | 2023-02-21 16:28 | ED Physician Documentation ---
ED Addendum - Addendum Addendum: 02/21/23 16:[address] Shaffer at 3 PM shift change. Briefly 77-year-old woman with progressive dyspnea and growing abdomen. Return from CT at approximately 4:20 PM and my initial read shows significant ascites. Patient has no history of primary malignancy. When asked if she has a history of liver disease she vacillates. She has not been an alcohol user of significance though. Her liver enzymes today are normal.Echo pending but refresh technician at bedside tells me she has a history of known severe . I discussed with the patient the finding of ascites. Given the lack of clear liver disease malignancy is certainly a worrisome possibility and we discussed diagnostic/therapeutic paracentesis. 02/21/23 17:35 CT of the chest abdomen and pelvis notable for significant ascites "mildly increased compared to prior exam." After written informed consent diagnostic/therapeutic paracentesis done with 6 L out and sent for cytology. 02/21/23 17:36 Preliminary echo report with EF of 60 to 65%, significant ectopy, moderate aortic stenosis mild MR trace to mild TR trace WI normal aortic root Diagnosis: 1. New onset ascites 2. Dyspnea 3. Moderate aortic stenosis Disposition: Discharged home Condition: Stable 02/21/23 18:37
--- NOTE | 2023-02-21 16:42 | CT Report ---
PROCEDURE: CHEST W INDICATIONS: dyspnea over 3-4 weeks CONTRAST: 100ml Optiray 320 TECHNIQUE: After the administration of intravenous contrast, 1 mm axial images were acquired from the pulmonary apices through the posterior costophrenic angles. Axial 5 mm soft tissue kernel reconstructions were performed as well as 8 mm axial MIP and coronal and sagittal 5 mm reformations. For radiation dose reduction, the following was used: automated exposure control, adjustment of mA and/or kV according to patient size. COMPARISON: Chest x-ray 02/07/2023, CT abdomen pelvis 02/21/2023. FINDINGS: Image quality: Excellent. Lungs and pleura: No consolidation. No pleural effusions. No pneumothorax. No suspicious pulmonary n odules which require follow up. Mediastinum: Heart size is normal. No pericardial effusion. No large vessel abnormality. No mediastin al adenopathy by size criteria. Chest wall and lower neck: Thyroid is unremarkable. No axillary or supraclavicular adenopathy by size . Bones: No aggressive osseous abnormality. Upper Abdomen: Upper abdominal ascites is present. IMPRESSION: Lungs are clear. Upper abdominal ascites is present. Reviewed by: Brie Dickinson MD on 02/21/2023 4:41 PM PDT Approved by: Brie Dickinson MD on 02/21/2023 4:41 PM PDT Station ID: [id number]
--- NOTE | 2023-02-21 16:47 | CT Report ---
PROCEDURE: ABDOMEN/PELVIS W INDICATIONS: abd distension over 2-3 weeks CONTRAST: 100ml Optiray 320 TECHNIQUE: After the administration of IV contrast, 5 mm thick sections acquired from the diaphragms to the symp hysis. 5 mm thick coronal and sagittal reformats were acquired. For radiation dose reduction, the f ollowing was used: automated exposure control, adjustment of mA and/or kV according to patient size. COMPARISON: CT abdomen pelvis 08/22/2022 FINDINGS: Image quality: Excellent. Lung bases and heart: Unremarkable. Liver: No solid mass. Gallbladder and biliary tree: Removed. Previous pneumobilia the familia hepatis remains present althoug h decreased compared to prior exam. Spleen: No splenomegaly. Pancreas: No pancreatic ductal dilation. Adrenals: No adrenal nodule. Kidneys and ureters: No hydronephrosis. No renal cystic lesion which requires follow up. No solid mas s. Kidneys are atrophic bilaterally. Bowel and peritoneum: No bowel distension. Scattered colonic diverticula. Significant ascites within the abdomen and pelvis, prior exam. Lymph nodes: No central or retroperitoneal adenopathy. Vessels: No infrarenal aortic aneurysm. PELVIS Reproductive organs: Unremarkable. Bladder: No abnormal wall thickening, accounting for underdistension. Pelvic lymph nodes: No pelvic adenopathy by size criteria. Bones: No aggressive osseous abnormality. Multilevel compression deformities are present again and we ll with mild posterior displacement of the superior endplate component with canal narrowing. Appearan ce is stable. Other: No significant ventral or inguinal hernia. IMPRESSION: Significant abdominal and pelvic ascites, mildly increased compared to prior exam. Diverticulosis. Persistent pneumobilia although decreased compared to prior exam. Reviewed by: Brie Dickinson MD on 02/21/2023 4:46 PM PDT Approved by: Brie Dickinson MD on 02/21/2023 4:46 PM PDT Station ID: [id number]
[2023-02-21 17:48] VITALS: BP 126/65
[2023-02-21] MEDS ORDERED: IOVERSOL 320 100 ML VIAL IVP ONE (19:33)
== END 2023-02-21 18:00 | disposition home or self-care (01) ==
LOC: ED 12:50
DX: I35.0 Nonrheumatic aortic (valve) stenosis (principal); R18.8 Other ascites; R06.02 Shortness of breath; E11.9 Type 2 diabetes mellitus without complications; E78.00 Pure hypercholesterolemia, unspecified; Z79.899 Other long term (current) drug therapy
CPT/HCPCS: 36415; 71260; 74177; 80053; 83690; 83735; 83880; 85025; 93306; 99284; Q9967

== ENCOUNTER 2023-04-22 14:41 | Outpatient (CLI) | payer MEDICARE, OTHER ==
--- NOTE | 2023-04-22 16:30 | Ultrasound Report ---
PROCEDURE: Pelvic Complete INDICATIONS: ASCITES TECHNIQUE: Real-time transabdominal scanning was performed of the pelvis, with image documentation. COMPARISON: CT of abdomen and pelvis dated 02/21/2023 FINDINGS: Limited evaluation of pelvis shows moderate to large amount of ascites fluid in right and left lower quadrant. Uterus and bilateral ovaries are not well seen due to lack of transpelvic images and presen ce of ascites fluid. IMPRESSION: Moderate to large amount of ascites fluid seen in pelvis. Reviewed by: Perez Gunderson MD on 04/22/2023 4:29 PM PST Approved by: Perez Gunderson MD on 04/22/2023 4:29 PM PST Station ID: [id number]
== END 2023-04-22 14:42 | disposition home or self-care (01) ==
LOC: DI 14:41
PROVIDERS: ATTEND Family Medicine
DX: R18.8 Other ascites (principal)

== ENCOUNTER 2023-05-10 09:34 | Emergency (ER) | payer MEDICARE, OTHER ==
[2023-05-10] MEDS ORDERED: IPRATROPIUM/ALBUTEROL 3 ML NEB INH STA (10:25)
[2023-05-10] MEDS ORDERED: SODIUM CHLORIDE 0.9% 1,000 ML IV STA (10:25)
--- NOTE | 2023-05-10 10:26 | ED Physician Documentation ---
PD HPI DYSPNEA - Stated complaint Stated Complaint: SOA - Chief complaint Chief Complaint: Resp - History obtained from History obtained from: Patient - History of Present Illness Timing - onset: How many weeks ago (has had increasing dysponea and fluid abd weight gain over past 2-3 weeks with it culminating to much more symptomatic the past several days. Tried to contact PMD office but has not gotten call back for few days. Her eto ER due to progressive dyspnea, axcites abd bloating/tenseness, ARGUETA/orthopnea.) Timing - onset during: Light activity, Other (lying flat) Timing - duration: Weeks Timing - details: Gradual onset, Still present Improved by: Sitting up Worsened by: Exertion, Laying flat Associated symptoms: Bilateral edema. No: Fever, Cough, Wheezing Similar symptoms before: Diagnosis (has had ascites and fluid gain of unknown cause. No liver idsease. Had CT abd/pelvis without noted tumor/ cancer/ vascular blockage according to pt. Had clonoscopy without findings presuming colonic type tumor or such with the ascites. No Dx per pt.) Recently seen: Clinic (Dr. Berry - pt states he stopped her potassium. Continued other meds. She is on spironolactone for the ascites.) Review of Systems Constitutional: denies: Fever, Chills Nose: denies: Rhinorrhea / runny nose, Congestion Throat: denies: Sore throat Cardiac: denies: Chest pain / pressure Respiratory: reports: Dyspnea. denies: Cough GI: reports: Abdominal Swelling, Nausea. denies: Abdominal Pain, Vomiting, Diarrhea, Bloody / black stool Neurologic: reports: Generalized weakness PD PAST MEDICAL HISTORY - Past Medical History Past Medical History: Yes Cardiovascular: High cholesterol, Murmur Respiratory: Asthma, Pneumonia Neuro: None Endocrine/Autoimmune: Type 2 diabetes GI: GI bleed, Ulcers, Other (ascites of unknown cause, per pt. ) : Incontinence, Renal insuffiency HEENT: Other Psych: Depression Musculoskeletal: Osteoarthritis, Chronic back pain, Other Derm: None, Other - Past Surgical History Past Surgical History: Yes General: Cholecystectomy Ortho: Knee replacement, Rotator cuff repair, Shoulder arthroplasty, Carpal Tunnel surgery, Other HEENT: Cataracts - Present Medications Home Medications: Ambulatory Orders Medication Instructions Recorded Confirmed Atorvastatin Calcium 40 mg PO DAILY 10/11/16 05/10/23 Sertraline HCl 100 mg PO DAILY 10/11/16 05/10/23 Pantoprazole [Protonix] 40 mg PO BID 04/09/21 05/10/23 Potassium Chloride [Klor-Con 10] 40 meq PO DAILY 04/09/21 05/10/23 Metoprolol Succinate [Toprol Xl] 25 mg PO DAILY 08/05/22 05/10/23 Nystatin [Nystop] 1 applic TOP BID #1 each 08/11/22 05/10/23 Albuterol Sulf [Ventolin Hfa 2 puffs INH TID PRN 02/21/23 05/10/23 Inhaler] Magnesium Oxide [Mag Ox] 400 mg PO DAILY #20 tablet 05/10/23 - Allergies Allergies/Adverse Reactions: Allergies Allergy/AdvReac Type Severity Reaction Status Date / Time No Known Drug Allergies Allergy Verified 05/10/23 09:55 - Social History Does the pt smoke?: No Smoking Status: Never smoker Does the pt drink ETOH?: No Does the pt have substance abuse?: No - Immunizations Immunizations are current?: Yes - POLST Patient has POLST: Yes PD ED PE NORMAL - Vitals Vital signs reviewed: Yes (BP low initially at triage, improves when lies onto cart. ) - General General: Alert and oriented X 3, Well developed/nourished, Other (appears very dyspnic with activity coming into the room and getting onto cart. Feeling most comfortable lying right recumbent for breathing and abd pressure. ) - Neck Neck: Supple, no meningeal sign, No adenopathy - Cardiac Cardiac: Other (1/6 murmur left chest wternal radiating to neck. ). No: RRR (irregular with mild tachycardia, that decreases below 100 once settled. ) - Respiratory Respiratory: Other (breathing faster and appears working. Appears anxious about getting full air. ) - Abdomen Abdomen: Soft, No organomegaly, Other (distended and tense abd, without tenderness to palpation nor percussion. ) - Back Back: No CVA TTP - Derm Derm: Normal color, Warm and dry - Extremities Extremities: Other (bilateral 1+ pitting edema from knees down to ankles. ) - Neuro Neuro: Alert and oriented X 3, No motor deficit, No sensory deficit, Normal speech Results - Vitals Vitals: Vital Signs - 24 hr 05/10/23 05/10/23 05/10/23 09:48 10:44 11:09 Temperature 36.9 C Heart Rate 117 H 100 90 Respiratory 28 H 20 23 Rate Blood Pressure 79/43 L 111/56 L O2 Saturation 97 92 Oxygen O2 Source Room air - EKG (time done) 10:03 EKG releavant findings:: EKG personally interpreted by author of this note. Relevant findings are: Rate: Rate (enter#) (82) Rhythm: Atrial fibrillation (baseline artifact obscuring P waves but is irregular so presume atrial fib.) Ischemia: ST elevation c/w repol, Non specific changes Compare to prior EKG: Old EKG unavailable - Labs Labs: Microbiology 05/10/23 13:35 Body Fluid Culture - Preliminary Ascities Fluid Laboratory Tests 05/10/23 05/10/23 05/10/23 10:20 10:20 10:26 WBC 7.2 RBC 3.75 L Hgb 9.8 L Hct 32.8 L MCV 87.5 MCH 26.1 L MCHC 29.9 L RDW 15.7 H Plt Count 240 MPV 9.8 Neut # (Auto) 6.1 Lymph # (Auto) 0.5 L [place] # (Auto) 0.5 Eos # (Auto) 0.1 Baso # (Auto) 0.0 Absolute Nucleated RBC 0.00 Nucleated RBC % 0.0 Sodium 138 Potassium 3.3 L Chloride 102 Carbon Dioxide 25 Anion Gap 11.0 BUN 44 H Creatinine 1.8 H Estimated GFR (MDRD) 27 L Glucose 185 H Calcium 9.3 Phosphorus 3.5 Magnesium 1.5 L Total Bilirubin 0.7 AST 19 ALT 9 L Alkaline Phosphatase 91 B-Natriuretic Peptide 541 H Total Protein 6.8 Albumin 3.5 Globulin 3.3 Albumin/Globulin Ratio 1.1 Lipase 19 Fluid Source Fluid Color Fluid Clarity Fluid WBC Fluid RBC Fluid Neutrophils % Fluid Lymphocytes % Fluid Monocytes % Fluid Macrophages % Fld Mesothelial Cell % 05/10/23 13:35 WBC RBC Hgb Hct MCV MCH MCHC RDW Plt Count MPV Neut # (Auto) Lymph # (Auto) [place] # (Auto) Eos # (Auto) Baso # (Auto) Absolute Nucleated RBC Nucleated RBC % Sodium Potassium Chloride Carbon Dioxide Anion Gap BUN Creatinine Estimated GFR (MDRD) Glucose Calcium Phosphorus Magnesium Total Bilirubin AST ALT Alkaline Phosphatase B-Natriuretic Peptide Total Protein Albumin Globulin Albumin/Globulin Ratio Lipase Fluid Source PERITONEAL Fluid Color YELLOW Fluid Clarity CLEAR Fluid WBC 176 Fluid RBC < 3000 Fluid Neutrophils % 3 Fluid Lymphocytes % 45 Fluid Monocytes % 2 Fluid Macrophages % 50 Fld Mesothelial Cell % Not Reportable - Rads (name of study) chest xray Relevant Findings:: Prelim report reviewed, EMP independent interpretation of test Procedures - Paracentesis - Major Preparation: Consent obtained, Ultrasound guidance, Sterile prep and drape, Local anesthesia Location: RLQ Technique: Z-tract, Catheter over needle Fluid: Clear, Sent for cell count, Sent for gram stain, Sent for culture, Volume - enter cc (7500) Aftercare: No complications, Patient tolerated well, Dressing applied, Other ( patient felt her breathing becvome much more comfortable as fluid volume out got more substantial.) PD Medical Decision Making - ED course Complexity details: reviewed old records (had ECHO in Feb 2023 showing moderate aortic stenosis, some atrial enlargement, EF 60-65%, with underlying irregular rhythm (NSR with PACs in report). ), reviewed results (CXR with some vascular congestion and BNP elevated moderately. Consider some element of fluid overload in addition to the ascites locally. But with recent ECHO reasonably normal (EF good, some aortic stenosis) I would think not major, and by this report should not be enough for causing CHF now. ), considered differential (she attributed her dyspnea to the abd fluid, but does have some leg edema and faint crackles in lungs. No prior history of CHF nor DE. ), d/w patient ED course: Her BP initially low on arrival, but improved with lying down. It was much better rested and improved after paracentesis (111 systolic recorded and I got SBP 118 and 124 systolic during the paracentesis and just after), suggesting the fluid pressure was causing some thoracic pressure to heart output, and consider its effect on impairing preload return, thus augmenting the effect of the aortic stenosis she has, even if not large gradient on ECHO just 2 months ago, as welll as causing decreased lung volume and thus dyspnea on exertion and position. Her breathing was more comfortable after the paracentesis. She is feeling improved and is comfortable going discharhged home. Still not clear the cause of the ascites apparently. Departure - Departure Disposition: 01 Home, Self Care Clinical Impression: Dyspnea, Hypokalemia, Hypomagnesemia, Tense ascites Condition: Stable Record reviewed to determine appropriate education?: Yes Follow-Up: Mathieu Berry MD [Provider Admit Priv/Credential] - Prescriptions: Magnesium Oxide [Mag Ox] 400 mg PO DAILY #20 tablet Comments: We did take off 7-1/2 L of fluid on the paracentesis. It looked pretty clear does not look like an infection to it. Your potassium and magnesium are both low. I would continue with your current spironolactone and metoprolol. I would add back your potassium daily for a week or 2 and also add a magnesium supplement daily for a week or 2. Follow-up with your primary care. Recheck if not improved well over the next few days. If you have recurrent episodes of feeling of the abdomen with the ascites fluid, your primary care may build to set up outpatient regular scheduled procedures we will get this done ahead of time at particular intervals. Follow-up with ongoing testing for the cause for the fluid accumulation. Forms: PCP List Discharge Date/Time: 05/10/23 14:32
[2023-05-10 10:36] LABS: BASOPHILS % (AUTO) 0.4 %; EOSINOPHILS # (AUTO) 0.1 10^3/uL (0.0-0.7); EOSINOPHILS % (AUTO) 0.8 %; HCT - HEMATOCRIT 32.8 % (37.0-47.0); HGB - HEMOGLOBIN 9.8 g/dL (12.0-16.0); LYMPHOCYTES # (AUTO) 0.5 10^3/uL (1.5-3.5); LYMPHOCYTES % (AUTO) 7.1 %; MEAN CORPUSCULAR HEMOGLOBIN 26.1 pg (27.0-31.0); MEAN CORPUSCULAR HGB CONC 29.9 g/dL (32.0-36.0); MEAN CORPUSCULAR VOLUME 87.5 fL (81.0-99.0); MEAN PLATELET VOLUME 9.8 fL (7.9-10.8); MONOCYTES # (AUTO) 0.5 10^3/uL (0.0-1.0); MONOCYTES % (AUTO) 6.4 %; NEUTROPHILS # (AUTO) 6.1 10^3/uL (1.5-6.6); PLT - PLATELET COUNT 240 10^3/uL (130-450); RED BLOOD COUNT 3.75 10^6/uL (4.20-5.40); RED CELL DISTRIBUTION WIDTH 15.7 % (12.0-15.0); WHITE BLOOD COUNT 7.2 x10^3/uL (4.8-10.8)
[2023-05-10 10:47] LABS: ALBUMIN 3.5 g/dL (3.2-5.5); ALBUMIN/GLOBULIN RATIO 1.1 (1.0-2.2); BILIRUBIN,TOTAL 0.7 mg/dL (0.2-1.0); CALCIUM 9.3 mg/dL (8.5-10.3); CREATININE 1.8 mg/dL (0.6-1.3); MAGNESIUM 1.5 mg/dL (1.7-2.3); PHOSPHORUS 3.5 mg/dL (2.5-5.0); POTASSIUM 3.3 mmol/L (3.5-4.5); TOTAL PROTEIN 6.8 g/dL (6.4-8.9)
--- NOTE | 2023-05-10 11:07 | XRAY Report ---
PROCEDURE: Chest 1 View X-Ray INDICATIONS: dyspnea TECHNIQUE: One view of the chest was acquired. COMPARISON: CT chest 02/21/2023 FINDINGS: Surgical changes and devices: None. Lungs and pleura: Mild increased vascularity. Unchanged right hemidiaphragm elevation. Mediastinum: Mediastinal contours appear normal. Heart size is enlarged. Bones and chest wall: No suspicious bony lesions. Overlying soft tissues appear unremarkable. IMPRESSION: Mild increased vascularity suggestive of edema. Reviewed by: Brie Dickinson MD on 05/10/2023 11:06 AM PST Approved by: Brie Dickinson MD on 05/10/2023 11:06 AM [facility] Station ID: [id number]
[2023-05-10 11:15] VITALS: BP 111/56; O2SAT 92
[2023-05-10] MEDS ORDERED: MAGNESIUM SULFATE 2 GRAM 2 GM/50 ML BAG IV ONE (12:26)
[2023-05-10 13:59] LABS: CC,BF WBC 176 /mm^3
[2023-05-10 14:00] LABS: BF CLARITY CLEAR; BF COLOR YELLOW; BF SOURCE PERITONEAL
[2023-05-10 14:24] LABS: LYMPHOCYTES %,BODY FLUID 45 %; MACROPHAGES %,BODY FLUID 50 %; MONOCYTES %,BODY FLUID 2 %; NEUTROPHILS %, BF 3 %
[2023-05-10 14:27] LABS: CC,BF RBC < 3000 /mm^3
== END 2023-05-10 14:32 | disposition home or self-care (01) ==
LOC: ED 09:34
DX: E87.6 Hypokalemia (principal); E83.42 Hypomagnesemia; R18.8 Other ascites; R06.00 Dyspnea, unspecified; E78.00 Pure hypercholesterolemia, unspecified; E11.9 Type 2 diabetes mellitus without complications; Z79.899 Other long term (current) drug therapy
CPT/HCPCS: 36415; 49082; 80053; 83690; 83735; 83880; 84100; 85025; 87070; 87205; 89051; 93005; 94640; 99284

== ENCOUNTER 2023-06-12 06:00 | Outpatient (CLI) | payer MEDICARE, OTHER | END 2023-06-12 06:01 | disposition critical access hospital (66) | LOC: EMS 06:00 | DX: R06.00 Dyspnea, unspecified (principal); R18.8 Other ascites | CPT/HCPCS: A0425; A0429 ==

== ENCOUNTER 2023-06-12 08:06 | Outpatient (CLI) | payer MEDICARE, OTHER ==
[2023-06-12 08:05] LABS: BASOPHILS % (AUTO) 0.5 %; EOSINOPHILS # (AUTO) 0.1 10^3/uL (0.0-0.7); EOSINOPHILS % (AUTO) 0.7 %; HCT - HEMATOCRIT 29.1 % (37.0-47.0); HGB - HEMOGLOBIN 8.7 g/dL (12.0-16.0); LYMPHOCYTES % (AUTO) 11.8 %; MEAN CORPUSCULAR HEMOGLOBIN 25.3 pg (27.0-31.0); MEAN CORPUSCULAR HGB CONC 29.9 g/dL (32.0-36.0); MEAN CORPUSCULAR VOLUME 84.6 fL (81.0-99.0); MONOCYTES # (AUTO) 0.8 10^3/uL (0.0-1.0); MONOCYTES % (AUTO) 9.6 %; NEUTROPHILS # (AUTO) 6.6 10^3/uL (1.5-6.6); NEUTROPHILS % (AUTO) 77.2 %; PLT - PLATELET COUNT 305 10^3/uL (130-450); RED BLOOD COUNT 3.44 10^6/uL (4.20-5.40); RED CELL DISTRIBUTION WIDTH 15.9 % (12.0-15.0); WHITE BLOOD COUNT 8.6 x10^3/uL (4.8-10.8)
[2023-06-12 08:12] LABS: PARTIAL THROMBOPLASTIN TIME 31.4 secs (24.9-33.3)
[2023-06-12 08:17] LABS: INR 1.1 (0.8-1.2); PT - PROTHROMBIN TIME 12.3 secs (9.9-12.6)
[2023-06-12 08:18] LABS: ALBUMIN 3.5 g/dL (3.2-5.5); ALBUMIN/GLOBULIN RATIO 0.9 (1.0-2.2); BILIRUBIN,TOTAL 0.4 mg/dL (0.2-1.0); POTASSIUM 4.2 mmol/L (3.5-4.5); TOTAL PROTEIN 7.3 g/dL (6.4-8.9)
[2023-06-12 08:34] LABS: THYROID STIMULATING HORMONE 6.29 uIU/mL (0.34-5.60)
[2023-06-12 11:09] LABS: ESTIMATED AVERAGE GLUCOSE 160 mg/dL (70-100); HEMOGLOBIN A1c% 7.2 % (4.27-6.07)
== END 2023-06-12 08:07 | disposition home or self-care (01) ==
LOC: LAB 08:06
PROVIDERS: ATTEND Family Medicine
DX: R18.8 Other ascites (principal); E11.40 Type 2 diabetes mellitus with diabetic neuropathy, unspecified; E87.5 Hyperkalemia; J98.4 Other disorders of lung; M41.9 Scoliosis, unspecified; I42.1 Obstructive hypertrophic cardiomyopathy; K75.81 Nonalcoholic steatohepatitis (NASH); K74.60 Unspecified cirrhosis of liver
CPT/HCPCS: 36415; 80053; 83036; 84439; 84443; 84481; 85025; 85610; 85730

== ENCOUNTER 2023-07-04 21:36 | Outpatient (CLI) | payer MEDICARE, OTHER | END 2023-07-04 23:59 | disposition critical access hospital (66) | LOC: EMS 21:36 | DX: R18.8 Other ascites (principal); R06.00 Dyspnea, unspecified; R10.84 Generalized abdominal pain | CPT/HCPCS: A0425; A0429 ==

== ENCOUNTER 2023-07-04 21:41 | Inpatient (IN) | payer MEDICARE, OTHER ==
[2023-07-04 22:11] LABS: BASOPHILS % (AUTO) 0.3 %; EOSINOPHILS # (AUTO) 0.1 10^3/uL (0.0-0.7); EOSINOPHILS % (AUTO) 0.7 %; HCT - HEMATOCRIT 34.3 % (37.0-47.0); HGB - HEMOGLOBIN 9.9 g/dL (12.0-16.0); LYMPHOCYTES # (AUTO) 0.7 10^3/uL (1.5-3.5); LYMPHOCYTES % (AUTO) 7.1 %; MEAN CORPUSCULAR HGB CONC 28.9 g/dL (32.0-36.0); MEAN CORPUSCULAR VOLUME 86.6 fL (81.0-99.0); MEAN PLATELET VOLUME 9.7 fL (7.9-10.8); MONOCYTES # (AUTO) 0.5 10^3/uL (0.0-1.0); MONOCYTES % (AUTO) 5.4 %; NEUTROPHILS # (AUTO) 7.9 10^3/uL (1.5-6.6); NEUTROPHILS % (AUTO) 86.3 %; PLT - PLATELET COUNT 220 10^3/uL (130-450); RED BLOOD COUNT 3.96 10^6/uL (4.20-5.40); RED CELL DISTRIBUTION WIDTH 15.7 % (12.0-15.0); WHITE BLOOD COUNT 9.2 x10^3/uL (4.8-10.8)
[2023-07-04 22:12] LABS: VBG HCO3 22.8 mmol/L (23-28); VBG PCO2 40.2 mmHg (41-51); VBG PH 7.372 (7.31-7.41); VBG PO2 32.7 mmHg (25-47)
[2023-07-04 22:13] LABS: VBG BASE EXCESS -2.2 mmol/L (-2 - +2); VBG OXYGEN SATURATION 65.3 % (60-80); VBG TOTAL CO2 24.1 mmol/L (24-29)
--- NOTE | 2023-07-04 22:13 | XRAY Report ---
PROCEDURE: Chest 1V INDICATIONS: soa TECHNIQUE: One view of the chest was acquired. COMPARISON: Chest x-ray, 06/12/2023. FINDINGS: Surgical changes and devices: None. Lungs and pleura: Lung volumes are small. Bilateral interstitial prominence, unchanged. Left basilar consolidation. Small left effusion. No pneumothorax. Mediastinum: Mediastinal contours appear normal. Heart size is normal. Bones and chest wall: No suspicious bony lesions. Overlying soft tissues appear unremarkable. IMPRESSION: 1. Left basilar consolidation suspicious for pneumonia.. 2. Shallow inspiration with bilateral chronic interstitial prominence. Reviewed by: Cristina Pinzon MD on 07/04/2023 10:12 PM PST Approved by: Cristina Pinzon MD on 07/04/2023 10:12 PM PST Station ID: [id number]
--- NOTE | 2023-07-04 22:14 | ED Physician Documentation ---
History of Present Illness - Stated complaint Stated Complaint: SOA, ASCITES - Chief complaint Chief Complaint: Abd Pain - History obtained from History obtained from: Patient - Additonal information Additional information: 78-year-old woman DNR/DNI with selective interventions, with pmh type 2 diabetes, COPD, aortic stenosis, PETERSEN cirrhosis, recent hospitalization here 06/12-06/25, presents from [facility] with shortness of breath and severe abdominal pain progressively worsening along with abdominal distention. Patient is scheduled for paracentesis on Saturday but states that the pain is unbearable and she can't catch her breath. Patient unable to give complete history 2/2 discomfort and possibly due to baseline poor historian. Collateral information obtained through chart review and conversation with ems. Review of Systems Unable to obtain: Other (patient not giving clear answers) PD PAST MEDICAL HISTORY - Past Medical History Cardiovascular: High cholesterol, Murmur Respiratory: Asthma, Pneumonia Neuro: None Endocrine/Autoimmune: Type 2 diabetes GI: GI bleed, Ulcers, Other : Incontinence, Renal insuffiency HEENT: Other Psych: Depression Musculoskeletal: Osteoarthritis, Chronic back pain, Other Derm: None, Other - Past Surgical History Past Surgical History: Yes General: Cholecystectomy Ortho: Knee replacement, Rotator cuff repair, Shoulder arthroplasty, Carpal Tunnel surgery, Other HEENT: Cataracts - Present Medications Home Medications: Ambulatory Orders Medication Instructions Recorded Confirmed Metoprolol Succinate [Toprol Xl] 25 mg PO DAILY 08/05/22 06/13/23 Albuterol Sulf [Ventolin Hfa 2 puffs INH TID PRN 02/21/23 06/13/23 Inhaler] Atorvastatin Calcium 40 mg PO DAILY #1 06/26/23 06/13/23 Cyanocobalamin [Vitamin B-12] 500 mcg PO DAILY tab 06/26/23 Levothyroxine [Synthroid] 25 mcg PO DAILY #0 06/26/23 06/13/23 Midodrine [ProAmatine] 2.5 mg PO TIDWM tab 06/26/23 Nystatin [Nystop] 1 applic TOP BID each 06/26/23 Pantoprazole [Protonix] 40 mg PO BID #0 06/26/23 06/13/23 Sertraline HCl 100 mg PO DAILY #0 06/26/23 06/13/23 Spironolactone [Aldactone] 25 mg PO DAILY #0 06/26/23 06/13/23 Zinc Oxide 20% Oint [Zinc Oxide] 1 applic TOP PRN PRN each 06/26/23 metFORMIN [Glucophage] 500 mg PO BIDWM tab 06/26/23 - Allergies Allergies/Adverse Reactions: Allergies Allergy/AdvReac Type Severity Reaction Status Date / Time acetaminophen [From Percocet] Allergy Unknown Verified 07/04/23 23:07 oxycodone [From Percocet] Allergy Unknown Verified 07/04/23 23:07 - Social History Does the pt smoke?: No Smoking Status: Never smoker Does the pt drink ETOH?: No Does the pt have substance abuse?: No - Immunizations Immunizations are current?: Yes - POLST Patient has POLST: Yes PD ED PE NORMAL - Vitals Vital signs reviewed: Yes - General General: Other (elderly appearing woman in mild to moderate distress) - HEENT HEENT: Atraumatic, PERRL, EOMI, Other (dry MM) - Neck Neck: Supple, no meningeal sign - Cardiac Cardiac: Other (tachycardic rate, regular rhythm) - Respiratory Respiratory: Other (coarse BL breath sounds) - Abdomen Abdomen: Other (distended tympanic abdomen, diffusely ttp) - Derm Derm: Normal color, Warm and dry Results - Vitals Vitals: Vital Signs - 24 hr 07/04/23 21:49 Temperature 36.8 C Heart Rate 98 Respiratory 28 H Rate Blood Pressure 144/84 H O2 Saturation 100 Oxygen O2 Source Nasal cannula - Labs Labs: Laboratory Tests 07/04/23 07/04/23 07/04/23 22:07 22:07 22:07 WBC 9.2 RBC 3.96 L Hgb 9.9 L Hct 34.3 L MCV 86.6 MCH 25.0 L MCHC 28.9 L RDW 15.7 H Plt Count 220 MPV 9.7 Neut # (Auto) 7.9 H Lymph # (Auto) 0.7 L [place] # (Auto) 0.5 Eos # (Auto) 0.1 Baso # (Auto) 0.0 Absolute Nucleated RBC 0.00 Nucleated RBC % 0.0 PT 11.5 INR 1.1 VBG pH VBG pCO2 VBG pO2 VBG HCO3 VBG Total CO2 VBG O2 Saturation VBG Base Excess Sodium 136 Potassium 4.3 Chloride 102 Carbon Dioxide 26 Anion Gap 8.0 BUN 48 H Creatinine 2.3 H Estimated GFR (MDRD) 21 L Glucose 155 H Lactic Acid Calcium 8.7 Total Bilirubin 0.3 AST 20 ALT 12 Alkaline Phosphatase 81 Total Protein 6.1 L Albumin 3.1 L Globulin 3.0 Albumin/Globulin Ratio 1.0 Lipase 17 07/04/23 07/04/23 22:07 23:28 WBC RBC Hgb Hct MCV MCH MCHC RDW Plt Count MPV Neut # (Auto) Lymph # (Auto) [place] # (Auto) Eos # (Auto) Baso # (Auto) Absolute Nucleated RBC Nucleated RBC % PT INR VBG pH 7.372 VBG pCO2 40.2 L VBG pO2 32.7 VBG HCO3 22.8 L VBG Total CO2 24.1 VBG O2 Saturation 65.3 VBG Base Excess -2.2 L Sodium Potassium Chloride Carbon Dioxide Anion Gap BUN Creatinine Estimated GFR (MDRD) Glucose Lactic Acid 1.8 Calcium Total Bilirubin AST ALT Alkaline Phosphatase Total Protein Albumin Globulin Albumin/Globulin Ratio Lipase PD Medical Decision Making - ED course ED course: 78yF presents to the ED with acute severe SOA and abdominal distension/pain per her report and ems. Per my chart review she has ongoing issues with copd and ascites. CBC, abdominal panel, pt/inr, cxr, ct a/p ordered. CT was ordered without contrast due to bandar with cre 2.3 (baseline 1.4 on 06/25). She also has stable anemia with Hb 9.9 (9.8 on 06/25). L basilar pneumonia on CXR. treated for HCAP with IV renally dosed antibiotics. blood cultures / lactate ordered. CT a/p limited by inability to give contrast given low gfr. it shows abdominal ascites, diverticulosis without diverticulitis, and bibasilar pneumonia. patient clinically desaturated to 84% when taken off of oxygen therefore I reapplied her 2L o2 and she is satting better at 94-96%. plan to admit telehealth. Departure - Departure Disposition: 66 [facility] DC/Xfer Clinical Impression: Pneumonia, BANDAR (acute kidney injury), Ascites Forms: PCP List
[2023-07-04 22:18] LABS: INR 1.1 (0.8-1.2); PT - PROTHROMBIN TIME 11.5 secs (9.9-12.6)
[2023-07-04 22:38] LABS: ALBUMIN 3.1 g/dL (3.2-5.5); BILIRUBIN,TOTAL 0.3 mg/dL (0.2-1.0); CALCIUM 8.7 mg/dL (8.5-10.3); CREATININE 2.3 mg/dL (0.6-1.3); POTASSIUM 4.3 mmol/L (3.5-4.5); TOTAL PROTEIN 6.1 g/dL (6.4-8.9)
[2023-07-04] MEDS: MORPHINE 2 MG/ML CARPUJECT IVP STA (23:02)
[2023-07-04] MEDS ORDERED: VANCOMYCIN 1 GM VIAL ONE (23:33)
[2023-07-04] MEDS: VANCOMYCIN INJ 1.75 GM in SODIUM CHLORIDE 0.9% 500 ML IV STA (23:36)
[2023-07-04] MEDS: PIPERACILLIN/TAZOBACTAM 2.25 GM in SODIUM CHLORIDE 0.9% MINIBAG 100 ML IV STA (23:48)
--- NOTE | 2023-07-04 23:57 | CT Report ---
PROCEDURE: Abdomen/Pelvis WO INDICATIONS: abdominal pain TECHNIQUE: A CT scan of the abdomen and pelvis was performed without the use of intravenous contrast. Images we re recorded and evaluated at appropriate window settings. Reformats: coronal and sagittal. For radiat ion dose reduction, the following was used: automated exposure control, adjustment of mA and/or kV ac cording to patient size. COMPARISON: CT abdomen and pelvis, 02/21/2023. FINDINGS: Image quality: Excellent. Lung bases and heart: Basilar consolidation or atelectasis. Small left pleural effusion. Liver: Liver demonstrates nodular contour consistent with cirrhosis.. Gallbladder and biliary tree: Gallbladder is surgically absent. No intrahepatic or dilation. There is pneumobilia. Spleen: No splenomegaly. Pancreas: No pancreatic ductal dilation. Adrenals: No adrenal nodule. Kidneys and ureters: No hydronephrosis. No renal cystic lesion which requires follow up. No solid mas s. Bowel and peritoneum: Gastric wall may be thickened but stomach is contracted. No bowel distension. M ild diverticulosis. No acute diverticulitis. Large amount of ascites. Lymph nodes: No central or retroperitoneal adenopathy. Vessels: No infrarenal aortic aneurysm. PELVIS Reproductive organs: Unremarkable. Bladder: No wall thickness, accounting for underdistention. Pelvic lymph nodes: No pelvic adenopathy by size criteria. Bones: No aggressive osseous abnormality. Multiple chronic compression fractures, unchanged in severi ty. Severe compression fracture of T12, moderate compression fracture of T3 and T4. Other: No significant ventral or inguinal hernia. There is diffuse body wall edema. IMPRESSION: 1. Suboptimal examination without intravenous or IV contrast. 2. Liver demonstrates nodular contour consistent with cirrhosis. 3. Large amount of ascites. 4. Small left pleural effusion. 5. Bibasilar consolidation or atelectasis. 6. Mild diverticulosis without acute diverticulitis. 7. Multiple chronic compression fractures. 8. Diffuse body wall edema. Reviewed by: Cristina Pinzon MD on 07/04/2023 11:56 PM [facility] [[email or web address]] Approved by: Cristina Pinzon MD on 07/04/2023 11:56 PM PST Station ID: [id number]
[2023-07-05 01:55] LABS: B. PARAPERTUSSIS- RESP PCR PAN NOT DETECTED; B. PERTUSSIS- RESP PCR PANEL NOT DETECTED; C. PNEUMONIAE- RESP PCR PANEL NOT DETECTED; CORONAVIRUS 229E-RESP PCR NOT DETECTED; CORONAVIRUS HKU1-RESP PCR NOT DETECTED; CORONAVIRUS NL63-RESP PCR NOT DETECTED; CORONAVIRUS OC43-RESP PCR NOT DETECTED; HUMAN METAPNEUMOVIRUS NOT DETECTED; INFLUENZA A- RESP PCR PANEL NOT DETECTED; INFLUENZA B - RESP PCR PANEL NOT DETECTED; M. PNEUMONIAE- RESP PCR PANEL NOT DETECTED; PARAINFLUENZA VIRUS 1 NOT DETECTED; PARAINFLUENZA VIRUS 2 NOT DETECTED; PARAINFLUENZA VIRUS 3 NOT DETECTED; PARAINFLUENZA VIRUS 4 NOT DETECTED; RHINOVIRUS/ENTEROVIRUS NOT DETECTED; RSV- RESP PCR PANEL NOT DETECTED; SARS-CoV-2 -RESP PCR PANEL NOT DETECTED
[2023-07-05] MEDS ORDERED: ONDANSETRON 4 MG/2 ML VIAL IVP PRN (02:32)
[2023-07-05] MEDS ORDERED: BENZONATATE 100 MG CAPSULE PO PRN (02:39)
[2023-07-05] MEDS ORDERED: ALBUTEROL NEB 2.5 MG/3 ML INH PRN (03:31)
--- NOTE | 2023-07-05 04:01 | HISTORY & PHYSICAL EXAMINATION ---
Chief Complaint - Chief Complaint Chief Complaint: sob, chills, abd pain + distension, weakness History of Present Illness - History of Present Illness HPI Comment/Other: pt with worsening sob, cough, chills, weakness, and abd distension for last few days. h/o berrios cirrhosis, requiring paracentesis, with next one scheduled for jul 08, 2023, per pt. denies any trauma. no chest pain. no dysuria or hematuria or diarrhea. denies ams. no falls or syncope. History - Past Medical History Cardiovascular: reports: High cholesterol, Murmur Respiratory: reports: Asthma, Pneumonia Neuro: reports: None Endocrine/Autoimmune: reports: Type 2 diabetes GI: reports: GI bleed, Ulcers, Other : reports: Incontinence, Renal insuffiency HEENT: reports: Other Psych: reports: Depression Musculoskeletal: reports: Osteoarthritis, Chronic back pain, Other Derm: reports: None, Other MRSA Hx?: No - Past Surgical History General: reports: Cholecystectomy Ortho: reports: Knee replacement, Rotator cuff repair, Shoulder arthroplasty, Carpal Tunnel surgery, Other HEENT: reports: Cataracts - Family & Social History Family History Comment/Other: She reports her father had colon cancer but from liver disease. Her mother had breast cancer. Living Situation: With family Social History Notes: She lives at home with her sister. She denies smoking or alcohol use. - POLST Patient has POLST: Yes Meds/Allgy - Home Medications Home Medications: Ambulatory Orders Medication Instructions Recorded Confirmed Metoprolol Succinate [Toprol Xl] 25 mg PO DAILY 08/05/22 06/13/23 Albuterol Sulf [Ventolin Hfa 2 puffs INH TID PRN 02/21/23 06/13/23 Inhaler] Atorvastatin Calcium 40 mg PO DAILY #1 06/26/23 06/13/23 Cyanocobalamin [Vitamin B-12] 500 mcg PO DAILY tab 06/26/23 Levothyroxine [Synthroid] 25 mcg PO DAILY #0 06/26/23 06/13/23 Midodrine [ProAmatine] 2.5 mg PO TIDWM tab 06/26/23 Nystatin [Nystop] 1 applic TOP BID each 06/26/23 Pantoprazole [Protonix] 40 mg PO BID #0 06/26/23 06/13/23 Sertraline HCl 100 mg PO DAILY #0 06/26/23 06/13/23 Spironolactone [Aldactone] 25 mg PO DAILY #0 06/26/23 06/13/23 Zinc Oxide 20% Oint [Zinc Oxide] 1 applic TOP PRN PRN each 06/26/23 metFORMIN [Glucophage] 500 mg PO BIDWM tab 06/26/23 - Allergies Allergies/Adverse Reactions: Allergies Allergy/AdvReac Type Severity Reaction Status Date / Time acetaminophen [From Percocet] Allergy Unknown Verified 07/04/23 23:07 oxycodone [From Percocet] Allergy Unknown Verified 07/04/23 23:07 Review of Systems - Other Findings Other Findings: 14 pt review done with positives per hpi; all others reviewed as negative Exam - Vital Signs Vital Signs: Vital Signs x48h Temp Pulse Resp BP Pulse Ox O2 Flow Rate 07/05/23 03:00 87 24 126/71 96 2 07/05/23 02:00 87 20 148/106 H 100 2 07/05/23 01:00 87 28 H 123/77 99 07/04/23 23:52 91 24 129/72 96 2 07/04/23 21:49 36.8 C 98 28 H 144/84 H 100 - Physical Exam Comments/Other: gen - aaox3, uncomfortable but cooperative with questions heent - eomi, nc/at heart - per ed charting lungs - per ed charting abd - distended, rotund, diffuse tenderness per pt msk -no acute trauma noted or reported Conclusion/Plan - Lab Results Fish Bones: 07/04/23 22:07 07/04/23 22:07 - Other Other Results/Comments: pt with - - acute hypoxemic resp failure copd exacerbation pna + ascites (below) further details below - pna copd exacerbation treat as hcap d/t recent hospitalization vanc + cefepime resp viral panel NEG check CT chest - ascites in setting of berrios contributory to and in setting of above (resp failure) will need paracentesis - cisco hepato-renal dysfunction check renal sono renally dose meds - abd pain in setting of ascites + distension supportive mgmt, pain control will need paracentesis to help with pain - generalized weakness in setting of above supportive mgmt, pt eval and treat f/u labs, cultures, electrolytes further orders per clinical course
[2023-07-05 04:41] LABS: BASOPHILS % (AUTO) 0.2 %; EOSINOPHILS # (AUTO) 0.1 10^3/uL (0.0-0.7); EOSINOPHILS % (AUTO) 0.9 %; HCT - HEMATOCRIT 32.6 % (37.0-47.0); HGB - HEMOGLOBIN 9.5 g/dL (12.0-16.0); LYMPHOCYTES # (AUTO) 0.8 10^3/uL (1.5-3.5); LYMPHOCYTES % (AUTO) 9.6 %; MEAN CORPUSCULAR HEMOGLOBIN 25.5 pg (27.0-31.0); MEAN CORPUSCULAR HGB CONC 29.1 g/dL (32.0-36.0); MEAN CORPUSCULAR VOLUME 87.4 fL (81.0-99.0); MEAN PLATELET VOLUME 10.1 fL (7.9-10.8); MONOCYTES # (AUTO) 0.4 10^3/uL (0.0-1.0); MONOCYTES % (AUTO) 5.5 %; NEUTROPHILS # (AUTO) 6.7 10^3/uL (1.5-6.6); NEUTROPHILS % (AUTO) 83.6 %; PLT - PLATELET COUNT 207 10^3/uL (130-450); RED BLOOD COUNT 3.73 10^6/uL (4.20-5.40); RED CELL DISTRIBUTION WIDTH 15.8 % (12.0-15.0)
[2023-07-05 05:00] LABS: ALBUMIN 3.1 g/dL (3.2-5.5); CALCIUM 8.7 mg/dL (8.5-10.3); CREATININE 2.2 mg/dL (0.6-1.3); MAGNESIUM 1.6 mg/dL (1.7-2.3); PHOSPHORUS 3.9 mg/dL (2.5-5.0); POTASSIUM 4.6 mmol/L (3.5-4.5)
[2023-07-05 05:18] LABS: CHOL/HDL RATIO 3.3 (<4.4); CHOLESTEROL 122 mg/dL; HDL CHOLESTEROL 37 mg/dL; LDL CHOLESTEROL,CALCULATED 62 mg/dL; LDL/HDL RATIO 1.7 (<4.4); TRIGLYCERIDES 113 mg/dL (48-352); VLDL CHOLESTEROL 23 mg/dL
[2023-07-05] MEDS: CEFEPIME 2 GM in SODIUM CHLORIDE 0.9% MINIBAG 100 ML IV SCH (05:43)
[2023-07-05] MEDS: LEVOTHYROXINE 25 MCG TABLET PO SCH (06:20)
[2023-07-05] MEDS ORDERED: MIDODRINE 2.5 MG TABLET PO SCH (08:00)
[2023-07-05] MEDS ORDERED: METOPROLOL SUCCINATE 25 MG TABLET PO SCH (09:00)
--- NOTE | 2023-07-05 09:03 | CT Report ---
PROCEDURE: Chest WO INDICATIONS: pneumonia TECHNIQUE: A CT scan of the chest was performed. Intravenous contrast media was not administered. Images were re corded and evaluated at appropriate window settings. Reformats: axial MIP of the chest, coronal and s agittal. For radiation dose reduction, the following was used: automated exposure control, adjustment of mA and/or kV according to patient size. COMPARISON: Chest radiograph dated 07/04/2023. FINDINGS: Image quality: Excellent. Lungs and pleura: There is elevation of bilateral hemidiaphragms with low lung volume. Small bilatera l pleural effusion is seen with adjacent compressive atelectasis in posterior aspect of bilateral low er lung dc. Scattered atelectasis in posterior and lateral periphery of bilateral lung dc are seen. Superimposed small infiltrates cannot be entirely excluded. No pneumothorax. Central and perip heral airway is patent. Mediastinum: Heart size is enlarged. No pericardial effusion. Prominent size of main pulmonary artery which can be seen associated with pulmonary vascular hypertension. Enlarged ascending thoracic aorta measures up to 4.7 cm in largest AP diameter series 2 image 29. Mild to moderate atherosclerotic nisha cifications are noted in thoracic aorta. Three-vessel coronary artery calcifications are seen. No med iastinal or hilar lymphadenopathy by size criteria. A few calcified right paratracheal lymph nodes ar e seen. Chest wall and lower neck: Thyroid is unremarkable. No axillary or supraclavicular adenopathy by size . Generalized anasarca is seen. Bones: No aggressive osseous abnormality. Upper Abdomen: Large amount of ascites fluid in upper abdomen with small liver and lobulated liver co ntour concerning for cirrhosis.. IMPRESSION: 1. Small bilateral low lung volume secondary to elevated bilateral hemidiaphragm. Small bilateral ple ural effusion with adjacent compressive atelectasis. Scattered atelectasis/small infiltrates seen in posterior lateral periphery of bilateral mid to lower lung dc. No pneumothorax. Airway is patent. 2. Cardiomegaly, no pericardial effusion. Moderate atherosclerotic disease and coronary vessels and t horacic aorta. 3. Ascending thoracic aortic aneurysm measures up to 4.7 cm in largest AP diameter. 4. Prominent size of main pulmonary artery concerning for pulmonary vascular hypertension. Generalize d anasarca. 5. Cirrhotic appearing liver with large amount of ascites fluid. Please correlate with CT of abdomen and pelvis findings. Findings are concordant with preliminary interpretation provided by [facility]. Reviewed by: Perez Gunderson MD on 07/05/2023 9:02 AM PST Approved by: Perez Gunderson MD on 07/05/2023 9:02 AM PST Station ID: [id number]
[2023-07-05] MEDS: HEPARIN 5,000 UNIT/ML VIAL SUBQ SCH (09:42)
[2023-07-05 10:24] LABS: ESTIMATED AVERAGE GLUCOSE 160 mg/dL (70-100); HEMOGLOBIN A1c% 7.2 % (4.27-6.07)
[2023-07-05] MEDS: INSULIN LISPRO 300 UNIT/3 ML PEN SUBQ SCH (11:09)
--- NOTE | 2023-07-05 11:31 | Ultrasound Report ---
PROCEDURE: Renal (Retroperitoneal) INDICATIONS: BANDAR TECHNIQUE: Real-time scanning was performed of the retroperitoneal organs, with image documentation. COMPARISON: CT abdomen and pelvis without contrast dated 07/04/2023. FINDINGS: Kidneys: Kidneys are normal in size. The current study is somewhat challenging secondary to a large amount of ascites present. The study underestimates the size of the kidneys. On coronal image 119 of series [address], the right kidney measures at least 9.8 cm, and left kidney measures 10 .0 cm. By ultrasound, the right kidney measures 9.1 cm long; left kidney measures 8.4 cm long. Right renal cortical thickness is 0.8 cm; left renal cortical thickness is 0.9 cm. No solid masses, hydro nephrosis, or nephrolithiasis. Bladder: Pre-void bladder volume is 92.6 mL. No post void residual measured. Pre-void images demonst rate no intraluminal masses or stones. On pre-void images, unilateral left ureteral jet is noted wit h color Doppler interrogation. (Of note, ureteral jets may not be detectable in up to 25% of cases d ue to insufficient differences in specific gravity between ureteral and bladder urine). Miscellaneous: Very large ascites. IMPRESSION: 1. Current ultrasound underestimates the length of the kidneys, which are clearly within normal limit s for size based on CT. There is no hydronephrosis. 2. Very large ascites. Reviewed by: Virgil Diaz MD on 07/05/2023 11:29 AM PST Approved by: Virgil Diaz MD on 07/05/2023 11:29 AM PST Station ID: [id number]
[2023-07-05] MEDS: ATORVASTATIN 40 MG TABLET PO SCH (12:03)
[2023-07-05] MEDS: PANTOPRAZOLE 40 MG TABLET PO SCH (12:03)
[2023-07-05] MEDS: SERTRALINE 50 MG TABLET PO SCH (12:03)
[2023-07-05] MEDS: ethyl alcohoL 62% SWAB AMPULE NAS SCH (12:03)
[2023-07-05] MEDS: SPIRONOLACTONE 25 MG TABLET PO SCH (12:04)
[2023-07-05] MEDS: MAGNESIUM OXIDE 400 MG TABLET PO SCH (12:04)
[2023-07-05] MEDS: SODIUM CHLORIDE FLUSH 0.9% 10 ML SYRINGE IVP SCH (12:04)
[2023-07-05] MEDS: ASCORBIC ACID 500 MG TABLET PO SCH (12:04)
[2023-07-05] MEDS: MIDODRINE 2.5 MG TABLET PO SCH (12:04)
[2023-07-05] MEDS: CYANOCOBALAMIN 500 MCG TABLET PO SCH (12:04)
[2023-07-05] MEDS: MULTIVITAMIN TABLET PO SCH (12:04)
[2023-07-05] MEDS: SACCHAROMYCES BOULARDII 250 MG CAPSULE PO SCH (12:04)
--- NOTE | 2023-07-05 12:41 | Ultrasound Report ---
PROCEDURE: Abdominal Paracentesis INDICATIONS: Tense ascites causing pain SOB, therapeutic para TECHNIQUE: The indications, alternatives, benefits, risks, and complications of the procedure were explained to the patient. Written informed consent was obtained and placed in the chart. The abdomen and pelvis were examined sonographically, and an appropriate site was chosen for paracentesis. The skin was pre pared and draped in the usual sterile fashion, and 1% lidocaine was infiltrated from the skin down th rough the peritoneal surface. A 19-gauge catheter-covered needle was then introduced into the perito yesy space, the catheter was advanced and the needle was withdrawn, and thereafter peritoneal fluid w as withdrawn. The catheter was then removed and a dressing was applied. The fluid was discarded if the clinician did not order diagnostic testing of the fluid. COMPARISON: 06/20/2023, 06/14/2023 FINDINGS: Access site: Right lower quadrant Needle: One-Step centesis catheter with introducer needle. Fluid volume and description: 4 L slightly cloudy yellow ascites Fluid sent for diagnostic testing: No Medications: 1% lidocaine for local anaesthesia. Complications: None. IMPRESSION: Successful ultrasound-guided paracentesis. Reviewed by: Belgica Mabry MD on 07/05/2023 12:39 PM PST Approved by: Belgica Mabry MD on 07/05/2023 12:39 PM PST Station ID: [id number]
[2023-07-05] MEDS: METOPROLOL SUCCINATE 25 MG TABLET PO SCH (16:15)
[2023-07-05] MEDS: ALBUTEROL NEB 2.5 MG/3 ML INH SCH (16:42)
--- NOTE | 2023-07-05 16:54 | PHARMACY PROGRESS NOTE ---
- Best Possible Medication History Admit Date and Time: 07/05/23 0232 Processed by: Pharmacy Medication History completed: Yes Patient Interview: Completed Secondary Source(s): Pharmacy records, Insurance records As the person ultimately responsible for medication therapy, providers are able to order a medication from an existing home medication list in [facility] via the "Reconcile Routine" prior to Confirmation of that medication by lab support tech. Such practice is discouraged except when the physician, in their clinical judgment, deems that a medical need exists for a medication without regard to previous use. PATIENT CONFUSED ON MOST DOSES BUT RECALLED MEDICATION NAMES WELL, CLAIMED TO NOT BE TAKING LEVOTHYROXINE BUT IT IS REGULARLY DISPENSED FROM THE PHARMACY SO INCLUDED IN LIST
[2023-07-06] MEDS: IPRATROPIUM/ALBUTEROL 3 ML NEB INH SCH (04:04)
[2023-07-06 05:22] LABS: BASOPHILS % (AUTO) 0.3 %; EOSINOPHILS # (AUTO) 0.1 10^3/uL (0.0-0.7); EOSINOPHILS % (AUTO) 1.1 %; HCT - HEMATOCRIT 33.5 % (37.0-47.0); LYMPHOCYTES # (AUTO) 0.6 10^3/uL (1.5-3.5); LYMPHOCYTES % (AUTO) 8.9 %; MEAN CORPUSCULAR HEMOGLOBIN 25.4 pg (27.0-31.0); MEAN CORPUSCULAR HGB CONC 29.9 g/dL (32.0-36.0); MEAN CORPUSCULAR VOLUME 85.2 fL (81.0-99.0); MEAN PLATELET VOLUME 9.7 fL (7.9-10.8); MONOCYTES # (AUTO) 0.3 10^3/uL (0.0-1.0); MONOCYTES % (AUTO) 5.2 %; NEUTROPHILS # (AUTO) 5.5 10^3/uL (1.5-6.6); NEUTROPHILS % (AUTO) 84.2 %; PLT - PLATELET COUNT 186 10^3/uL (130-450); RED BLOOD COUNT 3.93 10^6/uL (4.20-5.40); RED CELL DISTRIBUTION WIDTH 15.9 % (12.0-15.0); WHITE BLOOD COUNT 6.5 x10^3/uL (4.8-10.8)
[2023-07-06 05:44] LABS: CALCIUM 8.7 mg/dL (8.5-10.3); CREATININE 2.1 mg/dL (0.6-1.3); MAGNESIUM 1.7 mg/dL (1.7-2.3); POTASSIUM 4.6 mmol/L (3.5-4.5)
--- NOTE | 2023-07-06 09:24 | PROVIDER PROGRESS NOTE ---
Assessment/Plan - Problem List (1) Acute respiratory failure with hypoxia Assessment/Plan: Caused by pna + ascites Plan: Cont suppl O2, taget sat 88% or above Treat each underlying Dx (2) HCAP (healthcare-associated pneumonia) Assessment/Plan: resp viral panel NEG Plan: Treat as hcap d/t recent hospitalization with iv vanc + cefepime Will make her scheduled DuoNebs just as needed, since the patient says they do not really help (3) Tense ascites Assessment/Plan: This is recurrent and is from [place]. It was contributing to her resp failure Her scheduled paracentesis was moved up and was done yesterday, 4L removed and she feels better. As on last adm, she has become orthostatic when she has 4L removed. At the last admission, the orthostsasisi lasted ~4 days Plan: Cont to hold meds for parameters set Follow orthostatic VS (4) Acute kidney injury superimposed on CKD Assessment/Plan: She has hepato-renal syndrome. She had a renal sono and results were unremarkable (except large ascites was reported then) Plan: Avoid nephrotoxin Renally dose her meds (5) Orthostatic hypotension Assessment/Plan: As on last adm, she has become orthostatic when has 4L ascites fluid removed, which was done yesterday. At the last admission, the orthostsasisi lasted ~4 days Plan: Cont to hold meds for parameters set Will consider giving iv Albumen Follow orthostatic VS (6) BANDAR (acute kidney injury) Assessment/Plan: She has hepato-renal syndrome Also, hypoperfusion when she is hypotensive after paracentese, add to her BANDAR Plan: Avoid nephrotoxins Follow BMP daily (7) Generalized weakness Assessment/Plan: Multifactorial Plan: Supportive mgmt, PT and OT eval and treat - Current Meds Current Meds: Current Medications Generic Name Dose Route Start Last Admin Trade Name Freq PRN Reason Stop Dose Admin Albuterol 2.5 mg 07/05/23 15:00 07/05/23 17:57 Albuterol Neb 2.5 Mg/3 Ml INH 2.5 mg RTQ4H EDUARDA Administration Albuterol/Ipratropium 3 ml 07/05/23 19:00 07/06/23 04:04 Ipratropium/Albuterol 3 Ml Neb INH Not Given RTTID EDUARDA Alcohol 1 amp 07/05/23 09:00 07/06/23 08:29 Ethyl Alcohol 62% Swab Ampule VANCE 1 amp BID EDUARDA Administration Ascorbic Acid 500 mg 07/05/23 09:00 07/06/23 08:29 Ascorbic Acid 500 Mg Tablet PO 500 mg DAILY EDUARDA Administration Atorvastatin Calcium 40 mg 07/05/23 09:00 07/06/23 08:40 Atorvastatin 40 Mg Tablet PO 40 mg DAILY EDUARDA Administration Cyanocobalamin 500 mcg 07/05/23 09:00 07/06/23 08:29 Cyanocobalamin 500 Mcg Tablet PO 500 mcg DAILY EDUARDA Administration Heparin Sodium (Porcine) 5,000 unit 07/05/23 09:00 07/06/23 08:38 Heparin 5,000 Unit/Ml Vial SUBQ 5,000 unit BID EDUARDA Administration Cefepime HCl 2 gm/ Sodium 100 mls @ 200 mls/hr 07/05/23 06:00 07/06/23 07:40 Chloride IV Infused Q24H EDUARDA Infusion Insulin Human Lispro 1 - 9 unit 07/05/23 08:00 07/06/23 08:30 Insulin Lispro 300 Unit/3 Ml Pen SUBQ Not Given 0800,1200,1700,2100 [facility] Protocol Levothyroxine Sodium 25 mcg 07/05/23 07:00 07/06/23 06:43 Levothyroxine 25 Mcg Tablet PO 25 mcg QDAC EDUARDA Administration Magnesium Oxide 400 mg 07/05/23 12:00 07/06/23 08:29 Magnesium Oxide 400 Mg Tablet PO 400 mg DAILYWM EDUARDA Administration Metoprolol Succinate 25 mg 07/05/23 16:00 07/05/23 16:15 Metoprolol Succinate 25 Mg Tablet PO 25 mg 1600 EDUARDA Administration Midodrine 2.5 mg 07/05/23 08:00 07/06/23 08:29 Midodrine 2.5 Mg Tablet PO 2.5 mg TIDWM EDUARDA Administration Multivitamins 1 tab 07/05/23 08:00 07/06/23 08:29 Multivitamin Tablet PO 1 tab DAILYWM EDUARDA Administration Pantoprazole Sodium 40 mg 07/05/23 09:00 07/06/23 08:29 Pantoprazole 40 Mg Tablet PO 40 mg BID EDUARDA Administration Saccharomyces Boulardii 250 mg 07/05/23 08:00 07/06/23 08:29 Saccharomyces Boulardii 250 Mg Capsule PO 250 mg BIDWM EDUARDA Administration Sertraline HCl 100 mg 07/05/23 09:00 07/06/23 08:29 Sertraline 50 Mg Tablet PO 100 mg DAILY EDUARDA Administration Sodium Chloride 10 ml 07/05/23 09:00 07/06/23 08:39 Sodium Chloride Flush 0.9% 10 Ml Syringe IVP 10 ml 0100,0900,1700 EDUARDA Administration Spironolactone 25 mg 07/05/23 09:00 07/06/23 08:29 Spironolactone 25 Mg Tablet PO 25 mg DAILY EDUARDA Administration - Lab Result Fish Bone Diagrams: 07/06/23 05:15 07/06/23 05:15 - Additional Planning My Orders: My Active Orders 07/05/23 09:00 ethyl alcohoL 62% swab [NoZin] 1 amp VANCE BID 07/05/23 11:06 Nutrition Consult [CONS] Routine 07/05/23 12:00 Magnesium Oxide [Mag Ox] 400 mg PO DAILYWM 07/05/23 13:12 Nebulizer/MDI Tx. [RC] .q4 Resp Teach Nebulizer/MDI [RC] .ONCE 07/05/23 15:00 Albuterol 2.5 mg INH RTQ4H 07/05/23 16:00 Metoprolol Succinate [Toprol Xl] 25 mg PO 1600 07/05/23 Dinner Carb-controlled Diet [DIET] 07/05/23 19:00 Ipratropium/Albuterol [Duoneb] 3 ml INH RTTID 07/07/23 05:00 BMP - BASIC METABOLIC PANEL [CHEM] DAILYLAB CBC - COMP BLD CT W/AUTO DIFF [HEME] DAILYLAB MAGNESIUM [CHEM] DAILYLAB 07/08/23 05:00 BMP - BASIC METABOLIC PANEL [CHEM] DAILYLAB CBC - COMP BLD CT W/AUTO DIFF [HEME] DAILYLAB Subjective - Subjective Patient Reports: Feeling Better (Less abdominal pain since paracentesis yesterday, slightly better breathing but still short of breath and coughing.), Dizzines (when BP low), Shortness of Breath (with talking and with activities) Nursing Reports: Other (RN reports she gets confused with low blood pressure) Objective Vital Signs: Vital Signs - 24 hr 07/05/23 07/05/23 07/05/23 11:01 12:00 13:04 Temperature 36.6 C 36.7 C Heart Rate Heart Rate [ Brachial] Heart Rate [ 81 82 Monitoring electrodes] Heart Rate [ 89 Sitting] Heart Rate [ 95 Standing] Heart Rate [ 83 Supine] Respiratory 16 16 Rate Blood Pressure 109/59 L 117/62 [Left Brachial artery] Blood Pressure 104/64 [Sitting] Blood Pressure 69/56 L [Standing] Blood Pressure 111/64 [Supine] O2 Saturation 100 99 O2 Saturation [ 99 Supine] If not protocol 2 1 : Oxygen Flow, liters/minute 07/05/23 07/05/23 07/05/23 13:05 15:10 17:59 Temperature 36.7 C Heart Rate 86 Heart Rate [ Brachial] Heart Rate [ 83 Monitoring electrodes] Heart Rate [ 89 Sitting] Heart Rate [ 95 Standing] Heart Rate [ 83 Supine] Respiratory 16 18 Rate Blood Pressure 117/68 [Left Brachial artery] Blood Pressure 104/64 [Sitting] Blood Pressure 69/56 L [Standing] Blood Pressure 111/64 [Supine] O2 Saturation 98 O2 Saturation [ Supine] If not protocol 2 2 : Oxygen Flow, liters/minute 07/05/23 07/05/23 07/05/23 19:05 19:29 23:58 Temperature 36.7 C 36.7 C Heart Rate Heart Rate [ 78 Brachial] Heart Rate [ 79 Monitoring electrodes] Heart Rate [ Sitting] Heart Rate [ Standing] Heart Rate [ Supine] Respiratory 18 16 Rate Blood Pressure 112/61 117/58 L [Left Brachial artery] Blood Pressure [Sitting] Blood Pressure [Standing] Blood Pressure [Supine] O2 Saturation 95 98 O2 Saturation [ Supine] If not protocol 2 1 1 : Oxygen Flow, liters/minute 07/06/23 07/06/23 03:37 07:26 Temperature 36.6 C 36.6 C Heart Rate Heart Rate [ 72 70 Brachial] Heart Rate [ Monitoring electrodes] Heart Rate [ Sitting] Heart Rate [ Standing] Heart Rate [ Supine] Respiratory 16 16 Rate Blood Pressure 132/70 H 114/64 [Left Brachial artery] Blood Pressure [Sitting] Blood Pressure [Standing] Blood Pressure [Supine] O2 Saturation 99 100 O2 Saturation [ Supine] If not protocol 4.5 3 : Oxygen Flow, liters/minute Oxygen O2 Source Nasal cannula I&O (Last 24 Hrs): Intake and Output Totals x24h 07/04/23 07/05/23 07/06/23 23:59 23:59 23:59 Intake Total 1540 220 Output Total 200 Balance 1340 220 General: Alert, Oriented x3 HEENT: EOMI, Mucous membr. moist/pink, Other (Unequal smile, R facial droop (chronic)) Neck: Supple, No JVD Neuro: Alert, Other (Unequal smile, R facial droop (chronic)) Cardiovascular: Regular rate Respiratory: No respiratory distress (at rest, has on suppl O2) Abdomen: Soft, No tenderness, Other (moderately distended) Extremities: Other (1+ edema) - Results Results: Laboratory Results WBC 6.5 x10^3/uL (4.8-10.8) 07/06/23 05:15 RBC 3.93 10^6/uL (4.20-5.40) L 07/06/23 05:15 Hgb 10.0 g/dL (12.0-16.0) L 07/06/23 05:15 Hct 33.5 % (37.0-47.0) L 07/06/23 05:15 MCV 85.2 fL (81.0-99.0) 07/06/23 05:15 MCH 25.4 pg (27.0-31.0) L 07/06/23 05:15 MCHC 29.9 g/dL (32.0-36.0) L 07/06/23 05:15 RDW 15.9 % (12.0-15.0) H 07/06/23 05:15 Plt Count 186 10^3/uL (130-450) 07/06/23 05:15 MPV 9.7 fL (7.9-10.8) 07/06/23 05:15 Neut # (Auto) 5.5 10^3/uL (1.5-6.6) 07/06/23 05:15 Lymph # (Auto) 0.6 10^3/uL (1.5-3.5) L 07/06/23 05:15 [place] # (Auto) 0.3 10^3/uL (0.0-1.0) 07/06/23 05:15 Eos # (Auto) 0.1 10^3/uL (0.0-0.7) 07/06/23 05:15 Baso # (Auto) 0.0 10^3/uL (0.0-0.1) 07/06/23 05:15 Absolute Nucleated RBC 0.00 x10^3/uL 07/06/23 05:15 Nucleated RBC % 0.0 /100WBC 07/06/23 05:15 PT 11.5 secs (9.9-12.6) 07/04/23 22:07 INR 1.1 (0.8-1.2) 07/04/23 22:07 VBG pH 7.372 (7.31-7.41) 07/04/23 22:07 VBG pCO2 40.2 mmHg (41-51) L 07/04/23 22:07 VBG pO2 32.7 mmHg (25-47) 07/04/23 22:07 VBG HCO3 22.8 mmol/L (23-28) L 07/04/23 22:07 VBG Total CO2 24.1 mmol/L (24-29) 07/04/23 22:07 VBG O2 Saturation 65.3 % (60-80) 07/04/23 22:07 VBG Base Excess -2.2 mmol/L (-2 - +2) L 07/04/23 22:07 Sodium 138 mmol/L (135-145) 07/06/23 05:15 Potassium 4.6 mmol/L (3.5-4.5) H 07/06/23 05:15 Chloride 105 mmol/L (101-111) 07/06/23 05:15 Carbon Dioxide 28 mmol/L (21-32) 07/06/23 05:15 Anion Gap 5.0 (6-13) L 07/06/23 05:15 BUN 45 mg/dL (6-20) H 07/06/23 05:15 Creatinine 2.1 mg/dL (0.6-1.3) H 07/06/23 05:15 Estimated GFR (MDRD) 23 (>89) L 07/06/23 05:15 Glucose 139 mg/dL (74-104) H 07/06/23 05:15 POC Whole Bld Glucose 126 mg/dL (70 - 100) H 07/06/23 07:20 Estimat Average Glucose 160 mg/dL (70-100) H 07/05/23 04:23 Hemoglobin A1c % 7.2 % (4.27-6.07) H 07/05/23 04:23 Lactic Acid 1.1 mmol/L (0.5-2.2) 07/05/23 04:23 Calcium 8.7 mg/dL (8.5-10.3) 07/06/23 05:15 Phosphorus 3.9 mg/dL (2.5-5.0) 07/05/23 04:23 Magnesium 1.7 mg/dL (1.7-2.3) 07/06/23 05:15 Total Bilirubin 0.3 mg/dL (0.2-1.0) 07/04/23 22:07 AST 20 IU/L (10-42) 07/04/23 22:07 ALT 12 IU/L (10-60) 07/04/23 22:07 Alkaline Phosphatase 81 IU/L (42-121) 07/04/23 22:07 Ammonia 15.8 umol/L (18-72) L 07/05/23 05:34 Total Protein 6.1 g/dL (6.4-8.9) L 07/04/23 22:07 Albumin 3.1 g/dL (3.2-5.5) L 07/05/23 04:23 Globulin 3.0 g/dL (2.1-4.2) 07/04/23 22:07 Albumin/Globulin Ratio 1.0 (1.0-2.2) 07/04/23 22:07 Triglycerides 113 mg/dL (48-352) 07/05/23 04:23 Cholesterol 122 mg/dL (-200) 07/05/23 04:23 LDL Cholesterol, Calc 62 mg/dL (-129) 07/05/23 04:23 VLDL Cholesterol 23 mg/dL 07/05/23 04:23 HDL Cholesterol 37 mg/dL (60-) L 07/05/23 04:23 LDL/HDL Ratio 1.7 (<4.4) 07/05/23 04:23 Cholesterol/HDL Ratio 3.3 (<4.4) 07/05/23 04:23 Lipase 17 U/L (11-82) 07/04/23 22:07 Procalcitonin Immunoas 0.20 ng/mL (<0.5) 07/05/23 04:23 TSH 4.75 uIU/mL (0.34-5.60) 07/05/23 04:23 Nasal Adenovirus (PCR) NOT DETECTED 07/05/23 01:00 Nasal B. parapertussis DNA (PCR) NOT DETECTED 07/05/23 01:00 Nasal Coronavir 229E PCR NOT DETECTED 07/05/23 01:00 Nasal Coronavir HKU1 PCR NOT DETECTED 07/05/23 01:00 Nasal Coronavir NL63 PCR NOT DETECTED 07/05/23 01:00 Nasal Coronavir OC43 PCR NOT DETECTED 07/05/23 01:00 Nasal Enterovir/Rhinovir PCR NOT DETECTED 07/05/23 01:00 Nasal Influenza B PCR NOT DETECTED 07/05/23 01:00 Nasal Influenza A PCR NOT DETECTED 07/05/23 01:00 Nasal Parainfluen 1 PCR NOT DETECTED 07/05/23 01:00 Nasal Parainfluen 2 PCR NOT DETECTED 07/05/23 01:00 Nasal Parainfluen 3 PCR NOT DETECTED 07/05/23 01:00 Nasal Parainfluen 4 PCR NOT DETECTED 07/05/23 01:00 Nasal RSV (PCR) NOT DETECTED 07/05/23 01:00 Nasal Screen MRSA (PCR) POSITIVE (NEGATIVE) A* 07/05/23 04:28 Nasal B.pertussis DNA PCR NOT DETECTED 07/05/23 01:00 Nasal C.pneumoniae (PCR) NOT DETECTED 07/05/23 01:00 Vance Human Metapneumo PCR NOT DETECTED 07/05/23 01:00 Nasal M.pneumoniae (PCR) NOT DETECTED 07/05/23 01:00 Nasal SARS-CoV-2 (PCR) NOT DETECTED 07/05/23 01:00 - Procedures Procedures: Procedures DILATION OF COMMON BILE DUCT, ENDO (08/05/22) DRAINAGE OF PERITONEAL CAVITY, PERCUTANEOUS APPROACH (06/12/23) EXCISION OF ASCENDING COLON, ENDO, DIAGN (10/11/16) EXCISION OF TRANSVERSE COLON, ENDO, DIAGN (10/11/16) EXTIRPATION OF MATTER FROM COMMON BILE DUCT, ENDO (08/05/22) INSERTION OF INFUSION DEV INTO SUP VENA CAVA, PERC APPROACH (01/17/21)
[2023-07-06] MEDS: VANCOMYCIN INJ 1 GM in SODIUM CHLORIDE 0.9% 250 ML IV SCH (11:51)
[2023-07-06] MEDS: IBUPROFEN 600 MG TABLET PO PRN (12:31)
[2023-07-07 05:25] LABS: BASOPHILS % (AUTO) 0.3 %; EOSINOPHILS # (AUTO) 0.1 10^3/uL (0.0-0.7); EOSINOPHILS % (AUTO) 1.4 %; HCT - HEMATOCRIT 30.8 % (37.0-47.0); HGB - HEMOGLOBIN 8.7 g/dL (12.0-16.0); LYMPHOCYTES # (AUTO) 0.6 10^3/uL (1.5-3.5); LYMPHOCYTES % (AUTO) 10.1 %; MEAN CORPUSCULAR HEMOGLOBIN 24.9 pg (27.0-31.0); MEAN CORPUSCULAR HGB CONC 28.2 g/dL (32.0-36.0); MEAN PLATELET VOLUME 9.7 fL (7.9-10.8); MONOCYTES # (AUTO) 0.3 10^3/uL (0.0-1.0); MONOCYTES % (AUTO) 5.5 %; NEUTROPHILS # (AUTO) 4.8 10^3/uL (1.5-6.6); NEUTROPHILS % (AUTO) 82.4 %; PLT - PLATELET COUNT 168 10^3/uL (130-450); WHITE BLOOD COUNT 5.8 x10^3/uL (4.8-10.8)
[2023-07-07 05:40] LABS: CALCIUM 8.3 mg/dL (8.5-10.3); MAGNESIUM 1.7 mg/dL (1.7-2.3); POTASSIUM 4.4 mmol/L (3.5-4.5)
--- NOTE | 2023-07-07 14:26 | PROVIDER PROGRESS NOTE ---
Assessment/Plan - Problem List (1) Acute respiratory failure with hypoxia Assessment/Plan: Her SOB was caused by pna + tense ascites. The ascites was tapped and we are treating the pna. She is still needing suppl O2 to achieve O2 sat 92% Plan: Cont suppl O2, taget sat 88% or above Cont to treat each underlying Dx (2) HCAP (healthcare-associated pneumonia) Assessment/Plan: resp viral panel NEG Plan: Treat as hcap d/t recent hospitalization with iv vanc + cefepime I made her scheduled DuoNebs just prn, since the patient says they do not really help (3) Tense ascites Assessment/Plan: This is recurrent and is from [place]. It was contributing to her resp failure Her scheduled paracentesis was moved up and was done 07/05, 4L was removed and she feels better, but today she notices it is re-accumulating. As on last adm, she has become orthostatic when she has 4L of ascites removed. At the last admission, the orthostasis lasted ~4 days Plan: Cont to hold meds for parameters set Follow orthostatic VS (4) Orthostatic hypotension Assessment/Plan: As on last adm, she has become orthostatic when has 4L ascites fluid removed, which was done 2 days ago. At the last admission, the orthostasis lasted ~4 days. 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 She had a renal sono and results were unremarkable (except large ascites was reported then) Plan: Avoid nephrotoxins Renally dose her meds (6) Generalized weakness Assessment/Plan: Multifactorial Plan: Supportive mgmt PT and OT eval and treat - Current Meds Current Meds: Current Medications Generic Name Dose Route Start Last Admin Trade Name Freq PRN Reason Stop Dose Admin Alcohol 1 amp 07/05/23 09:00 07/07/23 08:36 Ethyl Alcohol 62% Swab Ampule VANCE 1 amp BID EDUARDA Administration Ascorbic Acid 500 mg 07/05/23 09:00 07/07/23 08:36 Ascorbic Acid 500 Mg Tablet PO 500 mg DAILY EDUARDA Administration Atorvastatin Calcium 40 mg 07/05/23 09:00 07/07/23 08:36 Atorvastatin 40 Mg Tablet PO 40 mg DAILY EDUARDA Administration Cyanocobalamin 500 mcg 07/05/23 09:00 07/07/23 08:35 Cyanocobalamin 500 Mcg Tablet PO 500 mcg DAILY EDUARDA Administration Heparin Sodium (Porcine) 5,000 unit 07/05/23 09:00 07/07/23 08:46 Heparin 5,000 Unit/Ml Vial SUBQ 5,000 unit BID EDUARDA Administration Cefepime HCl 2 gm/ Sodium 100 mls @ 200 mls/hr 07/05/23 06:00 07/07/23 05:16 Chloride IV 200 mls/hr Q24H EDUARDA Administration Vancomycin HCl 1 gm/ Sodium 250 mls @ 166.667 mls/hr 07/06/23 12:00 07/06/23 14:54 Chloride IV Infused Q36H EDUARDA Infusion Ibuprofen 600 mg 07/06/23 11:59 07/06/23 12:31 Ibuprofen 600 Mg Tablet PO 600 mg Q6HR PRN Administration Mild Pain (Level 1-3) Insulin Human Lispro 1 - 9 unit 07/05/23 08:00 07/07/23 12:20 Insulin Lispro 300 Unit/3 Ml Pen SUBQ 3 unit 0800,1200,1700,2100 [facility] Administration Protocol Levothyroxine Sodium 25 mcg 07/05/23 07:00 07/07/23 05:16 Levothyroxine 25 Mcg Tablet PO 25 mcg QDAC EDUARDA Administration Magnesium Oxide 400 mg 07/05/23 12:00 07/07/23 08:36 Magnesium Oxide 400 Mg Tablet PO 400 mg DAILYWM EDUARDA Administration Metoprolol Succinate 25 mg 07/05/23 16:00 07/06/23 17:03 Metoprolol Succinate 25 Mg Tablet PO Not Given 1600 [facility] Midodrine 2.5 mg 07/05/23 08:00 07/07/23 08:35 Midodrine 2.5 Mg Tablet PO 2.5 mg TIDWM [facility] Administration Multivitamins 1 tab 07/05/23 08:00 07/07/23 08:36 Multivitamin Tablet PO 1 tab DAILYWM EDUARDA Administration Pantoprazole Sodium 40 mg 07/05/23 09:00 07/07/23 08:36 Pantoprazole 40 Mg Tablet PO 40 mg BID EDUARDA Administration Saccharomyces Boulardii 250 mg 07/05/23 08:00 07/07/23 08:36 Josue Pineda 250 Mg Capsule PO 250 mg BIDWM EDUARDA Administration Sertraline HCl 100 mg 07/05/23 09:00 07/07/23 08:35 Sertraline 50 Mg Tablet PO 100 mg DAILY EDUARDA Administration Sodium Chloride 10 ml 07/05/23 09:00 07/07/23 09:07 Sodium Chloride Flush 0.9% 10 Ml Syringe IVP 10 ml 0100,0900,1700 EDUARDA Administration Spironolactone 25 mg 07/05/23 09:00 07/07/23 08:36 Spironolactone 25 Mg Tablet PO 25 mg DAILY EDUARDA Administration - Lab Result Fish Bone Diagrams: 07/07/23 05:11 07/07/23 05:11 - Additional Planning My Orders: My Active Orders 07/06/23 18:26 Albuterol 2.5 mg INH RTQ4H PRN Ipratropium/Albuterol [Duoneb] 3 ml INH RTTID PRN 07/07/23 08:52 Orthostatic [Vital Signs - Orthostatic] [RC] DAILY 07/08/23 05:00 BMP - BASIC METABOLIC PANEL [CHEM] DAILYLAB CBC - COMP BLD CT W/AUTO DIFF [HEME] DAILYLAB Subjective - Subjective Patient Reports: Fatigue, Other (Ferels sleepy, weak and shakey (when BP low after paracentesis).) Objective Vital Signs: Vital Signs - 24 hr 07/06/23 07/06/23 07/06/23 16:23 18:00 19:30 Temperature 36.6 C Heart Rate [ 70 76 Brachial] Respiratory 24 Rate Blood Pressure 89/57 L 106/66 [Left Brachial artery] O2 Saturation 96 If not protocol 3 2 : Oxygen Flow, liters/minute 07/06/23 07/06/23 07/07/23 20:36 23:40 04:52 Temperature 36.7 C 36.6 C 36.7 C Heart Rate [ 80 77 77 Brachial] Respiratory 24 22 29 H Rate Blood Pressure 127/69 114/68 121/65 [Left Brachial artery] O2 Saturation 99 93 98 If not protocol 3 2 2 : Oxygen Flow, liters/minute 07/07/23 07/07/23 07/07/23 08:05 08:06 12:26 Temperature 36.6 C 36.6 C Heart Rate [ 84 82 Brachial] Respiratory 24 24 Rate Blood Pressure 139/75 H 126/72 [Left Brachial artery] O2 Saturation 98 97 If not protocol 2 2 1 : Oxygen Flow, liters/minute Oxygen O2 Source Nasal cannula I&O (Last 24 Hrs): Intake and Output Totals x24h 07/05/23 07/06/23 07/07/23 23:59 23:59 23:59 Intake Total 1540 910 580 Output Total 200 300 450 Balance 1340 610 130 General: Mild distress (Is weak and shakey, sitting up, feet dangling) HEENT: Mucous membr. moist/pink, Other (Disheveled) Neck: Supple Neuro: Alert, Non Focal, Other (Weak and sleepy) Cardiovascular: Regular rate, No murmurs Respiratory: Rales, Other (Poor air mvm) Abdomen: Other (Moderately distnded, not tender) Extremities: No clubbing, Other (Trace pedal edema) - Results Results: Laboratory Results WBC 5.8 x10^3/uL (4.8-10.8) 07/07/23 05:11 RBC 3.50 10^6/uL (4.20-5.40) L 07/07/23 05:11 Hgb 8.7 g/dL (12.0-16.0) L 07/07/23 05:11 Hct 30.8 % (37.0-47.0) L 07/07/23 05:11 MCV 88.0 fL (81.0-99.0) 07/07/23 05:11 MCH 24.9 pg (27.0-31.0) L 07/07/23 05:11 MCHC 28.2 g/dL (32.0-36.0) L 07/07/23 05:11 RDW 16.0 % (12.0-15.0) H 07/07/23 05:11 Plt Count 168 10^3/uL (130-450) 07/07/23 05:11 MPV 9.7 fL (7.9-10.8) 07/07/23 05:11 Neut # (Auto) 4.8 10^3/uL (1.5-6.6) 07/07/23 05:11 Lymph # (Auto) 0.6 10^3/uL (1.5-3.5) L 07/07/23 05:11 [place] # (Auto) 0.3 10^3/uL (0.0-1.0) 07/07/23 05:11 Eos # (Auto) 0.1 10^3/uL (0.0-0.7) 07/07/23 05:11 Baso # (Auto) 0.0 10^3/uL (0.0-0.1) 07/07/23 05:11 Absolute Nucleated RBC 0.00 x10^3/uL 07/07/23 05:11 Nucleated RBC % 0.0 /100WBC 07/07/23 05:11 PT 11.5 secs (9.9-12.6) 07/04/23 22:07 INR 1.1 (0.8-1.2) 07/04/23 22:07 VBG pH 7.372 (7.31-7.41) 07/04/23 22:07 VBG pCO2 40.2 mmHg (41-51) L 07/04/23 22:07 VBG pO2 32.7 mmHg (25-47) 07/04/23 22:07 VBG HCO3 22.8 mmol/L (23-28) L 07/04/23 22:07 VBG Total CO2 24.1 mmol/L (24-29) 07/04/23 22:07 VBG O2 Saturation 65.3 % (60-80) 07/04/23 22:07 VBG Base Excess -2.2 mmol/L (-2 - +2) L 07/04/23 22:07 Sodium 138 mmol/L (135-145) 07/07/23 05:11 Potassium 4.4 mmol/L (3.5-4.5) 07/07/23 05:11 Chloride 107 mmol/L (101-111) 07/07/23 05:11 Carbon Dioxide 26 mmol/L (21-32) 07/07/23 05:11 Anion Gap 5.0 (6-13) L 07/07/23 05:11 BUN 42 mg/dL (6-20) H 07/07/23 05:11 Creatinine 2.0 mg/dL (0.6-1.3) H 07/07/23 05:11 Estimated GFR (MDRD) 24 (>89) L 07/07/23 05:11 Glucose 199 mg/dL (74-104) H 07/07/23 05:11 POC Whole Bld Glucose 193 mg/dL (70 - 100) H 07/07/23 11:05 Estimat Average Glucose 160 mg/dL (70-100) H 07/05/23 04:23 Hemoglobin A1c % 7.2 % (4.27-6.07) H 07/05/23 04:23 Lactic Acid 1.1 mmol/L (0.5-2.2) 07/05/23 04:23 Calcium 8.3 mg/dL (8.5-10.3) L 07/07/23 05:11 Phosphorus 3.9 mg/dL (2.5-5.0) 07/05/23 04:23 Magnesium 1.7 mg/dL (1.7-2.3) 07/07/23 05:11 Total Bilirubin 0.3 mg/dL (0.2-1.0) 07/04/23 22:07 AST 20 IU/L (10-42) 07/04/23 22:07 ALT 12 IU/L (10-60) 07/04/23 22:07 Alkaline Phosphatase 81 IU/L (42-121) 07/04/23 22:07 Ammonia 15.8 umol/L (18-72) L 07/05/23 05:34 Total Protein 6.1 g/dL (6.4-8.9) L 07/04/23 22:07 Albumin 3.1 g/dL (3.2-5.5) L 07/05/23 04:23 Globulin 3.0 g/dL (2.1-4.2) 07/04/23 22:07 Albumin/Globulin Ratio 1.0 (1.0-2.2) 07/04/23 22:07 Triglycerides 113 mg/dL (48-352) 07/05/23 04:23 Cholesterol 122 mg/dL (-200) 07/05/23 04:23 LDL Cholesterol, Calc 62 mg/dL (-129) 07/05/23 04:23 VLDL Cholesterol 23 mg/dL 07/05/23 04:23 HDL Cholesterol 37 mg/dL (60-) L 07/05/23 04:23 LDL/HDL Ratio 1.7 (<4.4) 07/05/23 04:23 Cholesterol/HDL Ratio 3.3 (<4.4) 07/05/23 04:23 Lipase 17 U/L (11-82) 07/04/23 22:07 Procalcitonin Immunoas 0.20 ng/mL (<0.5) 07/05/23 04:23 TSH 4.75 uIU/mL (0.34-5.60) 07/05/23 04:23 Nasal Adenovirus (PCR) NOT DETECTED 07/05/23 01:00 Nasal B. parapertussis DNA (PCR) NOT DETECTED 07/05/23 01:00 Nasal Coronavir 229E PCR NOT DETECTED 07/05/23 01:00 Nasal Coronavir HKU1 PCR NOT DETECTED 07/05/23 01:00 Nasal Coronavir NL63 PCR NOT DETECTED 07/05/23 01:00 Nasal Coronavir OC43 PCR NOT DETECTED 07/05/23 01:00 Nasal Enterovir/Rhinovir PCR NOT DETECTED 07/05/23 01:00 Nasal Influenza B PCR NOT DETECTED 07/05/23 01:00 Nasal Influenza A PCR NOT DETECTED 07/05/23 01:00 Nasal Parainfluen 1 PCR NOT DETECTED 07/05/23 01:00 Nasal Parainfluen 2 PCR NOT DETECTED 07/05/23 01:00 Nasal Parainfluen 3 PCR NOT DETECTED 07/05/23 01:00 Nasal Parainfluen 4 PCR NOT DETECTED 07/05/23 01:00 Nasal RSV (PCR) NOT DETECTED 07/05/23 01:00 Nasal Screen MRSA (PCR) POSITIVE (NEGATIVE) A* 07/05/23 04:28 Nasal B.pertussis DNA PCR NOT DETECTED 07/05/23 01:00 Nasal C.pneumoniae (PCR) NOT DETECTED 07/05/23 01:00 [place]ance Human Metapneumo PCR NOT DETECTED 07/05/23 01:00 Nasal M.pneumoniae (PCR) NOT DETECTED 07/05/23 01:00 Nasal SARS-CoV-2 (PCR) NOT DETECTED 07/05/23 01:00 - Procedures Procedures: Procedures DILATION OF COMMON BILE DUCT, ENDO (08/05/22) DRAINAGE OF PERITONEAL CAVITY, PERCUTANEOUS APPROACH (06/12/23) EXCISION OF ASCENDING COLON, ENDO, DIAGN (10/11/16) EXCISION OF TRANSVERSE COLON, ENDO, DIAGN (10/11/16) EXTIRPATION OF MATTER FROM COMMON BILE DUCT, ENDO (08/05/22) INSERTION OF INFUSION DEV INTO SUP VENA CAVA, PERC APPROACH (01/17/21)
[2023-07-07] MEDS: MORPHINE 2 MG/ML CARPUJECT IVP STA (14:57)
[2023-07-07] MEDS: ALBUMIN 25% 12.5 GM/50 ML VIAL IV STA (15:09)
--- NOTE | 2023-07-07 16:04 | XRAY Report ---
PROCEDURE: Chest 1V INDICATIONS: Worse resp distress TECHNIQUE: One view of the chest was acquired. COMPARISON: 07/04/2023. Correlation is also made with chest CT, 07/05/2023. FINDINGS: Surgical changes and devices: None. Lungs and pleura: The lung volumes are again seen. The known small bilateral pleural effusions are o bscured on this study. No pneumothorax is seen. Mild interstitial prominence can be seen. Mediastinum: Mediastinal contours appear normal. Heart size is mildly enlarged. Bones and chest wall: No suspicious bony lesions. Age-appropriate degenerative changes are seen. Overlying soft tissues appear unremarkable. IMPRESSION: Low lung volumes, with mild interstitial prominence. There is mild cardiomegaly. Reviewed by: Bimal Hyatt MD on 07/07/2023 3:02 PM [facility] Approved by: Bimal Hyatt MD on 07/07/2023 3:02 PM [facility] Station ID: [id number]
[2023-07-07] MEDS: MIDODRINE 2.5 MG TABLET PO SCH (17:25)
[2023-07-07] MEDS ORDERED: MORPHINE 2 MG/ML CARPUJECT IVP PRN (17:54)
[2023-07-07] MEDS: MORPHINE 2 MG/ML CARPUJECT IVP PRN (22:56)
[2023-07-07] MEDS: SODIUM CHLORIDE FLUSH 0.9% 10 ML SYRINGE IVP PRN (22:58)
[2023-07-08 06:11] LABS: CALCIUM 8.6 mg/dL (8.5-10.3); CREATININE 1.8 mg/dL (0.6-1.3); POTASSIUM 4.8 mmol/L (3.5-4.5)
[2023-07-08 06:50] LABS: BASOPHILS % (AUTO) 0.4 %; EOSINOPHILS # (AUTO) 0.1 10^3/uL (0.0-0.7); EOSINOPHILS % (AUTO) 1.2 %; HCT - HEMATOCRIT 32.3 % (37.0-47.0); HGB - HEMOGLOBIN 9.1 g/dL (12.0-16.0); LYMPHOCYTES # (AUTO) 0.7 10^3/uL (1.5-3.5); LYMPHOCYTES % (AUTO) 9.9 %; MEAN CORPUSCULAR HEMOGLOBIN 25.1 pg (27.0-31.0); MEAN CORPUSCULAR HGB CONC 28.2 g/dL (32.0-36.0); MEAN PLATELET VOLUME 9.3 fL (7.9-10.8); MONOCYTES # (AUTO) 0.4 10^3/uL (0.0-1.0); MONOCYTES % (AUTO) 6.5 %; NEUTROPHILS # (AUTO) 5.5 10^3/uL (1.5-6.6); NEUTROPHILS % (AUTO) 81.9 %; PLT - PLATELET COUNT 180 10^3/uL (130-450); RED BLOOD COUNT 3.63 10^6/uL (4.20-5.40); RED CELL DISTRIBUTION WIDTH 15.9 % (12.0-15.0); WHITE BLOOD COUNT 6.7 x10^3/uL (4.8-10.8)
[2023-07-08] MEDS: SPIRONOLACTONE 25 MG TABLET PO SCH (09:22)
--- NOTE | 2023-07-08 12:04 | PROVIDER PROGRESS NOTE ---
Assessment/Plan - Problem List (1) Acute respiratory failure with hypoxia Assessment/Plan: Her SOB was caused by pna + tense ascites. The ascites was tapped and we are treating the pna. She is still needing suppl O2 to achieve O2 sat 92% Plan: Cont suppl O2, target sat 92% or above Cont to treat each underlying Dx (2) HCAP (healthcare-associated pneumonia) Assessment/Plan: Resp viral panel NEG She has had a cough but has had minimal expectoration therefore has produced no sputum for sample to send for culture Plan: I will cancel obtaining the sputum sample for culture since she has been on antibiotics for over 3 days and Treat as hcap d/t recent hospitalization with iv vanc + cefepime I made her scheduled DuoNebs just prn, since the patient says they do not really help Cont Mucinex to help expectorate. She may be a candidate to get chest physical therapy with the vest (3) Tense ascites Assessment/Plan: This is recurrent and is from [place]. It was contributing to her resp failure Her scheduled paracentesis was moved up and was done 07/05, 4L was removed and she feels better, and she notices it is re-accumulating. As on last adm, she has become orthostatic when she has 4L of ascites removed. At the last admission, the orthostasis lasted ~4 days Plan: Cont Spironolactone She thought her re-accumulation of ascites was from the aortic stenosis, and I educated her that her ascites is from her liver disease. (4) Orthostatic hypotension Assessment/Plan: As on last adm, she has become orthostatic when has 4L ascites fluid removed, which was done 2 days ago. At the last admission, the orthostasis lasted ~4 days. 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 She had a renal sono and results were unremarkable (except large ascites was reported then) Plan: Avoid nephrotoxins Renally dose her meds (6) Generalized weakness Assessment/Plan: Multifactorial Plan: Supportive mgmt PT and OT eval and treat She will need to return to [facility] where she was already undergoing rehab from the last recent hospitalization (7) Aortic stenosis, severe Assessment/Plan: She had an Echo in 02/2023 (4 mos ago) that showed severe , with a preserved LVEF of 60% At late afternoon, she was tachypneic and diaphoretic and I examine her and rales were heard. I ordered HOB elevated. A CXR was done 07/07 for sudden orthopnea and it showed mild interstitial changes (CHF) Plan: When her BP will tolerate it, she needs a higher dose of Spironolactone and/or Lasix She thought her re-accumulation of ascites was from the aortic stenosis, and I educated her that her ascites is from her liver disease. She mentioned that she will be seeing a Robotics Testing Technician in mid-Jul. - Current Meds Current Meds: Current Medications Generic Name Dose Route Start Last Admin Trade Name Freq PRN Reason Stop Dose Admin Alcohol 1 amp 07/05/23 09:00 07/08/23 09:22 Ethyl Alcohol 62% Swab Ampule VANCE 1 amp BID EDUARDA Administration Ascorbic Acid 500 mg 07/05/23 09:00 07/08/23 09:21 Ascorbic Acid 500 Mg Tablet PO 500 mg DAILY EDUARDA Administration Atorvastatin Calcium 40 mg 07/05/23 09:00 07/08/23 09:21 Atorvastatin 40 Mg Tablet PO 40 mg DAILY EDUARDA Administration Cyanocobalamin 500 mcg 07/05/23 09:00 07/08/23 09:21 Cyanocobalamin 500 Mcg Tablet PO 500 mcg DAILY EDUARDA Administration Heparin Sodium (Porcine) 5,000 unit 07/05/23 09:00 07/08/23 09:11 Heparin 5,000 Unit/Ml Vial SUBQ 5,000 unit BID EDUARDA Administration Cefepime HCl 2 gm/ Sodium 100 mls @ 200 mls/hr 07/05/23 06:00 07/08/23 06:00 Chloride IV Infused Q24H EDUARDA Infusion Vancomycin HCl 1 gm/ Sodium 250 mls @ 166.667 mls/hr 07/06/23 12:00 07/08/23 03:09 Chloride IV Infused Q36H EDUARDA Infusion Ibuprofen 600 mg 07/06/23 11:59 07/06/23 12:31 Ibuprofen 600 Mg Tablet PO 600 mg Q6HR PRN Administration Mild Pain (Level 1-3) Insulin Human Lispro 1 - 9 unit 07/05/23 08:00 07/08/23 11:48 Insulin Lispro 300 Unit/3 Ml Pen SUBQ 3 unit 0800,1200,1700,2100 EDUARDA Administration Protocol Levothyroxine Sodium 25 mcg 07/05/23 07:00 07/08/23 06:48 Levothyroxine 25 Mcg Tablet PO 25 mcg QDAC EDUARDA Administration Magnesium Oxide 400 mg 07/05/23 12:00 07/08/23 08:12 Magnesium Oxide 400 Mg Tablet PO 400 mg DAILYWM EDUARDA Administration Metoprolol Succinate 25 mg 07/05/23 16:00 07/07/23 16:35 Metoprolol Succinate 25 Mg Tablet PO 25 mg 1600 EDUARDA Administration Midodrine 5 mg 07/07/23 17:00 07/08/23 08:11 Midodrine 2.5 Mg Tablet PO 5 mg TIDWM EDUARDA Administration Morphine Sulfate 1 mg 07/07/23 17:58 07/08/23 09:30 Morphine 2 Mg/Ml Carpuject IVP 1 mg Q6HR PRN Administration Dyspnea Multivitamins 1 tab 07/05/23 08:00 07/08/23 08:12 Multivitamin Tablet PO 1 tab DAILYWM EDUARDA Administration Pantoprazole Sodium 40 mg 07/05/23 09:00 07/08/23 09:21 Pantoprazole 40 Mg Tablet PO 40 mg BID EDUARDA Administration Saccharomyces Boulardii 250 mg 07/05/23 08:00 07/08/23 08:12 Saccharomyces Boulardii 250 Mg Capsule PO 250 mg BIDWM EDUARDA Administration Sertraline HCl 100 mg 07/05/23 09:00 07/08/23 09:22 Sertraline 50 Mg Tablet PO 100 mg DAILY EDUARDA Administration Sodium Chloride 10 ml 07/05/23 02:32 07/08/23 06:48 Sodium Chloride Flush 0.9% 10 Ml Syringe IVP 10 ml PRN PRN Administration NEEDED PER PROVIDER ORDERS Sodium Chloride 10 ml 07/05/23 09:00 07/08/23 09:22 Sodium Chloride Flush 0.9% 10 Ml Syringe IVP 10 ml 0100,0900,1700 EDUARDA Administration Spironolactone 50 mg 07/08/23 09:00 07/08/23 09:22 Spironolactone 25 Mg Tablet PO 50 mg DAILY EDUARDA Administration - Lab Result Fish Bone Diagrams: 07/08/23 06:44 07/08/23 05:11 - Additional Planning My Orders: My Active Orders 07/07/23 17:00 Midodrine [ProAmatine] 5 mg PO TIDWM 07/07/23 17:58 Morphine Inj (Carpuject) [Morphine (Carpuject)] 1 mg IVP Q6HR PRN 07/08/23 09:00 Spironolactone [Aldactone] 50 mg PO DAILY Subjective - Subjective Patient Reports: Feeling Better (She said "I feel better when my head of bed is elevated and I can eat in upright position") Objective Vital Signs: Vital Signs - 24 hr 07/07/23 07/07/23 07/07/23 12:26 15:28 16:32 Temperature 36.6 C 36.8 C Heart Rate [ 82 92 81 Brachial] Respiratory 24 28 H Rate Blood Pressure 126/72 175/85 H 115/67 [Left Brachial artery] Blood Pressure [Right Brachial artery] O2 Saturation 97 97 99 If not protocol 1 2 2 : Oxygen Flow, liters/minute 07/07/23 07/07/23 07/07/23 19:15 19:32 22:58 Temperature 36.5 C Heart Rate [ 80 Brachial] Respiratory 20 Rate Blood Pressure 138/79 H 124/67 [Left Brachial artery] Blood Pressure [Right Brachial artery] O2 Saturation 96 99 If not protocol 2 2 2 : Oxygen Flow, liters/minute 07/07/23 07/08/23 07/08/23 23:38 04:57 07:28 Temperature 36.7 C 36.7 C 36.8 C Heart Rate [ 80 79 76 Brachial] Respiratory 20 20 18 Rate Blood Pressure 119/68 [Left Brachial artery] Blood Pressure 104/68 100/68 [Right Brachial artery] O2 Saturation 99 98 92 If not protocol 2 2 2 : Oxygen Flow, liters/minute 07/08/23 11:05 Temperature 37.0 C Heart Rate [ 86 Brachial] Respiratory 18 Rate Blood Pressure 136/79 H [Left Brachial artery] Blood Pressure [Right Brachial artery] O2 Saturation 100 If not protocol 2 : Oxygen Flow, liters/minute Oxygen O2 Source Nasal cannula I&O (Last 24 Hrs): Intake and Output Totals x24h 07/06/23 07/07/23 07/08/23 23:59 23:59 23:59 Intake Total 910 1290 830 Output Total 300 600 250 Balance 610 690 580 General: Alert, Oriented x3, Other (Appears tired) HEENT: Mucous membr. moist/pink Neck: Supple Neuro: Alert, Non Focal, Other (Has generalized weakness) Cardiovascular: Regular rate, No murmurs Respiratory: No respiratory distress (while on suppl O2 and at rest, sitting up vertically in bed), Rhonchi Abdomen: Other (Moderately distended, more tense than yesterday, nontender) Extremities: No clubbing, Other (Trace ankle edema) - Results Results: Laboratory Results WBC 6.7 x10^3/uL (4.8-10.8) 07/08/23 06:44 RBC 3.63 10^6/uL (4.20-5.40) L 07/08/23 06:44 Hgb 9.1 g/dL (12.0-16.0) L 07/08/23 06:44 Hct 32.3 % (37.0-47.0) L 07/08/23 06:44 MCV 89.0 fL (81.0-99.0) 07/08/23 06:44 MCH 25.1 pg (27.0-31.0) L 07/08/23 06:44 MCHC 28.2 g/dL (32.0-36.0) L 07/08/23 06:44 RDW 15.9 % (12.0-15.0) H 07/08/23 06:44 Plt Count 180 10^3/uL (130-450) 07/08/23 06:44 MPV 9.3 fL (7.9-10.8) 07/08/23 06:44 Neut # (Auto) 5.5 10^3/uL (1.5-6.6) 07/08/23 06:44 Lymph # (Auto) 0.7 10^3/uL (1.5-3.5) L 07/08/23 06:44 [place] # (Auto) 0.4 10^3/uL (0.0-1.0) 07/08/23 06:44 Eos # (Auto) 0.1 10^3/uL (0.0-0.7) 07/08/23 06:44 Baso # (Auto) 0.0 10^3/uL (0.0-0.1) 07/08/23 06:44 Absolute Nucleated RBC 0.00 x10^3/uL 07/08/23 06:44 Nucleated RBC % 0.0 /100WBC 07/08/23 06:44 PT 11.5 secs (9.9-12.6) 07/04/23 22:07 INR 1.1 (0.8-1.2) 07/04/23 22:07 VBG pH 7.372 (7.31-7.41) 07/04/23 22:07 VBG pCO2 40.2 mmHg (41-51) L 07/04/23 22:07 VBG pO2 32.7 mmHg (25-47) 07/04/23 22:07 VBG HCO3 22.8 mmol/L (23-28) L 07/04/23 22:07 VBG Total CO2 24.1 mmol/L (24-29) 07/04/23 22:07 VBG O2 Saturation 65.3 % (60-80) 07/04/23 22:07 VBG Base Excess -2.2 mmol/L (-2 - +2) L 07/04/23 22:07 Sodium 136 mmol/L (135-145) 07/08/23 05:11 Potassium 4.8 mmol/L (3.5-4.5) H 07/08/23 05:11 Chloride 107 mmol/L (101-111) 07/08/23 05:11 Carbon Dioxide 24 mmol/L (21-32) 07/08/23 05:11 Anion Gap 5.0 (6-13) L 07/08/23 05:11 BUN 39 mg/dL (6-20) H 07/08/23 05:11 Creatinine 1.8 mg/dL (0.6-1.3) H 07/08/23 05:11 Estimated GFR (MDRD) 27 (>89) L 07/08/23 05:11 Glucose 165 mg/dL (74-104) H 07/08/23 05:11 POC Whole Bld Glucose 196 mg/dL (70 - 100) H 07/08/23 11:01 Estimat Average Glucose 160 mg/dL (70-100) H 07/05/23 04:23 Hemoglobin A1c % 7.2 % (4.27-6.07) H 07/05/23 04:23 Lactic Acid 1.1 mmol/L (0.5-2.2) 07/05/23 04:23 Calcium 8.6 mg/dL (8.5-10.3) 07/08/23 05:11 Phosphorus 3.9 mg/dL (2.5-5.0) 07/05/23 04:23 Magnesium 1.7 mg/dL (1.7-2.3) 07/07/23 05:11 Total Bilirubin 0.3 mg/dL (0.2-1.0) 07/04/23 22:07 AST 20 IU/L (10-42) 07/04/23 22:07 ALT 12 IU/L (10-60) 07/04/23 22:07 Alkaline Phosphatase 81 IU/L (42-121) 07/04/23 22:07 Ammonia 15.8 umol/L (18-72) L 07/05/23 05:34 Total Protein 6.1 g/dL (6.4-8.9) L 07/04/23 22:07 Albumin 3.1 g/dL (3.2-5.5) L 07/05/23 04:23 Globulin 3.0 g/dL (2.1-4.2) 07/04/23 22:07 Albumin/Globulin Ratio 1.0 (1.0-2.2) 07/04/23 22:07 Triglycerides 113 mg/dL (48-352) 07/05/23 04:23 Cholesterol 122 mg/dL (-200) 07/05/23 04:23 LDL Cholesterol, Calc 62 mg/dL (-129) 07/05/23 04:23 VLDL Cholesterol 23 mg/dL 07/05/23 04:23 HDL Cholesterol 37 mg/dL (60-) L 07/05/23 04:23 LDL/HDL Ratio 1.7 (<4.4) 07/05/23 04:23 Cholesterol/HDL Ratio 3.3 (<4.4) 07/05/23 04:23 Lipase 17 U/L (11-82) 07/04/23 22:07 Procalcitonin Immunoas 0.20 ng/mL (<0.5) 07/05/23 04:23 TSH 4.75 uIU/mL (0.34-5.60) 07/05/23 04:23 Nasal Adenovirus (PCR) NOT DETECTED 07/05/23 01:00 Nasal B. parapertussis DNA (PCR) NOT DETECTED 07/05/23 01:00 Nasal Coronavir 229E PCR NOT DETECTED 07/05/23 01:00 Nasal Coronavir HKU1 PCR NOT DETECTED 07/05/23 01:00 Nasal Coronavir NL63 PCR NOT DETECTED 07/05/23 01:00 Nasal Coronavir OC43 PCR NOT DETECTED 07/05/23 01:00 Nasal Enterovir/Rhinovir PCR NOT DETECTED 07/05/23 01:00 Nasal Influenza B PCR NOT DETECTED 07/05/23 01:00 Nasal Influenza A PCR NOT DETECTED 07/05/23 01:00 Nasal Parainfluen 1 PCR NOT DETECTED 07/05/23 01:00 Nasal Parainfluen 2 PCR NOT DETECTED 07/05/23 01:00 Nasal Parainfluen 3 PCR NOT DETECTED 07/05/23 01:00 Nasal Parainfluen 4 PCR NOT DETECTED 07/05/23 01:00 Nasal RSV (PCR) NOT DETECTED 07/05/23 01:00 Nasal Screen MRSA (PCR) POSITIVE (NEGATIVE) A* 07/05/23 04:28 Nasal B.pertussis DNA PCR NOT DETECTED 07/05/23 01:00 Nasal C.pneumoniae (PCR) NOT DETECTED 07/05/23 01:00 Vance Human Metapneumo PCR NOT DETECTED 07/05/23 01:00 Nasal M.pneumoniae (PCR) NOT DETECTED 07/05/23 01:00 Nasal SARS-CoV-2 (PCR) NOT DETECTED 07/05/23 01:00 - Procedures Procedures: Procedures DILATION OF COMMON BILE DUCT, ENDO (08/05/22) DRAINAGE OF PERITONEAL CAVITY, PERCUTANEOUS APPROACH (06/12/23) EXCISION OF ASCENDING COLON, ENDO, DIAGN (10/11/16) EXCISION OF TRANSVERSE COLON, ENDO, DIAGN (10/11/16) EXTIRPATION OF MATTER FROM COMMON BILE DUCT, ENDO (08/05/22) INSERTION OF INFUSION DEV INTO SUP VENA CAVA, PERC APPROACH (01/17/21)
[2023-07-08] MEDS: ZINC OXIDE 20% OINT 30 GM TUBE TOP PRN (12:32)
[2023-07-08] MEDS: guaiFENesin 600 MG TABLET PO SCH (21:20)
[2023-07-09] MEDS: IPRATROPIUM/ALBUTEROL 3 ML NEB INH PRN (12:50)
--- NOTE | 2023-07-09 21:39 | PROVIDER PROGRESS NOTE ---
Doctor Of Radiology Note - Doctor Of Radiology Note Doctor Of Radiology Note: RN paged "Patient has become short of breath, repositioned her helped; increased o2 to 3L which she is sating 97% with respirations in the high 20s. She has morphine ordered, which helps, but it is only q6 Please consider decreasing the frequency of the morphine or adding ativan; which I think will help with her anxiety and her breathing. Andrei" chart reviewed. patient is not a comfort care hospice patient. giving morphine to suppress air hunger is not appropriate. ativan in the elderly certainly will not help resp status either. certainly will make patient more drowsy and sleep more and less verbal but not help with breathing. to improve resp status, cons ider breathing treatments. reviewed med list and last duoneb given around noon today. certainly patient resp status will improve with more freq duoneb. Amber Barrera DO [facility]
--- NOTE | 2023-07-09 23:17 | PROVIDER PROGRESS NOTE ---
Assessment/Plan - Problem List (1) Acute respiratory failure with hypoxia Assessment/Plan: Etiology of shortness of breath is not clear but most likely is multifactorial in nature and secondary to underlying valvular heart disease, lung disease, and most importantly significant cirrhotic liver disease. The etiology of the liver disease is not known but most likely is related to fatty liver disease. During this hospitalization she has been treated with IV vancomycin and cefepime for possible healthcare associated pneumonia. Plan: Continue supportive care with oxygen. (2) HCAP (healthcare-associated pneumonia) Assessment/Plan: Patient has completed a course of broad-spectrum antibiotic coverage with IV vancomycin and cefepime for a possible healthcare associated pneumonia. It is unclear at this time if patient truly had pneumonia. (3) Tense ascites Assessment/Plan: Patient has chronic ascites. CT scan of the abdomen pelvis performed on July 04, 2023 reveals a liver that has nodular contour consistent with cirrhosis and a large amount of ascites. Patient also has a left pleural effusion. The study also demonstrated mild diverticulosis without acute diverticulitis and multiple chronic compression fractures with severe compression of T12 and moderate compression fracture of T3 and T4. (4) Orthostatic hypotension Assessment/Plan: Orthostatic hypotension most likely related to underlying liver disease. 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 She had a renal sono and results were unremarkable (except large ascites was reported then) Plan: Avoid nephrotoxins Renally dose her meds (6) Generalized weakness Assessment/Plan: Multifactorial Plan: Supportive mgmt Patient has been refusing physical therapy. (7) Aortic stenosis, severe Assessment/Plan: She had an Echo in 02/2023 (4 mos ago) that showed severe , with a preserved LVEF of 60% At late afternoon, she was tachypneic and diaphoretic and I examine her and rales were heard. I ordered HOB elevated. A CXR was done 07/07 for sudden orthopnea and it showed mild interstitial changes (CHF) Plan: When her BP will tolerate it, she needs a higher dose of Spironolactone and/or Lasix She thought her re-accumulation of ascites was from the aortic stenosis, and I educated her that her ascites is from her liver disease. She mentioned that she will be seeing a [facility] in mid-Jul. - Current Meds Current Meds: Current Medications Generic Name Dose Route Start Last Admin Trade Name Freq PRN Reason Stop Dose Admin Albuterol/Ipratropium 3 ml 07/06/23 18:26 07/09/23 12:50 Ipratropium/Albuterol 3 Ml Neb INH 3 ml RTTID PRN Administration Wheezing Alcohol 1 amp 07/05/23 09:00 07/09/23 20:30 Ethyl Alcohol 62% Swab Ampule VANCE 1 amp BID EDUARDA Administration Ascorbic Acid 500 mg 07/05/23 09:00 07/09/23 08:59 Ascorbic Acid 500 Mg Tablet PO 500 mg DAILY EDUARDA Administration Atorvastatin Calcium 40 mg 07/05/23 09:00 07/09/23 08:58 Atorvastatin 40 Mg Tablet PO 40 mg DAILY EDUARDA Administration Cyanocobalamin 500 mcg 07/05/23 09:00 07/09/23 08:58 Cyanocobalamin 500 Mcg Tablet PO 500 mcg DAILY EDUARDA Administration Guaifenesin 600 mg 07/08/23 21:00 07/09/23 20:29 Guaifenesin 600 Mg Tablet PO 600 mg BID EDUARDA Administration Heparin Sodium (Porcine) 5,000 unit 07/05/23 09:00 07/09/23 20:31 Heparin 5,000 Unit/Ml Vial SUBQ 5,000 unit BID EDUARDA Administration Cefepime HCl 2 gm/ Sodium 100 mls @ 200 mls/hr 07/05/23 06:00 07/09/23 06:53 Chloride IV 07/09/23 23:59 Infused Q24H EDUARDA Infusion Vancomycin HCl 1 gm/ Sodium 250 mls @ 166.667 mls/hr 07/06/23 12:00 07/09/23 13:58 Chloride IV 07/09/23 23:59 Infused Q36H EDUARDA Infusion Ibuprofen 600 mg 07/06/23 11:59 07/08/23 19:33 Ibuprofen 600 Mg Tablet PO 600 mg Q6HR PRN Administration Mild Pain (Level 1-3) Insulin Human Lispro 1 - 9 unit 07/05/23 08:00 07/09/23 20:30 Insulin Lispro 300 Unit/3 Ml Pen SUBQ 5 unit 0800,1200,1700,2100 EDUARDA Administration Protocol Levothyroxine Sodium 25 mcg 07/05/23 07:00 07/09/23 06:06 Levothyroxine 25 Mcg Tablet PO 25 mcg QDAC EDUARDA Administration Magnesium Oxide 400 mg 07/05/23 12:00 07/09/23 08:58 Magnesium Oxide 400 Mg Tablet PO 400 mg DAILYWM EDUARDA Administration Metoprolol Succinate 25 mg 07/05/23 16:00 07/09/23 15:40 Metoprolol Succinate 25 Mg Tablet PO 25 mg 1600 EDUARDA Administration Midodrine 5 mg 07/07/23 17:00 07/09/23 17:12 Midodrine 2.5 Mg Tablet PO 5 mg TIDWM EDUARDA Administration Morphine Sulfate 1 mg 07/07/23 17:58 07/09/23 17:36 Morphine 2 Mg/Ml Carpuject IVP 1 mg Q6HR PRN Administration Dyspnea Multi-Ingredient Ointment 1 applic 07/05/23 04:33 07/08/23 19:34 Zinc Oxide 20% Oint 30 Gm Tube TOP 1 applic PRN PRN Administration Skin Care Multivitamins 1 tab 07/05/23 08:00 07/09/23 08:58 Multivitamin Tablet PO 1 tab DAILYWM EDUARDA Administration Pantoprazole Sodium 40 mg 07/05/23 09:00 07/09/23 20:29 Pantoprazole 40 Mg Tablet PO 40 mg BID EDUARDA Administration Saccharomyces Boulardii 250 mg 07/05/23 08:00 07/09/23 17:12 Saccharomyces Boulardii 250 Mg Capsule PO 250 mg BIDWM EDUARDA Administration Sertraline HCl 100 mg 07/05/23 09:00 07/09/23 08:58 Sertraline 50 Mg Tablet PO 100 mg DAILY EDUARDA Administration Sodium Chloride 10 ml 07/05/23 02:32 07/08/23 22:36 Sodium Chloride Flush 0.9% 10 Ml Syringe IVP 10 ml PRN PRN Administration NEEDED PER PROVIDER ORDERS Sodium Chloride 10 ml 07/05/23 09:00 07/09/23 15:40 Sodium Chloride Flush 0.9% 10 Ml Syringe IVP 10 ml 0100,0900,1700 EDUARDA Administration Spironolactone 50 mg 07/08/23 09:00 07/09/23 08:59 Spironolactone 25 Mg Tablet PO 50 mg DAILY EDUARDA Administration - Lab Result Fish Bone Diagrams: 07/12/23 10:25 07/12/23 10:25 Subjective - Subjective Patient Reports: Other (Alert. Continues to complain of shortness of breath. No other complaints at this time.) Objective Vital Signs: Vital Signs - 24 hr 07/08/23 07/09/23 07/09/23 23:31 07:30 07:32 Temperature 36.4 C L 36.5 C Heart Rate Heart Rate [ 72 74 Brachial] Respiratory 18 20 Rate Blood Pressure 127/70 111/59 L [Left Brachial artery] O2 Saturation 98 94 If not protocol 2 2 2 : Oxygen Flow, liters/minute 07/09/23 07/09/23 07/09/23 11:39 12:50 15:21 Temperature 36.6 C 36.8 C Heart Rate 84 Heart Rate [ 76 78 Brachial] Respiratory 18 24 18 Rate Blood Pressure 128/65 110/58 L [Left Brachial artery] O2 Saturation 100 98 If not protocol 2 2 2 : Oxygen Flow, liters/minute 07/09/23 07/09/23 20:28 21:20 Temperature 37 C Heart Rate Heart Rate [ 81 92 Brachial] Respiratory 18 25 H Rate Blood Pressure 123/61 180/89 H [Left Brachial artery] O2 Saturation 97 97 If not protocol 2 3 : Oxygen Flow, liters/minute Oxygen O2 Source Nasal cannula I&O (Last 24 Hrs): Intake and Output Totals x24h 07/07/23 07/08/23 07/09/23 23:59 23:59 23:59 Intake Total 1290 1270 1770 Output Total 600 400 200 Balance 160 060 4846 General: Alert, Oriented x3 HEENT: PERRLA Neck: Supple, No JVD, No thyromegaly Neuro: Alert, Non Focal Cardiovascular: Other (Positive S1-S2 grade 3/6 systolic ejection murmur at left lower sternal border) Respiratory: Other (Fair air exchange in all lung dc. No wheezing no crackles.) Abdomen: Normal bowel sounds, Soft, No tenderness Skin: No rashes - Results Results: Laboratory Results WBC 6.7 x10^3/uL (4.8-10.8) 07/08/23 06:44 RBC 3.63 10^6/uL (4.20-5.40) L 07/08/23 06:44 Hgb 9.1 g/dL (12.0-16.0) L 07/08/23 06:44 Hct 32.3 % (37.0-47.0) L 07/08/23 06:44 MCV 89.0 fL (81.0-99.0) 07/08/23 06:44 MCH 25.1 pg (27.0-31.0) L 07/08/23 06:44 MCHC 28.2 g/dL (32.0-36.0) L 07/08/23 06:44 RDW 15.9 % (12.0-15.0) H 07/08/23 06:44 Plt Count 180 10^3/uL (130-450) 07/08/23 06:44 MPV 9.3 fL (7.9-10.8) 07/08/23 06:44 Neut # (Auto) 5.5 10^3/uL (1.5-6.6) 07/08/23 06:44 Lymph # (Auto) 0.7 10^3/uL (1.5-3.5) L 07/08/23 06:44 [place] # (Auto) 0.4 10^3/uL (0.0-1.0) 07/08/23 06:44 Eos # (Auto) 0.1 10^3/uL (0.0-0.7) 07/08/23 06:44 Baso # (Auto) 0.0 10^3/uL (0.0-0.1) 07/08/23 06:44 Absolute Nucleated RBC 0.00 x10^3/uL 07/08/23 06:44 Nucleated RBC % 0.0 /100WBC 07/08/23 06:44 PT 11.5 secs (9.9-12.6) 07/04/23 22:07 INR 1.1 (0.8-1.2) 07/04/23 22:07 VBG pH 7.372 (7.31-7.41) 07/04/23 22:07 VBG pCO2 40.2 mmHg (41-51) L 07/04/23 22:07 VBG pO2 32.7 mmHg (25-47) 07/04/23 22:07 VBG HCO3 22.8 mmol/L (23-28) L 07/04/23 22:07 VBG Total CO2 24.1 mmol/L (24-29) 07/04/23 22:07 VBG O2 Saturation 65.3 % (60-80) 07/04/23 22:07 VBG Base Excess -2.2 mmol/L (-2 - +2) L 07/04/23 22:07 Sodium 136 mmol/L (135-145) 07/08/23 05:11 Potassium 4.8 mmol/L (3.5-4.5) H 07/08/23 05:11 Chloride 107 mmol/L (101-111) 07/08/23 05:11 Carbon Dioxide 24 mmol/L (21-32) 07/08/23 05:11 Anion Gap 5.0 (6-13) L 07/08/23 05:11 BUN 39 mg/dL (6-20) H 07/08/23 05:11 Creatinine 1.8 mg/dL (0.6-1.3) H 07/08/23 05:11 Estimated GFR (MDRD) 27 (>89) L 07/08/23 05:11 Glucose 165 mg/dL (74-104) H 07/08/23 05:11 POC Whole Bld Glucose 234 mg/dL (70 - 100) H 07/09/23 20:30 Estimat Average Glucose 160 mg/dL (70-100) H 07/05/23 04:23 Hemoglobin A1c % 7.2 % (4.27-6.07) H 07/05/23 04:23 Lactic Acid 1.1 mmol/L (0.5-2.2) 07/05/23 04:23 Calcium 8.6 mg/dL (8.5-10.3) 07/08/23 05:11 Phosphorus 3.9 mg/dL (2.5-5.0) 07/05/23 04:23 Magnesium 1.7 mg/dL (1.7-2.3) 07/07/23 05:11 Total Bilirubin 0.3 mg/dL (0.2-1.0) 07/04/23 22:07 AST 20 IU/L (10-42) 07/04/23 22:07 ALT 12 IU/L (10-60) 07/04/23 22:07 Alkaline Phosphatase 81 IU/L (42-121) 07/04/23 22:07 Ammonia 15.8 umol/L (18-72) L 07/05/23 05:34 Total Protein 6.1 g/dL (6.4-8.9) L 07/04/23 22:07 Albumin 3.1 g/dL (3.2-5.5) L 07/05/23 04:23 Globulin 3.0 g/dL (2.1-4.2) 07/04/23 22:07 Albumin/Globulin Ratio 1.0 (1.0-2.2) 07/04/23 22:07 Triglycerides 113 mg/dL (48-352) 07/05/23 04:23 Cholesterol 122 mg/dL (-200) 07/05/23 04:23 LDL Cholesterol, Calc 62 mg/dL (-129) 07/05/23 04:23 VLDL Cholesterol 23 mg/dL 07/05/23 04:23 HDL Cholesterol 37 mg/dL (60-) L 07/05/23 04:23 LDL/HDL Ratio 1.7 (<4.4) 07/05/23 04:23 Cholesterol/HDL Ratio 3.3 (<4.4) 07/05/23 04:23 Lipase 17 U/L (11-82) 07/04/23 22:07 Procalcitonin Immunoas 0.20 ng/mL (<0.5) 07/05/23 04:23 TSH 4.75 uIU/mL (0.34-5.60) 07/05/23 04:23 Nasal Adenovirus (PCR) NOT DETECTED 07/05/23 01:00 Nasal B. parapertussis DNA (PCR) NOT DETECTED 07/05/23 01:00 Nasal Coronavir 229E PCR NOT DETECTED 07/05/23 01:00 Nasal Coronavir HKU1 PCR NOT DETECTED 07/05/23 01:00 Nasal Coronavir NL63 PCR NOT DETECTED 07/05/23 01:00 Nasal Coronavir OC43 PCR NOT DETECTED 07/05/23 01:00 Nasal Enterovir/Rhinovir PCR NOT DETECTED 07/05/23 01:00 Nasal Influenza B PCR NOT DETECTED 07/05/23 01:00 Nasal Influenza A PCR NOT DETECTED 07/05/23 01:00 Nasal Parainfluen 1 PCR NOT DETECTED 07/05/23 01:00 Nasal Parainfluen 2 PCR NOT DETECTED 07/05/23 01:00 Nasal Parainfluen 3 PCR NOT DETECTED 07/05/23 01:00 Nasal Parainfluen 4 PCR NOT DETECTED 07/05/23 01:00 Nasal RSV (PCR) NOT DETECTED 07/05/23 01:00 Nasal Screen MRSA (PCR) POSITIVE (NEGATIVE) A* 07/05/23 04:28 Nasal B.pertussis DNA PCR NOT DETECTED 07/05/23 01:00 Nasal C.pneumoniae (PCR) NOT DETECTED 07/05/23 01:00 Vance Human Metapneumo PCR NOT DETECTED 07/05/23 01:00 Nasal M.pneumoniae (PCR) NOT DETECTED 07/05/23 01:00 Nasal SARS-CoV-2 (PCR) NOT DETECTED 07/05/23 01:00 - Procedures Procedures: Procedures DILATION OF COMMON BILE DUCT, ENDO (08/05/22) DRAINAGE OF PERITONEAL CAVITY, PERCUTANEOUS APPROACH (06/12/23) EXCISION OF ASCENDING COLON, ENDO, DIAGN (10/11/16) EXCISION OF TRANSVERSE COLON, ENDO, DIAGN (10/11/16) EXTIRPATION OF MATTER FROM COMMON BILE DUCT, ENDO (08/05/22) INSERTION OF INFUSION DEV INTO SUP VENA CAVA, PERC APPROACH (01/17/21) ABX Reporting Has patient been on IV antibiotics over the past 48 hours?: Yes Current Medications - Current Medications Current Medications: Active Medications Albuterol (Albuterol Neb 2.5 Mg/3 Ml) 2.5 mg INH RTQ4H PRN PRN Reason: Wheezing Albuterol/Ipratropium (Ipratropium/Albuterol 3 Ml Neb) 3 ml INH RTTID PRN PRN Reason: Wheezing Last Admin: 07/09/23 12:50 Dose: 3 ml Alcohol (Ethyl Alcohol 62% Swab Ampule) 1 amp VANCE BID [facility] Last Admin: 07/09/23 20:30 Dose: 1 amp Ascorbic Acid (Ascorbic Acid 500 Mg Tablet) 500 mg PO DAILY [facility] Last Admin: 07/09/23 08:59 Dose: 500 mg Atorvastatin Calcium (Atorvastatin 40 Mg Tablet) 40 mg PO DAILY [facility] Last Admin: 07/09/23 08:58 Dose: 40 mg Benzonatate (Benzonatate 100 Mg Capsule) 100 mg PO TID PRN PRN Reason: Cough Cyanocobalamin (Cyanocobalamin 500 Mcg Tablet) 500 mcg PO DAILY [facility] Last Admin: 07/09/23 08:58 Dose: 500 mcg Guaifenesin (Guaifenesin 600 Mg Tablet) 600 mg PO BID [facility] Last Admin: 07/09/23 20:29 Dose: 600 mg Heparin Sodium (Porcine) (Heparin 5,000 Unit/Ml Vial) 5,000 unit SUBQ BID [facility] Last Admin: 07/09/23 20:31 Dose: 5,000 unit Cefepime HCl 2 gm/ Sodium (Chloride) 100 mls @ 200 mls/hr IV Q24H [facility] Stop: 07/09/23 23:59 Last Infusion: 07/09/23 06:53 Dose: Infused Vancomycin HCl 1 gm/ Sodium (Chloride) 250 mls @ 166.667 mls/hr IV Q36H [facility] Stop: 07/09/23 23:59 Last Infusion: 07/09/23 13:58 Dose: Infused Ibuprofen (Ibuprofen 600 Mg Tablet) 600 mg PO Q6HR PRN PRN Reason: Mild Pain (Level 1-3) Last Admin: 07/08/23 19:33 Dose: 600 mg Insulin Human Lispro (Insulin Lispro 300 Unit/3 Ml Pen) 1 - 9 unit SUBQ 0800,1200,1700,2100 [facility]; Protocol Last Admin: 07/09/23 20:30 Dose: 5 unit Levothyroxine Sodium (Levothyroxine 25 Mcg Tablet) 25 mcg PO QDAC [facility] Last Admin: 07/09/23 06:06 Dose: 25 mcg Magnesium Oxide (Magnesium Oxide 400 Mg Tablet) 400 mg PO DAILYWM [facility] Last Admin: 07/09/23 08:58 Dose: 400 mg Metoprolol Succinate (Metoprolol Succinate 25 Mg Tablet) 25 mg PO 1600 [facility] Last Admin: 07/09/23 15:40 Dose: 25 mg Midodrine (Midodrine 2.5 Mg Tablet) 5 mg PO TIDWM [facility] Last Admin: 07/09/23 17:12 Dose: 5 mg Morphine Sulfate (Morphine 2 Mg/Ml Carpuject) 1 mg IVP Q6HR PRN PRN Reason: Dyspnea Last Admin: 07/09/23 17:36 Dose: 1 mg Multi-Ingredient Ointment (Zinc Oxide 20% Oint 30 Gm Tube) 1 applic TOP PRN PRN PRN Reason: Skin Care Last Admin: 07/08/23 19:34 Dose: 1 applic Multivitamins (Multivitamin Tablet) 1 tab PO DAILYWM [facility] Last Admin: 07/09/23 08:58 Dose: 1 tab Ondansetron HCl (Ondansetron 4 Mg/2 Ml Vial) 4 mg IVP Q6HR PRN PRN Reason: Nausea / Vomiting Pantoprazole Sodium (Pantoprazole 40 Mg Tablet) 40 mg PO BID [facility] Last Admin: 07/09/23 20:29 Dose: 40 mg Saccharomyces Boulardii (Saccharomyces Boulardii 250 Mg Capsule) 250 mg PO BIDWM [facility] Last Admin: 07/09/23 17:12 Dose: 250 mg Sertraline HCl (Sertraline 50 Mg Tablet) 100 mg PO DAILY [facility] Last Admin: 07/09/23 08:58 Dose: 100 mg Sodium Chloride (Sodium Chloride Flush 0.9% 10 Ml Syringe) 10 ml IVP PRN PRN PRN Reason: NEEDED PER PROVIDER ORDERS Last Admin: 07/08/23 22:36 Dose: 10 ml Sodium Chloride (Sodium Chloride Flush 0.9% 10 Ml Syringe) 10 ml IVP 0100,0900,1700 [facility] Last Admin: 07/09/23 15:40 Dose: 10 ml Spironolactone (Spironolactone 25 Mg Tablet) 50 mg PO DAILY [facility] Last Admin: 07/09/23 08:59 Dose: 50 mg Metoprolol Succinate [Toprol Xl] 25 mg PO DAILY 08/05/22 Albuterol Sulf [Ventolin Hfa Inhaler] 2 puffs INH TID PRN 02/21/23 Ferrous Sulfate [Feosol] 325 mg PO MOWEFR 07/05/23 Furosemide [Lasix] 20 mg PO DAILY 07/05/23 Lactobacillus Combination No.4 [Probiotic] 1 cap PO DAILY 07/05/23 Potassium Chloride 20 meq PO DAILY 07/05/23
[2023-07-10] MEDS ORDERED: hydrOXYzine 50 MG/ML VIAL IM PRN (05:16)
--- NOTE | 2023-07-10 18:00 | PROVIDER PROGRESS NOTE ---
Assessment/Plan - Problem List (1) Acute respiratory failure with hypoxia Assessment/Plan: Etiology of shortness of breath is not clear but most likely is multifactorial in nature and secondary to underlying valvular heart disease, lung disease, and most importantly significant cirrhotic liver disease. The etiology of the liver disease is not known but most likely is related to fatty liver disease. During this hospitalization she has been treated with IV vancomycin and cefepime for possible healthcare associated pneumonia. Plan: Continue supportive care with oxygen. (2) HCAP (healthcare-associated pneumonia) Assessment/Plan: Patient has completed a course of broad-spectrum antibiotic coverage with IV vancomycin and cefepime for a possible healthcare associated pneumonia. It is unclear at this time if patient truly had pneumonia. (3) Tense ascites Assessment/Plan: Patient has chronic ascites. CT scan of the abdomen pelvis performed on July 04, 2023 reveals a liver that has nodular contour consistent with cirrhosis and a large amount of ascites. Patient also has a left pleural effusion. The study also demonstrated mild diverticulosis without acute diverticulitis and multiple chronic compression fractures with severe compression of T12 and moderate compression fracture of T3 and T4. (4) Orthostatic hypotension Assessment/Plan: Orthostatic hypotension most likely related to underlying liver disease. 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 She had a renal sono and results were unremarkable (except large ascites was reported then) Plan: Avoid nephrotoxins Renally dose her meds (6) Generalized weakness Assessment/Plan: Multifactorial Plan: Supportive mgmt Patient has been refusing physical therapy. (7) Aortic stenosis, severe Assessment/Plan: She had an Echo in 02/2023 (4 mos ago) that showed severe , with a preserved LVEF of 60% At late afternoon, she was tachypneic and diaphoretic and I examine her and rales were heard. I ordered HOB elevated. A CXR was done 07/07 for sudden orthopnea and it showed mild interstitial changes (CHF) Plan: When her BP will tolerate it, she needs a higher dose of Spironolactone and/or Lasix She thought her re-accumulation of ascites was from the aortic stenosis, and I educated her that her ascites is from her liver disease. She mentioned that she will be seeing a Laundry Room Attendant in mid-Jul. - Current Meds Current Meds: Current Medications Generic Name Dose Route Start Last Admin Trade Name Freq PRN Reason Stop Dose Admin Albuterol/Ipratropium 3 ml 07/06/23 18:26 07/10/23 17:32 Ipratropium/Albuterol 3 Ml Neb INH 3 ml RTTID PRN Administration Wheezing Alcohol 1 amp 07/05/23 09:00 07/10/23 08:35 Ethyl Alcohol 62% Swab Ampule VANCE 1 amp BID EDUARDA Administration Ascorbic Acid 500 mg 07/05/23 09:00 07/10/23 08:36 Ascorbic Acid 500 Mg Tablet PO 500 mg DAILY EDUARDA Administration Atorvastatin Calcium 40 mg 07/05/23 09:00 07/10/23 08:35 Atorvastatin 40 Mg Tablet PO 40 mg DAILY EDUARDA Administration Cyanocobalamin 500 mcg 07/05/23 09:00 07/10/23 08:35 Cyanocobalamin 500 Mcg Tablet PO 500 mcg DAILY EDUARDA Administration Guaifenesin 600 mg 07/08/23 21:00 07/10/23 08:35 Guaifenesin 600 Mg Tablet PO 600 mg BID EDUARDA Administration Heparin Sodium (Porcine) 5,000 unit 07/05/23 09:00 07/10/23 08:31 Heparin 5,000 Unit/Ml Vial SUBQ 5,000 unit BID EDUARDA Administration Ibuprofen 600 mg 07/06/23 11:59 07/08/23 19:33 Ibuprofen 600 Mg Tablet PO 600 mg Q6HR PRN Administration Mild Pain (Level 1-3) Insulin Human Lispro 1 - 9 unit 07/05/23 08:00 07/10/23 17:12 Insulin Lispro 300 Unit/3 Ml Pen SUBQ 1 unit 0800,1200,1700,2100 EDUARDA Administration Protocol Levothyroxine Sodium 25 mcg 07/05/23 07:00 07/10/23 06:14 Levothyroxine 25 Mcg Tablet PO 25 mcg QDAC EDUARDA Administration Magnesium Oxide 400 mg 07/05/23 12:00 07/10/23 08:35 Magnesium Oxide 400 Mg Tablet PO 400 mg DAILYWM EDUARDA Administration Metoprolol Succinate 25 mg 07/05/23 16:00 07/10/23 15:51 Metoprolol Succinate 25 Mg Tablet PO 25 mg 1600 EDUARDA Administration Midodrine 5 mg 07/07/23 17:00 07/10/23 17:12 Midodrine 2.5 Mg Tablet PO 5 mg TIDWM EDUARDA Administration Morphine Sulfate 1 mg 07/07/23 17:58 07/10/23 17:15 Morphine 2 Mg/Ml Carpuject IVP 1 mg Q6HR PRN Administration Dyspnea Multi-Ingredient Ointment 1 applic 07/05/23 04:33 07/08/23 19:34 Zinc Oxide 20% Oint 30 Gm Tube TOP 1 applic PRN PRN Administration Skin Care Multivitamins 1 tab 07/05/23 08:00 07/10/23 08:35 Multivitamin Tablet PO 1 tab DAILYWM EDUARDA Administration Pantoprazole Sodium 40 mg 07/05/23 09:00 07/10/23 08:35 Pantoprazole 40 Mg Tablet PO 40 mg BID EDUARDA Administration Saccharomyces Boulardii 250 mg 07/05/23 08:00 07/10/23 17:12 Saccharomyces Boulardii 250 Mg Capsule PO 250 mg BIDWM EDUARDA Administration Sertraline HCl 100 mg 07/05/23 09:00 07/10/23 08:35 Sertraline 50 Mg Tablet PO 100 mg DAILY EDUARDA Administration Sodium Chloride 10 ml 07/05/23 02:32 07/08/23 22:36 Sodium Chloride Flush 0.9% 10 Ml Syringe IVP 10 ml PRN PRN Administration NEEDED PER PROVIDER ORDERS Sodium Chloride 10 ml 07/05/23 09:00 07/10/23 15:52 Sodium Chloride Flush 0.9% 10 Ml Syringe IVP 10 ml 0100,0900,1700 EDUARDA Administration Spironolactone 50 mg 07/08/23 09:00 07/10/23 08:35 Spironolactone 25 Mg Tablet PO 50 mg DAILY EDUARDA Administration - Lab Result Fish Bone Diagrams: 07/12/23 10:25 07/12/23 10:25 Subjective - Subjective Patient Reports: Other (Alert. Appears to be mildly more confused than yesterday. She did not know the town, month or year.She continues to complain of shortness of breath.) Objective Vital Signs: Vital Signs - 24 hr 07/09/23 07/09/23 07/09/23 20:28 21:20 22:00 Temperature 37 C Heart Rate Heart Rate [ 81 92 Brachial] Respiratory 18 25 H Rate Blood Pressure 123/61 180/89 H [Left Brachial artery] O2 Saturation 97 97 If not protocol 2 3 2 : Oxygen Flow, liters/minute 07/09/23 07/10/23 07/10/23 23:48 07:00 08:00 Temperature 37.1 C 36.8 C Heart Rate Heart Rate [ 83 89 Brachial] Respiratory 16 22 Rate Blood Pressure 131/85 H 100/63 [Left Brachial artery] O2 Saturation 98 90 L If not protocol 2 2 : Oxygen Flow, liters/minute 07/10/23 07/10/23 07/10/23 08:30 08:45 11:00 Temperature Heart Rate Heart Rate [ Brachial] Respiratory Rate Blood Pressure [Left Brachial artery] O2 Saturation 91 L 90 L 92 If not protocol 2 4 2 : Oxygen Flow, liters/minute 07/10/23 07/10/23 07/10/23 15:49 17:15 17:33 Temperature 36.8 C Heart Rate 77 Heart Rate [ 83 Brachial] Respiratory 20 24 17 Rate Blood Pressure 119/64 [Left Brachial artery] O2 Saturation 96 97 If not protocol 2 2 2 : Oxygen Flow, liters/minute 07/10/23 17:34 Temperature Heart Rate Heart Rate [ Brachial] Respiratory Rate Blood Pressure [Left Brachial artery] O2 Saturation If not protocol 2 : Oxygen Flow, liters/minute Oxygen O2 Source Nasal cannula I&O (Last 24 Hrs): Intake and Output Totals x24h 07/08/23 07/09/23 07/10/23 23:59 23:59 23:59 Intake Total 1270 1770 460 Output Total 400 200 Balance 870 1570 460 General: Alert, Cooperative HEENT: Atraumatic Neck: Supple, No JVD Neuro: Alert, Non Focal Cardiovascular: Other (Positive S1-S2. Grade 3/6 systolic ejection murmur at left lower sternal border.) Respiratory: Other (Good air exchange in all lung dc no wheezing no crackles.) Abdomen: Normal bowel sounds, Soft, No tenderness, Other (Positive ascites.) Extremities: No cyanosis, No edema Skin: No rashes - Results Results: Laboratory Results WBC 6.7 x10^3/uL (4.8-10.8) 07/08/23 06:44 RBC 3.63 10^6/uL (4.20-5.40) L 07/08/23 06:44 Hgb 9.1 g/dL (12.0-16.0) L 07/08/23 06:44 Hct 32.3 % (37.0-47.0) L 07/08/23 06:44 MCV 89.0 fL (81.0-99.0) 07/08/23 06:44 MCH 25.1 pg (27.0-31.0) L 07/08/23 06:44 MCHC 28.2 g/dL (32.0-36.0) L 07/08/23 06:44 RDW 15.9 % (12.0-15.0) H 07/08/23 06:44 Plt Count 180 10^3/uL (130-450) 07/08/23 06:44 MPV 9.3 fL (7.9-10.8) 07/08/23 06:44 Neut # (Auto) 5.5 10^3/uL (1.5-6.6) 07/08/23 06:44 Lymph # (Auto) 0.7 10^3/uL (1.5-3.5) L 07/08/23 06:44 Stark # (Auto) 0.4 10^3/uL (0.0-1.0) 07/08/23 06:44 Eos # (Auto) 0.1 10^3/uL (0.0-0.7) 07/08/23 06:44 Baso # (Auto) 0.0 10^3/uL (0.0-0.1) 07/08/23 06:44 Absolute Nucleated RBC 0.00 x10^3/uL 07/08/23 06:44 Nucleated RBC % 0.0 /100WBC 07/08/23 06:44 PT 11.5 secs (9.9-12.6) 07/04/23 22:07 INR 1.1 (0.8-1.2) 07/04/23 22:07 VBG pH 7.372 (7.31-7.41) 07/04/23 22:07 VBG pCO2 40.2 mmHg (41-51) L 07/04/23 22:07 VBG pO2 32.7 mmHg (25-47) 07/04/23 22:07 VBG HCO3 22.8 mmol/L (23-28) L 07/04/23 22:07 VBG Total CO2 24.1 mmol/L (24-29) 07/04/23 22:07 VBG O2 Saturation 65.3 % (60-80) 07/04/23 22:07 VBG Base Excess -2.2 mmol/L (-2 - +2) L 07/04/23 22:07 Sodium 136 mmol/L (135-145) 07/08/23 05:11 Potassium 4.8 mmol/L (3.5-4.5) H 07/08/23 05:11 Chloride 107 mmol/L (101-111) 07/08/23 05:11 Carbon Dioxide 24 mmol/L (21-32) 07/08/23 05:11 Anion Gap 5.0 (6-13) L 07/08/23 05:11 BUN 39 mg/dL (6-20) H 07/08/23 05:11 Creatinine 1.8 mg/dL (0.6-1.3) H 07/08/23 05:11 Estimated GFR (MDRD) 27 (>89) L 07/08/23 05:11 Glucose 165 mg/dL (74-104) H 07/08/23 05:11 POC Whole Bld Glucose 173 mg/dL (70 - 100) H 07/10/23 11:41 Estimat Average Glucose 160 mg/dL (70-100) H 07/05/23 04:23 Hemoglobin A1c % 7.2 % (4.27-6.07) H 07/05/23 04:23 Lactic Acid 1.1 mmol/L (0.5-2.2) 07/05/23 04:23 Calcium 8.6 mg/dL (8.5-10.3) 07/08/23 05:11 Phosphorus 3.9 mg/dL (2.5-5.0) 07/05/23 04:23 Magnesium 1.7 mg/dL (1.7-2.3) 07/07/23 05:11 Total Bilirubin 0.3 mg/dL (0.2-1.0) 07/04/23 22:07 AST 20 IU/L (10-42) 07/04/23 22:07 ALT 12 IU/L (10-60) 07/04/23 22:07 Alkaline Phosphatase 81 IU/L (42-121) 07/04/23 22:07 Ammonia 15.8 umol/L (18-72) L 07/05/23 05:34 Total Protein 6.1 g/dL (6.4-8.9) L 07/04/23 22:07 Albumin 3.1 g/dL (3.2-5.5) L 07/05/23 04:23 Globulin 3.0 g/dL (2.1-4.2) 07/04/23 22:07 Albumin/Globulin Ratio 1.0 (1.0-2.2) 07/04/23 22:07 Triglycerides 113 mg/dL (48-352) 07/05/23 04:23 Cholesterol 122 mg/dL (-200) 07/05/23 04:23 LDL Cholesterol, Calc 62 mg/dL (-129) 07/05/23 04:23 VLDL Cholesterol 23 mg/dL 07/05/23 04:23 HDL Cholesterol 37 mg/dL (60-) L 07/05/23 04:23 LDL/HDL Ratio 1.7 (<4.4) 07/05/23 04:23 Cholesterol/HDL Ratio 3.3 (<4.4) 07/05/23 04:23 Lipase 17 U/L (11-82) 07/04/23 22:07 Procalcitonin Immunoas 0.20 ng/mL (<0.5) 07/05/23 04:23 TSH 4.75 uIU/mL (0.34-5.60) 07/05/23 04:23 Nasal Adenovirus (PCR) NOT DETECTED 07/05/23 01:00 Nasal B. parapertussis DNA (PCR) NOT DETECTED 07/05/23 01:00 Nasal Coronavir 229E PCR NOT DETECTED 07/05/23 01:00 Nasal Coronavir HKU1 PCR NOT DETECTED 07/05/23 01:00 Nasal Coronavir NL63 PCR NOT DETECTED 07/05/23 01:00 Nasal Coronavir OC43 PCR NOT DETECTED 07/05/23 01:00 Nasal Enterovir/Rhinovir PCR NOT DETECTED 07/05/23 01:00 Nasal Influenza B PCR NOT DETECTED 07/05/23 01:00 Nasal Influenza A PCR NOT DETECTED 07/05/23 01:00 Nasal Parainfluen 1 PCR NOT DETECTED 07/05/23 01:00 Nasal Parainfluen 2 PCR NOT DETECTED 07/05/23 01:00 Nasal Parainfluen 3 PCR NOT DETECTED 07/05/23 01:00 Nasal Parainfluen 4 PCR NOT DETECTED 07/05/23 01:00 Nasal RSV (PCR) NOT DETECTED 07/05/23 01:00 Nasal Screen MRSA (PCR) POSITIVE (NEGATIVE) A* 07/05/23 04:28 Nasal B.pertussis DNA PCR NOT DETECTED 07/05/23 01:00 Nasal C.pneumoniae (PCR) NOT DETECTED 07/05/23 01:00 Vance Human Metapneumo PCR NOT DETECTED 07/05/23 01:00 Nasal M.pneumoniae (PCR) NOT DETECTED 07/05/23 01:00 Nasal SARS-CoV-2 (PCR) NOT DETECTED 07/05/23 01:00 - Procedures Procedures: Procedures DILATION OF COMMON BILE DUCT, ENDO (08/05/22) DRAINAGE OF PERITONEAL CAVITY, PERCUTANEOUS APPROACH (06/12/23) EXCISION OF ASCENDING COLON, ENDO, DIAGN (10/11/16) EXCISION OF TRANSVERSE COLON, ENDO, DIAGN (10/11/16) EXTIRPATION OF MATTER FROM COMMON BILE DUCT, ENDO (08/05/22) INSERTION OF INFUSION DEV INTO SUP VENA CAVA, PERC APPROACH (01/17/21) ABX Reporting Has patient been on IV antibiotics over the past 48 hours?: No Current Medications - Current Medications Current Medications: Active Medications Albuterol (Albuterol Neb 2.5 Mg/3 Ml) 2.5 mg INH RTQ4H PRN PRN Reason: Wheezing Albuterol/Ipratropium (Ipratropium/Albuterol 3 Ml Neb) 3 ml INH RTTID PRN PRN Reason: Wheezing Last Admin: 07/10/23 17:32 Dose: 3 ml Alcohol (Ethyl Alcohol 62% Swab Ampule) 1 amp VANCE BID [facility] Last Admin: 07/10/23 08:35 Dose: 1 amp Ascorbic Acid (Ascorbic Acid 500 Mg Tablet) 500 mg PO DAILY [facility] Last Admin: 07/10/23 08:36 Dose: 500 mg Atorvastatin Calcium (Atorvastatin 40 Mg Tablet) 40 mg PO DAILY [facility] Last Admin: 07/10/23 08:35 Dose: 40 mg Benzonatate (Benzonatate 100 Mg Capsule) 100 mg PO TID PRN PRN Reason: Cough Cyanocobalamin (Cyanocobalamin 500 Mcg Tablet) 500 mcg PO DAILY [facility] Last Admin: 07/10/23 08:35 Dose: 500 mcg Guaifenesin (Guaifenesin 600 Mg Tablet) 600 mg PO BID [facility] Last Admin: 07/10/23 08:35 Dose: 600 mg Heparin Sodium (Porcine) (Heparin 5,000 Unit/Ml Vial) 5,000 unit SUBQ BID [facility] Last Admin: 07/10/23 08:31 Dose: 5,000 unit Ibuprofen (Ibuprofen 600 Mg Tablet) 600 mg PO Q6HR PRN PRN Reason: Mild Pain (Level 1-3) Last Admin: 07/08/23 19:33 Dose: 600 mg Insulin Human Lispro (Insulin Lispro 300 Unit/3 Ml Pen) 1 - 9 unit SUBQ 0800,1200,1700,2100 [facility]; Protocol Last Admin: 07/10/23 17:12 Dose: 1 unit Levothyroxine Sodium (Levothyroxine 25 Mcg Tablet) 25 mcg PO QDAC [facility] Last Admin: 07/10/23 06:14 Dose: 25 mcg Magnesium Oxide (Magnesium Oxide 400 Mg Tablet) 400 mg PO DAILYWM [facility] Last Admin: 07/10/23 08:35 Dose: 400 mg Metoprolol Succinate (Metoprolol Succinate 25 Mg Tablet) 25 mg PO 1600 [facility] Last Admin: 07/10/23 15:51 Dose: 25 mg Midodrine (Midodrine 2.5 Mg Tablet) 5 mg PO TIDWM [facility] Last Admin: 07/10/23 17:12 Dose: 5 mg Morphine Sulfate (Morphine 2 Mg/Ml Carpuject) 1 mg IVP Q6HR PRN PRN Reason: Dyspnea Last Admin: 07/10/23 17:15 Dose: 1 mg Multi-Ingredient Ointment (Zinc Oxide 20% Oint 30 Gm Tube) 1 applic TOP PRN PRN PRN Reason: Skin Care Last Admin: 07/08/23 19:34 Dose: 1 applic Multivitamins (Multivitamin Tablet) 1 tab PO DAILYWM [facility] Last Admin: 07/10/23 08:35 Dose: 1 tab Ondansetron HCl (Ondansetron 4 Mg/2 Ml Vial) 4 mg IVP Q6HR PRN PRN Reason: Nausea / Vomiting Pantoprazole Sodium (Pantoprazole 40 Mg Tablet) 40 mg PO BID [facility] Last Admin: 07/10/23 08:35 Dose: 40 mg Saccharomyces Boulardii (Saccharomyces Boulardii 250 Mg Capsule) 250 mg PO BIDWM [facility] Last Admin: 07/10/23 17:12 Dose: 250 mg Sertraline HCl (Sertraline 50 Mg Tablet) 100 mg PO DAILY [facility] Last Admin: 07/10/23 08:35 Dose: 100 mg Sodium Chloride (Sodium Chloride Flush 0.9% 10 Ml Syringe) 10 ml IVP PRN PRN PRN Reason: NEEDED PER PROVIDER ORDERS Last Admin: 07/08/23 22:36 Dose: 10 ml Sodium Chloride (Sodium Chloride Flush 0.9% 10 Ml Syringe) 10 ml IVP 0100,0900,1700 [facility] Last Admin: 07/10/23 15:52 Dose: 10 ml Spironolactone (Spironolactone 25 Mg Tablet) 50 mg PO DAILY [facility] Last Admin: 07/10/23 08:35 Dose: 50 mg Metoprolol Succinate [Toprol Xl] 25 mg PO DAILY 08/05/22 Albuterol Sulf [Ventolin Hfa Inhaler] 2 puffs INH TID PRN 02/21/23 Ferrous Sulfate [Feosol] 325 mg PO MOWEFR 07/05/23 Furosemide [Lasix] 20 mg PO DAILY 07/05/23 Lactobacillus Combination No.4 [Probiotic] 1 cap PO DAILY 07/05/23 Potassium Chloride 20 meq PO DAILY 07/05/23
--- NOTE | 2023-07-10 20:08 | PROVIDER PROGRESS NOTE ---
Passenger Vessel Chef Note - Passenger Vessel Chef Note Passenger Vessel Chef Note: RN paged "Dx: PNA, RF, Ascites Patient is complaining of difficulty breathing. O2 sat 94% on 2L NC. Pt had paracentesis done on 07/05 and they removed 4L NC. Patient had the same episode earlier and was given morphine and breathing treatment with little relief. Patient has morphine PRN ordered Q6H for dyspnea and it was given around 1715. It's too early to give another dose. Can patient get another dose now? She is also very anxious. Thanks" being on last night and addressing patient's anxiety, patient was ordered hydroxyzine for anxiety. avoiding ativan given age. see previous notes. since hydroxyzine was DIScontinue however RN requesting treatment for patient's anxiety, night team is at a lost what is best path forward. ultimately for the sake of patient's care and using proper treatment for anxiety and not morphine, will restart hydroxyzine and hope day hospitalist will address anxiety if he wants an alternative to hydroxyzine. Amber Barrera DO [facility]
[2023-07-10] MEDS: hydrOXYzine 50 MG/ML VIAL IM PRN (20:16)
[2023-07-10 23:33] LABS: MAGNESIUM 1.7 mg/dL (1.7-2.3); PHOSPHORUS 3.4 mg/dL (2.5-5.0)
[2023-07-11 05:29] LABS: BASOPHILS % (AUTO) 0.2 %; EOSINOPHILS # (AUTO) 0.1 10^3/uL (0.0-0.7); EOSINOPHILS % (AUTO) 1.2 %; HCT - HEMATOCRIT 30.6 % (37.0-47.0); HGB - HEMOGLOBIN 8.9 g/dL (12.0-16.0); LYMPHOCYTES # (AUTO) 0.9 10^3/uL (1.5-3.5); LYMPHOCYTES % (AUTO) 15.7 %; MEAN CORPUSCULAR HEMOGLOBIN 25.6 pg (27.0-31.0); MEAN CORPUSCULAR HGB CONC 29.1 g/dL (32.0-36.0); MEAN CORPUSCULAR VOLUME 87.9 fL (81.0-99.0); MEAN PLATELET VOLUME 9.4 fL (7.9-10.8); MONOCYTES # (AUTO) 0.5 10^3/uL (0.0-1.0); MONOCYTES % (AUTO) 9.1 %; NEUTROPHILS # (AUTO) 4.4 10^3/uL (1.5-6.6); NEUTROPHILS % (AUTO) 73.6 %; PLT - PLATELET COUNT 182 10^3/uL (130-450); RED BLOOD COUNT 3.48 10^6/uL (4.20-5.40); RED CELL DISTRIBUTION WIDTH 16.7 % (12.0-15.0); WHITE BLOOD COUNT 5.9 x10^3/uL (4.8-10.8)
[2023-07-11 05:47] LABS: CALCIUM 9.1 mg/dL (8.5-10.3); CREATININE 2.3 mg/dL (0.6-1.3); POTASSIUM 5.7 mmol/L (3.5-4.5)
[2023-07-11] MEDS: SODIUM ZIRCONIUM CYCLOSILICATE 5 GM PACKET PO ONE (08:28)
--- NOTE | 2023-07-11 17:18 | XRAY Report ---
PROCEDURE: Chest 1V INDICATIONS: Acute change in oxygenation and mental status TECHNIQUE: One view of the chest was acquired. COMPARISON: 07/07/2023 FINDINGS: Surgical changes and devices: None. Lungs and pleura: Diffuse alveolar opacities throughout both lungs, most confluent in the mid to low er lung zones. No pneumothorax. Mediastinum: The heart is enlarged and obscured. Central vasculature is diffusely prominent. Bones and chest wall: No suspicious bony lesions. Overlying soft tissues appear unremarkable. IMPRESSION: Significant bilateral alveolar opacities and basilar densities suggesting ARDS or significant pulmona ry edema. This is a significant change compared to the prior exam. Reviewed by: Belgica Mabry MD on 07/11/2023 5:16 PM PST Approved by: Belgica Mabry MD on 07/11/2023 5:16 PM PST Station ID: [id number]
[2023-07-11 17:41] LABS: BASOPHILS # (AUTO) 0.1 10^3/uL (0.0-0.1); BASOPHILS % (AUTO) 0.4 %; EOSINOPHILS # (AUTO) 0.1 10^3/uL (0.0-0.7); EOSINOPHILS % (AUTO) 0.8 %; HCT - HEMATOCRIT 33.3 % (37.0-47.0); HGB - HEMOGLOBIN 9.6 g/dL (12.0-16.0); LYMPHOCYTES # (AUTO) 0.8 10^3/uL (1.5-3.5); LYMPHOCYTES % (AUTO) 6.3 %; MEAN CORPUSCULAR HEMOGLOBIN 25.7 pg (27.0-31.0); MEAN CORPUSCULAR HGB CONC 28.8 g/dL (32.0-36.0); MEAN CORPUSCULAR VOLUME 89.3 fL (81.0-99.0); MEAN PLATELET VOLUME 9.3 fL (7.9-10.8); MONOCYTES # (AUTO) 0.7 10^3/uL (0.0-1.0); MONOCYTES % (AUTO) 5.2 %; NEUTROPHILS # (AUTO) 11.3 10^3/uL (1.5-6.6); NEUTROPHILS % (AUTO) 86.5 %; PLT - PLATELET COUNT 371 10^3/uL (130-450); RED BLOOD COUNT 3.73 10^6/uL (4.20-5.40); RED CELL DISTRIBUTION WIDTH 16.6 % (12.0-15.0); WHITE BLOOD COUNT 13.1 x10^3/uL (4.8-10.8)
[2023-07-11 18:11] LABS: ALBUMIN 3.1 g/dL (3.2-5.5); BILIRUBIN,TOTAL 0.2 mg/dL (0.2-1.0); CALCIUM 8.9 mg/dL (8.5-10.3); CREATININE 2.5 mg/dL (0.6-1.3); MAGNESIUM 1.9 mg/dL (1.7-2.3); POTASSIUM 5.5 mmol/L (3.5-4.5); TOTAL PROTEIN 6.3 g/dL (6.4-8.9)
[2023-07-11 18:28] LABS: SLIDE REVIEW? Indicated
[2023-07-11 18:29] LABS: PLATELET ESTIMATE, MANUAL NORMAL (130-450,000) (NORMAL); PLATELET MORPHOLOGY NORMAL APPEARANCE (NORMAL)
[2023-07-11 18:45] LABS: ABG BASE EXCESS -5.6 mmol/L (-2.0-3.0); ABG HCO3 24.2 mmol/L (22.0-26.0); ABG OXYGEN SATURATION 94 % (94-98); ABG PO2 88 mmHg (80-100); ABG TCO2 26.5 MMOL/L (21.0-29.0)
[2023-07-11 18:47] LABS: ABG PCO2 74 mmHg (34-45); ABG PH 7.14 (7.35-7.45)
[2023-07-11 18:48] LABS: ABG RESPIRATORY RATE 8 b/min; ALLEN TEST POSITIVE
[2023-07-11] MEDS: FUROSEMIDE 40 MG/4 ML VIAL IVP SCH (19:59)
[2023-07-11] MEDS: IPRATROPIUM/ALBUTEROL 3 ML NEB INH SCH (20:40)
[2023-07-11 20:44] LABS: ABG PCO2 54 mmHg (34-45); ABG PH 7.26 (7.35-7.45)
[2023-07-11 20:45] LABS: ABG BASE EXCESS -3.5 mmol/L (-2.0-3.0); ABG HCO3 23.8 mmol/L (22.0-26.0); ABG OXYGEN SATURATION 99 % (94-98); ABG TCO2 25.4 MMOL/L (21.0-29.0)
[2023-07-11 20:47] LABS: ABG MODE OF VENTILATION SYNCHRONOUS/TIMES; ABG PO2 158 mmHg (80-100); ABG RESPIRATORY RATE 8 b/min; ALLEN TEST POSITIVE
--- NOTE | 2023-07-11 20:55 | PROVIDER PROGRESS NOTE ---
Assessment/Plan - Problem List (1) Acute respiratory failure with hypoxia Assessment/Plan: Etiology of shortness of breath is not clear but most likely is multifactorial in nature and secondary to underlying valvular heart disease, lung disease, and most importantly significant cirrhotic liver disease. The etiology of the liver disease is not known but most likely is related to fatty liver disease. During this hospitalization she has been treated with IV vancomycin and cefepime for possible healthcare associated pneumonia. She has completed her course of antibiotics. Today I was called to her bedside for worsening hypoxemia. Upon arrival patient skin was dusky and oxygen saturation was 65 to 75%. Patient was bagged on 100% oxygen. She is DO NOT RESUSCITATE and DO NOT INTUBATE. During this episode she was unresponsive. After several minutes we were able to get her oxygen saturation in the 90% range. She was transferred to the intensive care unit and placed on bilevel positive airway pressure therapy. A chest x-ray was performed which revealed significant bilateral alveolar opacities consistent with acute inflammation or edema. Arterial blood gas was performed which revealed a significant change in her pCO2. It did increase from 40 to 74 and pH had decreased from 7.37-7.14. Plan: Continue supportive care with oxygenAnd bilevel positive airway pressure therapy with an IPAP/EPAP of 12/8 on a spontaneous breathing mode. Patient has had a significant change in her clinical status and is currently critically ill. She is transferred to the intensive care unit for close hemo dynamic monitoring. This is a life-threatening condition and warrants transfer to an ICU. (2) HCAP (healthcare-associated pneumonia) Assessment/Plan: Patient has completed a course of broad-spectrum antibiotic coverage with IV vancomycin and cefepime for a possible healthcare associated pneumonia. It is unclear at this time if patient truly had pneumonia. (3) Tense ascites Assessment/Plan: Patient has chronic ascites. CT scan of the abdomen pelvis performed on July 04, 2023 reveals a liver that has nodular contour consistent with cirrhosis and a large amount of ascites. Patient also has a left pleural effusion. The study also demonstrated mild diverticulosis without acute diverticulitis and multiple chronic compression fractures with severe compression of T12 and moderate compression fracture of T3 and T4. (4) Orthostatic hypotension Assessment/Plan: Orthostatic hypotension most likely related to underlying liver disease. 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 She had a renal sono and results were unremarkable (except large ascites was reported then) Plan: Avoid nephrotoxins Renally dose her meds (6) Generalized weakness Assessment/Plan: Multifactorial Plan: Supportive mgmt Patient has been refusing physical therapy. (7) Aortic stenosis, severe Assessment/Plan: She had an Echo in 02/2023 (4 mos ago) that showed moderate/severe , with a preserved LVEF of 60% At late afternoon, she was tachypneic and diaphoretic and I examine her and rales were heard. I ordered HOB elevated. A CXR was done 07/07 for sudden orthopnea and it showed mild interstitial changes (CHF) Plan: When her BP will tolerate it, she needs a higher dose of Spironolactone and/or Lasix She thought her re-accumulation of ascites was from the aortic stenosis, and I educated her that her ascites is from her liver disease. She mentioned that she will be seeing a Formula Room Worker in mid-Jul. Time spent at patient's bedside, reviewing labs and imaging studies is 40 minutes. - Current Meds Current Meds: Current Medications Generic Name Dose Route Start Last Admin Trade Name Freq PRN Reason Stop Dose Admin Alcohol 1 amp 07/05/23 09:00 07/11/23 08:45 Ethyl Alcohol 62% Swab Ampule VANCE 1 amp BID EDUARDA Administration Atorvastatin Calcium 40 mg 07/05/23 09:00 07/11/23 08:14 Atorvastatin 40 Mg Tablet PO 40 mg DAILY EDUARDA Administration Cyanocobalamin 500 mcg 07/05/23 09:00 07/11/23 08:15 Cyanocobalamin 500 Mcg Tablet PO 500 mcg DAILY EDUARDA Administration Furosemide 40 mg 07/11/23 20:00 07/11/23 19:59 Furosemide 40 Mg/4 Ml Vial IVP 07/11/23 23:59 40 mg ONCE EDUARDA Administration Heparin Sodium (Porcine) 5,000 unit 07/05/23 09:00 07/11/23 08:44 Heparin 5,000 Unit/Ml Vial SUBQ 5,000 unit BID EDUARDA Administration Ibuprofen 600 mg 07/06/23 11:59 07/10/23 20:16 Ibuprofen 600 Mg Tablet PO 600 mg Q6HR PRN Administration Mild Pain (Level 1-3) Insulin Human Lispro 1 - 9 unit 07/05/23 08:00 07/11/23 18:01 Insulin Lispro 300 Unit/3 Ml Pen SUBQ 5 unit 0800,1200,1700,2100 [facility] Administration Protocol Levothyroxine Sodium 25 mcg 07/05/23 07:00 07/11/23 06:23 Levothyroxine 25 Mcg Tablet PO 25 mcg QDAC EDUARDA Administration Magnesium Oxide 400 mg 07/05/23 12:00 07/11/23 08:14 Magnesium Oxide 400 Mg Tablet PO 400 mg DAILYWM EDUARDA Administration Metoprolol Succinate 25 mg 07/05/23 16:00 07/11/23 16:54 Metoprolol Succinate 25 Mg Tablet PO Not Given 1600 EDUARDA Midodrine 5 mg 07/07/23 17:00 07/11/23 16:55 Midodrine 2.5 Mg Tablet PO Not Given TIDWM EDUARDA Multi-Ingredient Ointment 1 applic 07/05/23 04:33 07/11/23 06:23 Zinc Oxide 20% Oint 30 Gm Tube TOP 1 applic PRN PRN Administration Skin Care Multivitamins 1 tab 07/05/23 08:00 07/11/23 08:14 Multivitamin Tablet PO 1 tab DAILYWM EDUARDA Administration Pantoprazole Sodium 40 mg 07/05/23 09:00 07/11/23 08:15 Pantoprazole 40 Mg Tablet PO 40 mg BID EDUARDA Administration Saccharomyces Boulardii 250 mg 07/05/23 08:00 07/11/23 16:39 Saccharomyces Boulardii 250 Mg Capsule PO Not Given BIDWM EDUARDA Sertraline HCl 100 mg 07/05/23 09:00 07/11/23 08:15 Sertraline 50 Mg Tablet PO 100 mg DAILY EDUARDA Administration Sodium Chloride 10 ml 07/05/23 02:32 07/08/23 22:36 Sodium Chloride Flush 0.9% 10 Ml Syringe IVP 10 ml PRN PRN Administration NEEDED PER PROVIDER ORDERS Sodium Chloride 10 ml 07/05/23 09:00 07/11/23 20:00 Sodium Chloride Flush 0.9% 10 Ml Syringe IVP 10 ml 0100,0900,1700 [facility] Administration - Lab Result Fish Bone Diagrams: 07/13/23 04:38 07/13/23 19:45 - Additional Planning My Orders: My Active Orders 07/11/23 14:04 Daily Weight [RC] 0607/11/23 16:52 RT - Obtain Arterial Specimen [RC] .ONCE 07/11/23 16:55 BIPAP [BIPAP/CPAP - RT] [RC] Q2H 07/11/23 19:20 MRSA PCR,CCU ADMIT Routine 07/11/23 19:26 RT - Obtain Arterial Specimen [RC] .ONCE 07/11/23 20:00 FUROSEMIDE INJ 40mg VIAL [LASIX INJ 40 mg VIAL] 40 mg IVP ONCE Ipratropium/Albuterol [Duoneb] 3 ml INH RTQ4H 07/11/23 21:00 methylPREDNISolone SUCCINATE [SOLU-Medrol (40MG VIAL)] 40 mg IVP BID Subjective - Subjective Patient Reports: Other (Called to patient's bedside for change in mental status and worsening hypoxemia.) Objective Vital Signs: Vital Signs - 24 hr 07/11/23 07/11/23 07/11/23 01:01 07:39 07:45 Temperature 36.4 C L 36.4 C L Heart Rate 79 Heart Rate [ 83 79 Brachial] Respiratory 24 20 17 Rate Blood Pressure 121/61 [Left Brachial artery] Blood Pressure 106/63 [Right Brachial artery] O2 Saturation 98 95 If not protocol 2 3 2 : Oxygen Flow, liters/minute 07/11/23 07/11/23 07/11/23 07:46 16:08 16:15 Temperature Heart Rate Heart Rate [ 128 H 118 H Brachial] Respiratory 26 H Rate Blood Pressure 128/82 H [Left Brachial artery] Blood Pressure [Right Brachial artery] O2 Saturation 53 L 70 L If not protocol 2 2 5 : Oxygen Flow, liters/minute 07/11/23 07/11/23 07/11/23 16:20 16:30 16:35 Temperature Heart Rate Heart Rate [ 127 H 117 H 121 H Brachial] Respiratory 26 H Rate Blood Pressure 172/108 H [Left Brachial artery] Blood Pressure 128/89 H 148/97 H [Right Brachial artery] O2 Saturation 77 L 93 94 If not protocol 8 15 15 : Oxygen Flow, liters/minute 07/11/23 07/11/23 07/11/23 16:46 16:51 16:57 Temperature Heart Rate Heart Rate [ 123 H 122 H 124 H Brachial] Respiratory 28 H 26 H 24 Rate Blood Pressure [Left Brachial artery] Blood Pressure 143/98 H 132/94 H 141/92 H [Right Brachial artery] O2 Saturation 95 96 If not protocol 15 15 15 : Oxygen Flow, liters/minute 07/11/23 18:47 Temperature Heart Rate 103 H Heart Rate [ Brachial] Respiratory Rate Blood Pressure [Left Brachial artery] Blood Pressure [Right Brachial artery] O2 Saturation If not protocol : Oxygen Flow, liters/minute Oxygen O2 Source Non-rebreather mask I&O (Last 24 Hrs): Intake and Output Totals x24h 07/09/23 07/10/23 07/11/23 23:59 23:59 23:59 Intake Total 1770 620 240 Output Total 200 100 Balance 1570 620 140 General: Moderate distress HEENT: Atraumatic, Other (Bilevel positive airway pressure mask in place.) Neck: Supple, No thyromegaly Neuro: Non Focal Cardiovascular: Other (Positive S1-S2. Grade 3/6 systolic ejection murmur at left lower sternal border.) Respiratory: Other (. Exchange in all lung dc positive diffuse wheezing positive crackles.) - Results Results: Laboratory Results WBC 13.1 x10^3/uL (4.8-10.8) H 07/11/23 17:26 RBC 3.73 10^6/uL (4.20-5.40) L 07/11/23 17:26 Hgb 9.6 g/dL (12.0-16.0) L 07/11/23 17:26 Hct 33.3 % (37.0-47.0) L 07/11/23 17:26 MCV 89.3 fL (81.0-99.0) 07/11/23 17:26 MCH 25.7 pg (27.0-31.0) L 07/11/23 17:26 MCHC 28.8 g/dL (32.0-36.0) L 07/11/23 17:26 RDW 16.6 % (12.0-15.0) H 07/11/23 17:26 Plt Count 371 10^3/uL (130-450) 07/11/23 17:26 MPV 9.3 fL (7.9-10.8) 07/11/23 17:26 Neut # (Auto) 11.3 10^3/uL (1.5-6.6) H 07/11/23 17:26 Lymph # (Auto) 0.8 10^3/uL (1.5-3.5) L 07/11/23 17:26 [place] # (Auto) 0.7 10^3/uL (0.0-1.0) 07/11/23 17: Eos # (Auto) 0.1 10^3/uL (0.0-0.7) 07/11/23 17: Baso # (Auto) 0.1 10^3/uL (0.0-0.1) 07/11/23 17: Absolute Nucleated RBC 0.00 x10^3/uL 07/11/23 17: Nucleated RBC % 0.0 /100WBC 07/11/23 17: Manual Slide Review Indicated 07/11/23 17: Platelet Estimate NORMAL (130-450,000) (NORMAL) 07/11/23 17: Platelet Morphology NORMAL APPEARANCE (NORMAL) 07/11/23 17: RBC Morph Micro Appear 2+ ANISOCYTOSIS (NORMAL) 1+ HYPOCHROMASIA (NORMAL) 07/11/23 17: RBC Morph Micro Appear 2+ ANISOCYTOSIS (NORMAL) 1+ HYPOCHROMASIA (NORMAL) 07/11/23 17:26 PT 11.5 secs (9.9-12.6) 07/04/23 22:07 INR 1.1 (0.8-1.2) 07/04/23 22:07 Bld Gas Analysis Time 204107/11/23 20:35 Sample Site RIGHT RADIAL 07/11/23 20:35 ABG pH 7.26 (7.35-7.45) L 07/11/23 20:35 ABG pCO2 54 mmHg (34-45) H 07/11/23 20:35 ABG pO2 158 mmHg (80-100) H* 07/11/23 20:35 ABG HCO3 23.8 mmol/L (22.0-26.0) 07/11/23 20:35 ABG Total CO2 25.4 MMOL/L (21.0-29.0) 07/11/23 20:35 ABG O2 Saturation 99 % (94-98) H 07/11/23 20:35 ABG Base Excess -3.5 mmol/L (-2.0-3.0) L 07/11/23 20:35 Nirav Test POSITIVE 07/11/23 20:35 VBG pH 7.372 (7.31-7.41) 07/04/23 22:07 VBG pCO2 40.2 mmHg (41-51) L 07/04/23 22:07 VBG pO2 32.7 mmHg (25-47) 07/04/23 22:07 VBG HCO3 22.8 mmol/L (23-28) L 07/04/23 22:07 VBG Total CO2 24.1 mmol/L (24-29) 07/04/23 22:07 VBG O2 Saturation 65.3 % (60-80) 07/04/23 22:07 VBG Base Excess -2.2 mmol/L (-2 - +2) L 07/04/23 22:07 Respiration Rate 8 b/min 07/11/23 20:35 O2 Delivery Device BiPAP 07/11/23 20:35 Vent Mode SYNCHRONOUS/TIMES 07/11/23 20:35 FiO2 100.00 07/11/23 20:35 Pressure Support Vent 4 cmH2O 07/11/23 20:35 EPAP 8 cmH2O 07/11/23 20:35 IPAP 12 cmH2O 07/11/23 20:35 Sodium 133 mmol/L (135-145) L 07/11/23 17:26 Potassium 5.5 mmol/L (3.5-4.5) H 07/11/23 17:26 Chloride 104 mmol/L (101-111) 07/11/23 17:26 Carbon Dioxide 24 mmol/L (21-32) 07/11/23 17:26 Anion Gap 5.0 (6-13) L 07/11/23 17:26 BUN 50 mg/dL (6-20) H 07/11/23 17:26 Creatinine 2.5 mg/dL (0.6-1.3) H 07/11/23 17:26 Estimated GFR (MDRD) 19 (>89) L 07/11/23 17:26 Glucose 305 mg/dL (74-104) H 07/11/23 17:26 POC Whole Bld Glucose 222 mg/dL (70 - 100) H 07/11/23 20:23 Estimat Average Glucose 160 mg/dL (70-100) H 07/05/23 04:23 Hemoglobin A1c % 7.2 % (4.27-6.07) H 07/05/23 04:23 Lactic Acid 1.1 mmol/L (0.5-2.2) 07/05/23 04:23 Calcium 8.9 mg/dL (8.5-10.3) 07/11/23 17:26 Phosphorus 5.5 mg/dL (2.5-5.0) H 07/11/23 17:26 Magnesium 1.9 mg/dL (1.7-2.3) 07/11/23 17:26 Total Bilirubin 0.2 mg/dL (0.2-1.0) 07/11/23 17:26 AST 29 IU/L (10-42) 07/11/23 17:26 ALT 19 IU/L (10-60) 07/11/23 17:26 Alkaline Phosphatase 112 IU/L (42-121) 07/11/23 17:26 Ammonia 15.8 umol/L (18-72) L 07/05/23 05:34 Total Protein 6.3 g/dL (6.4-8.9) L 07/11/23 17:26 Albumin 3.1 g/dL (3.2-5.5) L 07/11/23 17:26 Globulin 3.2 g/dL (2.1-4.2) 07/11/23 17:26 Albumin/Globulin Ratio 1.0 (1.0-2.2) 07/11/23 17:26 Triglycerides 113 mg/dL (48-352) 07/05/23 04:23 Cholesterol 122 mg/dL (-200) 07/05/23 04:23 LDL Cholesterol, Calc 62 mg/dL (-129) 07/05/23 04:23 VLDL Cholesterol 23 mg/dL 07/05/23 04:23 HDL Cholesterol 37 mg/dL (60-) L 07/05/23 04:23 LDL/HDL Ratio 1.7 (<4.4) 07/05/23 04:23 Cholesterol/HDL Ratio 3.3 (<4.4) 07/05/23 04:23 Lipase 17 U/L (11-82) 07/04/23 22:07 Procalcitonin Immunoas 0.20 ng/mL (<0.5) 07/05/23 04:23 TSH 4.75 uIU/mL (0.34-5.60) 07/05/23 04:23 Nasal Adenovirus (PCR) NOT DETECTED 07/05/23 01:00 Nasal B. parapertussis DNA (PCR) NOT DETECTED 07/05/23 01:00 Nasal Coronavir 229E PCR NOT DETECTED 07/05/23 01:00 Nasal Coronavir HKU1 PCR NOT DETECTED 07/05/23 01:00 Nasal Coronavir NL63 PCR NOT DETECTED 07/05/23 01:00 Nasal Coronavir OC43 PCR NOT DETECTED 07/05/23 01:00 Nasal Enterovir/Rhinovir PCR NOT DETECTED 07/05/23 01:00 Nasal Influenza B PCR NOT DETECTED 07/05/23 01:00 Nasal Influenza A PCR NOT DETECTED 07/05/23 01:00 Nasal Parainfluen 1 PCR NOT DETECTED 07/05/23 01:00 Nasal Parainfluen 2 PCR NOT DETECTED 07/05/23 01:00 Nasal Parainfluen 3 PCR NOT DETECTED 07/05/23 01:00 Nasal Parainfluen 4 PCR NOT DETECTED 07/05/23 01:00 Nasal RSV (PCR) NOT DETECTED 07/05/23 01:00 Nasal Screen MRSA (PCR) POSITIVE (NEGATIVE) A* 07/05/23 04:28 Nasal B.pertussis DNA PCR NOT DETECTED 07/05/23 01:00 Nasal C.pneumoniae (PCR) NOT DETECTED 07/05/23 01:00 Vance Human Metapneumo PCR NOT DETECTED 07/05/23 01:00 Nasal M.pneumoniae (PCR) NOT DETECTED 07/05/23 01:00 Nasal SARS-CoV-2 (PCR) NOT DETECTED 07/05/23 01:00 - Procedures Procedures: Procedures DILATION OF COMMON BILE DUCT, ENDO (08/05/22) DRAINAGE OF PERITONEAL CAVITY, PERCUTANEOUS APPROACH (06/12/23) EXCISION OF ASCENDING COLON, ENDO, DIAGN (10/11/16) EXCISION OF TRANSVERSE COLON, ENDO, DIAGN (10/11/16) EXTIRPATION OF MATTER FROM COMMON BILE DUCT, ENDO (08/05/22) INSERTION OF INFUSION DEV INTO SUP VENA CAVA, PERC APPROACH (01/17/21) ABX Reporting Has patient been on IV antibiotics over the past 48 hours?: No Current Medications - Current Medications Current Medications: Active Medications Albuterol (Albuterol Neb 2.5 Mg/3 Ml) 2.5 mg INH RTQ4H PRN PRN Reason: Wheezing Albuterol/Ipratropium (Ipratropium/Albuterol 3 Ml Neb) 3 ml INH RTQ4H [facility] Alcohol (Ethyl Alcohol 62% Swab Ampule) 1 amp VANCE BID [facility] Last Admin: 07/11/23 08:45 Dose: 1 amp Atorvastatin Calcium (Atorvastatin 40 Mg Tablet) 40 mg PO DAILY [facility] Last Admin: 07/11/23 08:14 Dose: 40 mg Cyanocobalamin (Cyanocobalamin 500 Mcg Tablet) 500 mcg PO DAILY [facility] Last Admin: 07/11/23 08:15 Dose: 500 mcg Furosemide (Furosemide 40 Mg/4 Ml Vial) 40 mg IVP ONCE [facility] Stop: 07/11/23 23:59 Last Admin: 07/11/23 19:59 Dose: 40 mg Heparin Sodium (Porcine) (Heparin 5,000 Unit/Ml Vial) 5,000 unit SUBQ BID [facility] Last Admin: 07/11/23 08:44 Dose: 5,000 unit Ibuprofen (Ibuprofen 600 Mg Tablet) 600 mg PO Q6HR PRN PRN Reason: Mild Pain (Level 1-3) Last Admin: 07/10/23 20:16 Dose: 600 mg Insulin Human Lispro (Insulin Lispro 300 Unit/3 Ml Pen) 1 - 9 unit SUBQ 0800,1200,1700,2100 [facility]; Protocol Last Admin: 07/11/23 18:01 Dose: 5 unit Levothyroxine Sodium (Levothyroxine 25 Mcg Tablet) 25 mcg PO QDAC [facility] Last Admin: 07/11/23 06:23 Dose: 25 mcg Magnesium Oxide (Magnesium Oxide 400 Mg Tablet) 400 mg PO DAILYWM [facility] Last Admin: 07/11/23 08:14 Dose: 400 mg Methylprednisolone (Methylprednisolone Succinate 40 Mg/Ml Vial) 40 mg IVP BID [facility] Metoprolol Succinate (Metoprolol Succinate 25 Mg Tablet) 25 mg PO 1600 [facility] Last Admin: 07/11/23 16:54 Dose: Not Given Midodrine (Midodrine 2.5 Mg Tablet) 5 mg PO TIDWM [facility] Last Admin: 07/11/23 16:55 Dose: Not Given Multi-Ingredient Ointment (Zinc Oxide 20% Oint 30 Gm Tube) 1 applic TOP PRN PRN PRN Reason: Skin Care Last Admin: 07/11/23 06:23 Dose: 1 applic Multivitamins (Multivitamin Tablet) 1 tab PO DAILYWM [facility] Last Admin: 07/11/23 08:14 Dose: 1 tab Ondansetron HCl (Ondansetron 4 Mg/2 Ml Vial) 4 mg IVP Q6HR PRN PRN Reason: Nausea / Vomiting Pantoprazole Sodium (Pantoprazole 40 Mg Tablet) 40 mg PO BID [facility] Last Admin: 07/11/23 08:15 Dose: 40 mg Saccharomyces Boulardii (Saccharomyces Boulardii 250 Mg Capsule) 250 mg PO B IDWM [facility] Last Admin: 07/11/23 16:39 Dose: Not Given Sertraline HCl (Sertraline 50 Mg Tablet) 100 mg PO DAILY [facility] Last Admin: 07/11/23 08:15 Dose: 100 mg Sodium Chloride (Sodium Chloride Flush 0.9% 10 Ml Syringe) 10 ml IVP PRN PRN PRN Reason: NEEDED PER PROVIDER ORDERS Last Admin: 07/08/23 22:36 Dose: 10 ml Sodium Chloride (Sodium Chloride Flush 0.9% 10 Ml Syringe) 10 ml IVP 0100 ,0900,1700 [facility] Last Admin: 07/11/23 20:00 Dose: 10 ml Metoprolol Succinate [Toprol Xl] 25 mg PO DAILY 08/05/22 Albuterol Sulf [Ventolin Hfa Inhaler] 2 puffs INH TID PRN 02/21/23 Ferrous Sulfate [Feosol] 325 mg PO MOWEFR 07/05/23 Furosemide [Lasix] 20 mg PO DAILY 07/05/23 Lactobacillus Combination No.4 [Probiotic] 1 cap PO DAILY 07/05/23 Potassium Chloride 20 meq PO DAILY 07/05/23
[2023-07-11] MEDS: methylPREDNISolone SUCCINATE 40 MG/ML VIAL IVP SCH (21:30)
[2023-07-12] MEDS: hydrOXYzine PAMOATE 25 MG CAPSULE PO PRN (02:47)
--- NOTE | 2023-07-12 05:23 | PROVIDER PROGRESS NOTE ---
Frit Coater Note - Frit Coater Note Frit Coater Note: RN paged "Follow up FYI: Pt bladder scanned again at 0425, 1343ml urine, no void noted other than the minimal/scant amt per brief/diaper earlier this shift. Would you consider ordering mishra catheter placement or straight cath? Thank you." given the amount 1343ml, will proceed with mishra pari since diuresing for resp failure. Amber Barrera DO [employer]
[2023-07-12 10:31] LABS: HCT - HEMATOCRIT 27.2 % (37.0-47.0); HGB - HEMOGLOBIN 7.8 g/dL (12.0-16.0); LYMPHOCYTES # (AUTO) 0.5 10^3/uL (1.5-3.5); LYMPHOCYTES % (AUTO) 7.4 %; MEAN CORPUSCULAR HEMOGLOBIN 25.2 pg (27.0-31.0); MEAN CORPUSCULAR HGB CONC 28.7 g/dL (32.0-36.0); MEAN CORPUSCULAR VOLUME 87.7 fL (81.0-99.0); MEAN PLATELET VOLUME 9.4 fL (7.9-10.8); MONOCYTES # (AUTO) 0.4 10^3/uL (0.0-1.0); MONOCYTES % (AUTO) 6.4 %; NEUTROPHILS # (AUTO) 5.2 10^3/uL (1.5-6.6); NEUTROPHILS % (AUTO) 85.7 %; PLT - PLATELET COUNT 149 10^3/uL (130-450); RED CELL DISTRIBUTION WIDTH 16.7 % (12.0-15.0); WHITE BLOOD COUNT 6.1 x10^3/uL (4.8-10.8)
[2023-07-12 10:32] LABS: SLIDE REVIEW? Indicated
[2023-07-12 10:41] LABS: CALCIUM 9.1 mg/dL (8.5-10.3); CREATININE 2.8 mg/dL (0.6-1.3); MAGNESIUM 1.8 mg/dL (1.7-2.3); PHOSPHORUS 4.3 mg/dL (2.5-5.0); POTASSIUM 5.7 mmol/L (3.5-4.5)
[2023-07-12 10:51] LABS: PLATELET ESTIMATE, MANUAL NORMAL (130-450,000) (NORMAL); PLATELET MORPHOLOGY NORMAL APPEARANCE (NORMAL)
[2023-07-12 10:52] LABS: RBC MORPHOLOGY (MULTIPLE) 3+ HYPOCHROMASIA (NORMAL)
--- NOTE | 2023-07-12 11:27 | XRAY Report ---
PROCEDURE: Chest 1V INDICATIONS: Hypoxemic respiratory failure TECHNIQUE: One view of the chest was acquired. COMPARISON: None FINDINGS: Surgical changes and devices: None. Heart size enlarged. Moderate vascular congestion noted to. Obscuration left hemidiaphragm and blunti ng the left costophrenic angle. Generalized decreased osseous mineralization present. Generalized dec reased osseous mineralization present IMPRESSION: Cardiomegaly and moderate vascular congestion with left pleural effusion Reviewed by: Thaddeus Fowler MD on 07/12/2023 10:17 AM [facility] Approved by: Thaddeus Fowler MD on 07/12/2023 10:17 AM [facility] Station ID: [id number]
[2023-07-12] MEDS: SODIUM ZIRCONIUM CYCLOSILICATE 5 GM PACKET PO ONE (14:37)
--- NOTE | 2023-07-12 20:50 | PROVIDER PROGRESS NOTE ---
Assessment/Plan - Problem List (1) Acute respiratory failure with hypoxia Assessment/Plan: Etiology of shortness of breath is not clear but most likely is multifactorial in nature and secondary to underlying valvular heart disease, lung disease, and most importantly significant cirrhotic liver disease. The etiology of the liver disease is not known but most likely is related to fatty liver disease. During this hospitalization she has been treated with IV vancomycin and cefepime for possible healthcare associated pneumonia. She has completed her course of antibiotics. On 07/11/2022 I was called to her bedside for worsening hypoxemia. Upon arrival patient skin was dusky and oxygen saturation was 65 to 75%. Patient was bagged on 100% oxygen. She is DO NOT RESUSCITATE and DO NOT INTUBATE. During this episode she was unresponsive. After several minutes we were able to get her oxygen saturation in the 90% range. She was transferred to the intensive care unit and placed on bilevel positive airway pressure therapy. A chest x-ray was performed which revealed significant bilateral alveolar op acities consistent with acute inflammation or edema. Arterial blood gas was performed which revealed a significant change in her pCO2. It did increase from 40 to 74 and pH had decreased from 7.37-7.14. After being placed on bilevel positive airway pressure therapy, patient's respiratory status significantly improved and FiO2 was weaned to 40%. Patient is now alert and answering questions. Plan: Discontinue bilevel positive airway pressure therapy. Continue to monitor respiratory status. (2) HCAP (healthcare-associated pneumonia) Assessment/Plan: Patient has completed a course of broad-spectrum antibiotic coverage with IV vancomycin and cefepime for a possible healthcare associated pneumonia. It is unclear at this time if patient truly had pneumonia. (3) Tense ascites Assessment/Plan: Patient has chronic ascites. CT scan of the abdomen pelvis performed on July 04, 2023 reveals a liver that has nodular contour consistent with cirrhosis and a large amount of ascites. Patient also has a left pleural effusion. The study also demonstrated mild diverticulosis without acute diverticulitis and multiple chronic compression fractures with severe compression of T12 and moderate compression fracture of T3 and T4. (4) Orthostatic hypotension Assessment/Plan: Orthostatic hypotension most likely related to underlying liver disease. 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 She had a renal sono and results were unremarkable (except large ascites was re ported then) Plan: Avoid nephrotoxins Renally dose her meds (6) Generalized weakness Assessment/Plan: Multifactorial Plan: Supportive mgmt Patient has been refusing physical therapy. (7) Aortic stenosis, severe Assessment/Plan: She had an Echo in 02/2023 (4 mos ago) that showed moderate/severe , with a preserved LVEF of 60% At late afternoon, she was tachypneic and diaphoretic and I examine her and rales were heard. I ordered HOB elevated. A CXR was done 07/07 for sudden orthopnea and it showed mild interstitial changes (CHF) Plan: When her BP will tolerate it, she needs a higher dose of Spironolactone and/or Lasix She thought her re-accumulation of ascites was from the aortic stenosis, and I educated her that her ascites is from her liver disease. She mentioned that she will be seeing a [employer] in mid-Jul. Time spent at patient's bedside, reviewing labs and imaging studies is 40 minutes. - Current Meds Current Meds: Current Medications Generic Name Dose Route Start Last Admin Trade Name Freq PRN Reason Stop Dose Admin Albuterol/Ipratropium 3 ml 07/11/23 20:00 07/12/23 17:01 Ipratropium/Albuterol 3 Ml Neb INH Not Given RTQ4H EDUARDA Alcohol 1 amp 07/05/23 09:00 07/12/23 20:30 Ethyl Alcohol 62% Swab Ampule VANCE 1 amp BID EDUARDA Administration Atorvastatin Calcium 40 mg 07/05/23 09:00 07/12/23 08:55 Atorvastatin 40 Mg Tablet PO 40 mg DAILY EDUARDA Administration Cyanocobalamin 500 mcg 07/05/23 09:00 07/12/23 08:55 Cyanocobalamin 500 Mcg Tablet PO 500 mcg DAILY EDUARDA Administration Heparin Sodium (Porcine) 5,000 unit 07/05/23 09:00 07/12/23 20:30 Heparin 5,000 Unit/Ml Vial SUBQ 5,000 unit BID EDUARDA Administration Hydroxyzine Pamoate 12.5 mg 07/12/23 02:31 07/12/23 02:47 Hydroxyzine Pamoate 25 Mg Capsule PO 07/13/23 02:30 12.5 mg ONCE PRN Administration Anxiety Ibuprofen 600 mg 07/06/23 11:59 07/12/23 19:41 Ibuprofen 600 Mg Tablet PO 600 mg Q6HR PRN Administration Mild Pain (Level 1-3) Insulin Human Lispro 1 - 9 unit 07/05/23 08:00 07/12/23 20:31 Insulin Lispro 300 Unit/3 Ml Pen SUBQ 5 unit 0800,1200,1700,2100 EDUARDA Administration Protocol Levothyroxine Sodium 25 mcg 07/05/23 07:00 07/12/23 06:22 Levothyroxine 25 Mcg Tablet PO 25 mcg QDAC EDUARDA Administration Magnesium Oxide 400 mg 07/05/23 12:00 07/12/23 08:54 Magnesium Oxide 400 Mg Tablet PO 400 mg DAILYWM EDUARDA Administration Methylprednisolone 40 mg 07/11/23 21:00 07/12/23 20:31 Methylprednisolone Succinate 40 Mg/Ml Vial IVP 40 mg BID EDUARDA Administration Metoprolol Succinate 25 mg 07/05/23 16:00 07/12/23 17:07 Metoprolol Succinate 25 Mg Tablet PO 25 mg 1600 EDUARDA Administration Midodrine 5 mg 07/07/23 17:00 07/12/23 17:08 Midodrine 2.5 Mg Tablet PO 5 mg TIDWM EDUARDA Administration Multi-Ingredient Ointment 1 applic 07/05/23 04:33 07/11/23 06:23 Zinc Oxide 20% Oint 30 Gm Tube TOP 1 applic PRN PRN Administration Skin Care Multivitamins 1 tab 07/05/23 08:00 07/12/23 08:55 Multivitamin Tablet PO 1 tab DAILYWM EDUARDA Administration Pantoprazole Sodium 40 mg 07/05/23 09:00 07/12/23 20:31 Pantoprazole 40 Mg Tablet PO 40 mg BID EDUARDA Administration Saccharomyces Boulardii 250 mg 07/05/23 08:00 07/12/23 17:08 Saccharomyces Boulardii 250 Mg Capsule PO 250 mg BIDWM EDUARDA Administration Sertraline HCl 100 mg 07/05/23 09:00 07/12/23 08:56 Sertraline 50 Mg Tablet PO 100 mg DAILY EDUARDA Administration Sodium Chloride 10 ml 07/05/23 02:32 07/08/23 22:36 Sodium Chloride Flush 0.9% 10 Ml Syringe IVP 10 ml PRN PRN Administration NEEDED PER PROVIDER ORDERS Sodium Chloride 10 ml 07/05/23 09:00 07/12/23 17:09 Sodium Chloride Flush 0.9% 10 Ml Syringe IVP 10 ml 0100,0900,1700 EDUARDA Administration - Lab Result Fish Bone Diagrams: 07/13/23 04:38 07/13/23 19:45 - Additional Planning My Orders: My Active Orders 07/11/23 20:00 Ipratropium/Albuterol [Duoneb] 3 ml INH RTQ4H 07/11/23 21:00 methylPREDNISolone SUCCINATE [SOLU-Medrol (40MG VIAL)] 40 mg IVP BID Subjective - Subjective Patient Reports: Other (Alert. Oriented to person time place and situation. Continues to complain of mild/moderate shortness of breath.) Objective Vital Signs: Vital Signs - 24 hr 07/11/23 07/11/23 07/12/23 22:35 23:00 00:00 Temperature 36.6 C Heart Rate 78 Heart Rate [ 78 80 Monitoring electrodes] Respiratory 16 15 Rate Blood Pressure 86/54 L 125/78 [Right Brachial artery] O2 Saturation 100 100 If not protocol : Oxygen Flow, liters/minute 07/12/23 07/12/23 07/12/23 01:00 01:15 02:00 Temperature Heart Rate 79 Heart Rate [ 80 91 Monitoring electrodes] Respiratory 17 26 H Rate Blood Pressure 105/59 L 120/72 [Right Brachial artery] O2 Saturation 100 120 H If not protocol : Oxygen Flow, liters/minute 07/12/23 07/12/23 07/12/23 03:00 03:25 04:00 Temperature 36.6 C Heart Rate 88 Heart Rate [ 82 84 Monitoring electrodes] Respiratory 23 19 Rate Blood Pressure 108/56 L 128/75 [Right Brachial artery] O2 Saturation 100 100 If not protocol : Oxygen Flow, liters/minute 07/12/23 07/12/23 07/12/23 05:00 05:35 05:38 Temperature Heart Rate 78 77 Heart Rate [ 79 Monitoring electrodes] Respiratory 18 21 Rate Blood Pressure 102/57 L [Right Brachial artery] O2 Saturation 99 If not protocol : Oxygen Flow, liters/minute 07/12/23 07/12/23 07/12/23 06:00 07:00 07:34 Temperature Heart Rate Heart Rate [ 79 88 Monitoring electrodes] Respiratory 19 28 H Rate Blood Pressure 90/51 L 114/69 [Right Brachial artery] O2 Saturation 97 100 If not protocol 4 4 : Oxygen Flow, liters/minute 07/12/23 07/12/23 07/12/23 07:41 08:00 09:00 Temperature 36.8 C Heart Rate Heart Rate [ 90 85 Monitoring electrodes] Respiratory 19 24 Rate Blood Pressure 105/60 85/60 L [Right Brachial artery] O2 Saturation 100 97 If not protocol 4 4 : Oxygen Flow, liters/minute 07/12/23 07/12/23 07/12/23 10:00 10:51 11:00 Temperature Heart Rate Heart Rate [ 89 84 Monitoring electrodes] Respiratory 22 21 Rate Blood Pressure 116/72 110/67 [Right Brachial artery] O2 Saturation 100 100 If not protocol 4 4 4 : Oxygen Flow, liters/minute 07/12/23 07/12/23 07/12/23 11:24 12:00 13:00 Temperature Heart Rate 87 Heart Rate [ 101 H 86 Monitoring electrodes] Respiratory 28 H 23 20 Rate Blood Pressure 108/66 100/55 L [Right Brachial artery] O2 Saturation 98 100 If not protocol 4 4 4 : Oxygen Flow, liters/minute 07/12/23 07/12/23 07/12/23 14:00 15:00 16:00 Temperature 37.0 C Heart Rate Heart Rate [ 85 87 83 Monitoring electrodes] Respiratory 23 25 H 19 Rate Blood Pressure 108/88 H 107/54 L 97/55 L [Right Brachial artery] O2 Saturation 100 100 100 If not protocol 4 4 4 : Oxygen Flow, liters/minute 07/12/23 07/12/23 07/12/23 17:00 18:00 19:00 Temperature Heart Rate Heart Rate [ 93 95 94 Monitoring electrodes] Respiratory 24 30 H 24 Rate Blood Pressure 122/60 119/86 H 134/91 H [Right Brachial artery] O2 Saturation 100 97 97 If not protocol 4 4 4 : Oxygen Flow, liters/minute 07/12/23 20:00 Temperature 36.9 C Heart Rate Heart Rate [ 81 Monitoring electrodes] Respiratory 29 H Rate Blood Pressure 128/63 [Right Brachial artery] O2 Saturation 99 If not protocol 4 : Oxygen Flow, liters/minute Oxygen O2 Source Nasal cannula I&O (Last 24 Hrs): Intake and Output Totals x24h 07/10/23 07/11/23 07/12/23 23:59 23:59 23:59 Intake Total 673 508 9032 Output Total 100 250 Balance 620 140 820 General: Alert, Oriented x3, Mild distress HEENT: Atraumatic, PERRLA, Other (Anicteric sclera) Neuro: Alert, Non Focal Cardiovascular: Other (Positive S1-S2 no extra heart sounds.) Respiratory: Other (Fair air exchange in all lung dc no wheezing. Positive bibasilar crackles.) Abdomen: Other (Positive diffuse ascites positive bowel sounds. Soft nontender) Extremities: No cyanosis, No edema Skin: No rashes - Results Results: Laboratory Results WBC 6.1 x10^3/uL (4.8-10.8) 07/12/23 10:25 RBC 3.10 10^6/uL (4.20-5.40) L 07/12/23 10:25 Hgb 7.8 g/dL (12.0-16.0) L 07/12/23 10:25 Hct 27.2 % (37.0-47.0) L 07/12/23 10:25 MCV 87.7 fL (81.0-99.0) 07/12/23 10:25 MCH 25.2 pg (27.0-31.0) L 07/12/23 10:25 MCHC 28.7 g/dL (32.0-36.0) L 07/12/23 10:25 RDW 16.7 % (12.0-15.0) H 07/12/23 10:25 Plt Count 149 10^3/uL (130-450) 07/12/23 10:25 MPV 9.4 fL (7.9-10.8) 07/12/23 10:25 Neut # (Auto) 5.2 10^3/uL (1.5-6.6) 07/12/23 10:25 Lymph # (Auto) 0.5 10^3/uL (1.5-3.5) L 07/12/23 10:25 [place] # (Auto) 0.4 10^3/uL (0.0-1.0) 07/12/23 10:25 Eos # (Auto) 0.0 10^3/uL (0.0-0.7) 07/12/23 10:25 Baso # (Auto) 0.0 10^3/uL (0.0-0.1) 07/12/23 10:25 Absolute Nucleated RBC 0.00 x10^3/uL 07/12/23 10:25 Nucleated RBC % 0.0 /100WBC 07/12/23 10:25 Manual Slide Review Indicated 07/12/23 10:25 Platelet Estimate NORMAL (130-450,000) (NORMAL) 07/12/23 10:25 Platelet Morphology NORMAL APPEARANCE (NORMAL) 07/12/23 10:25 RBC Morph Micro Appear 3+ HYPOCHROMASIA (NORMAL) 07/12/23 10:25 PT 11.5 secs (9.9-12.6) 07/04/23 22:07 INR 1.1 (0.8-1.2) 07/04/23 22:07 Bld Gas Analysis Time 204107/11/23 20:35 Sample Site RIGHT RADIAL 07/11/23 20:35 ABG pH 7.26 (7.35-7.45) L 07/11/23 20:35 ABG pCO2 54 mmHg (34-45) H 07/11/23 20:35 ABG pO2 158 mmHg (80-100) H* 07/11/23 20:35 ABG HCO3 23.8 mmol/L (22.0-26.0) 07/11/23 20:35 ABG Total CO2 25.4 MMOL/L (21.0-29.0) 07/11/23 20:35 ABG O2 Saturation 99 % (94-98) H 07/11/23 20:35 ABG Base Excess -3.5 mmol/L (-2.0-3.0) L 07/11/23 20:35 Nirav Test POSITIVE 07/11/23 20:35 VBG pH 7.372 (7.31-7.41) 07/04/23 22:07 VBG pCO2 40.2 mmHg (41-51) L 07/04/23 22:07 VBG pO2 32.7 mmHg (25-47) 07/04/23 22:07 VBG HCO3 22.8 mmol/L (23-28) L 07/04/23 22:07 VBG Total CO2 24.1 mmol/L (24-29) 07/04/23 22:07 VBG O2 Saturation 65.3 % (60-80) 07/04/23 22:07 VBG Base Excess -2.2 mmol/L (-2 - +2) L 07/04/23 22:07 Respiration Rate 8 b/min 07/11/23 20:35 O2 Delivery Device BiPAP 07/11/23 20:35 Vent Mode SYNCHRONOUS/TIMES 07/11/23 20:35 FiO2 100.00 07/11/23 20:35 Pressure Support Vent 4 cmH2O 07/11/23 20:35 EPAP 8 cmH2O 07/11/23 20:35 IPAP 12 cmH2O 07/11/23 20:35 Sodium 135 mmol/L (135-145) 07/12/23 10:25 Potassium 5.7 mmol/L (3.5-4.5) H 07/12/23 10:25 Chloride 103 mmol/L (101-111) 07/12/23 10:25 Carbon Dioxide 26 mmol/L (21-32) 07/12/23 10:25 Anion Gap 6.0 (6-13) 07/12/23 10:25 BUN 53 mg/dL (6-20) H 07/12/23 10:25 Creatinine 2.8 mg/dL (0.6-1.3) H 07/12/23 10:25 Estimated GFR (MDRD) 16 (>89) L 07/12/23 10:25 Glucose 221 mg/dL (74-104) H 07/12/23 10:25 POC Whole Bld Glucose 254 mg/dL (70 - 100) H 07/12/23 20:07 Estimat Average Glucose 160 mg/dL (70-100) H 07/05/23 04:23 Hemoglobin A1c % 7.2 % (4.27-6.07) H 07/05/23 04:23 Lactic Acid 1.1 mmol/L (0.5-2.2) 07/05/23 04:23 Calcium 9.1 mg/dL (8.5-10.3) 07/12/23 10:25 Phosphorus 4.3 mg/dL (2.5-5.0) 07/12/23 10:25 Magnesium 1.8 mg/dL (1.7-2.3) 07/12/23 10:25 Total Bilirubin 0.2 mg/dL (0.2-1.0) 07/11/23 17:26 AST 29 IU/L (10-42) 07/11/23 17:26 ALT 19 IU/L (10-60) 07/11/23 17:26 Alkaline Phosphatase 112 IU/L (42-121) 07/11/23 17:26 Ammonia 15.8 umol/L (18-72) L 07/05/23 05:34 Total Protein 6.3 g/dL (6.4-8.9) L 07/11/23 17:26 Albumin 3.1 g/dL (3.2-5.5) L 07/11/23 17:26 Globulin 3.2 g/dL (2.1-4.2) 07/11/23 17:26 Albumin/Globulin Ratio 1.0 (1.0-2.2) 07/11/23 17:26 Triglycerides 113 mg/dL (48-352) 07/05/23 04:23 Cholesterol 122 mg/dL (-200) 07/05/23 04:23 LDL Cholesterol, Calc 62 mg/dL (-129) 07/05/23 04:23 VLDL Cholesterol 23 mg/dL 07/05/23 04:23 HDL Cholesterol 37 mg/dL (60-) L 07/05/23 04:23 LDL/HDL Ratio 1.7 (<4.4) 07/05/23 04:23 Cholesterol/HDL Ratio 3.3 (<4.4) 07/05/23 04:23 Lipase 17 U/L (11-82) 07/04/23 22:07 Procalcitonin Immunoas 0.20 ng/mL (<0.5) 07/05/23 04:23 TSH 4.75 uIU/mL (0.34-5.60) 07/05/23 04:23 Nasal Adenovirus (PCR) NOT DETECTED 07/05/23 01:00 Nasal B. parapertussis DNA (PCR) NOT DETECTED 07/05/23 01:00 Nasal Coronavir 229E PCR NOT DETECTED 07/05/23 01:00 Nasal Coronavir HKU1 PCR NOT DETECTED 07/05/23 01:00 Nasal Coronavir NL63 PCR NOT DETECTED 07/05/23 01:00 Nasal Coronavir OC43 PCR NOT DETECTED 07/05/23 01:00 Nasal Enterovir/Rhinovir PCR NOT DETECTED 07/05/23 01:00 Nasal Influenza B PCR NOT DETECTED 07/05/23 01:00 Nasal Influenza A PCR NOT DETECTED 07/05/23 01:00 Nasal Parainfluen 1 PCR NOT DETECTED 07/05/23 01:00 Nasal Parainfluen 2 PCR NOT DETECTED 07/05/23 01:00 Nasal Parainfluen 3 PCR NOT DETECTED 07/05/23 01:00 Nasal Parainfluen 4 PCR NOT DETECTED 07/05/23 01:00 Nasal RSV (PCR) NOT DETECTED 07/05/23 01:00 Nasal Screen MRSA (PCR) POSITIVE (NEGATIVE) A* 07/11/23 19:20 Nasal B.pertussis DNA PCR NOT DETECTED 07/05/23 01:00 Nasal C.pneumoniae (PCR) NOT DETECTED 07/05/23 01:00 Vance Human Metapneumo PCR NOT DETECTED 07/05/23 01:00 Nasal M.pneumoniae (PCR) NOT DETECTED 07/05/23 01:00 Nasal SARS-CoV-2 (PCR) NOT DETECTED 07/05/23 01:00 - Procedures Procedures: Procedures DILATION OF COMMON BILE DUCT, ENDO (08/05/22) DRAINAGE OF PERITONEAL CAVITY, PERCUTANEOUS APPROACH (06/12/23) EXCISION OF ASCENDING COLON, ENDO, DIAGN (10/11/16) EXCISION OF TRANSVERSE COLON, ENDO, DIAGN (10/11/16) EXTIRPATION OF MATTER FROM COMMON BILE DUCT, ENDO (08/05/22) INSERTION OF INFUSION DEV INTO SUP VENA CAVA, PERC APPROACH (01/17/21) ABX Reporting Has patient been on IV antibiotics over the past 48 hours?: No Current Medications - Current Medications Current Medications: Active Medications Albuterol (Albuterol Neb 2.5 Mg/3 Ml) 2.5 mg INH RTQ4H PRN PRN Reason: Wheezing Albuterol/Ipratropium (Ipratropium/Albuterol 3 Ml Neb) 3 ml INH RTQ4H [facility] Last Admin: 07/12/23 17:01 Dose: Not Given Alcohol (Ethyl Alcohol 62% Swab Ampule) 1 amp VANCE BID [facility] Last Admin: 07/12/23 20:30 Dose: 1 amp Atorvastatin Calcium (Atorvastatin 40 Mg Tablet) 40 mg PO DAILY [facility] Last Admin: 07/12/23 08:55 Dose: 40 mg Cyanocobalamin (Cyanocobalamin 500 Mcg Tablet) 500 mcg PO DAILY [facility] Last Admin: 07/12/23 08:55 Dose: 500 mcg Heparin Sodium (Porcine) (Heparin 5,000 Unit/Ml Vial) 5,000 unit SUBQ BID [facility] Last Admin: 07/12/23 20:30 Dose: 5,000 unit Hydroxyzine Pamoate (Hydroxyzine Pamoate 25 Mg Capsule) 12.5 mg PO ONCE PRN PRN Reason: Anxiety Stop: 07/13/23 02:30 Last Admin: 07/12/23 02:47 Dose: 12.5 mg Ibuprofen (Ibuprofen 600 Mg Tablet) 600 mg PO Q6HR PRN PRN Reason: Mild Pain (Level 1-3) Last Admin: 07/12/23 19:41 Dose: 600 mg Insulin Human Lispro (Insulin Lispro 300 Unit/3 Ml Pen) 1 - 9 unit SUBQ 0800,1200,1700,2100 [facility]; Protocol Last Admin: 07/12/23 20:31 Dose: 5 unit Levothyroxine Sodium (Levothyroxine 25 Mcg Tablet) 25 mcg PO QDAC [facility] Last Admin: 07/12/23 06:22 Dose: 25 mcg Magnesium Oxide (Magnesium Oxide 400 Mg Tablet) 400 mg PO DAILYWM [facility] Last Admin: 07/12/23 08:54 Dose: 400 mg Methylprednisolone (Methylprednisolone Succinate 40 Mg/Ml Vial) 40 mg IVP BID [facility] Last Admin: 07/12/23 20:31 Dose: 40 mg Metoprolol Succinate (Metoprolol Succinate 25 Mg Tablet) 25 mg PO 1600 [facility] Last Admin: 07/12/23 17:07 Dose: 25 mg Midodrine (Midodrine 2.5 Mg Tablet) 5 mg PO TIDWM [facility] Last Admin: 07/12/23 17:08 Dose: 5 mg Multi-Ingredient Ointment (Zinc Oxide 20% Oint 30 Gm Tube) 1 applic TOP PRN PRN PRN Reason: Skin Care Last Admin: 07/11/23 06:23 Dose: 1 applic Multivitamins (Multivitamin Tablet) 1 tab PO DAILYWM [facility] Last Admin: 07/12/23 08:55 Dose: 1 tab Ondansetron HCl (Ondansetron 4 Mg/2 Ml Vial) 4 mg IVP Q6HR PRN PRN Reason: Nausea / Vomiting Pantoprazole Sodium (Pantoprazole 40 Mg Tablet) 40 mg PO BID [facility] Last Admin: 07/12/23 20:31 Dose: 40 mg Saccharomyces Boulardii (Saccharomyces Boulardii 250 Mg Capsule) 250 mg PO BIDWM [facility] Last Admin: 07/12/23 17:08 Dose: 250 mg Sertraline HCl (Sertraline 50 Mg Tablet) 100 mg PO DAILY [facility] Last Admin: 07/12/23 08:56 Dose: 100 mg Sodium Chloride (Sodium Chloride Flush 0.9% 10 Ml Syringe) 10 ml IVP PRN PRN PRN Reason: NEEDED PER PROVIDER ORDERS Last Admin: 07/08/23 22:36 Dose: 10 ml Sodium Chloride (Sodium Chloride Flush 0.9% 10 Ml Syringe) 10 ml IVP 0100,0900,1700 [facility] Last Admin: 07/12/23 17:09 Dose: 10 ml Metoprolol Succinate [Toprol Xl] 25 mg PO DAILY 08/05/22 Albuterol Sulf [Ventolin Hfa Inhaler] 2 puffs INH TID PRN 02/21/23 Ferrous Sulfate [Feosol] 325 mg PO MOWEFR 07/05/23 Furosemide [Lasix] 20 mg PO DAILY 07/05/23 Lactobacillus Combination No.4 [Probiotic] 1 cap PO DAILY 07/05/23 Potassium Chloride 20 meq PO DAILY 07/05/23
[2023-07-12] MEDS: hydrOXYzine PAMOATE 25 MG CAPSULE PO ONE (21:55)
[2023-07-13 04:48] LABS: HCT - HEMATOCRIT 28.8 % (37.0-47.0); HGB - HEMOGLOBIN 8.3 g/dL (12.0-16.0); LYMPHOCYTES # (AUTO) 0.3 10^3/uL (1.5-3.5); LYMPHOCYTES % (AUTO) 6.2 %; MEAN CORPUSCULAR HGB CONC 28.8 g/dL (32.0-36.0); MEAN CORPUSCULAR VOLUME 86.7 fL (81.0-99.0); MEAN PLATELET VOLUME 9.5 fL (7.9-10.8); MONOCYTES # (AUTO) 0.2 10^3/uL (0.0-1.0); MONOCYTES % (AUTO) 4.2 %; NEUTROPHILS # (AUTO) 4.9 10^3/uL (1.5-6.6); NEUTROPHILS % (AUTO) 88.9 %; PLT - PLATELET COUNT 173 10^3/uL (130-450); RED BLOOD COUNT 3.32 10^6/uL (4.20-5.40); RED CELL DISTRIBUTION WIDTH 16.7 % (12.0-15.0); WHITE BLOOD COUNT 5.5 x10^3/uL (4.8-10.8)
[2023-07-13 05:31] LABS: CALCIUM, IONIZED 1.21 mmol/L (1.15-1.33); VBG PH 7.318 (7.31-7.41)
[2023-07-13] MEDS: ALBUTEROL NEB 2.5 MG/3 ML INH PRN (05:39)
[2023-07-13 07:05] LABS: MAGNESIUM 1.9 mg/dL (1.7-2.3); PHOSPHORUS 4.7 mg/dL (2.5-5.0)
[2023-07-13 09:51] LABS: CALCIUM 9.2 mg/dL (8.5-10.3); CREATININE 3.2 mg/dL (0.6-1.3); POTASSIUM 5.9 mmol/L (3.5-4.5)
[2023-07-13] MEDS: SODIUM ZIRCONIUM CYCLOSILICATE 5 GM PACKET PO SCH (10:33)
[2023-07-13] MEDS: ALBUMIN 25% 12.5 GM/50 ML VIAL IV SCH (11:04)
[2023-07-13] MEDS: MIDODRINE 10 MG TABLET PO SCH (11:04)
[2023-07-13] MEDS: hydrOXYzine PAMOATE 25 MG CAPSULE PO PRN (12:24)
[2023-07-13] MEDS: OCTREOTIDE 100 MCG/ML VIAL SUBQ SCH (14:05)
[2023-07-13] MEDS: INSULIN REGULAR HUMAN 300 UNIT/3 ML VIAL IVP ONE (17:06)
[2023-07-13] MEDS: DEXTROSE 50% ABBOJECT 25 GM/50 ML SYRINGE IVP ONE (17:18)
[2023-07-13] MEDS ORDERED: ALBUTEROL NEB 2.5 MG/3 ML INH SCH (19:00)
[2023-07-13] MEDS: INSULIN LISPRO 300 UNIT/3 ML PEN SUBQ SCH (21:05)
--- NOTE | 2023-07-13 22:54 | PROVIDER PROGRESS NOTE ---
Assessment/Plan - Problem List (1) Acute respiratory failure with hypoxia Assessment/Plan: Etiology of shortness of breath is not clear but most likely is multifactorial in nature and secondary to underlying valvular heart disease, lung disease, and most importantly significant cirrhotic liver disease. The etiology of the liver disease is not known but most likely is related to fatty liver disease. During this hospitalization she has been treated with IV vancomycin and cefepime for possible healthcare associated pneumonia. She has completed her course of antibiotics. On 07/11/2022 I was called to her bedside for worsening hypoxemia. Upon arrival patient skin was dusky and oxygen saturation was 65 to 75%. Patient was bagged on 100% oxygen. She is DO NOT RESUSCITATE and DO NOT INTUBATE. During this episode she was unresponsive. After several minutes we were able to get her oxygen saturation in the 90% range. She was transferred to the intensive care unit and placed on bilevel positive airway pressure therapy. A chest x-ray was performed which revealed significant bilateral alveolar op acities consistent with acute inflammation or edema. Arterial blood gas was performed which revealed a significant change in her pCO2. It did increase from 40 to 74 and pH had decreased from 7.37-7.14. After being placed on bilevel positive airway pressure therapy, patient's respiratory status significantly improved and FiO2 was weaned to 40%. Patient is now alert and answering questions. She is no longer requiring bilevel positive airway pressure therapy for respiratory support. Plan: Continue to monitor respiratory status. (2) HCAP (healthcare-associated pneumonia) Assessment/Plan: Patient has completed a course of broad-spectrum antibiotic coverage with IV vancomycin and cefepime for a possible healthcare associated pneumonia. It is unclear at this time if patient truly had pneumonia. (3) Liver Cirrhosis Assessment/Plan: Patient has chronic ascites. CT scan of the abdomen pelvis performed on July 04, 2023 reveals a liver that has nodular contour consistent with cirrhosis and a large amount of ascites. Patient also has a left pleural effusion. The study also demonstrated mild diverticulosis without acute diverticulitis and multiple chronic compression fractures with severe compression of T12 and moderate compression fracture of T3 and T4. Etiology of liver failure is not clear but most likely is related to fatty liver disease. Patient would benefit form GI consultation (4) Orthostatic hypotension Assessment/Plan: Orthostatic hypotension most likely related to underlying liver disease. 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 She had a renal sono and results were unremarkable (except large ascites was reported then) Patient's renal function is worsening and creatinine has risen from 1.8 to 3.8. Plan: Avoid nephrotoxins Renally dose her meds Increased dose of midodrine to 10 mg 3 times a day Initiate treatment with octreotide 100 mcg subcutaneously 3 times a day Initiate treatment with albumin 50 to 100 g daily. (6) Generalized weakness Assessment/Plan: Multifactorial Plan: Supportive mgmt Patient has been refusing physical therapy. (7) Aortic stenosis, moderate/severe Assessment/Plan: She had an Echo in 02/2023 (4 mos ago) that showed moderate/severe , with a preserved LVEF of 60% At late afternoon, she was tachypneic and diaphoretic and I examine her and rales were heard. I ordered HOB elevated. A CXR was done 07/07 for sudden orthopnea and it showed mild interstitial changes (CHF) Plan: When her BP will tolerate it, she needs a higher dose of Spironolactone and/or Lasix (8) Hyperkalemia Plan: 1. Continue Lokelma 2. Continue to follow k serially. Goals of care: Goals of care were discussed with Ariana, her Sister Ladonna, her brother Fransisco and her niece, Tirnh Rosa. Ariana remains DO NOT RESUSCITATE, however, she would like to have an expert opinion regarding her underlying liver disease. 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 - Current Meds Current Meds: Current Medications Generic Name Dose Route Start Last Admin Trade Name Freq PRN Reason Stop Dose Admin Albuterol 2.5 mg 07/06/23 18:26 07/13/23 05:39 Albuterol Neb 2.5 Mg/3 Ml INH 2.5 mg RTQ4H PRN Administration Wheezing Albuterol/Ipratropium 3 ml 07/11/23 20:00 07/13/23 19:00 Ipratropium/Albuterol 3 Ml Neb INH 3 ml RTQ4H EDUARDA Administration Alcohol 1 amp 07/05/23 09:00 07/13/23 21:07 Ethyl Alcohol 62% Swab Ampule VANCE 1 amp BID EDUARDA Administration Atorvastatin Calcium 40 mg 07/05/23 09:00 07/13/23 08:07 Atorvastatin 40 Mg Tablet PO 40 mg DAILY EDUARDA Administration Cyanocobalamin 500 mcg 07/05/23 09:00 07/13/23 08:06 Cyanocobalamin 500 Mcg Tablet PO 500 mcg DAILY EDUARDA Administration Heparin Sodium (Porcine) 5,000 unit 07/05/23 09:00 07/13/23 21:03 Heparin 5,000 Unit/Ml Vial SUBQ 5,000 unit BID EDUARDA Administration Hydroxyzine Pamoate 12.5 mg 07/13/23 12:04 07/13/23 12:24 Hydroxyzine Pamoate 25 Mg Capsule PO 12.5 mg Q8H PRN Administration Anxiety Albumin Human 12.5 gm in 50 mls @ 50 mls/hr 07/13/23 11:00 07/13/23 21:21 Albuminar-25 IV 07/15/23 03:59 Infused Q8H [facility] Infusion Insulin Human Lispro 1 - 9 unit 07/13/23 17:29 07/13/23 21:05 Insulin Lispro 300 Unit/3 Ml Pen SUBQ 9 unit 0800,1200,1700,2100 [facility] Administration Protocol Levothyroxine Sodium 25 mcg 07/05/23 07:00 07/13/23 06:14 Levothyroxine 25 Mcg Tablet PO 25 mcg QDAC [facility] Administration Metoprolol Succinate 25 mg 07/05/23 16:00 07/13/23 15:19 Metoprolol Succinate 25 Mg Tablet PO 25 mg 1600 EDUARDA Administration Midodrine 10 mg 07/13/23 12:00 07/13/23 16:59 Midodrine 10 Mg Tablet PO 10 mg TIDWM [facility] Administration Multi-Ingredient Ointment 1 applic 07/05/23 04:33 07/12/23 23:54 Zinc Oxide 20% Oint 30 Gm Tube TOP 1 applic PRN PRN Administration Skin Care Multivitamins 1 tab 07/05/23 08:00 07/13/23 08:06 Multivitamin Tablet PO 1 tab DAILYWM [facility] Administration Octreotide Acetate 100 mcg 07/13/23 14:00 07/13/23 21:12 Octreotide 100 Mcg/Ml Vial SUBQ 100 mcg TID EDUARDA Administration Pantoprazole Sodium 40 mg 07/05/23 09:00 07/13/23 21:07 Pantoprazole 40 Mg Tablet PO 40 mg BID [facility] Administration Saccharomyces Boulardii 250 mg 07/05/23 08:00 07/13/23 16:59 Saccharomyces Boulardii 250 Mg Capsule PO 250 mg BIDWM EDUARDA Administration Sertraline HCl 100 mg 07/05/23 09:00 07/13/23 08:07 Sertraline 50 Mg Tablet PO 100 mg DAILY EDUARDA Administration Sodium Chloride 10 ml 07/05/23 02:32 07/08/23 22:36 Sodium Chloride Flush 0.9% 10 Ml Syringe IVP 10 ml PRN PRN Administration NEEDED PER PROVIDER ORDERS Sodium Chloride 10 ml 07/05/23 09:00 07/13/23 17:00 Sodium Chloride Flush 0.9% 10 Ml Syringe IVP 10 ml 0100,0900,1700 EDUARDA Administration Sodium Zirconium Cyclosilicate 10 gm 07/13/23 10:22 07/13/23 21:12 Sodium Zirconium Cyclosilicate 5 Gm Packet PO 10 gm TID EDUARDA Administration - Lab Result Fish Bone Diagrams: 07/14/23 05:58 07/14/23 05:58 - Additional Planning My Orders: My Active Orders 07/13/23 10:22 Sodium Zirconium Cyclosilicate [Lokelma] 10 gm PO TID 07/13/23 11:00 Albumin 25% [Albuminar-25] 12.5 gm in 50 ml IV Q8H 07/13/23 12:00 Midodrine [ProAmantine] 10 mg PO TIDWM 07/13/23 12:04 hydrOXYzine PAMOATE [VistariL] 12.5 mg PO Q8H PRN 07/13/23 14:00 Octreotide [SandoSTATIN] 100 mcg SUBQ TID 07/13/23 16:56 Resp Teach Nebulizer/MDI [RC] .ONCE 07/13/23 17:29 Insulin Lispro [Humalog Kwikpen U-100] 1 - 9 unit SUBQ 0800,1200,1700,2100 07/14/23 00:00 POTASSIUM [CHEM] Q4H 07/14/23 04:00 POTASSIUM [CHEM] Q4H 07/14/23 08:00 predniSONE [Deltasone] 20 mg PO DAILYWM Subjective - Subjective Patient Reports: Other (Alert. Continues to complain of shortness of breath but appears to be at her baseline. No other complaints at this time.) Objective Vital Signs: Vital Signs - 24 hr 07/12/23 07/13/2307/13/24 23:00 00:00 01:00 Temperature 37.1 C Heart Rate Heart Rate [ 80 77 81 Monitoring electrodes] Respiratory 20 18 25 H Rate Blood Pressure 109/74 121/59 L 116/77 [Right Brachial artery] O2 Saturation 99 99 97 If not protocol 2 2 2 : Oxygen Flow, liters/minute 07/13/23 07/13/23 07/13/23 02:00 03:00 04:00 Temperature Heart Rate Heart Rate [ 79 75 75 Monitoring electrodes] Respiratory 23 15 18 Rate Blood Pressure 116/65 95/58 L 114/54 L [Right Brachial artery] O2 Saturation 97 100 100 If not protocol 2 2 2 : Oxygen Flow, liters/minute 07/13/23 07/13/23 07/13/23 05:00 05:40 06:00 Temperature Heart Rate 76 Heart Rate [ 76 79 Monitoring electrodes] Respiratory 20 20 17 Rate Blood Pressure 122/64 104/59 L [Right Brachial artery] O2 Saturation 98 100 If not protocol 2 4 3 : Oxygen Flow, liters/minute 07/13/23 07/13/23 07/13/23 07:00 08:00 09:00 Temperature Heart Rate Heart Rate [ 83 82 80 Monitoring electrodes] Respiratory 21 22 26 H Rate Blood Pressure 106/59 L 122/59 L 122/59 L [Right Brachial artery] O2 Saturation 100 99 97 If not protocol 2 2 2 : Oxygen Flow, liters/minute 07/13/23 07/13/23 07/13/23 09:01 10:00 11:00 Temperature 36.7 C Heart Rate Heart Rate [ 79 81 Monitoring electrodes] Respiratory 27 H 20 Rate Blood Pressure 120/62 118/59 L [Right Brachial artery] O2 Saturation 100 100 If not protocol 4 2 : Oxygen Flow, liters/minute 07/13/23 07/13/23 07/13/23 11:31 12:00 13:00 Temperature 36.6 C Heart Rate 80 Heart Rate [ 85 93 Monitoring electrodes] Respiratory 20 23 28 H Rate Blood Pressure 123/81 H 121/61 [Right Brachial artery] O2 Saturation 100 97 If not protocol 3 2 2 : Oxygen Flow, liters/minute 07/13/23 07/13/23 07/13/23 13:56 15:30 17:00 Temperature 36.8 C Heart Rate 84 Heart Rate [ 105 H Monitoring electrodes] Respiratory 20 31 H Rate Blood Pressure 119/71 [Right Brachial artery] O2 Saturation 98 If not protocol 2 2 : Oxygen Flow, liters/minute 07/13/23 07/13/23 19:00 20:29 Temperature 36.8 C Heart Rate 94 Heart Rate [ 94 Monitoring electrodes] Respiratory 20 31 H Rate Blood Pressure 129/61 [Right Brachial artery] O2 Saturation 97 If not protocol 2 2 : Oxygen Flow, liters/minute Oxygen O2 Source Nasal cannula I&O (Last 24 Hrs): Intake and Output Totals x24h 07/11/23 07/12/23 07/13/23 23:59 23:59 23:59 Intake Total 240 1070 1450 Output Total 100 310 255 Balance 877 621 [id number] General: Alert, Oriented x3, No acute distress HEENT: Atraumatic Neck: No JVD, No thyromegaly Neuro: Alert, Non Focal Cardiovascular: Other (Positive S1-S2 no extra heart sounds.) Respiratory: Other (Fair air exchange in all lung dc no wheezing no crackles) Abdomen: Normal bowel sounds, No tenderness, Other (Positive ascites) Extremities: No cyanosis, No edema Skin: No rashes - Results Results: Laboratory Results WBC 5.5 x10^3/uL (4.8-10.8) 07/13/23 04:38 RBC 3.32 10^6/uL (4.20-5.40) L 07/13/23 04:38 Hgb 8.3 g/dL (12.0-16.0) L 07/13/23 04:38 Hct 28.8 % (37.0-47.0) L 07/13/23 04:38 MCV 86.7 fL (81.0-99.0) 07/13/23 04:38 MCH 25.0 pg (27.0-31.0) L 07/13/23 04:38 MCHC 28.8 g/dL (32.0-36.0) L 07/13/23 04:38 RDW 16.7 % (12.0-15.0) H 07/13/23 04:38 Plt Count 173 10^3/uL (130-450) 07/13/23 04:38 MPV 9.5 fL (7.9-10.8) 07/13/23 04:38 Neut # (Auto) 4.9 10^3/uL (1.5-6.6) 07/13/23 04:38 Lymph # (Auto) 0.3 10^3/uL (1.5-3.5) L 07/13/23 04:38 Wright # (Auto) 0.2 10^3/uL (0.0-1.0) 07/13/23 04:38 Eos # (Auto) 0.0 10^3/uL (0.0-0.7) 07/13/23 04:38 Baso # (Auto) 0.0 10^3/uL (0.0-0.1) 07/13/23 04:38 Absolute Nucleated RBC 0.00 x10^3/uL 07/13/23 04:38 Nucleated RBC % 0.0 /100WBC 07/13/23 04:38 Manual Slide Review Indicated 07/12/23 10:25 Platelet Estimate NORMAL (130-450,000) (NORMAL) 07/12/23 10:25 Platelet Morphology NORMAL APPEARANCE (NORMAL) 07/12/23 10:25 RBC Morph Micro Appear 3+ HYPOCHROMASIA (NORMAL) 07/12/23 10:25 PT 11.5 secs (9.9-12.6) 07/04/23 22:07 INR 1.1 (0.8-1.2) 07/04/23 22:07 Bld Gas Analysis Time 204107/11/23 20:35 Sample Site RIGHT RADIAL 07/11/23 20:35 ABG pH 7.26 (7.35-7.45) L 07/11/23 20:35 ABG pCO2 54 mmHg (34-45) H 07/11/23 20:35 ABG pO2 158 mmHg (80-100) H* 07/11/23 20:35 ABG HCO3 23.8 mmol/L (22.0-26.0) 07/11/23 20:35 ABG Total CO2 25.4 MMOL/L (21.0-29.0) 07/11/23 20:35 ABG O2 Saturation 99 % (94-98) H 07/11/23 20:35 ABG Base Excess -3.5 mmol/L (-2.0-3.0) L 07/11/23 20:35 Nirav Test POSITIVE 07/11/23 20:35 VBG pH 7.318 (7.31-7.41) 07/13/23 04:38 VBG pCO2 40.2 mmHg (41-51) L 07/04/23 22:07 VBG pO2 32.7 mmHg (25-47) 07/04/23 22:07 VBG HCO3 22.8 mmol/L (23-28) L 07/04/23 22:07 VBG Total CO2 24.1 mmol/L (24-29) 07/04/23 22:07 VBG O2 Saturation 65.3 % (60-80) 07/04/23 22:07 VBG Base Excess -2.2 mmol/L (-2 - +2) L 07/04/23 22:07 Ionized Calcium 1.21 mmol/L (1.15-1.33) 07/13/23 04:38 Respiration Rate 8 b/min 07/11/23 20:35 O2 Delivery Device BiPAP 07/11/23 20:35 Vent Mode SYNCHRONOUS/TIMES 07/11/23 20:35 FiO2 100.00 07/11/23 20:35 Pressure Support Vent 4 cmH2O 07/11/23 20:35 EPAP 8 cmH2O 07/11/23 20:35 IPAP 12 cmH2O 07/11/23 20:35 Sodium 135 mmol/L (135-145) 07/13/23 04:38 Potassium 5.6 mmol/L (3.5-4.5) H 07/13/23 19:45 Chloride 103 mmol/L (101-111) 07/13/23 04:38 Carbon Dioxide 23 mmol/L (21-32) 07/13/23 04:38 Anion Gap 9.0 (6-13) 07/13/23 04:38 BUN 58 mg/dL (6-20) H 07/13/23 04:38 Creatinine 3.2 mg/dL (0.6-1.3) H 07/13/23 04:38 Estimated GFR (MDRD) 14 (>89) L 07/13/23 04:38 Glucose 227 mg/dL (74-104) H 07/13/23 04:38 POC Whole Bld Glucose 344 mg/dL (70 - 100) H 07/13/23 20:07 Estimat Average Glucose 160 mg/dL (70-100) H 07/05/23 04:23 Hemoglobin A1c % 7.2 % (4.27-6.07) H 07/05/23 04:23 Lactic Acid 1.1 mmol/L (0.5-2.2) 07/05/23 04:23 Calcium 9.2 mg/dL (8.5-10.3) 07/13/23 04:38 Phosphorus 4.7 mg/dL (2.5-5.0) 07/13/23 04:38 Magnesium 1.9 mg/dL (1.7-2.3) 07/13/23 04:38 Total Bilirubin 0.2 mg/dL (0.2-1.0) 07/11/23 17:26 AST 29 IU/L (10-42) 07/11/23 17:26 ALT 19 IU/L (10-60) 07/11/23 17:26 Alkaline Phosphatase 112 IU/L (42-121) 07/11/23 17:26 Ammonia 15.8 umol/L (18-72) L 07/05/23 05:34 Total Protein 6.3 g/dL (6.4-8.9) L 07/11/23 17:26 Albumin 3.1 g/dL (3.2-5.5) L 07/11/23 17:26 Globulin 3.2 g/dL (2.1-4.2) 07/11/23 17:26 Albumin/Globulin Ratio 1.0 (1.0-2.2) 07/11/23 17:26 Triglycerides 113 mg/dL (48-352) 07/05/23 04:23 Cholesterol 122 mg/dL (-200) 07/05/23 04:23 LDL Cholesterol, Calc 62 mg/dL (-129) 07/05/23 04:23 VLDL Cholesterol 23 mg/dL 07/05/23 04:23 HDL Cholesterol 37 mg/dL (60-) L 07/05/23 04:23 LDL/HDL Ratio 1.7 (<4.4) 07/05/23 04:23 Cholesterol/HDL Ratio 3.3 (<4.4) 07/05/23 04:23 Lipase 17 U/L (11-82) 07/04/23 22:07 Procalcitonin Immunoas 0.20 ng/mL (<0.5) 07/05/23 04:23 TSH 4.75 uIU/mL (0.34-5.60) 07/05/23 04:23 Nasal Adenovirus (PCR) NOT DETECTED 07/05/23 01:00 Nasal B. parapertussis DNA (PCR) NOT DETECTED 07/05/23 01:00 Nasal Coronavir 229E PCR NOT DETECTED 07/05/23 01:00 Nasal Coronavir HKU1 PCR NOT DETECTED 07/05/23 01:00 Nasal Coronavir NL63 PCR NOT DETECTED 07/05/23 01:00 Nasal Coronavir OC43 PCR NOT DETECTED 07/05/23 01:00 Nasal Enterovir/Rhinovir PCR NOT DETECTED 07/05/23 01:00 Nasal Influenza B PCR NOT DETECTED 07/05/23 01:00 Nasal Influenza A PCR NOT DETECTED 07/05/23 01:00 Nasal Parainfluen 1 PCR NOT DETECTED 07/05/23 01:00 Nasal Parainfluen 2 PCR NOT DETECTED 07/05/23 01:00 Nasal Parainfluen 3 PCR NOT DETECTED 07/05/23 01:00 Nasal Parainfluen 4 PCR NOT DETECTED 07/05/23 01:00 Nasal RSV (PCR) NOT DETECTED 07/05/23 01:00 Nasal Screen MRSA (PCR) POSITIVE (NEGATIVE) A* 07/11/23 19:20 Nasal B.pertussis DNA PCR NOT DETECTED 07/05/23 01:00 Nasal C.pneumoniae (PCR) NOT DETECTED 07/05/23 01:00 Vance Human Metapneumo PCR NOT DETECTED 07/05/23 01:00 Nasal M.pneumoniae (PCR) NOT DETECTED 07/05/23 01:00 Nasal SARS-CoV-2 (PCR) NOT DETECTED 07/05/23 01:00 - Procedures Procedures: Procedures DILATION OF COMMON BILE DUCT, ENDO (08/05/22) DRAINAGE OF PERITONEAL CAVITY, PERCUTANEOUS APPROACH (06/12/23) EXCISION OF ASCENDING COLON, ENDO, DIAGN (10/11/16) EXCISION OF TRANSVERSE COLON, ENDO, DIAGN (10/11/16) EXTIRPATION OF MATTER FROM COMMON BILE DUCT, ENDO (08/05/22) INSERTION OF INFUSION DEV INTO SUP VENA CAVA, PERC APPROACH (01/17/21) Current Medications - Current Medications Current Medications: Active Medications Albuterol (Albuterol Neb 2.5 Mg/3 Ml) 2.5 mg INH RTQ4H PRN PRN Reason: Wheezing Last Admin: 07/13/23 05:39 Dose: 2.5 mg Albuterol/Ipratropium (Ipratropium/Albuterol 3 Ml Neb) 3 ml INH RTQ4H [facility] Last Admin: 07/13/23 19:00 Dose: 3 ml Alcohol (Ethyl Alcohol 62% Swab Ampule) 1 amp VANCE BID [facility] Last Admin: 07/13/23 21:07 Dose: 1 amp Atorvastatin Calcium (Atorvastatin 40 Mg Tablet) 40 mg PO DAILY [facility] Last Admin: 07/13/23 08:07 Dose: 40 mg Cyanocobalamin (Cyanocobalamin 500 Mcg Tablet) 500 mcg PO DAILY [facility] Last Admin: 07/13/23 08:06 Dose: 500 mcg Heparin Sodium (Porcine) (Heparin 5,000 Unit/Ml Vial) 5,000 unit SUBQ BID [facility] Last Admin: 07/13/23 21:03 Dose: 5,000 unit Hydroxyzine Pamoate (Hydroxyzine Pamoate 25 Mg Capsule) 12.5 mg PO Q8H PRN PRN Reason: Anxiety Last Admin: 07/13/23 12:24 Dose: 12.5 mg Albumin Human (Albuminar-25) 12.5 gm in 50 mls @ 50 mls/hr IV Q8H [facility] Stop: 07/15/23 03:59 Last Infusion: 07/13/23 21:21 Dose: Infused Insulin Human Lispro (Insulin Lispro 300 Unit/3 Ml Pen) 1 - 9 unit SUBQ 0800,1200,1700,2100 [facility]; Protocol Last Admin: 07/13/23 21:05 Dose: 9 unit Levothyroxine Sodium (Levothyroxine 25 Mcg Tablet) 25 mcg PO QDAC [facility] Last Admin: 07/13/23 06:14 Dose: 25 mcg Metoprolol Succinate (Metoprolol Succinate 25 Mg Tablet) 25 mg PO 1600 [facility] Last Admin: 07/13/23 15:19 Dose: 25 mg Midodrine (Midodrine 10 Mg Tablet) 10 mg PO TIDWM [facility] Last Admin: 07/13/23 16:59 Dose: 10 mg Multi-Ingredient Ointment (Zinc Oxide 20% Oint 30 Gm Tube) 1 applic TOP PRN PRN PRN Reason: Skin Care Last Admin: 07/12/23 23:54 Dose: 1 applic Multivitamins (Multivitamin Tablet) 1 tab PO DAILYWM [facility] Last Admin: 07/13/23 08:06 Dose: 1 tab Octreotide Acetate (Octreotide 100 Mcg/Ml Vial) 100 mcg SUBQ TID [facility] Last Admin: 07/13/23 21:12 Dose: 100 mcg Ondansetron HCl (Ondansetron 4 Mg/2 Ml Vial) 4 mg IVP Q6HR PRN PRN Reason: Nausea / Vomiting Pantoprazole Sodium (Pantoprazole 40 Mg Tablet) 40 mg PO BID [facility] Last Admin: 07/13/23 21:07 Dose: 40 mg Prednisone (Prednisone 20 Mg Tablet) 20 mg PO DAILYWM [facility] Saccharomyces Boulardii (Saccharomyces Boulardii 250 Mg Capsule) 250 mg PO BIDWM [facility] Last Admin: 07/13/23 16:59 Dose: 250 mg Sertraline HCl (Sertraline 50 Mg Tablet) 100 mg PO DAILY [facility] Last Admin: 07/13/23 08:07 Dose: 100 mg Sodium Chloride (Sodium Chloride Flush 0.9% 10 Ml Syringe) 10 ml IVP PRN PRN PRN Reason: NEEDED PER PROVIDER ORDERS Last Admin: 07/08/23 22:36 Dose: 10 ml Sodium Chloride (Sodium Chloride Flush 0.9% 10 Ml Syringe) 10 ml IVP 0100,0900,1700 [facility] Last Admin: 07/13/23 17:00 Dose: 10 ml Sodium Zirconium Cyclosilicate (Sodium Zirconium Cyclosilicate 5 Gm Packet) 10 gm PO TID [facility] Last Admin: 07/13/23 21:12 Dose: 10 gm Metoprolol Succinate [Toprol Xl] 25 mg PO DAILY 08/05/22 Albuterol Sulf [Ventolin Hfa Inhaler] 2 puffs INH TID PRN 02/21/23 Ferrous Sulfate [Feosol] 325 mg PO MOWEFR 07/05/23 Furosemide [Lasix] 20 mg PO DAILY 07/05/23 Lactobacillus Combination No.4 [Probiotic] 1 cap PO DAILY 07/05/23 Potassium Chloride 20 meq PO DAILY 07/05/23
[2023-07-14 06:06] LABS: BASOPHILS % (AUTO) 0.1 %; EOSINOPHILS % (AUTO) 0.5 %; HCT - HEMATOCRIT 28.5 % (37.0-47.0); HGB - HEMOGLOBIN 8.3 g/dL (12.0-16.0); LYMPHOCYTES # (AUTO) 0.8 10^3/uL (1.5-3.5); LYMPHOCYTES % (AUTO) 8.9 %; MEAN CORPUSCULAR HEMOGLOBIN 25.3 pg (27.0-31.0); MEAN CORPUSCULAR HGB CONC 29.1 g/dL (32.0-36.0); MEAN CORPUSCULAR VOLUME 86.9 fL (81.0-99.0); MEAN PLATELET VOLUME 9.5 fL (7.9-10.8); MONOCYTES # (AUTO) 0.9 10^3/uL (0.0-1.0); NEUTROPHILS # (AUTO) 6.7 10^3/uL (1.5-6.6); NEUTROPHILS % (AUTO) 79.1 %; PLT - PLATELET COUNT 210 10^3/uL (130-450); RED BLOOD COUNT 3.28 10^6/uL (4.20-5.40); RED CELL DISTRIBUTION WIDTH 17.1 % (12.0-15.0); WHITE BLOOD COUNT 8.4 x10^3/uL (4.8-10.8)
[2023-07-14 06:47] LABS: ALBUMIN 3.4 g/dL (3.2-5.5); ALBUMIN/GLOBULIN RATIO 1.4 (1.0-2.2); BILIRUBIN,TOTAL 0.2 mg/dL (0.2-1.0); CALCIUM 9.3 mg/dL (8.5-10.3); CREATININE 3.8 mg/dL (0.6-1.3); MAGNESIUM 1.9 mg/dL (1.7-2.3); POTASSIUM 5.6 mmol/L (3.5-4.5); TOTAL PROTEIN 5.9 g/dL (6.4-8.9)
--- NOTE | 2023-07-14 07:46 | DISCHARGE SUMMARY ---
"Discharge Summary Admit Date: 07/05/23 Discharge Date: 07/14/23 Discharging Provider: Jah Colbert MD Primary Care Provider: Mathieu Berry MD Code Status: Do Not Attempt Resuscitation Condition at Discharge: Fair Discharge Disposition: 02 Transfer Acute Care Hosp Discharge Facility Name: [facility] - DIAGNOSES Admission Diagnoses: (1) Acute respiratory failure with hypoxia (2) HCAP (healthcare-associated pneumonia) (3) Liver Cirrhosis (4) Orthostatic hypotension (5) Acute kidney injury superimposed on CKD (6) Generalized weakness (7) Aortic moderate/stenosis, severe (8) Hyperkalemia Discharge Diagnoses with Status of Each Condition: (1) Acute respiratory failure with hypoxia (2) HCAP (healthcare-associated pneumonia) (3) Liver Cirrhosis (4) Orthostatic hypotension (5) Acute kidney injury superimposed on CKD (6) Generalized weakness (7) Aortic moderate/stenosis, severe (8) Hyperkalemia - HPI History of Present Illness: Ariana Rosa is a 78 year old woman admitted on June 12, 2023 with a chief complaint of shortness of breath. Patient was scheduled to undergo a paracentesis on the day of admission but was very short of breath and presented to the emergency room for further evaluation. She initially required BiPAP for respiratory support. She has a past medical history significant for emphysema, moderate aortic stenosis and liver disease of unknown etiology but most likely related to fatty liver disease. During this hospitalization she underwent [address] scan of the abdomen pelvis performed on July 04, 2023 reveals a liver that has nodular contour consistent with cirrhosis and a large amount of ascites. Patient also has a left pleural effusion. The study also demonstrated mild diverticulosis without acute diverticulitis and multiple chronic compression fractures with severe compression of T12 and moderate compression fracture of T3 and T4. After a prolonged stay and discharged on June 26, 2023 she was transferred to a care home facility for rehab. She was readmitted to the hospital on July 05, 2023 with complaints of shortness of breath, chills and abdominal pain and distention. She was admitted to [facility] in [facility] and treated with vancomycin and cefepime for possible healthcare associated pneumonia. She underwent another paracentesis on June 15, 2023. Treatment for her underlying liver disease was initiated with spironolactone. Over the next several days her clinical condition remains stable but did not demonstrate significant improvement. On July 11, 2023 patient had an episode of altered mental status and hypoxemia. Arterial blood gas revealed hypercarbic and hypoxemic respiratory failure with a pH of 7.14, pCO2 of 74 and a pO2 of 88 on 100% FiO2. (At baseline patient has a pH of 7.37 and a pCO2 of 40). She was transferred to the intensive care unit and treated with bilevel positive airway pressure therapy and her respiratory status improved. After this event since initiating the spironolactone, patient's potassium increased above 5 and her creatinine increased from a baseline of 1.8 to 3.8. There was concern for hepatorenal syndrome and treatment was initiated with midodrine, octreotide and albumin. Goals of care were discussed with the Ariana, her Sister Ladonna, her brother Fransisco, and her niece Dr. Trinh Rosa. After some discussion the decision was made to transfer her to a Medical Center where she could have her liver failure worked up and be treated for possible hepatorenal syndrome. Medications upon discharge: Active Medications Albuterol (Albuterol Neb 2.5 Mg/3 Ml) 2.5 mg INH RTQ4H PRN PRN Reason: Wheezing Last Admin: 07/13/23 05:39 Dose: 2.5 mg Albuterol/Ipratropium (Ipratropium/Albuterol 3 Ml Neb) 3 ml INH RTQ4H [facility] Last Admin: 07/14/23 11:03 Dose: 3 ml Alcohol (Ethyl Alcohol 62% Swab Ampule) 1 amp VANCE BID [facility] Last Admin: 07/14/23 09:32 Dose: 1 amp Atorvastatin Calcium (Atorvastatin 40 Mg Tablet) 40 mg PO DAILY [facility] Last Admin: 07/14/23 09:32 Dose: 40 mg Cyanocobalamin (Cyanocobalamin 500 Mcg Tablet) 500 mcg PO DAILY [facility] Last Admin: 07/14/23 09:30 Dose: 500 mcg Heparin Sodium (Porcine) (Heparin 5,000 Unit/Ml Vial) 5,000 unit SUBQ BID [facility] Last Admin: 07/14/23 09:31 Dose: 5,000 unit Hydroxyzine Pamoate (Hydroxyzine Pamoate 25 Mg Capsule) 12.5 mg PO Q8H PRN PRN Reason: Anxiety Last Admin: 07/14/23 11:05 Dose: 12.5 mg Albumin Human (Albuminar-25) 12.5 gm in 50 mls @ 50 mls/hr IV Q8H [facility] Last Infusion: 07/14/23 03:55 Dose: Infused Albumin Human (Albuminar-25) 12.5 gm in 50 mls @ 50 mls/hr IV Q8H [facility] Last Admin: 07/14/23 11:04 Dose: 50 mls/hr Insulin Human Lispro (Insulin Lispro 300 Unit/3 Ml Pen) 1 - 9 unit SUBQ 0800,12 00,1700,2100 [facility]; Protocol Last Admin: 07/14/23 09:29 Dose: 3 unit Levothyroxine Sodium (Levothyroxine 25 Mcg Tablet) 25 mcg PO QDAC [facility] Last Admin: 07/14/23 06:07 Dose: 25 mcg Midodrine (Midodrine 10 Mg Tablet) 10 mg PO TIDWM [facility] Last Admin: 07/14/23 11:04 Dose: 10 mg Multi-Ingredient Ointment (Zinc Oxide 20% Oint 30 Gm Tube) 1 applic TOP PRN PRN PRN Reason: Skin Care Last Admin: 07/12/23 23:54 Dose: 1 applic Multivitamins (Multivitamin Tablet) 1 tab PO DAILYWM [facility] Last Admin: 07/14/23 09:30 Dose: 1 tab Octreotide Acetate (Octreotide 100 Mcg/Ml Vial) 100 mcg SUBQ TID [facility] Last Admin: 07/14/23 06:07 Dose: 100 mcg Ondansetron HCl (Ondansetron 4 Mg/2 Ml Vial) 4 mg IVP Q6HR PRN PRN Reason: Nausea / Vomiting Pantoprazole Sodium (Pantoprazole 40 Mg Tablet) 40 mg PO BID [facility] Last Admin: 07/14/23 09:31 Dose: 40 mg Prednisone (Prednisone 20 Mg Tablet) 20 mg PO DAILYWM [facility] Last Admin: 07/14/23 09:30 Dose: 20 mg Saccharomyces Boulardii (Saccharomyces Boulardii 250 Mg Capsule) 250 mg PO BIDWM [facility] Last Admin: 07/14/23 09:30 Dose: 250 mg Sertraline HCl (Sertraline 50 Mg Tablet) 100 mg PO DAILY [facility] Last Admin: 07/14/23 09:30 Dose: 100 mg Sodium Chloride (Sodium Chloride Flush 0.9% 10 Ml Syringe) 10 ml IVP PRN PRN PRN Reason: NEEDED PER PROVIDER ORDERS Last Admin: 07/14/23 02:54 Dose: 10 ml Sodium Chloride (Sodium Chloride Flush 0.9% 10 Ml Syringe) 10 ml IVP 0100,0900,1700 [facility] Last Admin: 07/14/23 09:32 Dose: 10 ml Sodium Zirconium Cyclosilicate (Sodium Zirconium Cyclosilicate 5 Gm Packet) 10 gm PO TID [facility] Last Admin: 07/14/23 06:06 Dose: 10 gm - CONSULTS | PROCEDURES Procedures: Paracentesis 07/05/2023 - HOSPITAL COURSE Hospital Course: See History of Present Illness - ALLERGIES Allergies/Adverse Reactions: Allergies Allergy/AdvReac Type Severity Reaction Status Date / Time acetaminophen [From Percocet] Allergy Unknown Verified 07/04/23 23:07 oxycodone [From Percocet] Allergy Unknown Verified 07/04/23 23:07 - MEDICATIONS Home Medications: Ambulatory Orders Medication Instructions Recorded Confirmed Atorvastatin Calcium 40 mg PO DAILY #1 06/26/23 07/05/23 Levothyroxine [Synthroid] 25 mcg PO DAILY #0 06/26/23 07/05/23 Pantoprazole [Protonix] 40 mg PO BID #0 06/26/23 07/05/23 Sertraline HCl 100 mg PO DAILY #0 06/26/23 07/05/23 Lactobacillus Combination No.4 1 cap PO DAILY 07/05/23 07/05/23 [Probiotic] Albumin 25% [Albuminar-25] 12.5 gm IV Q8H ml 07/14/23 Albumin 25% [Albuminar-25] 12.5 gm IV Q8H ml 07/14/23 Albuterol 2.5 mg INH RTQ4H PRN ml 07/14/23 Cyanocobalamin [Vitamin B-12] 500 mcg PO DAILY tab 07/14/23 Heparin [Heparin Sodium (Porcine)] 5,000 unit SUBQ BID ml 07/14/23 Insulin Lispro [Humalog Kwikpen 1 - 9 unit SUBQ 07/14/23 U-100] 0800,1200,1700,2100 ml Ipratropium/Albuterol [Duoneb] 3 ml INH RTQ4H ml 07/14/23 Midodrine [ProAmantine] 10 mg PO TIDWM tab 07/14/23 Multivitamin [Theragran] 1 tab PO DAILYWM tab 07/14/23 Octreotide [Sandostatin] 100 mcg SUBQ TID ml 07/14/23 Ondansetron Inj [Zofran Inj] 4 mg IVP Q6HR PRN ml 07/14/23 Saccharomyces Boulardii [Florastor] 250 mg PO BIDWM cap 07/14/23 Sodium Zirconium Cyclosilicate 10 gm PO TID packet 07/14/23 [Lokelma] Zinc Oxide 20% Oint [Zinc Oxide] 1 applic TOP PRN PRN each 07/14/23 hydrOXYzine PAMOATE [Vistaril] 12.5 mg PO Q8H PRN cap 07/14/23 predniSONE [Deltasone] 20 mg PO DAILYWM tab 07/14/23 - PHYSICAL EXAM AT DISCHARGE General Appearance: positive: No acute distress, Alert Eyes Bilateral: positive: PERRL, Conjunctivae nml, No scleral icterus Neck: positive: Thyroid nml, Trachea midline Respiratory: positive: Other (Fair air exchange in all lung dc. No wheezing no crackles.) Cardiovascular: positive: Other (Positive S1-S2 no extra heart sounds) Abdomen: positive: Non-tender, Nml bowel sounds, Other (Positive ascites) Skin: positive: No rash Extremities: positive: Pedal edema Neurologic/Psychiatric: positive: Oriented x3 - LABS Result Diagrams: 07/14/23 05:58 07/14/23 05:58 - FOLLOW UP Follow Up: PCP Dr. Mathieu Berry - TIME SPENT Time Spent in Discharge (Minutes): 40 (40 minutes spent coordinating transfer.)"
--- NOTE | 2023-07-14 07:46 | Discharge Plan ---
Discharge Plan for SNF / [facility] - Discharge Plan And Transition Orders Problem Reviewed?: Yes Disposition: 02 Transfer Acute Care Hosp Condition: Fair Allergies and Adverse Reactions: Allergies Allergy/AdvReac Type Severity Reaction Status Date / Time acetaminophen [From Percocet] Allergy Unknown Verified 07/04/23 23:07 oxycodone [From Percocet] Allergy Unknown Verified 07/04/23 23:07 Health Concerns: Ariana Rosa is a 78 year old woman admitted on June 12, 2023 with a chief complaint of shortness of breath. Patient was scheduled to undergo a paracentesis on the day of admission but was very short of breath and presented to the emergency room for further evaluation. She initially required BiPAP for respiratory support. She has a past medical history significant for emphysema, moderate aortic st enosis and liver disease of unknown etiology but most likely related to fatty liver disease. During this hospitalization she underwent [address] scan of the abdomen pelvis performed on July 04, 2023 reveals a liver that has nodular contour consistent with cirrhosis and a large amount of ascites. Patient also has a left pleural effusion. The study also demonstrated mild diverticulosis without acute diverticulitis and multiple chronic compression fractures with severe compression of T12 and moderate compression fracture of T3 and T4. After a prolonged stay and discharged on June 26, 2023 she was transferred to a long-term facility for rehab. She was readmitted to the hospital on July 05, 2023 with complaints of shortness of breath, chills and abdominal pain and distention. She was admitted to [facility] in [facility] and treated with vancomycin and cefepime for possible healthcare associated pneumonia. She underwent another paracentesis on June 15, 2023. Treatment for her underlying liver disease was initiated with spironolactone. Over the next several days her clinical condition remains stable but did not demonstrate significant improvement. On July 11, 2023 patient had an episode of altered mental status and hypoxemia. Arterial blood gas revealed hypercarbic and hypoxemic respiratory failure with a pH of 7.14, pCO2 of 74 and a pO2 of 88 on 100% FiO2. (At baseline patient has a pH of 7.37 and a pCO2 of 40). She was transferred to the intensive care unit and treated with bilevel positive airway pressure therapy and her respiratory status improved. After this event since initiating the spironolactone, patient's potassium increased above 5 and her creatinine increased from a baseline of 1.8 to 3.8. There was concern for hepatorenal syndrome and treatment was initiated with midodrine, octreotide and albumin. Goals of care were discussed with the Ariana, her Sister Ladonna, her brother Fransisco, and her niece Dr. Trinh Rosa. After some discussion the decision was made to transfer her to a Medical Center where she could have her liver failure worked up and be treated for possible hepatorenal syndrome. Medications upon discharge: Active Medications Albuterol (Albuterol Neb 2.5 Mg/3 Ml) 2.5 mg INH RTQ4H PRN PRN Reason: Wheezing Last Admin: 07/13/23 05:39 Dose: 2.5 mg Albuterol/Ipratropium (Ipratropium/Albuterol 3 Ml Neb) 3 ml INH RTQ4H [facility] Last Admin: 07/14/23 11:03 Dose: 3 ml Alcohol (Ethyl Alcohol 62% Swab Ampule) 1 amp VANCE BID [facility] Last Admin: 07/14/23 09:32 Dose: 1 amp Atorvastatin Calcium (Atorvastatin 40 Mg Tablet) 40 mg PO DAILY [facility] Last Admin: 07/14/23 09:32 Dose: 40 mg Cyanocobalamin (Cyanocobalamin 500 Mcg Tablet) 500 mcg PO DAILY [facility] Last Admin: 07/14/23 09:30 Dose: 500 mcg Heparin Sodium (Porcine) (Heparin 5,000 Unit/Ml Vial) 5,000 unit SUBQ BID [facility] Last Admin: 07/14/23 09:31 Dose: 5,000 unit Hydroxyzine Pamoate (Hydroxyzine Pamoate 25 Mg Capsule) 12.5 mg PO Q8H PRN PRN Reason: Anxiety Last Admin: 07/14/23 11:05 Dose: 12.5 mg Albumin Human (Albuminar-25) 12.5 gm in 50 mls @ 50 mls/hr IV Q8H [facility] Last Infusion: 07/14/23 03:55 Dose: Infused Albumin Human (Albuminar-25) 12.5 gm in 50 mls @ 50 mls/hr IV Q8H [facility] Last Admin: 07/14/23 11:04 Dose: 50 mls/hr Insulin Human Lispro (Insulin Lispro 300 Unit/3 Ml Pen) 1 - 9 unit SUBQ 0800,1200,1700,2100 [facility]; Protocol Last Admin: 07/14/23 09:29 Dose: 3 unit Levothyroxine Sodium (Levothyroxine 25 Mcg Tablet) 25 mcg PO QDAC [facility] Last Admin: 07/14/23 06:07 Dose: 25 mcg Midodrine (Midodrine 10 Mg Tablet) 10 mg PO TIDWM [facility] Last Admin: 07/14/23 11:04 Dose: 10 mg Multi-Ingredient Ointment (Zinc Oxide 20% Oint 30 Gm Tube) 1 applic TOP PRN PRN PRN Reason: Skin Care Last Admin: 07/12/23 23:54 Dose: 1 applic Multivitamins (Multivitamin Tablet) 1 tab PO DAILYWM [facility] Last Admin: 07/14/23 09:30 Dose: 1 tab Octreotide Acetate (Octreotide 100 Mcg/Ml Vial) 100 mcg SUBQ TID [facility] Last Admin: 07/14/23 06:07 Dose: 100 mcg Ondansetron HCl (Ondansetron 4 Mg/2 Ml Vial) 4 mg IVP Q6HR PRN PRN Reason: Nausea / Vomiting Pantoprazole Sodium (Pantoprazole 40 Mg Tablet) 40 mg PO BID [facility] Last Admin: 07/14/23 09:31 Dose: 40 mg Prednisone (Prednisone 20 Mg Tablet) 20 mg PO DAILYWM [facility] Last Admin: 07/14/23 09:30 Dose: 20 mg Saccharomyces Boulardii (Saccharomyces Boulardii 250 Mg Capsule) 250 mg PO BIDWM [facility] Last Admin: 07/14/23 09:30 Dose: 250 mg Sertraline HCl (Sertraline 50 Mg Tablet) 100 mg PO DAILY [facility] Last Admin: 07/14/23 09:30 Dose: 100 mg Sodium Chloride (Sodium Chloride Flush 0.9% 10 Ml Syringe) 10 ml IVP PRN PRN PRN Reason: NEEDED PER PROVIDER ORDERS Last Admin: 07/14/23 02:54 Dose: 10 ml Sodium Chloride (Sodium Chloride Flush 0.9% 10 Ml Syringe) 10 ml IVP 0100,0900,1700 [facility] Last Admin: 07/14/23 09:32 Dose: 10 ml Sodium Zirconium Cyclosilicate (Sodium Zirconium Cyclosilicate 5 Gm Packet) 10 gm PO TID [facility] Last Admin: 07/14/23 06:06 Dose: 10 gm Plan of Treatment: Transfer to a higher level of care for treatment of her liver disease and most likely hepatorenal syndrome. Care Goals: Patient is DO NOT RESUSCITATE. Goal of transfer is to treat her hepatorenal syndrome and to be evaluated by a outcome analyst for her underlying liver disease. Assessment: (1) Acute respiratory failure with hypoxia Assessment/Plan: Etiology of shortness of breath is not clear but most likely is multifactorial in nature and secondary to underlying valvular heart disease, lung disease, and most importantly significant cirrhotic liver disease. The etiology of the liver disease is not known but most likely is related to fatty liver disease. During this hospitalization she has been treated with IV vancomycin and cefepime for possible healthcare associated pneumonia. She has completed her course of antibiotics. On 07/11/2022 I was called to her bedside for worsening hypoxemia. Upon arrival patient skin was dusky and oxygen saturation was 65 to 75%. Patient was bagged on 100% oxygen. She is DO NOT RESUSCITATE and DO NOT INTUBATE. During this episode she was unresponsive. After several minutes we were able to get her oxygen saturation in the 90% range. She was transferred to the intensive care unit and placed on bilevel positive airway pressure therapy. A chest x-ray was performed which revealed significant bilateral alveolar opacities consistent with acute inflammation or edema. Arterial blood gas was performed which revealed a significant change in her pCO2. It did increase from 40 to 74 and pH had decreased from 7.37-7.14. After being placed on bilevel positive airway pressure therapy, patient's respiratory status significantly improved and FiO2 was weaned to 40%. Patient is now alert and answering questions. She is no longer requiring bilevel positive airway pressure therapy for respiratory support. Plan: Continue to monitor respiratory status. (2) HCAP (healthcare-associated pneumonia) Assessment/Plan: Patient has completed a course of broad-spectrum antibiotic coverage with IV vancomycin and cefepime for a possible healthcare associated pneumonia. It is unclear at this time if patient truly had pneumonia. (3) Tense ascites Assessment/Plan: Patient has chronic ascites. CT scan of the abdomen pelvis performed on July 04, 2023 reveals a liver that has nodular contour consistent with cirrhosis and a large amount of ascites. Patient also has a left pleural effusion. The study also demonstrated mild diverticulosis without acute diverticulitis and multiple chronic compression fractures with severe compression of T12 and moderate compression fracture of T3 and T4. Etiology of liver failure is not clear but most likely is related to fatty liver disease. (4) Orthostatic hypotension Assessment/Plan: Orthostatic hypotension most likely related to underlying liver disease. 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 She had a renal sono and results were unremarkable (except large ascites was reported then) Patient's renal function appears to be worsening. Plan: Avoid nephrotoxins Renally dose her meds Increased dose of midodrine to 10 mg 3 times a day Initiate treatment with octreotide 100 mcg subcutaneously 3 times a day Initiate treatment with albumin 50 to 100 g daily. (6) Generalized weakness Assessment/Plan: Multifactorial Plan: Supportive mgmt Patient has been refusing physical therapy. (7) Aortic stenosis, severe Assessment/Plan: She had an Echo in 02/2023 (4 mos ago) that showed moderate/severe , with a p reserved LVEF of 60% At late afternoon, she was tachypneic and diaphoretic and I examine her and rales were heard. I ordered HOB elevated. A CXR was done 07/07 for sudden orthopnea and it showed mild interstitial changes (CHF) Plan: When her BP will tolerate it, she needs a higher dose of Spironolactone and/or Lasix She thought her re-accumulation of ascites was from the aortic stenosis, and I educated her that her ascites is from her liver disease. She mentioned that she will be seeing a [facility] in mid-Jul. Goals of care: Goals of care were discussed with Ariana, her Sister Ladonna, her brother Fransisco and her niece, Trinh Rosa. Ariana remains DO NOT RESUSCITATE, however, she would like to have an expert opinion regarding her underlying liver disease. Plan is to transfer to an accepting facility with gastroenterology and possibly merchant patroller. - SNF / LONGTERM Transition Orders Admit to (Facility): [facility] Under the care of (Name): Dr. Blanco Persaud Discharge Diagnosis: (1) Acute respiratory failure with hypoxia (2) HCAP (healthcare-associated pneumonia) (3) Liver Cirrhosis (4) Orthostatic hypotension (5) Acute kidney injury superimposed on CKD (6) Generalized weakness (7) Aortic moderate/stenosis, severe (8) Hyperkalemia Medicare Certification Statement: Notify PCP of admission and forward orders to primary provider for signature. Other Notification Orders: Call PCP immediately if patient develops dyspnea, chest pain/tightness or edema. Additional Bowel Program Orders: If no BM after 2 days, nurse may give M.O.M. 30ml PO PRN and/or ducolax Supp 1 AR and/or LORENA 250mg P.O., and/or senna 1-2 tabs PO. On day 3 nurse may give repeat above order until residents constipation is resolved. Annual Influenza Vaccine (between Feb 08 and September 07): No Two-step PPD per [facility] [id number] or approved exception documents: No Oxygen Orders: 2 LPM by Nasal Cannula Medication Orders: PLEASE REFER TO THE DISCHARGE MEDICATION LIST. Insulin Orders?: Yes - Diet Type: No added sugar Texture: Mech soft Liquids: Thin May have monthly special meal: No Follow Up: PCP Mathieu Berry MD
[2023-07-14] MEDS: predniSONE 20 MG TABLET PO SCH (09:30)
[2023-07-14] MEDS: ALBUMIN 25% 12.5 GM/50 ML VIAL IV SCH (11:04)
--- NOTE | 2023-07-14 11:48 | PROVIDER PROGRESS NOTE ---
Assessment/Plan - Current Meds Current Meds: Current Medications Generic Name Dose Route Start Last Admin Trade Name Freq PRN Reason Stop Dose Admin Albuterol 2.5 mg 07/06/23 18:26 07/13/23 05:39 Albuterol Neb 2.5 Mg/3 Ml INH 2.5 mg RTQ4H PRN Administration Wheezing Albuterol/Ipratropium 3 ml 07/11/23 20:00 07/14/23 11:03 Ipratropium/Albuterol 3 Ml Neb INH 3 ml RTQ4H EDUARDA Administration Alcohol 1 amp 07/05/23 09:00 07/14/23 09:32 Ethyl Alcohol 62% Swab Ampule VANCE 1 amp BID EDUARDA Administration Atorvastatin Calcium 40 mg 07/05/23 09:00 07/14/23 09:32 Atorvastatin 40 Mg Tablet PO 40 mg DAILY EDUARDA Administration Cyanocobalamin 500 mcg 07/05/23 09:00 07/14/23 09:30 Cyanocobalamin 500 Mcg Tablet PO 500 mcg DAILY EDUARDA Administration Heparin Sodium (Porcine) 5,000 unit 07/05/23 09:00 07/14/23 09:31 Heparin 5,000 Unit/Ml Vial SUBQ 5,000 unit BID EDUARDA Administration Hydroxyzine Pamoate 12.5 mg 07/13/23 12:04 07/14/23 11:05 Hydroxyzine Pamoate 25 Mg Capsule PO 12.5 mg Q8H PRN Administration Anxiety Albumin Human 12.5 gm in 50 mls @ 50 mls/hr 07/13/23 11:00 07/14/23 03:55 Albuminar-25 IV Infused Q8H EDUARDA Infusion Albumin Human 12.5 gm in 50 mls @ 50 mls/hr 07/14/23 12:00 07/14/23 11:04 Albuminar-25 IV 50 mls/hr Q8H EDUARDA Administration Insulin Human Lispro 1 - 9 unit 07/13/23 17:29 07/14/23 09:29 Insulin Lispro 300 Unit/3 Ml Pen SUBQ 3 unit 0800,1200,1700,2100 EDUARDA Administration Protocol Levothyroxine Sodium 25 mcg 07/05/23 07:00 07/14/23 06:07 Levothyroxine 25 Mcg Tablet PO 25 mcg QDAC EDUARDA Administration Metoprolol Succinate 25 mg 07/05/23 16:00 07/13/23 15:19 Metoprolol Succinate 25 Mg Tablet PO 25 mg 1600 EDUARDA Administration Midodrine 10 mg 07/13/23 12:00 07/14/23 11:04 Midodrine 10 Mg Tablet PO 10 mg TIDWM EDUARDA Administration Multi-Ingredient Ointment 1 applic 07/05/23 04:33 07/12/23 23:54 Zinc Oxide 20% Oint 30 Gm Tube TOP 1 applic PRN PRN Administration Skin Care Multivitamins 1 tab 07/05/23 08:00 07/14/23 09:30 Multivitamin Tablet PO 1 tab DAILYWM EDUARDA Administration Octreotide Acetate 100 mcg 07/13/23 14:00 07/14/23 06:07 Octreotide 100 Mcg/Ml Vial SUBQ 100 mcg TID EDUARDA Administration Pantoprazole Sodium 40 mg 07/05/23 09:00 07/14/23 09:31 Pantoprazole 40 Mg Tablet PO 40 mg BID EDUARDA Administration Prednisone 20 mg 07/14/23 08:00 07/14/23 09:30 Prednisone 20 Mg Tablet PO 20 mg DAILYWM EDUARDA Administration Saccharomyces Boulardii 250 mg 07/05/23 08:00 07/14/23 09:30 Saccharomyces Boulardii 250 Mg Capsule PO 250 mg BIDWM EDUARDA Administration Sertraline HCl 100 mg 07/05/23 09:00 07/14/23 09:30 Sertraline 50 Mg Tablet PO 100 mg DAILY EDUARDA Administration Sodium Chloride 10 ml 07/05/23 02:32 07/14/23 02:54 Sodium Chloride Flush 0.9% 10 Ml Syringe IVP 10 ml PRN PRN Administration NEEDED PER PROVIDER ORDERS Sodium Chloride 10 ml 07/05/23 09:00 07/14/23 09:32 Sodium Chloride Flush 0.9% 10 Ml Syringe IVP 10 ml 0100,0900,1700 EDUARDA Administration Sodium Zirconium Cyclosilicate 10 gm 07/13/23 10:22 07/14/23 06:06 Sodium Zirconium Cyclosilicate 5 Gm Packet PO 10 gm TID EDUARDA Administration - Lab Result Fish Bone Diagrams: 07/14/23 05:58 07/14/23 05:58 - Additional Planning My Orders: My Active Orders 07/13/23 11:00 Albumin 25% [Albuminar-25] 12.5 gm in 50 ml IV Q8H 07/13/23 12:00 Midodrine [ProAmantine] 10 mg PO TIDWM 07/13/23 12:04 hydrOXYzine PAMOATE [VistariL] 12.5 mg PO Q8H PRN 07/13/23 14:00 Octreotide [SandoSTATIN] 100 mcg SUBQ TID 07/13/23 16:56 Resp Teach Nebulizer/MDI [RC] .ONCE 07/13/23 17:29 Insulin Lispro [Humalog Kwikpen U-100] 1 - 9 unit SUBQ 0800,1200,1700,2100 07/14/23 08:00 predniSONE [Deltasone] 20 mg PO DAILYWM 07/14/23 12:00 Albumin 25% [Albuminar-25] 12.5 gm in 50 ml IV Q8H Objective Vital Signs: Vital Signs - 24 hr 07/13/23 07/13/23 07/13/23 12:00 13:00 13:56 Temperature 36.6 C 36.8 C Heart Rate Heart Rate [ 85 93 Monitoring electrodes] Respiratory 23 28 H Rate Blood Pressure [Left Brachial artery] Blood Pressure 123/81 H 121/61 [Right Brachial artery] O2 Saturation 100 97 If not protocol 2 2 : Oxygen Flow, liters/minute 07/13/23 07/13/23 07/13/23 15:30 17:00 19:00 Temperature Heart Rate 84 94 Heart Rate [ 105 H Monitoring electrodes] Respiratory 20 31 H 20 Rate Blood Pressure [Left Brachial artery] Blood Pressure 119/71 [Right Brachial artery] O2 Saturation 98 If not protocol 2 2 2 : Oxygen Flow, liters/minute 07/13/23 07/14/23 07/14/23 20:29 00:00 07:25 Temperature 36.8 C 36.4 C L Heart Rate Heart Rate [ 94 90 Monitoring electrodes] Respiratory 31 H 17 Rate Blood Pressure [Left Brachial artery] Blood Pressure 129/61 127/73 [Right Brachial artery] O2 Saturation 97 97 If not protocol 2 2 2 : Oxygen Flow, liters/minute 07/14/23 07/14/23 07/14/23 07:27 08:27 11:10 Temperature 37 C Heart Rate 90 80 Heart Rate [ 87 Monitoring electrodes] Respiratory 20 16 20 Rate Blood Pressure 135/83 H [Left Brachial artery] Blood Pressure [Right Brachial artery] O2 Saturation 99 If not protocol 2 2 2 : Oxygen Flow, liters/minute Oxygen O2 Source Nasal cannula I&O (Last 24 Hrs): Intake and Output Totals x24h 07/12/23 07/13/23 07/14/23 23:59 23:59 23:59 Intake Total 1070 1450 270 Output Total 310 255 150 Balance 760 1195 120 - Results Results: Laboratory Results WBC 8.4 x10^3/uL (4.8-10.8) 07/14/23 05:58 RBC 3.28 10^6/uL (4.20-5.40) L 07/14/23 05:58 Hgb 8.3 g/dL (12.0-16.0) L 07/14/23 05:58 Hct 28.5 % (37.0-47.0) L 07/14/23 05:58 MCV 86.9 fL (81.0-99.0) 07/14/23 05:58 MCH 25.3 pg (27.0-31.0) L 07/14/23 05:58 MCHC 29.1 g/dL (32.0-36.0) L 07/14/23 05:58 RDW 17.1 % (12.0-15.0) H 07/14/23 05:58 Plt Count 210 10^3/uL (130-450) 07/14/23 05:58 MPV 9.5 fL (7.9-10.8) 07/14/23 05:58 Neut # (Auto) 6.7 10^3/uL (1.5-6.6) H 07/14/23 05:58 Lymph # (Auto) 0.8 10^3/uL (1.5-3.5) L 07/14/23 05:58 [place] # (Auto) 0.9 10^3/uL (0.0-1.0) 07/14/23 05:58 Eos # (Auto) 0.0 10^3/uL (0.0-0.7) 07/14/23 05:58 Baso # (Auto) 0.0 10^3/uL (0.0-0.1) 07/14/23 05:58 Absolute Nucleated RBC 0.00 x10^3/uL 07/14/23 05:58 Nucleated RBC % 0.0 /100WBC 07/14/23 05:58 Manual Slide Review Indicated 07/12/23 10:25 Platelet Estimate NORMAL (130-450,000) (NORMAL) 07/12/23 10:25 Platelet Morphology NORMAL APPEARANCE (NORMAL) 07/12/23 10:25 RBC Morph Micro Appear 3+ HYPOCHROMASIA (NORMAL) 07/12/23 10:25 PT 11.5 secs (9.9-12.6) 07/04/23 22:07 INR 1.1 (0.8-1.2) 07/04/23 22:07 Bld Gas Analysis Time 204107/11/23 20:35 Sample Site RIGHT RADIAL 07/11/23 20:35 ABG pH 7.26 (7.35-7.45) L 07/11/23 20:35 ABG pCO2 54 mmHg (34-45) H 07/11/23 20:35 ABG pO2 158 mmHg (80-100) H* 07/11/23 20:35 ABG HCO3 23.8 mmol/L (22.0-26.0) 07/11/23 20:35 ABG Total CO2 25.4 MMOL/L (21.0-29.0) 07/11/23 20:35 ABG O2 Saturation 99 % (94-98) H 07/11/23 20:35 ABG Base Excess -3.5 mmol/L (-2.0-3.0) L 07/11/23 20:35 Nirav Test POSITIVE 07/11/23 20:35 VBG pH 7.318 (7.31-7.41) 07/13/23 04:38 VBG pCO2 40.2 mmHg (41-51) L 07/04/23 22:07 VBG pO2 32.7 mmHg (25-47) 07/04/23 22:07 VBG HCO3 22.8 mmol/L (23-28) L 07/04/23 22:07 VBG Total CO2 24.1 mmol/L (24-29) 07/04/23 22:07 VBG O2 Saturation 65.3 % (60-80) 07/04/23 22:07 VBG Base Excess -2.2 mmol/L (-2 - +2) L 07/04/23 22:07 Ionized Calcium 1.21 mmol/L (1.15-1.33) 07/13/23 04:38 Respiration Rate 8 b/min 07/11/23 20:35 O2 Delivery Device BiPAP 07/11/23 20:35 Vent Mode SYNCHRONOUS/TIMES 07/11/23 20:35 FiO2 100.00 07/11/23 20:35 Pressure Support Vent 4 cmH2O 07/11/23 20:35 EPAP 8 cmH2O 07/11/23 20:35 IPAP 12 cmH2O 07/11/23 20:35 Sodium 135 mmol/L (135-145) 07/14/23 05:58 Potassium 5.6 mmol/L (3.5-4.5) H 07/14/23 05:58 Chloride 102 mmol/L (101-111) 07/14/23 05:58 Carbon Dioxide 26 mmol/L (21-32) 07/14/23 05:58 Anion Gap 7.0 (6-13) 07/14/23 05:58 BUN 65 mg/dL (6-20) H 07/14/23 05:58 Creatinine 3.8 mg/dL (0.6-1.3) H 07/14/23 05:58 Estimated GFR (MDRD) 12 (>89) L 07/14/23 05:58 Glucose 207 mg/dL (74-104) H 07/14/23 05:58 POC Whole Bld Glucose 213 mg/dL (70 - 100) H 07/14/23 11:20 Estimat Average Glucose 160 mg/dL (70-100) H 07/05/23 04:23 Hemoglobin A1c % 7.2 % (4.27-6.07) H 07/05/23 04:23 Lactic Acid 1.1 mmol/L (0.5-2.2) 07/05/23 04:23 Calcium 9.3 mg/dL (8.5-10.3) 07/14/23 05:58 Phosphorus 5.0 mg/dL (2.5-5.0) 07/14/23 05:58 Magnesium 1.9 mg/dL (1.7-2.3) 07/14/23 05:58 Total Bilirubin 0.2 mg/dL (0.2-1.0) 07/14/23 05:58 AST 16 IU/L (10-42) 07/14/23 05:58 ALT 13 IU/L (10-60) 07/14/23 05:58 Alkaline Phosphatase 66 IU/L (42-121) 07/14/23 05:58 Ammonia 15.8 umol/L (18-72) L 07/05/23 05:34 Total Protein 5.9 g/dL (6.4-8.9) L 07/14/23 05:58 Albumin 3.4 g/dL (3.2-5.5) 07/14/23 05:58 Globulin 2.5 g/dL (2.1-4.2) 07/14/23 05:58 Albumin/Globulin Ratio 1.4 (1.0-2.2) 07/14/23 05:58 Triglycerides 113 mg/dL (48-352) 07/05/23 04:23 Cholesterol 122 mg/dL (-200) 07/05/23 04:23 LDL Cholesterol, Calc 62 mg/dL (-129) 07/05/23 04:23 VLDL Cholesterol 23 mg/dL 07/05/23 04:23 HDL Cholesterol 37 mg/dL (60-) L 07/05/23 04:23 LDL/HDL Ratio 1.7 (<4.4) 07/05/23 04:23 Cholesterol/HDL Ratio 3.3 (<4.4) 07/05/23 04:23 Lipase 17 U/L (11-82) 07/04/23 22:07 Procalcitonin Immunoas 0.20 ng/mL (<0.5) 07/05/23 04:23 TSH 4.75 uIU/mL (0.34-5.60) 07/05/23 04:23 Nasal Adenovirus (PCR) NOT DETECTED 07/05/23 01:00 Nasal B. parapertussis DNA (PCR) NOT DETECTED 07/05/23 01:00 Nasal Coronavir 229E PCR NOT DETECTED 07/05/23 01:00 Nasal Coronavir HKU1 PCR NOT DETECTED 07/05/23 01:00 Nasal Coronavir NL63 PCR NOT DETECTED 07/05/23 01:00 Nasal Coronavir OC43 PCR NOT DETECTED 07/05/23 01:00 Nasal Enterovir/Rhinovir PCR NOT DETECTED 07/05/23 01:00 Nasal Influenza B PCR NOT DETECTED 07/05/23 01:00 Nasal Influenza A PCR NOT DETECTED 07/05/23 01:00 Nasal Parainfluen 1 PCR NOT DETECTED 07/05/23 01:00 Nasal Parainfluen 2 PCR NOT DETECTED 07/05/23 01:00 Nasal Parainfluen 3 PCR NOT DETECTED 07/05/23 01:00 Nasal Parainfluen 4 PCR NOT DETECTED 07/05/23 01:00 Nasal RSV (PCR) NOT DETECTED 07/05/23 01:00 Nasal Screen MRSA (PCR) POSITIVE (NEGATIVE) A* 07/11/23 19:20 Nasal B.pertussis DNA PCR NOT DETECTED 07/05/23 01:00 Nasal C.pneumoniae (PCR) NOT DETECTED 07/05/23 01:00 [place] Human Metapneumo PCR NOT DETECTED 07/05/23 01:00 Nasal M.pneumoniae (PCR) NOT DETECTED 07/05/23 01:00 Nasal SARS-CoV-2 (PCR) NOT DETECTED 07/05/23 01:00 - Procedures Procedures: Procedures DILATION OF COMMON BILE DUCT, ENDO (08/05/22) DRAINAGE OF PERITONEAL CAVITY, PERCUTANEOUS APPROACH (06/12/23) EXCISION OF ASCENDING COLON, ENDO, DIAGN (10/11/16) EXCISION OF TRANSVERSE COLON, ENDO, DIAGN (10/11/16) EXTIRPATION OF MATTER FROM COMMON BILE DUCT, ENDO (08/05/22) INSERTION OF INFUSION DEV INTO SUP VENA CAVA, PERC APPROACH (01/17/21)
[2023-07-14 13:12] VITALS: BP 143/70; O2SAT 96
== END 2023-07-14 14:33 | disposition short-term general hospital (02) | DRG 189 ==
LOC: EDUNIT# → ED 21:41 → MS3 07-05 02:32 → MS2 07-05 17:22 → ICU 07-11 17:56 → MS2 07-13 22:03
PROVIDERS: ADMIT Student in an Organized Health Care Education/Training Program; ATTEND Internal Medicine
PROC: 0W9G3ZZ Drainage of Peritoneal Cavity, Percutaneous Approach (ICD-10-PCS; principal; 2023-07-05)
DX: J96.01 Acute respiratory failure with hypoxia (principal); J18.9 Pneumonia, unspecified organism; K76.7 Hepatorenal syndrome; J44.0 Chronic obstructive pulmonary disease with (acute) lower respiratory infection; K57.30 Diverticulosis of large intestine without perforation or abscess without bleeding; E11.9 Type 2 diabetes mellitus without complications; J44.1 Chronic obstructive pulmonary disease with (acute) exacerbation; J44.9 Chronic obstructive pulmonary disease, unspecified; R18.8 Other ascites; N17.9 Acute kidney failure, unspecified; J90 Pleural effusion, not elsewhere classified; K75.81 Nonalcoholic steatohepatitis (NASH); R53.1 Weakness; Y95 Nosocomial condition; I95.1 Orthostatic hypotension; I35.0 Nonrheumatic aortic (valve) stenosis; E87.5 Hyperkalemia; J96.02 Acute respiratory failure with hypercapnia; E11.22 Type 2 diabetes mellitus with diabetic chronic kidney disease; N18.9 Chronic kidney disease, unspecified; Z79.84 Long term (current) use of oral hypoglycemic drugs; I50.9 Heart failure, unspecified; F41.9 Anxiety disorder, unspecified; Z66 Do not resuscitate
CPT/HCPCS: 36415; 36600; 49083; 71045; 71250; 74176; 76770; 80048; 80053; 80061; 80069; 82140; 82330; 82803; 83036; 83605; 83690; 83735; 84100; 84132; 84145; 84443; 85025; 85610; 87040; 87150; 87633; 87640; 94640; 94660; 96365; 96366; 96368; 96375; 97162; 97166; 97530; 99285; A9270; J1815; J2354; J3370; J7512; P9047; 83721; 87205